=== PATIENT | male | born 1930 | race Caucasian/White ===

== ENCOUNTER 2017-01-28 23:22 | Emergency (ER) | payer OTHER, MEDICARE ==
--- NOTE | 2017-01-28 23:56 | ED GI/GU/ABDOMINAL COMPLAINT ---
History of Present Illness General Chief Complaint: Nausea, Vomiting, Diarrhea Stated Complaint: BIBA COFFEE GROUND EMESIS Source: patient, old records, EMS, W10 Exam Limitations: no limitations Vital Signs & Intake/Output Vital Signs & Intake/Output Vital Signs Date Time Temp Pulse Resp B/P Pulse O2 O2 Flow FiO2 Ox Delivery Rate 01/29 0320 97.9 91 18 125/58 97 Room Air 01/29 0137 98.6 97 18 137/65 95 Room Air 01/28 2340 95 Room Air 01/28 2332 98.6 96 18 124/60 95 Room Air Allergies Coded Allergies: No Known Allergies (01/28/17) Reconcile Medications Acetaminophen (Tylenol Extra Strength) 500 MG TABLET 650 MG IL Q4H PRN PAIN/ TEMP >100 (Reported) Acetaminophen (Mapap) 500 MG CAPSULE 650 MG PO Q4H PRN TEMP >100, PAIN ( Reported) Albuterol Sulfate 0.63 MG/3 ML VIAL.NEB 1 UNIT NEB Q4H PRN SOB/ WHEEZING ( Reported) 0.083% Ascorbic Acid (Vitamin C) 500 MG CAPSULE.ER 1 CAP PO DAILY VITAMIN SUPPLEMENT (Reported) Benzonatate (Tessalon Perle) 100 MG CAPSULE 1 CAP PO TID COUGH (Reported) Bisacodyl (Dulcolax) 10 MG SUPP.RECT 1 SUP RC DAILY CONSTIPATION (Reported) IF M.O.M. INEFFECTIVE Calcium Carbonate (Oysco-500) 500 MG CALCIUM (1,250 MG) TABLET 500 MG PO BID VITAMIN (Reported) Diphenhydramine HCl (Diphenhist) 25 MG CAPSULE 1 TAB PO Q8H PRN ITCHING ( Reported) Escitalopram Oxalate 20 MG TABLET 1 TAB PO DAILY ANTIDEPRESSANT (Reported) Ferrous Sulfate 325 MG (65 MG IRON) TABLET 1 TAB PO TID IRON SUPPLEMENT ( Reported) Gentamicin Sulfate 0.1 % OINT...G. 1 JUAN TOP TID L EYE DRAINAGE (Reported) apply to affected area(s) Guaifenesin (Mucinex) 600 MG TAB.ER.12H 400 MG PO BID COUGH (Reported) Guaifenesin/Dextromethorphan (Robafen-Dm Syrup) 100 MG-10 MG/5 ML SYRUP 10 ML PO Q4 PRN COUGH/ CONGESTION (Reported) Ipratropium/Albuterol Sulfate (Iprat-Albut 0.5-3(2.5) MG/3 Ml) 0.5 MG-3 MG (2.5 MG BASE)/3 ML AMPUL.NEB 1 UNIT NEB Q4H HX LUNG CA (Reported) Lorazepam 0.5 MG TABLET 1 TAB PO Q12H ANXIETY (Reported) Lorazepam (Ativan) 0.5 MG TABLET 1 TAB PO BEDTIME PRN ANXIETY (Reported) Magnesium Hydroxide (Milk Of Magnesia) 400 MG/5 ML ORAL.SUSP 30 ML PO DAILY PRN CONSTIPATION (Reported) Mirtazapine (Remeron) 15 MG TAB.RAPDIS 7.5 MG PO QHS MEMORY (Reported) Na Phos,M-B/Na Phos,Di-Ba (Fleet Enema) 19 GRAM-7 GRAM/118 ML ENEMA 1 E RC ONCE CONSTIPATION (Reported) IF BISACODYL INEFFECTIVE Ondansetron (Zofran Odt) 4 MG TAB.RAPDIS 1 TAB PO Q6H PRN NAUSEA/VOMITTING ( Reported) Oxycodone HCl (Oxycontin) 10 MG TAB.ER.12H 1 TAB PO QAM PAIN (Reported) Oxycodone HCl 5 MG CAPSULE 1 CAP PO Q4H PRN PAIN (Reported) Pregabalin (Lyrica) 50 MG CAPSULE 1 CAP PO BEDTIME DEPRESSION (Reported) Sennosides (Senna) 8.6 MG TABLET 2 TAB PO Q12H CONSTIPATION (Reported) Triage Note: TRIAGE: PATIENT POLY FROM [facility] S/P APPROX 400ML COFFEE GROUND EMESIS AT APPROX 9PM. PATIENT ARRIVES OFFERING NO COMPLAINTS OTHER THAN L EYE DISCHARGE BEING TREATED W/ TOPICAL ABX. NO WINCING/ REPORTS OF PAIN TO ABDOMEN W/ PALPATION. VSS. DENIES CP/SOB/N/V/D/ ABD PAIN. Triage Nurses Notes Reviewed? yes Onset: Just prior to arrival Duration: minute(s):, gone now Timing: recent history Quality/Severity: vomiting Radiation: no radiation Activities at Onset: rest Prior Abdominal Problems: none Past Sexual History: Unobtainable at this time No Modifying Factors: none Associated Symptoms: nausea/vomiting HPI: Prior to admission patient was noted to vomit dark material. There is no reported fever chills diarrhea chest pain cough shortness of breath headache dysuria. Past History Travel History Traveled to [place] past 21 day No Medical History Any Pertinent Medical History? 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 No Review of Systems Review of Systems Constitutional: Reports: no symptoms. EENTM: Reports: see HPI, eye pain, eye drainage. Respiratory: Reports: no symptoms. Cardiovascular: Reports: no symptoms. GI: Reports: see HPI, vomiting. Genitourinary: Reports: no symptoms. Musculoskeletal: Reports: no symptoms. Skin: Reports: no symptoms. Neurological/Psychological: Reports: no symptoms. Hematologic/Endocrine: Reports: no symptoms. Immunologic/Allergic: Reports: no symptoms. All Other Systems: Reviewed and Negative Physical Exam Physical Exam General Appearance: cachetic, lethargic, mild distress Head: atraumatic, normal appearance Eyes: Left: other (orbital erythema). Bilateral: PERRL, EOMI. Ears, Nose, Throat, Mouth: hearing grossly normal Neck: normal inspection, supple, full range of motion, normal alignment Respiratory: normal breath sounds, chest non-tender, no respiratory distress, quiet respiration, lungs clear Cardiovascular: normal peripheral pulses, irregularly irregular Peripheral Pulses: 4+ carotid (R), 4+ carotid (L) Gastrointestinal: normal bowel sounds, soft, non-tender, no organomegaly Rectal: heme positive stool Male Genitals: normal genitalia Back: normal inspection, normal range of motion, no vertebral tenderness Extremities: normal range of motion, no ligament instability 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 No Severe Sepsis Present: No Septic Shock Present: No Progress Differential Diagnosis: gastritis, pancreatitis, peptic ulcer Plan of Care: Orders Procedure Date/time Status LIPASE 01/28 2354 Complete COMPREHENSIVE METABOLIC PANEL 01/28 2354 Complete CBC WITHOUT DIFFERENTIAL 01/28 2354 Complete Laboratory Tests 01/29/17 0025: Anion Gap 5, Estimated GFR > 60, BUN/Creatinine Ratio 36.3 H, Glucose 177 H, Calcium 8.5, Total Bilirubin 0.4, AST 15 L, ALT 22, Alkaline Phosphatase 76, Total Protein 6.4, Albumin 2.8 L, Globulin 3.6, Albumin/Globulin Ratio 0.8 L, Lipase 44, CBC w Diff NO MAN DIFF REQ, RBC 3.87 L, MCV 73.0 L, MCH 22.6 L, RDW 18.8 H, MPV 8.4, Gran % 41.9 L, Lymphocytes % 55.4 H, Monocytes % 1.0 L, Eosinophils % 0.1, Basophils % 1.6, Absolute Granulocytes 3.7, Absolute Lymphocytes 4.9 H, Absolute Monocytes 0.1 L, Absolute Eosinophils 0, Absolute Basophils 0.1, PUBS MCHC 31.0 L Initial ED EKG: none Departure Departure Time of Disposition: 450 Disposition: ACUTE REHAB FACILITY Condition: Stable Clinical Impression Primary Impression: Vomiting alone Qualifiers: Vomiting type: unspecified Vomiting Intractability: non-intractable Qualified Code: R11.11 - Vomiting without nausea Secondary Impressions: Anemia Qualifiers: Anemia type: unspecified type Qualified Code: D64.9 - Anemia, unspecified Referrals: LOKESH LYNNE MD (PCP/Family) Additional Instructions: Follow up with Dr. Chase for endoscopy. Departure Forms: Customer Survey General Discharge Information
[2017-01-29] MEDS ORDERED: IPRAT-ALBUT 0.5-3 ML NEB (00:01)
[2017-01-29] MEDS ORDERED: ESCITALOPRAM OX20 MG PO (00:05)
[2017-01-29] MEDS ORDERED: SENNA8.6 M3 PO (00:06)
[2017-01-29] MEDS ORDERED: ATIVAN1 M1 PO (00:07)
[2017-01-29] MEDS ORDERED: OXYCONTIN10 M1 PO (00:07)
[2017-01-29] MEDS ORDERED: FERROUS SULFAT325 M3 PO (00:08)
[2017-01-29] MEDS ORDERED: OYSCO-500500 MG PO (00:09)
[2017-01-29] MEDS ORDERED: XARELTO20 M2 PO (00:10)
[2017-01-29] MEDS ORDERED: VITAMIN C500 M7 PO (00:10)
[2017-01-29] MEDS ORDERED: LYRICA50 M1 PO (00:12)
[2017-01-29] MEDS ORDERED: TESSALON PERLE100 M1 PO (00:14)
[2017-01-29] MEDS ORDERED: REMERON15 M3 PO (00:14)
[2017-01-29] MEDS ORDERED: MUCINEX600 M1 PO (00:15)
[2017-01-29] MEDS ORDERED: GENTAMICIN SULF30 G1 TOP (00:15)
[2017-01-29] MEDS ORDERED: TYLENOL EXTRA500 M2 PR (00:20)
[2017-01-29] MEDS ORDERED: DULCOLAX10 M1 RC (00:21)
[2017-01-29] MEDS ORDERED: FLEET ENEMA133 ML RC (00:21)
[2017-01-29] MEDS ORDERED: MAPAP500 M2 PO (00:22)
[2017-01-29] MEDS ORDERED: MILK OF MA400 MG/52 PO (00:23)
[2017-01-29] MEDS ORDERED: OXYCODONE HCL5 M2 PO (00:23)
[2017-01-29] MEDS ORDERED: ALBUTEROL0.63 MG/1 NEB (00:26)
[2017-01-29] MEDS ORDERED: ROBAFEN-DM SYR118 ML PO (00:26)
[2017-01-29] MEDS ORDERED: ATIVAN0.5 M1 PO (00:27)
[2017-01-29] MEDS ORDERED: ZOFRAN ODT4 M1 PO (00:27)
[2017-01-29] MEDS ORDERED: DIPHENHIST25 MG PO (00:27)
[2017-01-29 00:37] LABS: ABSOLUTE BASOPHIL COUNT 0.1 /CUMM (0.0-0.2); ABSOLUTE EOSINOPHIL COUNT 0 /CUMM (0.0-0.7); ABSOLUTE GRANULOCYTE CT 3.7 /CUMM (1.4-6.5); ABSOLUTE LYMPH COUNT 4.9 /CUMM (1.2-3.4); ABSOLUTE MONOCYTE COUNT 0.1 /CUMM (0.10-0.60); BASOPHIL % 1.6 % (0.0-2.0); EOSINOPHIL % 0.1 % (0-5); HEMATOCRIT 28.2 % (42-52); MEAN CORPUSCULAR HGB 22.6 PG (27.0-31.0); MEAN PLATELET VOLUME 8.4 FL (7.4-10.4); PLATELET COUNT 212 /CUMM (130-400); RBC DISTRIBUTION WIDTH 18.8 % (11.5-14.5); RED BLOOD CELL CT 3.87 /CUMM (4.70-6.10); WHITE BLOOD CELL COUNT 8.9 /CUMM (4.8-10.8)
[2017-01-29 00:39] LABS: GRANULOCYTE % 41.9 % (42.2-75.2)
[2017-01-29 05:21] VITALS: BP 111/56
== END 2017-01-29 05:49 ==
LOC: ERH 23:22
PROVIDERS: Emergency Medicine
DX: R11.10 Vomiting, unspecified (principal); D64.9 Anemia, unspecified

== ENCOUNTER 2017-04-08 06:09 | Inpatient (IN) | payer OTHER, MEDICARE ==
[~2017-04-08] VITALS: Ht 175.3 cm; Wt 78.7 kg
[~2017-04-08 06:09] MED LIST: ALBUTEROL0.63 MG/1 NEB; ATIVAN0.5 M1 PO; ATIVAN1 M1 PO; DIPHENHIST25 MG PO; DULCOLAX10 M1 RC; ESCITALOPRAM OX20 MG PO; FERROUS SULFAT325 M3 PO; FLEET ENEMA133 ML RC; GENTAMICIN SULF30 G1 TOP; IPRAT-ALBUT 0.5-3 ML NEB; LYRICA50 M1 PO; MAPAP500 M2 PO; MILK OF MA400 MG/52 PO; MUCINEX600 M1 PO; OXYCODONE HCL5 M2 PO; OXYCONTIN10 M1 PO; OYSCO-500500 MG PO; REMERON15 M3 PO; ROBAFEN-DM SYR118 ML PO; SENNA8.6 M3 PO; TESSALON PERLE100 M1 PO; TYLENOL EXTRA500 M2 PR; VITAMIN C500 M7 PO; XARELTO20 M2 PO; ZOFRAN ODT4 M1 PO
--- NOTE | 2017-04-08 06:13 | ED AMS/SEIZURE/WEAK/DIZZY ---
History of Present Illness General Chief Complaint: General Adult Stated Complaint: ? GI BLEED Source: patient Exam Limitations: no limitations Vital Signs & Intake/Output Vital Signs & Intake/Output Vital Signs Date Time Temp Pulse Resp B/P B/P Pulse O2 O2 Flow FiO2 Mean Ox Delivery Rate 04/08 0943 98.2 112 18 121/59 95 Non 10L ReBreather 04/08 0906 97.9 110 18 144/72 96 Non 100% ReBreather 04/08 0750 97.7 92 16 130/60 92 Non 100% ReBreather 04/08 0621 97.3 116 22 116/56 92 Non 100% ReBreather 04/08 0615 84 Nasal 3.0L Cannula 04/08 0612 120 22 122/59 82 Nasal 3.0L Cannula Allergies Coded Allergies: No Known Allergies (01/28/17) Triage Nurses Notes Reviewed? yes Onset: Gradual Duration: hour(s): Timing: recent history Injury Environment: ecf Severity: severe Modifying Factors: Improves With: rest. Associated Symptoms: weakness, dyspnea, vomiting HPI: 86-year-old gentleman presents with dyspnea and lethargy for the past several hours. Per the medics and medical record, he had an EGD and colonoscopy yesterday, including biopsies of his stomach. This morning he was found to be tachypneic and hypotensive to the 70s. He vomited once some dark coffee grounds. He was also noted to be lethargic. The W 10 and medics notes no fever abdominal distention or yaya bleeding from the rectum. (NILTON COHN,DEEPTI Black) Reconcile Medications Acetaminophen (Tylenol Extra Strength) 500 MG TABLET 650 MG HI Q4H PRN PAIN/ TEMP >100 (Reported) Albuterol Sulfate 0.63 MG/3 ML VIAL.NEB 1 UNIT NEB Q4H PRN SOB/ WHEEZING ( Reported) 0.083% Ascorbic Acid (Vitamin C) 500 MG CAPSULE.ER 1 CAP PO DAILY VITAMIN SUPPLEMENT (Reported) Calcium Carbonate (Oyster Shell Calcium) 500 MG CALCIUM (1,250 MG) TABLET 1 TAB PO BID SUPPLEMENT (Reported) Diphenhydramine HCl (Diphenhist) 25 MG CAPSULE 1 TAB PO Q8H PRN ITCHING ( Reported) Escitalopram Oxalate 20 MG TABLET 1 TAB PO DAILY ANTIDEPRESSANT (Reported) Ferrous Sulfate 325 MG (65 MG IRON) TABLET 1 TAB PO TID IRON SUPPLEMENT ( Reported) Guaifenesin/Dextromethorphan (Robafen-Dm Syrup) 100 MG-10 MG/5 ML SYRUP 10 ML PO Q4 PRN COUGH/ CONGESTION (Reported) Ipratropium/Albuterol Sulfate (Iprat-Albut 0.5-3(2.5) MG/3 Ml) 0.5 MG-3 MG (2.5 MG BASE)/3 ML AMPUL.NEB 1 UNIT NEB Q4H HX LUNG CA (Reported) Lorazepam (Ativan) 1 MG TABLET 1 TAB PO BID ANXIETY (Reported) Lorazepam (Ativan) 0.5 MG TABLET 1 TAB PO BEDTIME PRN ANXIETY (Reported) Magnesium Hydroxide (Milk Of Magnesia) 400 MG/5 ML ORAL.SUSP 30 ML PO DAILY PRN CONSTIPATION (Reported) Mirtazapine (Remeron) 15 MG TAB.RAPDIS 7.5 MG PO QHS MEMORY (Reported) Ondansetron (Zofran Odt) 4 MG TAB.RAPDIS 1 TAB PO Q6H PRN NAUSEA/VOMITTING ( Reported) Oxycodone HCl (Oxycontin) 10 MG TAB.ER.12H 1 TAB PO QAM PAIN (Reported) Oxycodone HCl 5 MG CAPSULE 1 CAP PO Q4H PRN PAIN (Reported) Polyethylene Glycol 3350 (Miralax) 17 GRAM/DOSE POWDER 17 GM PO DAILY CONSTIPATION (Reported) mix with water, juice, soda, coffee or tea Pregabalin (Lyrica) 50 MG CAPSULE 1 CAP PO BEDTIME DEPRESSION (Reported) Rivaroxaban (Xarelto) 20 MG TABLET 1 TAB PO QPM BLOOD THINNER (Reported) with food Sennosides (Senna) 8.6 MG TABLET 2 TAB PO Q12H CONSTIPATION (Reported) (LIUDMILA COHN,DESTINEY De La Cruz) Past History Travel History Traveled to [place] past 21 day No Medical History Any Pertinent Medical History? 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 No (DEEPTI CALLAWAY MD) Review of Systems Review of Systems Constitutional: Reports: no symptoms. EENTM: Reports: no symptoms. Respiratory: Reports: no symptoms. Cardiovascular: Reports: no symptoms. GI: Reports: no symptoms. Genitourinary: Reports: no symptoms. Musculoskeletal: Reports: no symptoms. Skin: Reports: no symptoms. Neurological/Psychological: Reports: no symptoms. Hematologic/Endocrine: Reports: no symptoms. Immunologic/Allergic: Reports: no symptoms. All Other Systems: Reviewed and Negative (NILTON COHN,DEEPTI Black) Physical Exam Physical Exam General Appearance: well developed/nourished, moderate distress Head: atraumatic, normal appearance Eyes: Bilateral: normal appearance. Ears, Nose, Throat: dry mucosa, poor dentition Neck: normal inspection, supple, full range of motion Respiratory: normal breath sounds, accessory muscle use, respiratory distress, diminished breath sounds bilaterally Cardiovascular: regular rate/rhythm Gastrointestinal: normal bowel sounds, soft, non-tender Rectal: nearly empty vaginal vault, trace guiac positive stool Back: normal inspection, normal range of motion Extremities: normal range of motion Neurologic/Psych: no motor/sensory deficits, lethargic, minimal response to verbal stimuli Reflexes: 0: bicep (R), bicep (L), knee (R), knee (L). Skin: cool and mottled Core Measures ACS in differential dx? No CVA/TIA Diagnosis: No Severe Sepsis Present: Yes BC x2: Yes Lactic Acid x2: Yes IV ABX Broad Spectrum: Yes NS/LR Started: Yes Septic Shock Present: No (NILTON COHN,DEEPTI Black) Progress Differential Diagnosis: gi bleed, aspiration pneumonia, perforation, sepsis vs other. Plan of Care: Orders Procedure Date/time Status Patient Data 04/08 1028 Active Admit to inpatient 04/08 0914 Active LACTIC ACID 04/08 0914 Active ARTERIAL BLOOD GAS (GEN) 04/08 0618 Complete BLOOD CULTURE 04/08 0615 Active BLOOD CULTURE 04/08 0614 Active TROPONIN LEVEL 04/08 0614 Complete PARTIAL THROMBOPLASTIN TIME 04/08 06 Complete PROTHROMBIN TIME 04/08 06 Complete LIPASE 04/08 0614 Complete LACTIC ACID 04/08 0614 Complete COMPREHENSIVE METABOLIC PANEL 04/08 06 Complete CBC WITHOUT DIFFERENTIAL 04/08 614 Complete AMYLASE 04/08 614 Complete EKG 04/08 614 Active TYPE & SCREEN (NOT X-MATCH) 04/08 614 Complete Laboratory Tests 04/08/17 0955: Lactic Acid Pending 04/08/17 0636: CBC w Diff MAN DIFF ORDERED, RBC 3.71 L, MCV 78.2 L, MCH 24.9 L, RDW 20.0 H, MPV 8.7, Gran % 50.1, Lymphocytes % 49.6, Monocytes % 0.2 L, Eosinophils % 0, Basophils % 0.1, Absolute Granulocytes 23.3 H, Segmented Neutrophils 55, Band Neutrophils 4, Absolute Lymphocytes 23.1 H, Lymphocytes 40, Monocytes 1 L, Absolute Monocytes 0.1 L, Absolute Eosinophils 0, Absolute Basophils 0.1, Platelet Estimate ADEQUATE, Poikilocytosis FEW, Anisocytosis 1+, Ovalocytes FEW, PUBS MCHC 31.9 L, Fld Total RBCs Counted 100 04/08/17 0630: pH 7.48 H, pCO2 44, pO2 117 H, HCO3 32 H, ABG O2 Sat (Measured) 98.0, P-50 ( Temp Corrected) Y, Carboxyhemoglobin 0.5 L, O2 Concentration % 100%, Temperature 96.3 L, O2 Delivery Method NRB, Phlebotomy Draw Site RIGHT BRACHIAL 04/08/17 0625: Anion Gap 15, Estimated GFR > 60, BUN/Creatinine Ratio 35.6 H, Glucose 183 H, Lactic Acid 2.1, Calcium 8.6, Total Bilirubin 0.7, AST 16 L, ALT 24, Alkaline Phosphatase 88, Troponin I 0.07, Total Protein 7.0, Albumin 3.1 L, Globulin 3.9 , Albumin/Globulin Ratio 0.8 L, Amylase 62, Lipase < 10 L, PT 14.0 H, INR 1.34 H, APTT 34 Microbiology 04/08 628 BLOOD: Blood Culture - RECD 04/08 612 BLOOD: Blood Culture - RECD Diagnostic Imaging: Viewed by Me: Radiology Read, CT Scan. Discussed w/RAD: Radiology Read, CT Scan. Initial ED EKG: pending Hand-Off Endorsed To: LIUDMILA COHN,DESTINEY De La Cruz Endorsed Time: 0700 Pending: CT, labs, Xray (NILTON COHN,DEEPTI Black) Comments: 04/08/2017 7:39:14 AM per radiologist, distended stomach and aspiration pneumonitis-worsening. gastric outlet obstruction, stigmata DM and ank spondylitis, comp fx, renal calculi. 04/08/2017 8:44:06 AM patient's case discussed with Dr. Nguyen who will evaluate the patient in the emergency department. Plan admission. (DESTINEY NUR MD) Departure Departure Disposition: STILL A PATIENT Condition: Stable Clinical Impression Primary Impression: Sepsis Referrals: LOKESH NGUYEN MD (PCP/Family) Departure Forms: Customer Survey General Discharge Information Comments 04/08/17, 6:59...took critical value from lab... 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 Patient is requiring high flow oxygen to maintain normal oxygen saturations. It addition the patient's chest x-ray strongly suggests an underlying lung malignancy. He is also experiencing a gastric outlet obstruction likely the result of an endoscopy and colonoscopy performed yesterday. This patient is 86 years old with multiple medical comorbidities and multiple acute medical issues. He cannot be treated safely as an outpatient. He now requires intensive monitoring and care including high flow oxygen with continuous pulse oximetry, serial vital signs and abdominal examinations. GI consultation should be considered. Patient should also be treated with IV antibiotics for his aspiration pneumonitis and to prevent secondary pneumonia and sepsis. Infectious disease and pulmonary consultations should be considered. Oxygen should be weaned depending on oxygen saturations. Given the above I feel this patient will require a multiple day hospitalization. (LIUDMILA COHN,DESTINEY De La Cruz) Critical Care Note Critical Care Note Critical Care Time: 30-74 min (DEEPTI CALLAWAY MD)
--- NOTE | 2017-04-08 06:15 | NUR ---
DR CALLAWAY AT BEDSIDE
--- NOTE | 2017-04-08 06:20 | NUR ---
86YO MALE TO RM 10 VIA AMB FROM [facility] SP FOUND BY STAFF TO HAVE VOMITED ?COFFEE GROUND EMESIS AND LOW O2 SAT. PT HAD COLONOSCOPY HERE AT [facility] ON WED.
--- NOTE | 2017-04-08 06:26 | NUR ---
02 SAT = 80"S ON 3L PLACED ON 100% NRB AT THIS TIME.
--- NOTE | 2017-04-08 06:34 | NUR ---
O2 SAT ON 100%NRB = 100
[2017-04-08 06:42] LABS: ABSOLUTE BASOPHIL COUNT 0.1 /CUMM (0.0-0.2); ABSOLUTE EOSINOPHIL COUNT 0 /CUMM (0.0-0.7); ABSOLUTE GRANULOCYTE CT 23.3 /CUMM (1.4-6.5); ABSOLUTE LYMPH COUNT 23.1 /CUMM (1.2-3.4); ABSOLUTE MONOCYTE COUNT 0.1 /CUMM (0.10-0.60); BASOPHIL % 0.1 % (0.0-2.0); EOSINOPHIL % 0 % (0-5); MEAN CORPUSCULAR HGB 24.9 PG (27.0-31.0); MEAN CORPUSCULAR HGB CONC 31.9 G/DL (33.0-37.0); MEAN CORPUSCULAR VOLUME 78.2 FL (80.0-94.0); MEAN PLATELET VOLUME 8.7 FL (7.4-10.4); PLATELET COUNT 203 /CUMM (130-400); RED BLOOD CELL CT 3.71 /CUMM (4.70-6.10)
--- NOTE | 2017-04-08 06:42 | NUR ---
PT MEDICATED WITH 40MG PROTONIX IV PER EMAR.
[2017-04-08 06:45] LABS: PTT 34 SEC (25-37)
[2017-04-08 06:49] LABS: GRANULOCYTE % 50.1 % (42.2-75.2); WHITE BLOOD CELL COUNT 46.5 /CUMM (4.8-10.8)
--- NOTE | 2017-04-08 07:00 | NUR ---
PT RETURNED FROM CT SCAN VSS IV ABX INFUSING DIRECTED
--- NOTE | 2017-04-08 07:50 | CT SCAN REPORT ---
EXAMINATION: CT ABDOMEN AND PELVIS WITHOUT CONTRAST CLINICAL INFORMATION: Abdominal pain status post colonoscopy yesterday. COMPARISON: CT chest 01/11/2017. TECHNIQUE: Multidetector volumetric imaging was performed from the superior aspect of the liver through the pubic symphysis. Sagittal and coronal reformatted images were obtained on the technologist's workstation. DLP: 408 mGy-cm FINDINGS: LUNG BASES: The incidentally visualized lung bases demonstrate bibasilar coarse reticular opacities and predominantly posterior consolidative opacity. Findings are increased in extent compared with 01/11/2017. No pleural effusions are noted. Incidentally visualized portions of the heart demonstrate marked diffuse coronary artery calcifications. LIVER, GALLBLADDER, AND BILIARY TREE: The gallbladder is absent and cholecystectomy clips are noted. Liver is grossly normal in size. Liver demonstrates diffuse low density (approximately 40 5HU) relative to the spleen (average density 70 2HU) consistent with diffuse hepatic steatosis. No biliary duct dilatation is identified. PANCREAS: Grossly normal. SPLEEN: Spleen is normal in appearance. Dense splenic artery coarse atherosclerotic calcific vascular calcifications are noted. ADRENAL GLANDS: Unremarkable. KIDNEYS AND URETERS: The punctate (less than 3 mm) calcification is present in the right renal pelvis. A punctate calcification is present within the inferior left renal pole. No hydronephrosis or gross perinephric inflammatory changes are identified. No ureterectasis is visualized. No ureteral calcifications are noted. BLADDER: Normal. GASTROINTESTINAL TRACT: The stomach is markedly distended demonstrating gas-fluid level. No free intraperitoneal gas is noted. Gas is noted in scattered nondistended small bowel segments. No intestinal dilatation or mural thickening is noted. The appendix is normal in appearance (axial image 61/99). ABDOMINAL WALL: No significant hernia is appreciated. LYMPH NODES: No lymphadenopathy is visualized. VASCULAR: Diffuse, marked vascular calcifications are present. Some of the calcifications appear coarse and the typical configuration of atherosclerotic calcifications. Elsewhere, transient tract vascular calcifications are noted and may represent Monckeberg type vascular calcifications particularly in the visualized peripheral system. No gross calcifications of the seminal vesicles are demonstrated. An inferior vena cava filter is present terminating inferior to the level of the right renal vein. PELVIC VISCERA: Unremarkable. OSSEOUS STRUCTURES: Multiple left posterolateral chronic appearing posterior manic rib deformities are noted. A compression deformity of the L1 vertebral body with approximately 25% loss of craniocaudal height and inward deformity of the superior endplate is present. This vertebral body was partially included within the image [id number] on the comparison examination of 12/11/2016. To the extent that this vertebral body was partially visualized before, no gross interval change in configuration of this vertebral body is noted. Specifically, the superior portion of the L1 vertebral body was included within the image [id number] on the 01/11/2017 examination and demonstrates a configuration grossly unchanged compared with this current exam. Partial visualization is made of anterior ankylosis of the visualized thoracic vertebral bodies grossly unchanged compared with 12/11/2016. Partial bilateral ankylosis of the sacroiliac joints is noted (axial image 56/99). Mild multilevel facet hypertrophic changes are present in the lumbar spine. Multiple right posterolateral post traumatic rib deformities are present and appear grossly unchanged compared with 01/11/2017. IMPRESSION: 1. Marked gastric distention. The stomach is markedly distended containing both gas and fluid. 2. The incidentally visualized portions of the lung bases demonstrate bilateral dependent airspace disease increased in prominence compared with 01/11/2017. These findings may represent chronic or acute on chronic aspiration pneumonitis. 3. No free intraperitoneal gas. No intestinal dilatation. 4. Diffuse Monckeberg type facet or calcification suspicious for the sequela of long-term diabetes mellitus. Additionally, diffuse calcific atherosclerosis is present including extensive coronary artery calcific atherosclerosis. 4. The incidentally visualized portions of the lung bases demonstrate bilateral dependent airspace disease increased in prominence compared with 01/11/2017. These findings may represent chronic or acute on chronic aspiration pneumonitis. 5. 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 6. L1 vertebral body benign-appearing compression deformity grossly unchanged compared with 01/11/2017. 7. Inferior vena cava filter in situ. 8. Bilateral punctate renal calcifications which may represent vascular calcifications or urolithiasis. No evidence of acute obstructive uropathy. No hydronephrosis or ureterectasis. 9. Bilateral posterolateral rib chronic posttraumatic deformities. 10. Diffuse hepatic steatosis. 11. Status post cholecystectomy. This result with particular reference to marked gastric distention and possible aspiration pneumonitis was discussed with Dr. Faria by telephone at 04/08/2017 7:45 AM and it was ascertained that the content and urgency of the report was understood at the time of direct communication.
--- NOTE | 2017-04-08 08:10 | NUR ---
PT RESTING MOANING IN BED DENIES PAIN
[2017-04-08] MEDS ORDERED: MIRALAX119 GM PO (08:12)
[2017-04-08] MEDS ORDERED: XARELTO20 M2 PO (08:14)
[2017-04-08] MEDS ORDERED: OYSTER SHELL C500 M2 PO (08:16)
--- NOTE | 2017-04-08 08:17 | RADIOLOGY REPORT ---
EXAMINATION: XR PORTABLE CHEST CLINICAL INFORMATION: Dyspnea. Hypoxia. COMPARISON: CT chest 01/11/2017, CT abdomen pelvis 04/08/2017 TECHNIQUE: Portable frontal view of the chest was obtained. FINDINGS: Coarse bibasilar reticular opacities and predominantly bibasilar reticular opacities are noted. Dense opacification is present in the right perihilar region grossly unchanged compared with CT of the chest from 01/11/2017. Bibasilar coarse reticular opacities in scattered airspace opacities are present and appear increased in prominence compared with CT of the chest from 01/11/2017. Moderate blunting of the right costophrenic sulcus is noted increased in prominence compared with 01/11/2017. Airspace opacity and volume loss is present in the right upper lobe suspicious for right upper lobe atelectasis. The cardiac silhouette is normal in size. Moderate scattered aortic calcific atherosclerosis is visualized. Diffuse osteopenia is present. IMPRESSION: 1. Increased bibasilar airspace disease compared with 01/11/2017 which may represent acute on chronic aspiration pneumonitis. 2. Dense airspace opacification within the right perihilar region which is suspicious for neoplasm and possible posttreatment related changes as described on the comparison CT of 01/11/2017. 3. Tunneled left subclavian catheter terminating within the brachiocephalic vein. 4. Right pleural thickening and possible right upper lobe atelectasis. 5. Aortic calcific atherosclerosis. 6. Diffuse osteopenia. This result with reference to possible neoplasm was discussed with Dr. Faria by telephone at 04/08/2017 8:12 AM and it was ascertained that the content and urgency of the report was understood at the time of direct communication.
--- NOTE | 2017-04-08 10:26 | History & Physical ---
EKN PELAEZ MD 04/08/17 1026: General Information and HPI MD Statement: I have seen and personally examined FRANCOIS MEJIA and documented this H&P. The patient is a 86 year old M who presented with a patient stated chief complaint of [shortness of breath]. History of Present Illness: 76-year-old male with a past medical history of B cell CLL in remission, malignant neoplasm lung cancer? 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 The patient did not have any distress The patient's vitals at the facility were 116/60, heart rate 116, respiration rate of 24, temperature 96.4. After speaking to the nurse at the [place], I was told that the patient has been feeling nauseous since last night and had a colonoscopy performed by Errol Chase MD yesterday. The patient had only one episode of vomiting as described above. The patient denies any abdominal pain Allergies/Medications Allergies: Coded Allergies: No Known Allergies (01/28/17) Home Med list Acetaminophen (Tylenol Extra Strength) 500 MG TABLET 650 MG [place] Q4H PRN PAIN/ TEMP >100 (Reported) Albuterol Sulfate 0.63 MG/3 ML VIAL.NEB 1 UNIT NEB Q4H PRN SOB/ WHEEZING ( Reported) 0.083% Ascorbic Acid (Vitamin C) 500 MG CAPSULE.ER 1 CAP PO DAILY VITAMIN SUPPLEMENT (Reported) Calcium Carbonate (Oyster Shell Calcium) 500 MG CALCIUM (1,250 MG) TABLET 1 TAB PO BID SUPPLEMENT (Reported) Diphenhydramine HCl (Diphenhist) 25 MG CAPSULE 1 TAB PO Q8H PRN ITCHING ( Reported) Escitalopram Oxalate 20 MG TABLET 1 TAB PO DAILY ANTIDEPRESSANT (Reported) Ferrous Sulfate 325 MG (65 MG IRON) TABLET 1 TAB PO TID IRON SUPPLEMENT ( Reported) Guaifenesin/Dextromethorphan (Robafen-Dm Syrup) 100 MG-10 MG/5 ML SYRUP 10 ML PO Q4 PRN COUGH/ CONGESTION (Reported) Ipratropium/Albuterol Sulfate (Iprat-Albut 0.5-3(2.5) MG/3 Ml) 0.5 MG-3 MG (2.5 MG BASE)/3 ML AMPUL.NEB 1 UNIT NEB Q4H HX LUNG CA (Reported) Lorazepam (Ativan) 1 MG TABLET 1 TAB PO BID ANXIETY (Reported) Lorazepam (Ativan) 0.5 MG TABLET 1 TAB PO BEDTIME PRN ANXIETY (Reported) Magnesium Hydroxide (Milk Of Magnesia) 400 MG/5 ML ORAL.SUSP 30 ML PO DAILY PRN CONSTIPATION (Reported) Mirtazapine (Remeron) 15 MG TAB.RAPDIS 7.5 MG PO QHS MEMORY (Reported) Ondansetron (Zofran Odt) 4 MG TAB.RAPDIS 1 TAB PO Q6H PRN NAUSEA/VOMITTING ( Reported) Oxycodone HCl (Oxycontin) 10 MG TAB.ER.12H 1 TAB PO QAM PAIN (Reported) Oxycodone HCl 5 MG CAPSULE 1 CAP PO Q4H PRN PAIN (Reported) Polyethylene Glycol 3350 (Miralax) 17 GRAM/DOSE POWDER 17 GM PO DAILY CONSTIPATION (Reported) mix with water, juice, soda, coffee or tea Pregabalin (Lyrica) 50 MG CAPSULE 1 CAP PO BEDTIME DEPRESSION (Reported) Rivaroxaban (Xarelto) 20 MG TABLET 1 TAB PO QPM BLOOD THINNER (Reported) with food Sennosides (Senna) 8.6 MG TABLET 2 TAB PO Q12H CONSTIPATION (Reported) Past History Travel History Traveled to [place] past 21 day No Medical History Neurological: DYSPHAGIA FAILURE TO THRIVE EENT: L EYE DISCHARGE Cardiovascular: AFIB Respiratory: pneumonia Gastrointestinal: NONE Hepatic: NONE Renal: NONE Musculoskeletal: WALKER DEPENDENT DIFFICULTY AMBULATING MUSCLE WEAKNESS IMPETIGO Psychiatric: anxiety, depression Endocrine: NONE Blood Disorders: NONE Cancer(s): leukemia, lung cancer [employer] [place] [place]/Reproductive: NONE Surgical History Surgical History: non-contributory Past Family/Social History Family History Relations & Conditions if any MOTHER Relation not specified for: FH: hyperlipidemia Psychosocial History Where do you live? Acute Rehab Who Do You Live With? there is side at [facility] Services at Home: Nursing Primary Language: Turkish Smoking Status: Former Smoker ETOH Use: denies use Functional Ability ADLs Needs Assist: dressing, eating, toileting, bathing. Ambulation: walker IADLs Needs Assist: telephone, transportation. Review of Systems Review of Systems Constitutional: Reports: see HPI, malaise (and old cachectic gentleman), weakness. EENTM: Reports: see HPI. Denies: double vision. Cardiovascular: Denies: chest pain, edema, orthopena. Respiratory: Reports: cough, short of breath, sputum production, wheezing. Exam & Diagnostic Data Last 24 Hrs of Vital Signs/I&O Vital Signs Date Time Temp Pulse Resp B/P B/P Pulse O2 O2 Flow FiO2 Mean Ox Delivery Rate 04/08 0943 98.2 112 18 121/59 95 Non 10L ReBreather 04/08 0906 97.9 110 18 144/72 96 Non 100% ReBreather 04/08 0750 97.7 92 16 130/60 92 Non 100% ReBreather 04/08 0621 97.3 116 22 116/56 92 Non 100% ReBreather 04/08 0615 84 Nasal 3.0L Cannula 04/08 0612 120 22 122/59 82 Nasal 3.0L Cannula Intake & Output 04/08 1600 04/08 0800 04/08 0000 Intake Total 1350 Output Total Balance 1350 Intake, IV 1350 Patient 120 lb Weight Physical Exam General Appearance Moderate Distress, patient is pleasantly confused and lethargic to answer questions, an old, cachectic appearence patient Skin No Rashes Lymphatic Axillary nl Cardiovascular Normal S1, Normal S2 Lungs bilateral decreased airway entry and wheezing all throughout the lungs Abdomen nondistended, slightly tender on palpation (.) Neurological Normal Gait, Normal Speech, Strength at 5/5 X4 Ext Assessment/Plan Assessment: 76-year-old male with a past medical history of B cell CLL in remission, malignant neoplasm lung cancer? 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, currently residing at [facility], chronic paroxysmal atrial fibrillation,, anemia of chronic disease, who is currently residing in [facility] and was found to be confused and had one episode of dark brownish liquid vomiting at the center was sent to the [facility] for further evaluation and is currently being evaluated for aspiration pneumonitis and gastric outlet obstruction Vitals at the time of admission showed: Blood pressure of 121/59, respiration rate of 18, pulse rate of 112, temperature 98.2 saturation of 95% on 2 L of oxygen Labs WBC of 46.5, hemoglobin of 9.2, hematocrit of 29, platelet count of 203 INR 1.34 PT of 14.1 ABG shows pH of 7.48, bicarbonate of 32, Chest x-ray shows: 1. Increased bibasilar airspace disease compared with 01/11/2017 which may represent acute on chronic aspiration pneumonitis. 2. Dense airspace opacification within the right perihilar region which is suspicious for neoplasm and possible posttreatment related changes as described on the comparison CT of 01/11/2017. 3. Tunneled left subclavian catheter terminating within the brachiocephalic vein. 4. Right pleural thickening and possible right upper lobe atelectasis. 5. Aortic calcific atherosclerosis. 6. Diffuse osteopenia. CT abdomen pelvis shows: 1. Marked gastric distention. The stomach is markedly distended containing both gas and fluid. 2. The incidentally visualized portions of the lung bases demonstrate bilateral dependent airspace disease increased in prominence compared with 01/11/2017. These findings may represent chronic or acute on chronic aspiration pneumonitis. 3. No free intraperitoneal gas. No intestinal dilatation. 4. Diffuse Monckeberg type facet or calcification suspicious for the sequela of long-term diabetes mellitus. Additionally, diffuse calcific atherosclerosis is present including extensive coronary artery calcific atherosclerosis. 4. The incidentally visualized portions of the lung bases demonstrate bilateral dependent airspace disease increased in prominence compared with 01/11/2017. These findings may represent chronic or acute on chronic aspiration pneumonitis. 5. 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 6. L1 vertebral body benign-appearing compression deformity grossly unchanged compared with 01/11/2017. 7. Inferior vena cava filter in situ. 8. Bilateral punctate renal calcifications which may represent vascular calcifications or urolithiasis. No evidence of acute obstructive uropathy. No hydronephrosis or ureterectasis. 9. Bilateral posterolateral rib chronic posttraumatic deformities. 10. Diffuse hepatic steatosis. 11. Status post cholecystectomy. Assessment 1. Acute hypoxic respiratory failure secondary to aspiration pneumonitis. The other differential includes obstructive pneumonia considering underlying lung malignancy, neoplastic mass which has not been worked up 2. Recent colonoscopy on 04/07/2017, and CAT scan showing gastric distention Suspicion for gastric outlet obstruction 3. History of chronic atrial fibrillation on Xarelto 4. History of CLL in remission(to be noted that the patient has a Port-A-Cath and is not currently undergoing any chemotherapy therapy, no records have been found. 5. History of hypertension 6. Leukocytosis with a history of History of CLL, Plan Admit to ICU for closer monitoring and very low threshold for intuibation BC times 2 ,Sputum culture,Strep and legionella urinary antigen,Urine cx IV vancomycin and ceftazidime for aspiration pneumonitis We will also add antibiotics for anaerobic coverage giving gastric outlet obstruction -Flagyl CRCU consult I ordered a peripheral smear for further evaluation of the smear Hematology oncology was obtained with Dr Prado with whom i spoke over phone. He was not aware of the patient but agreed that patient elevated WBC can be sepsis induced. He had no specific recommendations at this point and recommended to reconsult him if concerns for malignanct arise Gen. surgery consult-I spoke to Rayo who after revieweing the CT scan was cncerned about his distented belly. He recommended a stat NG tube and if not tolerated OG tube. Continue with Xarelto as DVT prophylaxis The patient remains critically ill and had a long conversation with patient conservatortor and he wnated to keep patinet Full code . I spoke to him about his poor prognosis and also requested to get in touch with his sons and can visit him in this admission. Jonel Up I([phone]) conservatorr for Armin Mejia. his doctor was [facility] cutter plasma arc. His number is ..Recently taken over by DR Louis in [place]. Addendum @ 12:10. Evalauated the patient with Dr Orta who recommended and agreed with proceeding with Intubataion for airway protection and Hypoxia. As Ranked By This Provider Problem List: 1. Sepsis 2. Anemia 3. Vomiting alone Core Measures/Miscellaneous Acute Coronary Syndrome ACS Diagnosis: No Cerebrovascular Accident CVA/TIA Diagnosis: No Congestive Heart Failure CHF Diagnosis: No Venous Thromboembolism VTE Risk Factors: Acute medical illness, Age > 40 No [facility] VTE prophylaxis d/t: VTE low risk, No contraindications No VTE Pharm Prophylaxis d/t: VTE low risk, No contraindications VTE Diagnosis: No VTE Type: NONE VTE Confirmed by (Test): NONE Severe Sepsis Severe Sepsis Present: Yes BC x2: Yes Lactic Acid x2: Yes IV ABX Broad Spectrum: Yes NS/LR Started: Yes Septic Shock Septic Shock Present: No Miscellaneous Documentation Attending Case Discussed With: dr goldsmith Primary Care Physician: LOKESH GOLDSMITH MD Patient sees these Specialists none Level of Patient Care: Critical Care (CRI) TAMMY COHN,Anton SANCHEZ 04/08/17 1531: Attending MD Review Statement Attending Statement Attending MD Statement: examined this patient, discuss w/resident/PA/BANK COURIER, agreed w/resident/PA/BANK COURIER, reviewed EMR data (avail), discussed with nursing, reviewed images
--- NOTE | 2017-04-08 11:38 | NUR ---
ASSUMED CARE OF PT, ATTEMPTED TO PLACE NG TUBE IN EITHER NOSTRIL WITH NO SUCCESS, DR. SHEFFIELD AWARE.
--- NOTE | 2017-04-08 11:39 | NUR ---
PT ALERT AND ORIENTED ONLY TO PERSON, UNAWRE OF PLACE OR TIME, PT NEEDS FREQUENT REMINDERS TO KEEP NRB ON FACE, 02 SAT 88-92%, DR SHEFFIELD AWARE. PT VERY LETHARGIC, APPEARS THIN WITH MULTIPLE BRUISES ON BOTH ARMS.
--- NOTE | 2017-04-08 12:17 | NUR ---
ATTEMPTED TO PLACE AN NG TUBE FOR A THIRD TIME PER 'S INSISTANCE. DR SHEFFIELD AT BEDSIDE WELL, NG TUBE PLACED WITH NO OUTPUT, NG TUBE REMOVED, PT'S 02 SAT DECREASING TO 86-88% BEFORE PROCEDURE AND AFTER. MANSI RT CALLED TO PLACE PT ON BIPAP
--- NOTE | 2017-04-08 12:30 | NUR ---
POTASSIUM STARTED PER EMAR, MANSI AT BEDSIDE TO START BIPAP, PT'S 02 SAT CURRENTLY 94%. PT REPOSITIONED ONTO MULTIPLE PILLOWS FOR COMFORT. DIRTY CHUCKS PAD REMOVED FROM UNDERNEATH PT AND THUY CARE PROVIDED
--- NOTE | 2017-04-08 12:51 | NUR ---
PER MD ROGERS HOLD BIPAP.
--- NOTE | 2017-04-08 13:49 | NUR ---
pt has bed assignment 109. rn notified
--- NOTE | 2017-04-08 14:15 | Cons- Gastroenterology ---
General Information and HPI Consulting Request Date of Consult: 04/08/17 Requested By: LOKESH LYNNE MD Reason for Consult: Gastric outlet obstruction; hematemesis, anemia. Source of Information: patient, old records Exam Limitations: confusion, poor historian, currently intubated History of Present Illness: Mr. Lake is an 86-year-old male with multiple medical problems who was sent in from a halfway early this morning after undergoing a colonoscopy yesterday with reports of worsening lethargy and changes in his mental status. According to the chart at the halfway the patient apparently was complaining of some nausea after the colonoscopy yesterday and had a few bouts of coffee-ground emesis. He had a deteriorating mental status and was found to be tachycardic, hypoxic and hypotensive and he was subsequently transferred to [facility] emergency room. On arrival to the emergency room the patient was reportedly confused and was not able to offer up much clinical history. In the emergency room he continue to be hypoxic and hypotensive for which she was given supplemental oxygen and IV fluids and was ultimately intubated. After he was intubated no G-tube was placed and a little over 1 L of coffee ground material was drained from the NG tube, but there was no yaya blood. His blood pressure has improved with IV fluids and he has not passed any melena or bright blood per rectum. Allergies/Medications Allergies: Coded Allergies: No Known Allergies (01/28/17) Home Med List: Acetaminophen (Tylenol Extra Strength) 500 MG TABLET 650 MG MT Q4H PRN PAIN/ TEMP >100 (Reported) Albuterol Sulfate 0.63 MG/3 ML VIAL.NEB 1 UNIT NEB Q4H PRN SOB/ WHEEZING ( Reported) 0.083% Ascorbic Acid (Vitamin C) 500 MG CAPSULE.ER 1 CAP PO DAILY VITAMIN SUPPLEMENT (Reported) Calcium Carbonate (Oyster Shell Calcium) 500 MG CALCIUM (1,250 MG) TABLET 1 TAB PO BID SUPPLEMENT (Reported) Diphenhydramine HCl (Diphenhist) 25 MG CAPSULE 1 TAB PO Q8H PRN ITCHING ( Reported) Escitalopram Oxalate 20 MG TABLET 1 TAB PO DAILY ANTIDEPRESSANT (Reported) Ferrous Sulfate 325 MG (65 MG IRON) TABLET 1 TAB PO TID IRON SUPPLEMENT ( Reported) Guaifenesin/Dextromethorphan (Robafen-Dm Syrup) 100 MG-10 MG/5 ML SYRUP 10 ML PO Q4 PRN COUGH/ CONGESTION (Reported) Ipratropium/Albuterol Sulfate (Iprat-Albut 0.5-3(2.5) MG/3 Ml) 0.5 MG-3 MG (2.5 MG BASE)/3 ML AMPUL.NEB 1 UNIT NEB Q4H HX LUNG CA (Reported) Lorazepam (Ativan) 1 MG TABLET 1 TAB PO BID ANXIETY (Reported) Lorazepam (Ativan) 0.5 MG TABLET 1 TAB PO BEDTIME PRN ANXIETY (Reported) Magnesium Hydroxide (Milk Of Magnesia) 400 MG/5 ML ORAL.SUSP 30 ML PO DAILY PRN CONSTIPATION (Reported) Mirtazapine (Remeron) 15 MG TAB.RAPDIS 7.5 MG PO QHS MEMORY (Reported) Ondansetron (Zofran Odt) 4 MG TAB.RAPDIS 1 TAB PO Q6H PRN NAUSEA/VOMITTING ( Reported) Oxycodone HCl (Oxycontin) 10 MG TAB.ER.12H 1 TAB PO QAM PAIN (Reported) Oxycodone HCl 5 MG CAPSULE 1 CAP PO Q4H PRN PAIN (Reported) Polyethylene Glycol 3350 (Miralax) 17 GRAM/DOSE POWDER 17 GM PO DAILY CONSTIPATION (Reported) mix with water, juice, soda, coffee or tea Pregabalin (Lyrica) 50 MG CAPSULE 1 CAP PO BEDTIME DEPRESSION (Reported) Rivaroxaban (Xarelto) 20 MG TABLET 1 TAB PO QPM BLOOD THINNER (Reported) with food Sennosides (Senna) 8.6 MG TABLET 2 TAB PO Q12H CONSTIPATION (Reported) Current Medications: Current Medications Sig/Fred Start time Last Medication Dose Route Stop Time Status Admin Albuterol Sulfate 3 ML Q6 PRN 04/08 1130 AC 04/08 INH 1240 Ceftazidime 1,000 MG IQ8 04/08 1600 UNVr IV Ceftazidime 0 .STK-MED ONE 04/08 0704 DC .ROUTE Ceftazidime 1,000 MG ONCE ONE 04/08 0700 DC 04/08 IV 04/08 0701 0722 Escitalopram Oxalate 20 MG DAILY 04/09 1000 AC PO Etomidate 0 .STK-MED ONE 04/08 1308 DC IV Ferrous Sulfate 325 MG TID 04/08 1600 AC PO Ipratropium [place] 2.5 ML ONCE ONE 04/08 1130 CAN INH 04/08 1131 Metronidazole 500 MG IQ8 04/08 1600 AC N/A 1 UNIT IV Metronidazole 500 MG ONCE ONE 04/08 0700 DC 04/08 N/A 1 UNIT IV 04/08 0759 0807 Mirtazapine 7.5 MG AT BEDTIME 04/08 2200 DC PO Mirtazapine 7.5 MG AT BEDTIME 04/08 2200 AC PO Non-Formulary 0 SEE ADMIN CRITERIA 04/08 1315 CAN Medication ANY Pantoprazole Sodium 40 MG DAILY 04/09 1000 DC IV Pantoprazole Sodium 40 MG BID 04/08 1415 UNVr IV Pantoprazole Sodium 0 .STK-MED ONE 04/08 0642 DC IV Pantoprazole Sodium 40 MG ONCE ONE 04/08 0615 DC 04/08 IV 04/08 0616 0641 Polyethylene Glycol 17 GM DAILY 04/09 1000 AC PO Potassium Chloride 10 MEQ Q1H 04/08 1145 DC 04/08 IV 04/08 1346 1235 Pregabalin 50 MG AT BEDTIME 04/08 2200 AC PO Propofol 1,000 MG Q12H 04/08 1330 AC N/A 100 ML IV Rivaroxaban 20 MG AT BEDTIME 04/08 2200 CANr PO Sodium Chloride 1,000 ML BOLUS ONE 04/08 1345 UNVr IV 04/08 1444 Sodium Chloride 1,000 ML BOLUS ONE 04/08 0615 DC 04/08 IV 04/08 0714 0637 Vancomycin HCl 1,000 MG DAILY 04/09 1000 UNir Sodium Chloride 250 ML IV Vancomycin HCl 0 .STK-MED ONE 04/08 0703 DC .ROUTE Vancomycin HCl 1,000 MG ONCE ONE 04/08 0700 DC 04/08 Sodium Chloride 250 ML IV 04/08 0759 0722 Past History Travel History Traveled to [place] past 21 day No Medical History Neurological: DYSPHAGIA FAILURE TO THRIVE EENT: L EYE DISCHARGE Cardiovascular: AFIB Respiratory: pneumonia Gastrointestinal: NONE Hepatic: NONE Renal: NONE Musculoskeletal: WALKER DEPENDENT DIFFICULTY AMBULATING MUSCLE WEAKNESS IMPETIGO Psychiatric: anxiety, depression Endocrine: NONE Blood Disorders: NONE Cancer(s): leukemia, lung cancer 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 Acute Rehab Who Do You Live With? there is side at [facility] Services at Home: Nursing Primary Language: Turkish Smoking Status: Former Smoker ETOH Use: denies use Functional Ability ADLs Needs Assist: dressing, eating, toileting, bathing. Ambulation: walker IADLs Needs Assist: telephone, transportation. Review of Systems Review of Systems: A full 12 system review of systems was unobtainable secondary to him being intubated and sedated Exam & Diagnostic Data Vital Signs and I&O Vital Signs Date Time Temp Pulse Resp B/P B/P Pulse O2 O2 Flow FiO2 Mean Ox Delivery Rate 04/08 1249 95 Non 100% ReBreather 04/08 1139 98.0 120 20 116/56 94 Non 10L ReBreather 04/08 0943 98.2 112 18 121/59 95 Non 10L ReBreather 04/08 0906 97.9 110 18 144/72 96 Non 100% ReBreather 04/08 0750 97.7 92 16 130/60 92 Non 100% ReBreather 04/08 0621 97.3 116 22 116/56 92 Non 100% ReBreather 04/08 0615 84 Nasal 3.0L Cannula 04/08 0612 120 22 122/59 82 Nasal 3.0L Cannula Intake & Output 04/08 1600 04/08 0400 04/07 1600 04/07 0400 04/06 1600 04/06 0400 Intake Total 1350 Output Total Balance 1350 Intake, IV 1350 Patient 120 lb Weight Physical Exam General Appearance: cachetic, sedated, intubated Head: atraumatic Eyes: Bilateral: normal appearance. Ears, Nose, Throat: normal pharynx, normal ENT inspection, dry mucous membranes Neck: normal inspection, supple Respiratory: chest non-tender, decreased breath sounds Cardiovascular: regular rate/rhythm Gastrointestinal: normal bowel sounds, soft, non-tender, not distended Rectal: deferred Back: normal inspection Extremities: normal inspection Neurologic/Psych: unable to currently assess, was reportedly more alert this am Skin: intact, normal color Results Pertinent Lab Results: Laboratory Tests 04/08 04/08 0955 0636 Chemistry Lactic Acid (0.7 - 2.1 mmol/L) 1.8 Hematology CBC w Diff MAN DIFF ORDERED WBC (4.8 - 10.8 /CUMM) 46.5 *H RBC (4.70 - 6.10 /CUMM) 3.71 L Hgb (14.0 - 18.0 G/DL) 9.2 L Hct (42 - 52 %) 29.0 L MCV (80.0 - 94.0 FL) 78.2 L MCH (27.0 - 31.0 PG) 24.9 L RDW (11.5 - 14.5 %) 20.0 H Plt Count (130 - 400 /CUMM) 203 MPV (7.4 - 10.4 FL) 8.7 Gran % (42.2 - 75.2 %) 50.1 Lymphocytes % (20.5 - 51.1 %) 49.6 Monocytes % (1.7 - 9.3 %) 0.2 L Eosinophils % (0 - 5 %) 0 Basophils % (0.0 - 2.0 %) 0.1 Absolute Granulocytes (1.4 - 6.5 /CUMM) 23.3 H Segmented Neutrophils (42.2 - 75.2 %) 55 Band Neutrophils (0.0 - 5.0 %) 4 Absolute Lymphocytes (1.2 - 3.4 /CUMM) 23.1 H Lymphocytes (20.5 - 51.1 %) 40 Monocytes (1.7 - 9.3 %) 1 L Absolute Monocytes (0.10 - 0.60 /CUMM) 0.1 L Absolute Eosinophils (0.0 - 0.7 /CUMM) 0 Absolute Basophils (0.0 - 0.2 /CUMM) 0.1 Platelet Estimate (ADEQUATE) ADEQUATE Poikilocytosis FEW Anisocytosis 1+ Ovalocytes FEW PUBS MCHC (33.0 - 37.0 G/DL) 31.9 L Other Body Source Fld Total RBCs Counted (%) 100 04/08 04/08 0630 0625 Blood Gas pH (7.35 - 7.45 PH) 7.48 H pCO2 (35 - 45 TORR) 44 pO2 (80 - 100 TORR) 117 H HCO3 (21 - 28 MEQ/L) 32 H ABG O2 Sat (Measured) (>96.0 %) 98.0 P-50 (Temp Corrected) Y Carboxyhemoglobin (1.5 - 5.0 %) 0.5 L O2 Concentration % 100% Temperature (97.0 - 100.0 FARH) 96.3 L O2 Delivery Method NRB Chemistry Sodium (137 - 145 mmol/L) 148 H Potassium (3.5 - 5.1 mmol/L) 3.2 L Chloride (98 - 107 mmol/L) 99 Carbon Dioxide (22 - 30 mmol/L) 34 H Anion Gap (5 - 16) 15 BUN (9 - 20 mg/dL) 32 H Creatinine (0.7 - 1.2 mg/dL) 0.9 Estimated GFR (>60 ml/min) > 60 BUN/Creatinine Ratio (7 - 25 %) 35.6 H Glucose (65 - 99 mg/dL) 183 H Lactic Acid (0.7 - 2.1 mmol/L) 2.1 Calcium (8.4 - 10.2 mg/dL) 8.6 Total Bilirubin (0.2 - 1.3 mg/dL) 0.7 AST (17 - 59 U/L) 16 L ALT (21 - 72 U/L) 24 Alkaline Phosphatase (< 127 U/L) 88 Troponin I (<0.11 ng/ml) 0.07 Total Protein (6.3 - 8.2 g/dL) 7.0 Albumin (3.5 - 5.0 g/dL) 3.1 L Globulin (1.9 - 4.2 gm/dL) 3.9 Albumin/Globulin Ratio (1.1 - 2.2 %) 0.8 L Amylase (30 - 110 U/L) 62 Lipase (23 - 300 U/L) < 10 L Coagulation PT (9.4 - 12.5 SEC) 14.0 H INR (0.90 - 1.17) 1.34 H APTT (25 - 37 SEC) 34 Miscellaneous Phlebotomy Draw Site RIGHT BRACHIAL Imaging/Other Studies: 02/05/17: EGD: Findings: The proximal esophagus was normal. The caliber and contour the esophagus were normal. The distal mucosa there was erythema but no erosion or ulceration. There was no nodularity or mass. There were no varices. The GE junction at 41 cm was normal. There was a hiatal hernia. There were no evident Atilio's erosions. Stomach had normal distention. The cardia was normal. Mucosa and folds were normal throughout. The pyloric channel was normal. The duodenal bulb was normal. In the post bulbar duodenum were several enlarged folds, and 3 biopsies were obtained. There were no mucosal breaks/ulcers, and no polyps or mass lesions. The mucosa and folds of the descending and transverse portions of the duodenum were normal. Impression: * Nonerosive esophagitis * Hiatal hernia * Enlarged duodenal post bulbar folds 04/07/17 colonoscopy: Findings: There were enlarged vessels in the rectum, possibly consistent with rectal varices. There was no friability or blood. There were no mucosal lesions. Diverticula were seen from left colon to right colon. The mucosa was intact throughout. No polyps or mass lesions were seen. The right-sided anastomosis was intact, and there were no mucosal normalities. The mucosa of the neoterminal ileum was normal. Given the degree of preparation, small lesions such as polyps or vascular ectasias may been obscured. Impression: * Diverticulosis * Enlarged rectal vessels, rule out varices * No evident neoplasia EXAM TYPE: CAT - CT ABD & PELVIS W/O IV CONTRAS EXAMINATION: CT ABDOMEN AND PELVIS WITHOUT CONTRAST CLINICAL INFORMATION: Abdominal pain status post colonoscopy yesterday. COMPARISON: CT chest 01/11/2017. TECHNIQUE: Multidetector volumetric imaging was performed from the superior aspect of the liver through the pubic symphysis. Sagittal and coronal reformatted images were obtained on the technologist's workstation. DLP: 408 mGy-cm FINDINGS: LUNG BASES: The incidentally visualized lung bases demonstrate bibasilar coarse reticular opacities and predominantly posterior consolidative opacity. Findings are increased in extent compared with 01/11/2017. No pleural effusions are noted. Incidentally visualized portions of the heart demonstrate marked diffuse coronary artery calcifications. LIVER, GALLBLADDER, AND BILIARY TREE: The gallbladder is absent and cholecystectomy clips are noted. Liver is grossly normal in size. Liver demonstrates diffuse low density (approximately 40 5HU) relative to the spleen (average density 70 2HU) consistent with diffuse hepatic steatosis. No biliary duct dilatation is identified. PANCREAS: Grossly normal. SPLEEN: Spleen is normal in appearance. Dense splenic artery coarse atherosclerotic calcific vascular calcifications are noted. ADRENAL GLANDS: Unremarkable. KIDNEYS AND URETERS: The punctate (less than 3 mm) calcification is present in the right renal pelvis. A punctate calcification is present within the inferior left renal pole. No hydronephrosis or gross perinephric inflammatory changes are identified. No ureterectasis is visualized. No ureteral calcifications are noted. BLADDER: Normal. GASTROINTESTINAL TRACT: The stomach is markedly distended demonstrating gas-fluid level. No free intraperitoneal gas is noted. Gas is noted in scattered nondistended small bowel segments. No intestinal dilatation or mural thickening is noted. The appendix is normal in appearance (axial image 61/99). ABDOMINAL WALL: No significant hernia is appreciated. LYMPH NODES: No lymphadenopathy is visualized. VASCULAR: Diffuse, marked vascular calcifications are present. Some of the calcifications appear coarse and the typical configuration of atherosclerotic calcifications. Elsewhere, transient tract vascular calcifications are noted and may represent Monckeberg type vascular calcifications particularly in the visualized peripheral system. No gross calcifications of the seminal vesicles are demonstrated. An inferior vena cava filter is present terminating inferior to the level of the right renal vein. PELVIC VISCERA: Unremarkable. OSSEOUS STRUCTURES: Multiple left posterolateral chronic appearing posterior manic rib deformities are noted. A compression deformity of the L1 vertebral body with approximately 25% loss of craniocaudal height and inward deformity of the superior endplate is present. This vertebral body was partially included within the image [id number] on the comparison examination of 12/11/2016. To the extent that this vertebral body was partially visualized before, no gross interval change in configuration of this vertebral body is noted. Specifically, the superior portion of the L1 vertebral body was included within the image [id number] on the 01/11/2017 examination and demonstrates a configuration grossly unchanged compared with this current exam. Partial visualization is made of anterior ankylosis of the visualized thoracic vertebral bodies grossly unchanged compared with 12/11/2016. Partial bilateral ankylosis of the sacroiliac joints is noted (axial image 56/99). Mild multilevel facet hypertrophic changes are present in the lumbar spine. Multiple right posterolateral post traumatic rib deformities are present and appear grossly unchanged compared with 01/11/2017. IMPRESSION: 1. Marked gastric distention. The stomach is markedly distended containing both gas and fluid. 2. The incidentally visualized portions of the lung bases demonstrate bilateral dependent airspace disease increased in prominence compared with 01/11/2017. These findings may represent chronic or acute on chronic aspiration pneumonitis. 3. No free intraperitoneal gas. No intestinal dilatation. 4. Diffuse Monckeberg type facet or calcification suspicious for the sequela of long-term diabetes mellitus. Additionally, diffuse calcific atherosclerosis is present including extensive coronary artery calcific atherosclerosis. 4. The incidentally visualized portions of the lung bases demonstrate bilateral dependent airspace disease increased in prominence compared with 01/11/2017. These findings may represent chronic or acute on chronic aspiration pneumonitis. 5. 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 6. L1 vertebral body benign-appearing compression deformity grossly unchanged compared with 01/11/2017. 7. Inferior vena cava filter in situ. 8. Bilateral punctate renal calcifications which may represent vascular calcifications or urolithiasis. No evidence of acute obstructive uropathy. No hydronephrosis or ureterectasis. 9. Bilateral posterolateral rib chronic posttraumatic deformities. 10. Diffuse hepatic steatosis. 11. Status post cholecystectomy. Assessment/Plan Assessment/Recommendations: Assessment: Mr. Lake is an 86-year-old male with multiple medical problems who underwent a colonoscopy yesterday for evaluation of anemia which was negative for a source of his anemia who presented to [facility] early this morning with reports of coffee-ground emesis, increasing lethargy, hypotension and hypoxia all likely secondary to an aspiration pneumonia which likely occurred during the colonoscopy yesterday. His CAT scan did show changes of a gastric outlet obstruction, however he just had an upper endoscopy 2 months ago which showed a normal pyloric channel and normal gastric mucosa. He did have an edematous duodenal bulb and it is possible there may have been an underlying ulcer which may have progressed over the last 2 months leading to a gastric outlet obstruction and it may ultimately be reasonable to repeat his upper endoscopy, however as he is without yaya hematemesis or melena and his hemoglobin is relatively stable I do not feel this is urgent. Considering the edematous folds in his duodenal bulb is also possible may have an underlying pancreatic cancer, but his CAT scan did not show any obvious pancreatic lesions albeit this was done without IV contrast which limits the ability to see the pancreas. Recommendations: 1. Keep NPO and NGT to low wall suction. 2. IV protonix 40mg bid 3. Maintain 2 large bore IVs at all times 4. Abx and respiratory support for aspiration PNA as per critical care team 5. Follow CBC q8hr and transfuse as needed to keep hgb > 7 or as per cardiology recommendations 6. Notify GI for evidence of hemodynamically significant GI bleeding such as bright blood per rectum or vomiting yaya blood. 7. Consideration will be given for repeat upper endoscopy later in the admission based on his clinical course and the patient's and conservator's wishes. 8. Would hold anticoagulation for now. Copies To: [facility] Consult Acknowledgment - Thank you for your consult request.
--- NOTE | 2017-04-08 14:17 | NUR ---
PT INTUBATED BY ANESTHESIA PER DR FINNEGAN ORDERS, INTUBATED SUCCESSFULLY BY DR VALLADARES. OG TUBE PLACED WITH 1500 CC OF BROWN DRAINAGE. PORT IN UPPER L CHEST WALL ACCESSED AND SECOND BOLUS OF FLUID STARTED PER DR. BALTAZAR'S ORDERS. PROPOFOL INITIATED AT 5MCG/KG/MIN AND INCREASED TO 10 AND THEN 20 PER DELANEY'S ORDERS FOR APPROPRIATE SEDATION/ DRIVER ESTABLISHED. NO URINE OUT PUT
--- NOTE | 2017-04-08 14:49 | NUR ---
PT NOTED TO BE HYPOTENSIVE, SERO PAGED
[2017-04-08 14:59] LABS: ABSOLUTE BASOPHIL COUNT 0.1 /CUMM (0.0-0.2); ABSOLUTE EOSINOPHIL COUNT 0 /CUMM (0.0-0.7); ABSOLUTE GRANULOCYTE CT 15.6 /CUMM (1.4-6.5); ABSOLUTE LYMPH COUNT 11.7 /CUMM (1.2-3.4); ABSOLUTE MONOCYTE COUNT 0.1 /CUMM (0.10-0.60); BASOPHIL % 0.3 % (0.0-2.0); EOSINOPHIL % 0 % (0-5); GRANULOCYTE % 56.6 % (42.2-75.2); HEMATOCRIT 28.8 % (42-52); MEAN CORPUSCULAR HGB 24.8 PG (27.0-31.0); MEAN CORPUSCULAR HGB CONC 31.6 G/DL (33.0-37.0); MEAN CORPUSCULAR VOLUME 78.4 FL (80.0-94.0); MEAN PLATELET VOLUME 8.6 FL (7.4-10.4); PLATELET COUNT 159 /CUMM (130-400); RBC DISTRIBUTION WIDTH 20.1 % (11.5-14.5); RED BLOOD CELL CT 3.68 /CUMM (4.70-6.10); WHITE BLOOD CELL COUNT 27.6 /CUMM (4.8-10.8)
--- NOTE | 2017-04-08 15:08 | RADIOLOGY REPORT ---
EXAMINATION: XR PORTABLE CHEST CLINICAL INFORMATION: Endotracheal tube and orogastric tube placement COMPARISON: 04/08/2017 TECHNIQUE: Portable frontal view of the chest was obtained. FINDINGS: The endotracheal tube terminates 2.5 cm above the imelda. The enteric tube extends into the stomach, terminating in the region of the gastric antrum. Surgical clips overlie the right upper quadrant. Left chest wall port terminates over the mid SVC. There is right lung volume loss, similar to previous. Persistent right perihilar opacity with somewhat improved aeration at the right base. Persistent right-sided pleural effusion with apical opacity. The left lung is well-expanded. Mild patchy opacity in the left lung is similar to prior. No pneumothorax. The cardiomediastinal silhouette is unchanged. IMPRESSION: 1. Endotracheal tube terminating 2.5 cm above the imelda. 2. Enteric tube terminating in the stomach. 3. Persistent diffuse opacity in the right hemithorax with volume loss. Mildly improved aeration at the right lung base.
--- NOTE | 2017-04-08 15:10 | NUR ---
MEDICAL RECORDS SPECIALIST ARJUN CALLED AND UPDATED ON HYPOTENSION, LEVO STARTED PER EMAR
--- NOTE | 2017-04-08 15:18 | NUR ---
TRANSPORT AT BEDSIDE, AWAITING RT, BP IMPROVED TO 83/51
--- NOTE | 2017-04-08 15:21 | NUR ---
CRITICAL TEST RESULTS [id number] FRANCOIS MEJIA 86 M TESTS AND RESULTS: LACTIC ACID 2.2 Results received and read back by: LELAND AVITIA Results received date and time: 04/08/17 1521 The following provider was notified of the results, and read the results back: DR. ALVAREZ Notified date and time: 04/08/17 at 1524
--- NOTE | 2017-04-08 15:31 | NUR ---
PT TRANSPORTED TO FLOOR
--- NOTE | 2017-04-08 15:31 | Admission Certification ---
Admission Certification Certification Statement - As attending physician, I certify that at the time of - admission, based on clinical presentation, severity of - symptoms, need for further diagnostic testing and - therapeutic interventions, and risk of adverse outcomes - without in-hospital treatment, in my clinical assessment, - this patient requires an acute hospital stay for a minimum - of two nights or longer. I have also considered psychsocial - factors such as support system, advanced age, financial - issues, cognitive issues, and failed out-patient treatments, - past re-admission history, safety of patient, and lack of - compliance as applicable. Specific rationale supporting this admission is: Intubation, mechanical ventilation for respiratory support. Aspiration pneumonia and obstruction.
[2017-04-08 16:00] VITALS: BP 106/70
--- NOTE | 2017-04-08 16:30 | Cons- Cardiology ---
General Information and HPI Consulting Request Date of Consult: 04/08/17 Requested By: LOKESH LYNNE MD Reason for Consult: Hemodynamic instability. Source of Information: patient, old records Exam Limitations: poor historian History of Present Illness: Mr. 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 It was discovered that he had a colonoscopy performed yesterday, that was reportedly initially well tolerated. He reportedly denied any abdominal pain. In [facility] ED he continued to be hemodynamically unstable and was treated with oxygen , volume resuscitation, etc. and was ultimately intubated with the subsequent placement of an NG tube from which over a liter of coffee ground material was drained. He improved hemodynamically with intubation, continued volume resuscitation, pressor support (Levophed), IV PPI, empiric antimicrobial therapy, etc. and had no yaya blood or melena noted per rectum. Allergies/Medications Allergies: Coded Allergies: No Known Allergies (01/28/17) Home Med List: Acetaminophen (Tylenol Extra Strength) 500 MG TABLET 650 MG WA Q4H PRN PAIN/ TEMP >100 (Reported) Albuterol Sulfate 0.63 MG/3 ML VIAL.NEB 1 UNIT NEB Q4H PRN SOB/ WHEEZING ( Reported) 0.083% Ascorbic Acid (Vitamin C) 500 MG CAPSULE.ER 1 CAP PO DAILY VITAMIN SUPPLEMENT (Reported) Calcium Carbonate (Oyster Shell Calcium) 500 MG CALCIUM (1,250 MG) TABLET 1 TAB PO BID SUPPLEMENT (Reported) Diphenhydramine HCl (Diphenhist) 25 MG CAPSULE 1 TAB PO Q8H PRN ITCHING ( Reported) Escitalopram Oxalate 20 MG TABLET 1 TAB PO DAILY ANTIDEPRESSANT (Reported) Ferrous Sulfate 325 MG (65 MG IRON) TABLET 1 TAB PO TID IRON SUPPLEMENT ( Reported) Guaifenesin/Dextromethorphan (Robafen-Dm Syrup) 100 MG-10 MG/5 ML SYRUP 10 ML PO Q4 PRN COUGH/ CONGESTION (Reported) Ipratropium/Albuterol Sulfate (Iprat-Albut 0.5-3(2.5) MG/3 Ml) 0.5 MG-3 MG (2.5 MG BASE)/3 ML AMPUL.NEB 1 UNIT NEB Q4H HX LUNG CA (Reported) Lorazepam (Ativan) 1 MG TABLET 1 TAB PO BID ANXIETY (Reported) Lorazepam (Ativan) 0.5 MG TABLET 1 TAB PO BEDTIME PRN ANXIETY (Reported) Magnesium Hydroxide (Milk Of Magnesia) 400 MG/5 ML ORAL.SUSP 30 ML PO DAILY PRN CONSTIPATION (Reported) Mirtazapine (Remeron) 15 MG TAB.RAPDIS 7.5 MG PO QHS MEMORY (Reported) Ondansetron (Zofran Odt) 4 MG TAB.RAPDIS 1 TAB PO Q6H PRN NAUSEA/VOMITTING ( Reported) Oxycodone HCl (Oxycontin) 10 MG TAB.ER.12H 1 TAB PO QAM PAIN (Reported) Oxycodone HCl 5 MG CAPSULE 1 CAP PO Q4H PRN PAIN (Reported) Polyethylene Glycol 3350 (Miralax) 17 GRAM/DOSE POWDER 17 GM PO DAILY CONSTIPATION (Reported) mix with water, juice, soda, coffee or tea Pregabalin (Lyrica) 50 MG CAPSULE 1 CAP PO BEDTIME DEPRESSION (Reported) Rivaroxaban (Xarelto) 20 MG TABLET 1 TAB PO QPM BLOOD THINNER (Reported) with food Sennosides (Senna) 8.6 MG TABLET 2 TAB PO Q12H CONSTIPATION (Reported) Review of Systems Review of Systems: Unobtainable as patient intubated/sedated. Past History Travel History Traveled to [place] past 21 day No Medical History Neurological: DYSPHAGIA FAILURE TO THRIVE EENT: L EYE DISCHARGE Cardiovascular: AFIB Respiratory: pneumonia Gastrointestinal: NONE Hepatic: NONE Renal: NONE Musculoskeletal: WALKER DEPENDENT DIFFICULTY AMBULATING MUSCLE WEAKNESS IMPETIGO Psychiatric: anxiety, depression Endocrine: NONE Blood Disorders: NONE Cancer(s): leukemia, lung cancer ADHESION TESTER/Reproductive: NONE Surgical History Surgical History: non-contributory Family History Relations & Conditions If Any: MOTHER Relation not specified for: FH: hyperlipidemia Psychosocial History Where Do You Live? Acute Rehab Who Do You Live With? there is side at [facility] Services at Home: Nursing Primary Language: [place] Smoking Status: Former Smoker ETOH Use: denies use Functional Ability ADLs Needs Assist: dressing, eating, toileting, bathing. Ambulation: walker IADLs Needs Assist: telephone, transportation. Exam & Diagnostic Data Vital Signs and I&O Vital Signs Date Time Temp Pulse Resp B/P B/P Pulse O2 O2 Flow FiO2 Mean Ox Delivery Rate 04/08 1518 97.9 115 20 83/55 100 Ventilator 100% 04/08 1510 115 74/55 04/08 1449 97.9 114 20 75/44 100 Ventilator 100% 04/08 1420 97.1 116 20 102/54 100 Ventilator 100% 04/08 1330 97.9 124 22 97/54 88 Non 100% ReBreather 04/08 1325 100 04/08 1249 95 Non 100% ReBreather 04/08 1230 98.3 112 24 95/74 97 Non 100% ReBreather 04/08 1139 98.0 120 20 116/56 94 Non 10L ReBreather 04/08 0943 98.2 112 18 121/59 95 Non 10L ReBreather 04/08 0906 97.9 110 18 144/72 96 Non 100% ReBreather 04/08 0750 97.7 92 16 130/60 92 Non 100% ReBreather 04/08 0621 97.3 116 22 116/56 92 Non 100% ReBreather 04/08 0615 84 Nasal 3.0L Cannula 04/08 0612 120 22 122/59 82 Nasal 3.0L Cannula Intake & Output 04/08 1600 04/08 0800 04/08 0000 04/07 1600 04/07 0800 04/07 0000 Intake Total 1350 Output Total Balance 1350 Intake, IV 1350 Patient 120 lb Weight Physical Exam: Frail, cachectic appearing elderly male who is intubated/sedated. Vital signs: See above. HEENT: Normocephalic, atraumatic, dry appearing mucous membranes. Neck: No JVD, no bruits. Lungs: Bilateral rhonchi. Heart: S1, S2 with soft prescribed 1-2/6 systolic murmur best heard at the base. No obvious gallop or rub. Abdomen: Soft, positive bowel sounds. Extremities: No edema. Diagnostic Data EKG Results (04/08/2017): Sinus tachycardia, first-degree AV block, JPC, and nondiagnostic T -wave abnormalities. CXR Results (04/08/2017): 1. Endotracheal tube terminating 2.5 cm above the imelda. 2. Enteric tube terminating in the stomach. 3. Persistent diffuse opacity in the right hemithorax with volume loss. Mildly improved aeration at the right lung base. Other Results CT abdomen/pelvis (04/08/2017): 1. Marked gastric distention. The stomach is markedly distended containing both gas and fluid. 2. The incidentally visualized portions of the lung bases demonstrate bilateral dependent airspace disease increased in prominence compared with 01/11/2017. These findings may represent chronic or acute on chronic aspiration pneumonitis. 3. No free intraperitoneal gas. No intestinal dilatation. 4. Diffuse Monckeberg type facet or calcification suspicious for the sequela of long-term diabetes mellitus. Additionally, diffuse calcific atherosclerosis is present including extensive coronary artery calcific atherosclerosis. 4. The incidentally visualized portions of the lung bases demonstrate bilateral dependent airspace disease increased in prominence compared with 01/11/2017. These findings may represent chronic or acute on chronic aspiration pneumonitis. 5. 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 6. L1 vertebral body benign-appearing compression deformity grossly unchanged compared with 01/11/2017. 7. Inferior vena cava filter in situ. 8. Bilateral punctate renal calcifications which may represent vascular calcifications or urolithiasis. No evidence of acute obstructive uropathy. No hydronephrosis or ureterectasis. 9. Bilateral posterolateral rib chronic posttraumatic deformities. 10. Diffuse hepatic steatosis. 11. Status post cholecystectomy. 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 The major concern, at this juncture, is sepsis from aspiration pneumonia, as well as, possible gastric outlet obstruction. From a cardiac standpoint, he remains intubated and hypotensive following 2 L NS and Levophed at 10 g/min, empiric antimicrobial therapy, etc. His troponin I is trending upward and will likely become "positive". At this time this does not appear to be consistent with an acute coronary syndrome, but more likely secondary to demand ischemia from critical illness, tachycardia, probable LVH secondary to hypertension, etc. His electrocardiogram reveals a mild sinus tachycardia with first-degree AV block, a JPC and nondiagnostic T-wave abnormalities. Recommendations: * Continue all supportive ICU care with further volume resuscitation, pressor support, antimicrobial therapy, IV proton pump inhibitor, etc. * Obtain echocardiogram to assess left ventricular systolic/diastolic function, right ventricular function, valvular function, PA pressure, etc. * Replete potassium and magnesium in the hope of avoiding a paroxysm of atrial fibrillation. * Follow-up on pulmonary, infectious diseases, gastroenterology recommendations, etc. * DVT prophylaxis. Further recommendations will follow, Thank you. Consult Acknowledgment - Thank you for your consult request.
--- NOTE | 2017-04-08 18:12 | NUR ---
PT ADMITTED FROM ER. BEDSIDE REPORT RECEIVED. PT IS AWAKE, GRIMACING, FRIGHTENED LOOK ON HIS FACE. MONITOR IS NSR 90-100 WITH PVC,S. HYPOTENSIVE, LEVO HAS BEEN STARTED AND IS PRESENTLY AT MAX OF 20 MICS. VASO HAS BEEN ADDED AT 6MLS PER HOUR. THE PT HAS RECEIVED 4 LITERS OF NS WIDE OPEN AND NOW HAS NS INFUSING AT 150 MLS PER HOUR. 1800 LABS DRAWN. OGT IS DRAINING BLACK LIQUID, HEME POSITIVE. ETT SUCTIONING HAS BEEN FOR LARGE AMOUNTS OF BLACK-BROWN THICK SECRETIONS. PTS CONSERVATOR ARRIVED AND HAS BEEN UPDATED BY AND NURSING. SUPPORT OFFERED. THE PT HAS 5 CHILDREN PER THE CONSERVATOR AND THEY HAVE BEEN NOTIFIED OF PTS STATUS.
[2017-04-08 19:55] LABS: ABSOLUTE BASOPHIL COUNT 0.1 /CUMM (0.0-0.2); ABSOLUTE EOSINOPHIL COUNT 0 /CUMM (0.0-0.7); ABSOLUTE GRANULOCYTE CT 19.5 /CUMM (1.4-6.5); ABSOLUTE LYMPH COUNT 22.8 /CUMM (1.2-3.4); ABSOLUTE MONOCYTE COUNT 0.4 /CUMM (0.10-0.60); BASOPHIL % 0.3 % (0.0-2.0); EOSINOPHIL % 0 % (0-5); GRANULOCYTE % 45.5 % (42.2-75.2); HEMATOCRIT 26.2 % (42-52); MEAN CORPUSCULAR HGB 24.9 PG (27.0-31.0); MEAN CORPUSCULAR HGB CONC 31.4 G/DL (33.0-37.0); MEAN CORPUSCULAR VOLUME 79.2 FL (80.0-94.0); PLATELET COUNT 194 /CUMM (130-400); RBC DISTRIBUTION WIDTH 19.9 % (11.5-14.5); RED BLOOD CELL CT 3.31 /CUMM (4.70-6.10)
[2017-04-08 20:00] LABS: WHITE BLOOD CELL COUNT 42.9 /CUMM (4.8-10.8)
[2017-04-09] VITALS: BP 120/60
--- NOTE | 2017-04-09 | NUR ---
PATIENT WILL FOLLOW COMMANDS. MOVES ALL EXTREMITIES.SHAI.PROPOFOL DRIP AT 40.2 MCG/KG/MIN.FALLS OFF TO SLEEP READILY WHEN UNDISTURBED.MONITOR SINUS RHYTHM AT RATE OF 79. MANUAL CN=191/60.LEVOHED DRIP AT 17 MCG/MIN. TITRATING DOWN TO MAINTAIN MAP OF 65 OR GREATER.VASOPRESSIN AT 0.04 UNITS/MIN.IVF OF NS AT 150 ML/HR.OGT DRAINING BLACK LIQUID.ETT TO VENTILATOR AT 40%.SECRETIONS VIA ETT ARE CREAMY YELLOW.TURNED AND REPOSITIONED. BACK CARE GIVEN. MOUTH CARE GIVEN.HOB ELEVATED.
[2017-04-09 00:43] LABS: ABSOLUTE BASOPHIL COUNT 0 /CUMM (0.0-0.2); ABSOLUTE EOSINOPHIL COUNT 0 /CUMM (0.0-0.7); ABSOLUTE GRANULOCYTE CT 23.4 /CUMM (1.4-6.5); ABSOLUTE LYMPH COUNT 25.7 /CUMM (1.2-3.4); ABSOLUTE MONOCYTE COUNT 0.7 /CUMM (0.10-0.60); BASOPHIL % 0.1 % (0.0-2.0); EOSINOPHIL % 0 % (0-5); GRANULOCYTE % 46.9 % (42.2-75.2); HEMATOCRIT 25.1 % (42-52); MEAN CORPUSCULAR HGB 24.3 PG (27.0-31.0); MEAN CORPUSCULAR VOLUME 78.2 FL (80.0-94.0); MEAN PLATELET VOLUME 8.1 FL (7.4-10.4); PLATELET COUNT 158 /CUMM (130-400); RED BLOOD CELL CT 3.22 /CUMM (4.70-6.10)
[2017-04-09 00:58] LABS: WHITE BLOOD CELL COUNT 49.8 /CUMM (4.8-10.8)
[2017-04-09 05:04] LABS: ABSOLUTE BASOPHIL COUNT 0.2 /CUMM (0.0-0.2); ABSOLUTE EOSINOPHIL COUNT 0 /CUMM (0.0-0.7); ABSOLUTE GRANULOCYTE CT 24.4 /CUMM (1.4-6.5); ABSOLUTE LYMPH COUNT 24.2 /CUMM (1.2-3.4); ABSOLUTE MONOCYTE COUNT 1.3 /CUMM (0.10-0.60); BASOPHIL % 0.4 % (0.0-2.0); EOSINOPHIL % 0 % (0-5); GRANULOCYTE % 48.8 % (42.2-75.2); HEMATOCRIT 25.5 % (42-52); MEAN CORPUSCULAR HGB 24.8 PG (27.0-31.0); MEAN CORPUSCULAR HGB CONC 31.4 G/DL (33.0-37.0); MEAN PLATELET VOLUME 8.3 FL (7.4-10.4); PLATELET COUNT 142 /CUMM (130-400); RBC DISTRIBUTION WIDTH 20.3 % (11.5-14.5); RED BLOOD CELL CT 3.23 /CUMM (4.70-6.10)
--- NOTE | 2017-04-09 06:36 | RADIOLOGY REPORT ---
EXAMINATION: XR PORTABLE CHEST CLINICAL INFORMATION: Tube placement COMPARISON: Exam performed previous day TECHNIQUE: Portable frontal view of the chest was obtained. FINDINGS: There is now an endotracheal tube which terminates just greater than 2 cm above the imelda. The left central venous catheter is redemonstrated, terminating in the upper SVC. There is now an NG tube which terminates below the level of the GE junction. Again, there is volume loss to the right lung unchanged. Stable right pleural fluid and/or scarring is redemonstrated along with dense masslike consolidation in the right perihilar region. This masslike consolidation appears worse from recent previous. The left lung shows patchy airspace disease in mid and lower lung field which may be slightly worsened as well. IMPRESSION: Tubes and lines in place. Moderate pleural and parenchymal disease right chest may be slightly worsened. Patchy airspace disease left mid and lower lung field may be slightly worsened as well.
[2017-04-09 08:00] VITALS: BP 114/60
--- NOTE | 2017-04-09 08:10 | Cons- CRCU ---
See Addendum General Information and HPI Consulting Request Date of Consult: 04/09/17 Requested By: Dr. Orta History of Present Illness: Mr. Lake is 86 year old male with past medical history significant for CLL status post chemotherapy (has port catheter), questionable lung cancer, DVT and atrial fibrillation on several to, status post IVC filter, anemia, recent colonoscopy 04/07/17 who BIBA from [facility] with chief complaint of coffee- ground emesis and confusion. Patient was admitted on 04/08/17 for further evaluation. On admission Vitals Blood pressure of 121/59, respiration rate of 18, pulse rate of 112, temperature 98.2 saturation of 95% on 2 L of oxygen Labs WBC of 46.5, hemoglobin of 9.2, hematocrit of 29, platelet count of 203 INR 1.34 PT of 14.1 ABG shows pH of 7.48, bicarbonate of 32, PCO2 44, PaO2 117 Patient was intubated ED, received antibiotic vancomycin, ceftaz, Flagyl, IV fluid resuscitation and was started on Levophed through the port catheter. Surgery, cardiology, heme/oncology, GI and pulmonology consultations were obtained yesterday. Patient was admitted to ICU for close monitoring Allergies/Medications Allergies: Coded Allergies: No Known Allergies (01/28/17) Home Med List: Acetaminophen (Tylenol Extra Strength) 500 MG TABLET 650 MG [place] Q4H PRN PAIN/ TEMP >100 (Reported) Albuterol Sulfate 0.63 MG/3 ML VIAL.NEB 1 UNIT NEB Q4H PRN SOB/ WHEEZING ( Reported) 0.083% Ascorbic Acid (Vitamin C) 500 MG CAPSULE.ER 1 CAP PO DAILY VITAMIN SUPPLEMENT (Reported) Calcium Carbonate (Oyster Shell Calcium) 500 MG CALCIUM (1,250 MG) TABLET 1 TAB PO BID SUPPLEMENT (Reported) Diphenhydramine HCl (Diphenhist) 25 MG CAPSULE 1 TAB PO Q8H PRN ITCHING ( Reported) Escitalopram Oxalate 20 MG TABLET 1 TAB PO DAILY ANTIDEPRESSANT (Reported) Ferrous Sulfate 325 MG (65 MG IRON) TABLET 1 TAB PO TID IRON SUPPLEMENT ( Reported) Guaifenesin/Dextromethorphan (Robafen-Dm Syrup) 100 MG-10 MG/5 ML SYRUP 10 ML PO Q4 PRN COUGH/ CONGESTION (Reported) Ipratropium/Albuterol Sulfate (Iprat-Albut 0.5-3(2.5) MG/3 Ml) 0.5 MG-3 MG (2.5 MG BASE)/3 ML AMPUL.NEB 1 UNIT NEB Q4H HX LUNG CA (Reported) Lorazepam (Ativan) 1 MG TABLET 1 TAB PO BID ANXIETY (Reported) Lorazepam (Ativan) 0.5 MG TABLET 1 TAB PO BEDTIME PRN ANXIETY (Reported) Magnesium Hydroxide (Milk Of Magnesia) 400 MG/5 ML ORAL.SUSP 30 ML PO DAILY PRN CONSTIPATION (Reported) Mirtazapine (Remeron) 15 MG TAB.RAPDIS 7.5 MG PO QHS MEMORY (Reported) Ondansetron (Zofran Odt) 4 MG TAB.RAPDIS 1 TAB PO Q6H PRN NAUSEA/VOMITTING ( Reported) Oxycodone HCl (Oxycontin) 10 MG TAB.ER.12H 1 TAB PO QAM PAIN (Reported) Oxycodone HCl 5 MG CAPSULE 1 CAP PO Q4H PRN PAIN (Reported) Polyethylene Glycol 3350 (Miralax) 17 GRAM/DOSE POWDER 17 GM PO DAILY CONSTIPATION (Reported) mix with water, juice, soda, coffee or tea Pregabalin (Lyrica) 50 MG CAPSULE 1 CAP PO BEDTIME DEPRESSION (Reported) Rivaroxaban (Xarelto) 20 MG TABLET 1 TAB PO QPM BLOOD THINNER (Reported) with food Sennosides (Senna) 8.6 MG TABLET 2 TAB PO Q12H CONSTIPATION (Reported) Review of Systems Review of Systems Constitutional: Reports: see HPI. Past History Travel History Traveled to [place] past 21 day No Medical History Blood Transfusion Hx: No Neurological: DYSPHAGIA FAILURE TO THRIVE EENT: L EYE DISCHARGE Cardiovascular: AFIB Respiratory: pneumonia Gastrointestinal: NONE Hepatic: NONE Renal: NONE Musculoskeletal: WALKER DEPENDENT DIFFICULTY AMBULATING MUSCLE WEAKNESS IMPETIGO Psychiatric: anxiety, depression Endocrine: NONE Blood Disorders: NONE Cancer(s): leukemia, lung cancer TAP GRINDER/Reproductive: NONE Surgical History Surgical History: non-contributory Family History Relations & Conditions If Any: MOTHER Relation not specified for: FH: hyperlipidemia Psychosocial History Where Do You Live? Acute Rehab Who Do You Live With? there is side at [facility] Services at Home: Nursing Primary Language: Amharic Smoking Status: Former Smoker ETOH Use: denies use Functional Ability ADLs Needs Assist: dressing, eating, toileting, bathing. Ambulation: walker IADLs Needs Assist: telephone, transportation. Exam & Diagnostic Data Last 24 Hrs of Vital Signs/I&O Vital Signs Date Time Temp Pulse Resp B/P B/P Pulse O2 O2 Flow FiO2 Mean Ox Delivery Rate 04/09 1334 40 04/09 1119 40 04/09 0827 40 04/09 0532 40 04/09 0400 96 Ventilator 40% 04/09 0350 40 04/09 0311 98.0 88 21 124/54 04/09 0153 40 04/09 0000 98.0 79 16 120/60 97 Ventilator 40% 04/09 0000 97 Ventilator 40% 04/08 2334 92 18 125/57 04/08 2208 40 04/08 2000 100 Ventilator 70% 04/08 1912 70 04/08 1704 100 04/08 1600 100 Ventilator 100% 04/08 1600 98.6 90 26 106/70 100 Ventilator 100% 04/08 1518 97.9 115 20 83/55 100 Ventilator 100% 04/08 1510 115 74/55 05/ 1449 97.9 114 20 75/44 100 Ventilator 100% 04/08 1420 97.1 116 20 102/54 100 Ventilator 100% Intake & Output 04/09 1600 04/09 0800 05 0000 Intake Total 2276 3483 Output Total 198 310 Balance 2078 3173 Intake, IV 2276 3483 Output, 100 200 Gastric Drainage Output, Urine 98 110 Patient 60.781 kg 61.235 kg Weight Weight Bed scale Measurement Method Physical Exam General Appearance: sedated, intubated Head: atraumatic, normal appearance Eyes: Bilateral: PERRL. Ears, Nose, Throat: normal ENT inspection Neck: normal inspection, supple, full range of motion Respiratory: chest non-tender Cardiovascular: murmur, systolic murmur, irregularly irregular Gastrointestinal: normal bowel sounds, soft, non-tender Extremities: normal inspection, normal capillary refill, normal range of motion, no edema Last 48 Hrs of Labs/Matt: Laboratory Tests 04/09/17 1000: Fibrinogen Activity 564 H, Fibrin Degrad Products >10 but < 40 ug/ml H, D- Dimer > 5250 H 04/09/17 0530: Urinalysis LIGHT H, Urine Color YEL, Urine Clarity CLDY H, Urine pH 5.5, Ur Specific [place] >= 1.030, Urine Protein 100 H, Urine Ketones NEG, Urine Nitrite NEG, Urine Bilirubin NEG, Urine Urobilinogen 0.2, Ur Leukocyte Esterase NEG, Ur Microscopic SEDIMENT EXAMINED, Urine RBC RARE, Urine WBC 3-5 H, Ur Epithelial Cells FEW, Urine Bacteria MOD H, Hyaline Casts RARE H, Granular Casts 3-5 H, Urine Hemoglobin NEG, Urine Glucose NEG 04/09/17 0450: pH 7.45, pCO2 38, pO2 85, HCO3 26, ABG O2 Sat (Measured) 96.0, P-50 (Temp Corrected) Y, Carboxyhemoglobin 0.3 L, O2 Concentration % 40%, Temperature 98.0 , Respiration Rate 12, O2 Delivery Method ESPRIT, Vent Mode AC, Expiratory Pressure 5, Tidal Volume 450, Phlebotomy Draw Site RIGHT BRACHIAL 04/09/17 0430: Anion Gap 10, Estimated GFR > 60, Glucose 115 H, Calcium 7.0 L, Phosphorus 2.8 , Magnesium 2.0, Total Bilirubin 0.5, AST 14 L, ALT 29, Albumin 2.2 L, CBC w Diff MAN DIFF ORDERED, RBC 3.23 L, MCV 79.0 L, MCH 24.8 L, RDW 20.3 H, MPV 8.3, Gran % 48.8, Lymphocytes % 48.3, Monocytes % 2.5, Eosinophils % 0, Basophils % 0.4, Absolute Granulocytes 24.4 H, Segmented Neutrophils 49, Absolute Lymphocytes 24.2 H, Lymphocytes 50, Monocytes 1 L, Absolute Monocytes 1.3 H, Absolute Eosinophils 0, Absolute Basophils 0.2, Platelet Estimate ADEQUATE, Polychromasia 1+, Hypochromic-Microcytic 1+, Poikilocytosis 1+, Anisocytosis 1+, Microcytic Cells 1+, Ovalocytes 1+, Elliptocytes FEW, PUBS MCHC 31.4 L, Fld Total RBCs Counted 100 04/09/17 0029: Anion Gap 11, Estimated GFR > 60, Glucose 131 H, Calcium 6.8 L, Phosphorus 2.8 , Magnesium 2.0, Total Bilirubin 0.4, AST 12 L, ALT 23, Albumin 2.1 L, CBC w Diff MAN DIFF ORDERED, RBC 3.22 L, MCV 78.2 L, MCH 24.3 L, RDW 20.0 H, MPV 8.1, Gran % 46.9, Lymphocytes % 51.5 H, Monocytes % 1.5 L, Eosinophils % 0, Basophils % 0.1, Absolute Granulocytes 23.4 H, Segmented Neutrophils 41 L, Band Neutrophils 1, Absolute Lymphocytes 25.7 H, Lymphocytes 58 H, Absolute Monocytes 0.7 H, Absolute Eosinophils 0, Absolute Basophils 0, Platelet Estimate ADEQUATE, Polychromasia 1+, Hypochromic-Microcytic 1+, Poikilocytosis 2 +, Anisocytosis 1+, Microcytic Cells 1+, Ovalocytes 1+, Elliptocytes 1+, PUBS MCHC 31.0 L, Fld Total RBCs Counted 100 04/08/172009: pH 7.42, pCO2 43, pO2 165 H, HCO3 27, ABG O2 Sat (Measured) 98.0, Carboxyhemoglobin 0.3 L, O2 Concentration % 70, Temperature 98.6, Respiration Rate 12, O2 Delivery Method VENT, Vent Mode CMV, Expiratory Pressure 5, Tidal Volume 450, Phlebotomy Draw Site RIGHT BRACHIAL 04/08/171814: Lactic Acid 1.8 04/08/171814: Anion Gap 11, Estimated GFR > 60, Glucose 101 H, Calcium 7.0 L, Phosphorus 3.0 , Magnesium 1.8, Total Bilirubin 0.5, AST 14 L, ALT 25, Albumin 2.2 L, CBC w Diff MAN DIFF ORDERED, RBC 3.31 L, MCV 79.2 L, MCH 24.9 L, RDW 19.9 H, MPV 9.0, Gran % 45.5, Lymphocytes % 53.2 H, Monocytes % 1.0 L, Eosinophils % 0, Basophils % 0.3, Absolute Granulocytes 19.5 H, Absolute Lymphocytes 22.8 H, Absolute Monocytes 0.4, Absolute Eosinophils 0, Absolute Basophils 0.1, Platelet Estimate ADEQUATE, Poikilocytosis 1+, Anisocytosis 1+, Microcytic Cells 1+, Ovalocytes FEW, Stomatocytes FEW, PUBS MCHC 31.4 L 04/08/17 1800: Lactic Acid Cancelled 04/08/17 1445: Lactic Acid 2.2 H 04/08/17 1445: Anion Gap 10, Estimated GFR > 60, Glucose 140 H, Calcium 7.4 L, Phosphorus 3.3 , Magnesium 1.8, Total Bilirubin 0.7, AST 13 L, ALT 25, Troponin I 0.09, Albumin 2.4 L, CBC w Diff NO MAN DIFF REQ, RBC 3.68 L, MCV 78.4 L, MCH 24.8 L, RDW 20.1 H, MPV 8.6, Gran % 56.6, Lymphocytes % 42.6, Monocytes % 0.5 L, Eosinophils % 0, Basophils % 0.3, Absolute Granulocytes 15.6 H, Absolute Lymphocytes 11.7 H, Absolute Monocytes 0.1 L, Absolute Eosinophils 0, Absolute Basophils 0.1, PUBS MCHC 31.6 L 04/08/17 1435: pH 7.50 H, pCO2 41, pO2 193 H, HCO3 31 H, ABG O2 Sat (Measured) 99.0, P-50 ( Temp Corrected) N, Carboxyhemoglobin 0.3 L, O2 Concentration % 100%, Respiration Rate 20, O2 Delivery Method VENT, Vent Mode AC, Expiratory Pressure 5, Tidal Volume 450, Pressure Support 0, Phlebotomy Draw Site RIGHT BRACHIAL 04/08/17 0955: Lactic Acid 1.8 04/08/17 0636: CBC w Diff MAN DIFF ORDERED, RBC 3.71 L, MCV 78.2 L, MCH 24.9 L, RDW 20.0 H, MPV 8.7, Gran % 50.1, Lymphocytes % 49.6, Monocytes % 0.2 L, Eosinophils % 0, Basophils % 0.1, Absolute Granulocytes 23.3 H, Segmented Neutrophils 55, Band Neutrophils 4, Absolute Lymphocytes 23.1 H, Lymphocytes 40, Monocytes 1 L, Absolute Monocytes 0.1 L, Absolute Eosinophils 0, Absolute Basophils 0.1, Platelet Estimate ADEQUATE, Poikilocytosis FEW, Anisocytosis 1+, Ovalocytes FEW, PUBS MCHC 31.9 L, Fld Total RBCs Counted 100 04/08/17 0630: pH 7.48 H, pCO2 44, pO2 117 H, HCO3 32 H, ABG O2 Sat (Measured) 98.0, P-50 ( Temp Corrected) Y, Carboxyhemoglobin 0.5 L, O2 Concentration % 100%, Temperature 96.3 L, O2 Delivery Method NRB, Phlebotomy Draw Site RIGHT BRACHIAL 04/08/17 0625: Anion Gap 15, Estimated GFR > 60, BUN/Creatinine Ratio 35.6 H, Glucose 183 H, Lactic Acid 2.1, Calcium 8.6, Total Bilirubin 0.7, AST 16 L, ALT 24, Alkaline Phosphatase 88, Troponin I 0.07, Total Protein 7.0, Albumin 3.1 L, Globulin 3.9 , Albumin/Globulin Ratio 0.8 L, Amylase 62, Lipase < 10 L, PT 14.0 H, INR 1.34 H, APTT 34 Microbiology 04/09 530 URINE ROUT: Legionella Antigen - COMP 04/09 530 URINE ROUT: Streptococcus pneumoniae Antigen (M - COMP Assessment/Plan Impression/Plan: Mr. Lake is 86 year old male with past medical history significant for CLL status post chemotherapy (has port catheter), questionable lung cancer, DVT and atrial fibrillation on several to, status post IVC filter, anemia, recent colonoscopy 04/07/17 who BIBA from [facility] with chief complaint of coffee- ground emesis and confusion. Imaging obtained on admission Chest x-ray: 1. Increased bibasilar airspace disease compared with 01/11/2017 which may represent acute on chronic aspiration pneumonitis. 2. Dense airspace opacification within the right perihilar region which is suspicious for neoplasm and possible posttreatment related changes as described on the comparison CT of 01/11/2017. 3. Tunneled left subclavian catheter terminating within the brachiocephalic vein. 4. Right pleural thickening and possible right upper lobe atelectasis. 5. Aortic calcific atherosclerosis. 6. Diffuse osteopenia. CT abdomen pelvis: 1. Marked gastric distention. The stomach is markedly distended containing both gas and fluid. 2. The incidentally visualized portions of the lung bases demonstrate bilateral dependent airspace disease increased in prominence compared with 01/11/2017. These findings may represent chronic or acute on chronic aspiration pneumonitis. 3. No free intraperitoneal gas. No intestinal dilatation. 4. Diffuse Monckeberg type facet or calcification suspicious for the sequela of long-term diabetes mellitus. Additionally, diffuse calcific atherosclerosis is present including extensive coronary artery calcific atherosclerosis. 4. The incidentally visualized portions of the lung bases demonstrate bilateral dependent airspace disease increased in prominence compared with 01/11/2017. These findings may represent chronic or acute on chronic aspiration pneumonitis. 5. 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 6. L1 vertebral body benign-appearing compression deformity grossly unchanged compared with 01/11/2017. 7. Inferior vena cava filter in situ. 8. Bilateral punctate renal calcifications which may represent vascular calcifications or urolithiasis. No evidence of acute obstructive uropathy. No hydronephrosis or ureterectasis. 9. Bilateral posterolateral rib chronic posttraumatic deformities. 10. Diffuse hepatic steatosis. 11. Status post cholecystectomy. Echocardiogram: CONCLUSIONS Normal size left ventricle. Mild concentric left ventricular hypertrophy. No obvious regional wall motion abnormalities. Normal left ventricular ejection fraction visually estimated at > 60%. "pseudonormal" filling pattern of the left ventricle for age (stage 2 diastolic dysfunction). Normal right ventricular size and function. Normal atrial size. Trace to mild mitral regurgitation. Moderate aortic stenosis. Trace aortic regurgitation. Mild tricuspid regurgitation. Dilated inferior vena cava. Problem list: -Septic shock requiring 2 pressors -Aspiration pneumonitis/postprocedure aspiration pneumonia on vancomycin and ceftriaxone -Gastric outlet obstruction with CT evidence of gas/fluid level stomach, [facility] -Atrial fibrilation and DVT on xeralto and IVC filater -CLL s/p chemotherapy has portal catheter Plan Resipratory: -Mechanical ventilator A/C rate 12, tidal volume 450, PEEP 5, FiO20 with saturation 96% -EBG 04/09 pH 7.45, PCO2 38, PO2 85, bicarbonate 26 -Chest x-ray endotracheal tube terminates about 2 cm above the imelda -Continue aggressive oral hygiene ID -Covering for aspiration pneumonitis/postprocedure aspiration pneumonia -Continue vancomycin, ceftaz Day#2 -ID consultation was obtained, thanks recommendation -Discontinue Flagyl as bed is no evidence of GI perforation, no evidence of free air and CT abdomen -Sputum culture positive for gram-negative throats, staph aureus was isolated, follow sensitivity -Follow up blood culture -Contact isolation for possible MRSA infection CVS -Continue IV fluid 150 mL/mL -2 pressors vasopressin and Levophed, trial to wean off today -Cardiology recommendation was obtained for atrial fibrillation and DVT, anti- coagulation is on hold for now -Cardiology recommendation regarding possibility initiating IV heparin Hematology -Past medical history of chronic lymphocytic leukemia status post chemotherapy -Patient has port catheter, no signs of infection -Cardiology consultation was obtained, thinks the recommendation -Recommendation for DIC workup, elevated d-dimer, fibrinogen, fibrin split product, prolonged PT and PTT -Records from PCP in process to be obtained -OG tube initially aspirated 2 L of dark fluid that's grossly hemoccult positive -GI consultation was obtained, thanks recommendation -No recommendation for urgent endoscopy at this time, GI signed off, to be recontacted if patient had acute GI bleeding or failure of advanced tube feeds Metabolic -Measure electrolyte and replete as needed daily -Sodium 148 -We'll replete phosphorus with sodium phosphate IV, ICU bundle was ordered at 3 PM to follow on sodium level Neurolgy -Sedation by Propofol -Escitalopram 20 mg daily I'll medication -Lyrica 50 mg at bedtime Alimentary -Nothing by mouth, for tube feeds to be started after titrating vasopressors off DVT prophylaxis Code full Meeting was held with the conservator, agent will be full code during the weekend, goals of care will be addressed on Wednesday Consult Acknowledgment - Thank you for your consult request.
--- NOTE | 2017-04-09 08:24 | Cons- Hematology ---
General Information and HPI Consulting Request Date of Consult: 04/09/17 Requested By: LOKESH LYNNE MD Reason for Consult: CLL/Lung cancer Source of Information: old records Exam Limitations: unable to give history, clinical condition History of Present Illness: Mr. 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 He had colonoscopy the day prior to admission and had an episode of emesis. On presentation to ED, he hwas hypoxic and hypotensive. Due to respiratory failure and airway protection, he was intubated. NG tube had coffee ground output. He was bolus with multiple liters of IVF and placed on pressors. He is currently intubated and sedated. He is on vasopressor and Levophed. He has been afebrile. Allergies/Medications Allergies: Coded Allergies: No Known Allergies (01/28/17) Home Med List: Acetaminophen (Tylenol Extra Strength) 500 MG TABLET 650 MG WA Q4H PRN PAIN/ TEMP >100 (Reported) Albuterol Sulfate 0.63 MG/3 ML VIAL.NEB 1 UNIT NEB Q4H PRN SOB/ WHEEZING ( Reported) 0.083% Ascorbic Acid (Vitamin C) 500 MG CAPSULE.ER 1 CAP PO DAILY VITAMIN SUPPLEMENT (Reported) Calcium Carbonate (Oyster Shell Calcium) 500 MG CALCIUM (1,250 MG) TABLET 1 TAB PO BID SUPPLEMENT (Reported) Diphenhydramine HCl (Diphenhist) 25 MG CAPSULE 1 TAB PO Q8H PRN ITCHING ( Reported) Escitalopram Oxalate 20 MG TABLET 1 TAB PO DAILY ANTIDEPRESSANT (Reported) Ferrous Sulfate 325 MG (65 MG IRON) TABLET 1 TAB PO TID IRON SUPPLEMENT ( Reported) Guaifenesin/Dextromethorphan (Robafen-Dm Syrup) 100 MG-10 MG/5 ML SYRUP 10 ML PO Q4 PRN COUGH/ CONGESTION (Reported) Ipratropium/Albuterol Sulfate (Iprat-Albut 0.5-3(2.5) MG/3 Ml) 0.5 MG-3 MG (2.5 MG BASE)/3 ML AMPUL.NEB 1 UNIT NEB Q4H HX LUNG CA (Reported) Lorazepam (Ativan) 1 MG TABLET 1 TAB PO BID ANXIETY (Reported) Lorazepam (Ativan) 0.5 MG TABLET 1 TAB PO BEDTIME PRN ANXIETY (Reported) Magnesium Hydroxide (Milk Of Magnesia) 400 MG/5 ML ORAL.SUSP 30 ML PO DAILY PRN CONSTIPATION (Reported) Mirtazapine (Remeron) 15 MG TAB.RAPDIS 7.5 MG PO QHS MEMORY (Reported) Ondansetron (Zofran Odt) 4 MG TAB.RAPDIS 1 TAB PO Q6H PRN NAUSEA/VOMITTING ( Reported) Oxycodone HCl (Oxycontin) 10 MG TAB.ER.12H 1 TAB PO QAM PAIN (Reported) Oxycodone HCl 5 MG CAPSULE 1 CAP PO Q4H PRN PAIN (Reported) Polyethylene Glycol 3350 (Miralax) 17 GRAM/DOSE POWDER 17 GM PO DAILY CONSTIPATION (Reported) mix with water, juice, soda, coffee or tea Pregabalin (Lyrica) 50 MG CAPSULE 1 CAP PO BEDTIME DEPRESSION (Reported) Rivaroxaban (Xarelto) 20 MG TABLET 1 TAB PO QPM BLOOD THINNER (Reported) with food Sennosides (Senna) 8.6 MG TABLET 2 TAB PO Q12H CONSTIPATION (Reported) Current Medications: Current Medications Sig/Fred Start time Last Medication Dose Route Stop Time Status Admin Albuterol Sulfate 3 ML Q6 PRN 04/08 1130 AC 04/08 INH 1240 Ceftazidime 1,000 MG Q12H 04/08 1930 AC 04/09 IV 0640 Escitalopram Oxalate 20 MG DAILY 04/09 1000 AC PO Etomidate 0 .STK-MED ONE 04/08 1308 DC IV Ferrous Sulfate 325 MG TID 04/08 1600 AC PO Ipratropium [place] 2.5 ML ONCE ONE 04/08 1130 CAN INH 04/08 1131 Magnesium Sulfate 1 GM ONCE ONE 04/08 1545 DC 04/08 Dextrose/Water 100 ML IV 04/08 1944 1912 Metronidazole 500 MG IQ8 04/08 1600 AC 04/09 N/A 1 UNIT IV 0042 Mirtazapine 7.5 MG AT BEDTIME 04/08 2200 DC PO Mirtazapine 7.5 MG AT BEDTIME 04/08 2200 AC PO Non-Formulary 0 SEE ADMIN CRITERIA 04/08 1315 CAN Medication ANY Norepinephrine 4 MG Q4H 04/08 1800 AC 04/09 Sodium Chloride 250 ML IV 0311 Norepinephrine 4 MG Q24H 04/08 1500 DC 04/08 Sodium Chloride 250 ML IV 1510 Norepinephrine 0 .STK-MED ONE 04/08 1456 DC IV Pantoprazole Sodium 40 MG DAILY 04/09 1000 DC IV Pantoprazole Sodium 40 MG BID 04/08 1415 AC 04/08 IV 2213 Polyethylene Glycol 17 GM DAILY 04/09 1000 AC PO Potassium Chloride 20 MEQ Q1H 04/09 0115 DC 04/09 IV 04/09 0216 0240 Potassium Chloride 20 MEQ Q1H 04/08 1545 DC 04/08 IV 04/08 1646 1910 Potassium Chloride 10 MEQ Q1H 04/08 1145 DC 04/08 IV 04/08 1346 1600 Pregabalin 50 MG AT BEDTIME 04/08 2200 AC PO Propofol 1,000 MG .STK-MED ONE 04/08 1554 DC IV 04/08 1555 Propofol 1,000 MG Q12H 04/08 1330 AC 04/09 N/A 100 ML IV 0312 Rivaroxaban 20 MG AT BEDTIME 04/08 2200 CAN PO Sodium Chloride 1,000 ML .Q6H40M 04/08 1900 AC 04/09 IV 0105 Sodium Chloride 1,000 ML BOLUS ONE 04/08 1530 DC 04/08 IV 04/08 1629 1849 Sodium Chloride 1,000 ML BOLUS ONE 04/08 1530 DC 04/08 IV 04/08 1629 1849 Sodium Chloride 1,000 ML BOLUS ONE 04/08 1345 DC 04/08 IV 04/08 1444 1416 Vancomycin HCl 1,000 MG Q24H 04/09 0730 04/09 Sodium Chloride 250 ML IV 0637 Vasopressin 40 UNITS Q16H 04/08 1900 AC 04/08 Sodium Chloride 100 ML IV 1938 Review of Systems Review of Systems: Unable to be obtained due to intubation and sedation. 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 Acute Rehab Who Do You Live With? there is side at [facility], [place] Services at Home: Nursing Primary Language: Frisian Smoking Status: Former Smoker ETOH Use: denies use Functional Ability ADLs Needs Assist: dressing, eating, toileting, bathing. Ambulation: walker IADLs Needs Assist: telephone, transportation. Exam & Diagnostic Data Vital Signs and I&O Vital Signs Date Time Temp Pulse Resp B/P B/P Pulse O2 O2 Flow FiO2 Mean Ox Delivery Rate 04/09 0532 40 04/09 0400 96 Ventilator 40% 04/09 0350 40 04/09 0311 98.0 88 21 124/54 04/09 0153 40 04/09 0000 98.0 79 16 120/60 97 Ventilator 40% 04/09 0000 97 Ventilator 40% 04/08 2334 92 18 125/57 04/08 2208 40 04/08 2000 100 Ventilator 70% 04/08 1912 70 04/08 1704 100 04/08 1600 100 Ventilator 100% 04/08 1600 98.6 90 26 106/70 100 Ventilator 100% 04/08 1518 97.9 115 20 83/55 100 Ventilator 100% 04/08 1510 115 74/55 18 1449 97.9 114 20 75/44 100 Ventilator 100% 04/08 1420 97.1 116 20 102/54 100 Ventilator 100% 04/08 1330 97.9 124 22 97/54 88 Non 100% ReBreather 04/08 1325 100 04/08 1249 95 Non 100% ReBreather 04/08 1230 98.3 112 24 95/74 97 Non 100% ReBreather 04/08 1139 98.0 120 20 116/56 94 Non 10L ReBreather 04/08 0943 98.2 112 18 121/59 95 Non 10L ReBreather 04/08 0906 97.9 110 18 144/72 96 Non 100% ReBreather Intake & Output 04/09 1600 04/09 0800 04/09 0000 Intake Total 2276 3483 Output Total 198 310 Balance 2078 3173 Intake, IV 2276 3483 Output, 100 200 Gastric Drainage Output, Urine 98 110 Patient 61.235 kg Weight Weight Bed scale Measurement Method Physical Exam General Appearance: sedated, intubated, thin Ears, Nose, Throat: normal pharynx, dry blood in mouth Respiratory: rhonchi Cardiovascular: systolic murmur Peripheral Pulses: 2+ tibialis posterior (R), 2+ tibialis posterior (L), 2+ dorsalis pedis (R), 2+ dorsalis pedis (L) Gastrointestinal: normal bowel sounds, soft, non-tender, no organomegaly Extremities: no edema Neurologic/Psych: sedated Skin: warm/dry Lymphatic: no adenopathy in cervical, supraclavicular, axillary, inguinal Last 48 Hours of Lab Results: Laboratory Tests 04/09 04/09 0530 0450 Blood Gas pH (7.35 - 7.45 PH) 7.45 pCO2 (35 - 45 TORR) 38 pO2 (80 - 100 TORR) 85 HCO3 (21 - 28 MEQ/L) 26 ABG O2 Sat (Measured) (>96.0 %) 96.0 P-50 (Temp Corrected) Y Carboxyhemoglobin (1.5 - 5.0 %) 0.3 L O2 Concentration % 40% Temperature (97.0 - 100.0 FARH) 98.0 Respiration Rate (BPM) 12 O2 Delivery Method ESPRIT Vent Mode AC Expiratory Pressure (CMH2O/P) 5 Tidal Volume (CC) 450 Miscellaneous Phlebotomy Draw Site RIGHT BRACHIAL Urines Urinalysis LIGHT H Urine Color (YEL,AMB,STR) YEL Urine Clarity (CLEAR) CLDY H Urine pH (5.0 - 8.0) 5.5 Ur Specific [place] (1.001 - 1.035) >= 1.030 Urine Protein (NEG,<30 MG/DL) 100 H Urine Ketones (NEG) NEG Urine Nitrite (NEG) NEG Urine Bilirubin (NEG) NEG Urine Urobilinogen (0.1 - 1.0 EU/dl) 0.2 Ur Leukocyte Esterase (NEG) NEG Ur Microscopic SEDIMENT EXAMINED Urine RBC (0 - 5 /HPF) RARE Urine WBC (0 - 2 /HPF) 3-5 H Ur Epithelial Cells (NONE,FEW) FEW Urine Bacteria (NEG/NONE) MOD H Hyaline Casts (0/LPF) RARE H Granular Casts (NONE /LPF) 3-5 H Urine Hemoglobin (NEG) NEG Urine Glucose (N MG/DL) NEG 04/09 04/09 0430 0029 Chemistry Sodium (137 - 145 mmol/L) 148 H 148 H Potassium (3.5 - 5.1 mmol/L) 3.9 3.3 L Chloride (98 - 107 mmol/L) 111 H 109 H Carbon Dioxide (22 - 30 mmol/L) 27 28 Anion Gap (5 - 16) 10 11 BUN (9 - 20 mg/dL) 30 H 31 H Creatinine (0.7 - 1.2 mg/dL) 1.0 1.0 Estimated GFR (>60 ml/min) > 60 > 60 Glucose (65 - 99 mg/dL) 115 H 131 H Calcium (8.4 - 10.2 mg/dL) 7.0 L 6.8 L Phosphorus (2.5 - 4.5 mg/dL) 2.8 2.8 Magnesium (1.6 - 2.3 mg/dL) 2.0 2.0 Total Bilirubin (0.2 - 1.3 mg/dL) 0.5 0.4 AST (17 - 59 U/L) 14 L 12 L ALT (21 - 72 U/L) 29 23 Albumin (3.5 - 5.0 g/dL) 2.2 L 2.1 L Hematology CBC w Diff MAN DIFF ORDERED MAN DIFF ORDERED WBC (4.8 - 10.8 /CUMM) 50.0 *H 49.8 *H RBC (4.70 - 6.10 /CUMM) 3.23 L 3.22 L Hgb (14.0 - 18.0 G/DL) 8.0 L 7.8 L Hct (42 - 52 %) 25.5 L 25.1 L MCV (80.0 - 94.0 FL) 79.0 L 78.2 L MCH (27.0 - 31.0 PG) 24.8 L 24.3 L RDW (11.5 - 14.5 %) 20.3 H 20.0 H Plt Count (130 - 400 /CUMM) 142 158 MPV (7.4 - 10.4 FL) 8.3 8.1 Gran % (42.2 - 75.2 %) 48.8 46.9 Lymphocytes % (20.5 - 51.1 %) 48.3 51.5 H Monocytes % (1.7 - 9.3 %) 2.5 1.5 L Eosinophils % (0 - 5 %) 0 0 Basophils % (0.0 - 2.0 %) 0.4 0.1 Absolute Granulocytes (1.4 - 6.5 /CUMM) 24.4 H 23.4 H Segmented Neutrophils (42.2 - 75.2 %) 49 41 L Band Neutrophils (0.0 - 5.0 %) 1 Absolute Lymphocytes (1.2 - 3.4 /CUMM) 24.2 H 25.7 H Lymphocytes (20.5 - 51.1 %) 50 58 H Monocytes (1.7 - 9.3 %) 1 L Absolute Monocytes (0.10 - 0.60 /CUMM) 1.3 H 0.7 H Absolute Eosinophils (0.0 - 0.7 /CUMM) 0 0 Absolute Basophils (0.0 - 0.2 /CUMM) 0.2 0 Platelet Estimate (ADEQUATE) ADEQUATE ADEQUATE Polychromasia 1+ 1+ Hypochromic-Microcytic 1+ 1+ Poikilocytosis 1+ 2+ Anisocytosis 1+ 1+ Microcytic Cells 1+ 1+ Ovalocytes 1+ 1+ Elliptocytes FEW 1+ PUBS MCHC (33.0 - 37.0 G/DL) 31.4 L 31.0 L Other Body Source Fld Total RBCs Counted (%) 100 100 04/08 Blood Gas pH (7.35 - 7.45 PH) 7.42 pCO2 (35 - 45 TORR) 43 pO2 (80 - 100 TORR) 165 H HCO3 (21 - 28 MEQ/L) 27 ABG O2 Sat (Measured) (>96.0 %) 98.0 Carboxyhemoglobin (1.5 - 5.0 %) 0.3 L O2 Concentration % 70 Temperature (97.0 - 100.0 FARH) 98.6 Respiration Rate (BPM) 12 O2 Delivery Method VENT Vent Mode CMV Expiratory Pressure (CMH2O/P) 5 Tidal Volume (CC) 450 Chemistry Lactic Acid (0.7 - 2.1 mmol/L) 1.8 Miscellaneous Phlebotomy Draw Site RIGHT BRACHIAL 04/08 04/08 04/08 181 1800 1445 Chemistry Sodium (137 - 145 mmol/L) 146 H Potassium (3.5 - 5.1 mmol/L) 3.1 L Chloride (98 - 107 mmol/L) 106 Carbon Dioxide (22 - 30 mmol/L) 29 Anion Gap (5 - 16) 11 BUN (9 - 20 mg/dL) 31 H Creatinine (0.7 - 1.2 mg/dL) 1.0 Estimated GFR (>60 ml/min) > 60 Glucose (65 - 99 mg/dL) 101 H Lactic Acid (0.7 - 2.1 mmol/L) Cancelled 2.2 H Calcium (8.4 - 10.2 mg/dL) 7.0 L Phosphorus (2.5 - 4.5 mg/dL) 3.0 Magnesium (1.6 - 2.3 mg/dL) 1.8 Total Bilirubin (0.2 - 1.3 mg/dL) 0.5 AST (17 - 59 U/L) 14 L ALT (21 - 72 U/L) 25 Albumin (3.5 - 5.0 g/dL) 2.2 L Hematology CBC w Diff MAN DIFF ORDERED WBC (4.8 - 10.8 /CUMM) 42.9 *H RBC (4.70 - 6.10 /CUMM) 3.31 L Hgb (14.0 - 18.0 G/DL) 8.2 L Hct (42 - 52 %) 26.2 L MCV (80.0 - 94.0 FL) 79.2 L MCH (27.0 - 31.0 PG) 24.9 L RDW (11.5 - 14.5 %) 19.9 H Plt Count (130 - 400 /CUMM) 194 MPV (7.4 - 10.4 FL) 9.0 Gran % (42.2 - 75.2 %) 45.5 Lymphocytes % (20.5 - 51.1 %) 53.2 H Monocytes % (1.7 - 9.3 %) 1.0 L Eosinophils % (0 - 5 %) 0 Basophils % (0.0 - 2.0 %) 0.3 Absolute Granulocytes (1.4 - 6.5 /CUMM) 19.5 H Absolute Lymphocytes (1.2 - 3.4 /CUMM) 22.8 H Absolute Monocytes (0.10 - 0.60 /CUMM) 0.4 Absolute Eosinophils (0.0 - 0.7 /CUMM) 0 Absolute Basophils (0.0 - 0.2 /CUMM) 0.1 Platelet Estimate (ADEQUATE) ADEQUATE Poikilocytosis 1+ Anisocytosis 1+ Microcytic Cells 1+ Ovalocytes FEW Stomatocytes FEW PUBS MCHC (33.0 - 37.0 G/DL) 31.4 L 04/08 04/08 1445 1435 Blood Gas pH (7.35 - 7.45 PH) 7.50 H pCO2 (35 - 45 TORR) 41 pO2 (80 - 100 TORR) 193 H HCO3 (21 - 28 MEQ/L) 31 H ABG O2 Sat (Measured) (>96.0 %) 99.0 P-50 (Temp Corrected) N Carboxyhemoglobin (1.5 - 5.0 %) 0.3 L O2 Concentration % 100% Respiration Rate (BPM) 20 O2 Delivery Method VENT Vent Mode AC Expiratory Pressure (CMH2O/P) 5 Tidal Volume (CC) 450 Pressure Support (CMH2O/P) 0 Chemistry Sodium (137 - 145 mmol/L) 146 H Potassium (3.5 - 5.1 mmol/L) 3.3 L Chloride (98 - 107 mmol/L) 103 Carbon Dioxide (22 - 30 mmol/L) 33 H Anion Gap (5 - 16) 10 BUN (9 - 20 mg/dL) 33 H Creatinine (0.7 - 1.2 mg/dL) 1.0 Estimated GFR (>60 ml/min) > 60 Glucose (65 - 99 mg/dL) 140 H Calcium (8.4 - 10.2 mg/dL) 7.4 L Phosphorus (2.5 - 4.5 mg/dL) 3.3 Magnesium (1.6 - 2.3 mg/dL) 1.8 Total Bilirubin (0.2 - 1.3 mg/dL) 0.7 AST (17 - 59 U/L) 13 L ALT (21 - 72 U/L) 25 Troponin I (<0.11 ng/ml) 0.09 Albumin (3.5 - 5.0 g/dL) 2.4 L Hematology CBC w Diff NO MAN DIFF REQ WBC (4.8 - 10.8 /CUMM) 27.6 H RBC (4.70 - 6.10 /CUMM) 3.68 L Hgb (14.0 - 18.0 G/DL) 9.1 L Hct (42 - 52 %) 28.8 L MCV (80.0 - 94.0 FL) 78.4 L MCH (27.0 - 31.0 PG) 24.8 L RDW (11.5 - 14.5 %) 20.1 H Plt Count (130 - 400 /CUMM) 159 MPV (7.4 - 10.4 FL) 8.6 Gran % (42.2 - 75.2 %) 56.6 Lymphocytes % (20.5 - 51.1 %) 42.6 Monocytes % (1.7 - 9.3 %) 0.5 L Eosinophils % (0 - 5 %) 0 Basophils % (0.0 - 2.0 %) 0.3 Absolute Granulocytes (1.4 - 6.5 /CUMM) 15.6 H Absolute Lymphocytes (1.2 - 3.4 /CUMM) 11.7 H Absolute Monocytes (0.10 - 0.60 /CUMM) 0.1 L Absolute Eosinophils (0.0 - 0.7 /CUMM) 0 Absolute Basophils (0.0 - 0.2 /CUMM) 0.1 PUBS MCHC (33.0 - 37.0 G/DL) 31.6 L Miscellaneous Phlebotomy Draw Site RIGHT BRACHIAL 04/08 04/08 1192 0612 Chemistry Lactic Acid (0.7 - 2.1 mmol/L) 1.8 Hematology CBC w Diff MAN DIFF ORDERED WBC (4.8 - 10.8 /CUMM) 46.5 *H RBC (4.70 - 6.10 /CUMM) 3.71 L Hgb (14.0 - 18.0 G/DL) 9.2 L Hct (42 - 52 %) 29.0 L MCV (80.0 - 94.0 FL) 78.2 L MCH (27.0 - 31.0 PG) 24.9 L RDW (11.5 - 14.5 %) 20.0 H Plt Count (130 - 400 /CUMM) 203 MPV (7.4 - 10.4 FL) 8.7 Gran % (42.2 - 75.2 %) 50.1 Lymphocytes % (20.5 - 51.1 %) 49.6 Monocytes % (1.7 - 9.3 %) 0.2 L Eosinophils % (0 - 5 %) 0 Basophils % (0.0 - 2.0 %) 0.1 Absolute Granulocytes (1.4 - 6.5 /CUMM) 23.3 H Segmented Neutrophils (42.2 - 75.2 %) 55 Band Neutrophils (0.0 - 5.0 %) 4 Absolute Lymphocytes (1.2 - 3.4 /CUMM) 23.1 H Lymphocytes (20.5 - 51.1 %) 40 Monocytes (1.7 - 9.3 %) 1 L Absolute Monocytes (0.10 - 0.60 /CUMM) 0.1 L Absolute Eosinophils (0.0 - 0.7 /CUMM) 0 Absolute Basophils (0.0 - 0.2 /CUMM) 0.1 Platelet Estimate (ADEQUATE) ADEQUATE Poikilocytosis FEW Anisocytosis 1+ Ovalocytes FEW PUBS MCHC (33.0 - 37.0 G/DL) 31.9 L Other Body Source Fld Total RBCs Counted (%) 100 04/08 04/08 0630 0625 Blood Gas pH (7.35 - 7.45 PH) 7.48 H pCO2 (35 - 45 TORR) 44 pO2 (80 - 100 TORR) 117 H HCO3 (21 - 28 MEQ/L) 32 H ABG O2 Sat (Measured) (>96.0 %) 98.0 P-50 (Temp Corrected) Y Carboxyhemoglobin (1.5 - 5.0 %) 0.5 L O2 Concentration % 100% Temperature (97.0 - 100.0 FARH) 96.3 L O2 Delivery Method NRB Chemistry Sodium (137 - 145 mmol/L) 148 H Potassium (3.5 - 5.1 mmol/L) 3.2 L Chloride (98 - 107 mmol/L) 99 Carbon Dioxide (22 - 30 mmol/L) 34 H Anion Gap (5 - 16) 15 BUN (9 - 20 mg/dL) 32 H Creatinine (0.7 - 1.2 mg/dL) 0.9 Estimated GFR (>60 ml/min) > 60 BUN/Creatinine Ratio (7 - 25 %) 35.6 H Glucose (65 - 99 mg/dL) 183 H Lactic Acid (0.7 - 2.1 mmol/L) 2.1 Calcium (8.4 - 10.2 mg/dL) 8.6 Total Bilirubin (0.2 - 1.3 mg/dL) 0.7 AST (17 - 59 U/L) 16 L ALT (21 - 72 U/L) 24 Alkaline Phosphatase (< 127 U/L) 88 Troponin I (<0.11 ng/ml) 0.07 Total Protein (6.3 - 8.2 g/dL) 7.0 Albumin (3.5 - 5.0 g/dL) 3.1 L Globulin (1.9 - 4.2 gm/dL) 3.9 Albumin/Globulin Ratio (1.1 - 2.2 %) 0.8 L Amylase (30 - 110 U/L) 62 Lipase (23 - 300 U/L) < 10 L Coagulation PT (9.4 - 12.5 SEC) 14.0 H INR (0.90 - 1.17) 1.34 H APTT (25 - 37 SEC) 34 Miscellaneous Phlebotomy Draw Site RIGHT BRACHIAL Imaging/Other Studies: CT abd/pelvis 04/08/2017: 1. Marked gastric distention. The stomach is markedly distended containing both gas and fluid. 2. The incidentally visualized portions of the lung bases demonstrate bilateral dependent airspace disease increased in prominence compared with 01/11/2017. These findings may represent chronic or acute on chronic aspiration pneumonitis. 3. No free intraperitoneal gas. No intestinal dilatation. 4. Diffuse Monckeberg type facet or calcification suspicious for the sequela of long-term diabetes mellitus. Additionally, diffuse calcific atherosclerosis is present including extensive coronary artery calcific atherosclerosis. 5. The incidentally visualized portions of the lung bases demonstrate bilateral dependent airspace disease increased in prominence compared with 01/11/2017. These findings may represent chronic or acute on chronic aspiration pneumonitis. 6. 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 7. L1 vertebral body benign-appearing compression deformity grossly unchanged compared with 01/11/2017. 8. Inferior vena cava filter in situ. 9. Bilateral punctate renal calcifications which may represent vascular calcifications or urolithiasis. No evidence of acute obstructive uropathy. No hydronephrosis or ureterectasis. 10. Bilateral posterolateral rib chronic posttraumatic deformities. 11. Diffuse hepatic steatosis. 12. Status post cholecystectomy. Assessment/Plan Assessment: Ms. Lake is an 86-year-old male with reported CLL status post therapy, ?lung cancer, DVT, atrial fibrillation, anemia, on chronic anticoagulation, and recent colonoscopy who presented from [facility] with acute hypoxic respiratory fatigue and hypotension. He had reported coffee ground emesis and had coffee ground output from NG tube after intubation. He is currently being supported with IVF resuscitation, 2 pressors (vasopressor and levophed), and antibiotics. He is being followed by GI and cardiology. His blood work and peripheral smear was reviewed. Peripheral smear demonstrated smudge cells, numerous lymphocytes, and numerous bands. This is suggestive of his underlying CLL and ongoing reactive process. He has likely has aspiration pneumonia versus pneumonitis. His WBC has been in the 50,000s range without other concerning features. This is likely reactive in nature. CLL patient tend to have a more robust response during stress. DIC panel can be checked to evaluate for other etiology of possible bleeding. 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 IVIG can be given for patient with frequent infection. However, in this patient it is not needed at the moment and unlikely to help. Records should be obtained from his primary legal job titles/ oncologist to evaluate recent treatment. Recommendations: 1. Check DIC panel 2. Obtain records from primary legal job titles/oncologist 3. Respiratory management as per ICU team Problem List: 1. Sepsis 2. CLL (chronic lymphocytic leukemia) Other Findings/Comments: Please call [phone] with any questions. Consult Acknowledgment - Thank you for your consult request.
--- NOTE | 2017-04-09 09:23 | PN- Att Addend ---
Attending Addendum Attending Brief Note Patient remains intubated. On pressors and propofol. General Appearance: Intubated Cardiovascular: Loud systolic murmur Lungs: decreased air entry Abdomen: Normal Bowel Sounds, Soft, No Tenderness NL, Reflexes 2+ Extremities: Pedal edema Assessment 86-year-old male with history of lung cancer status post chemotherapy in remission according to the patient with a recent CAT scan of the chest showing posttreatment scar, CLL, dementia who is currently a senior living resident presenting with respiratory distress and cough post colonoscopy. Patient had to be intubated for respiratory failure and septic shock. He is currently requiring 2 pressors and his urine output is somewhat compromised. Suspect aspiration pneumonia with CAT scan demonstrating bibasilar infiltrate. leukocytosis can mostly be attributed to CLL. Cultures so for have remained negative and blood pressure has improved with fluid resuscitation and pressors. At this time prognosis is guarded and we will continue to have further family discussion based on patient's progress. Plan Taper pressors when possible Fluid resuscitation Follow sputum culture Follow consults recommendations Continue antibiotics GI prophylaxis Prognosis is guarded Current Medications Sig/Fred Start time Last Medication Dose Route Stop Time Status Admin Albuterol Sulfate 3 ML Q6 PRN 04/08 1130 AC 04/08 INH 1240 Ceftazidime 1,000 MG Q12H 04/08 1930 AC 04/09 IV 0640 Chlorhexidine 15 ML BID 04/09 1000 AC Gluconate PO Escitalopram Oxalate 20 MG DAILY 04/09 1000 AC PO Etomidate 0 .STK-MED ONE 04/08 1308 DC IV Ferrous Sulfate 325 MG TID 04/08 1600 AC PO Ipratropium [place] 2.5 ML ONCE ONE 04/08 1130 CAN INH 04/08 1131 Magnesium Sulfate 1 GM ONCE ONE 04/08 1545 DC 04/08 Dextrose/Water 100 ML IV 04/08 1944 1912 Metronidazole 500 MG IQ8 04/08 1600 AC 04/09 N/A 1 UNIT IV 0042 Mirtazapine 7.5 MG AT BEDTIME 04/08 2200 DC PO Mirtazapine 7.5 MG AT BEDTIME 04/08 2200 AC PO Non-Formulary 0 SEE ADMIN CRITERIA 04/08 1315 CAN Medication ANY Norepinephrine 4 MG Q4H 04/08 1800 AC 04/09 Sodium Chloride 250 ML IV 0311 Norepinephrine 4 MG Q24H 04/08 1500 DC 04/08 Sodium Chloride 250 ML IV 1510 Norepinephrine 0 .STK-MED ONE 04/08 1456 DC IV Pantoprazole Sodium 40 MG DAILY 04/09 1000 DC IV Pantoprazole Sodium 40 MG BID 04/08 1415 AC 04/08 IV 2213 Polyethylene Glycol 17 GM DAILY 04/09 1000 AC PO Potassium Chloride 20 MEQ Q1H 04/09 0115 DC 04/09 IV 04/09 0216 0240 Potassium Chloride 20 MEQ Q1H 04/08 1545 DC 04/08 IV 04/08 1646 1910 Potassium Chloride 10 MEQ Q1H 04/08 1145 DC 04/08 IV 04/08 1346 1600 Pregabalin 50 MG AT BEDTIME 04/08 2200 AC PO Propofol 1,000 MG .STK-MED ONE 04/08 1554 DC IV 04/08 1555 Propofol 1,000 MG Q12H 04/08 1330 AC 04/09 N/A 100 ML IV 0312 Rivaroxaban 20 MG AT BEDTIME 04/08 2200 CAN PO Sodium Chloride 1,000 ML .Q6H40M 04/08 1900 AC 04/09 IV 0105 Sodium Chloride 1,000 ML BOLUS ONE 04/08 1530 DC 04/08 IV 04/08 1629 1849 Sodium Chloride 1,000 ML BOLUS ONE 04/08 1530 DC 04/08 IV 04/08 1629 1849 Sodium Chloride 1,000 ML BOLUS ONE 04/08 1345 DC 04/08 IV 04/08 1444 1416 Sodium Phosphate 15 mMol ONE ONE 04/09 0815 AC Dextrose/Water 250 ML IV 04/09 1218 Vancomycin HCl 1,000 MG Q24H 04/09 0730 04/09 Sodium Chloride 250 ML IV 0637 Vasopressin 40 UNITS Q16H 04/08 1900 AC 04/08 Sodium Chloride 100 ML IV 1938 Laboratory Tests 04/09 04/09 0530 0450 Blood Gas pH (7.35 - 7.45 PH) 7.45 pCO2 (35 - 45 TORR) 38 pO2 (80 - 100 TORR) 85 HCO3 (21 - 28 MEQ/L) 26 ABG O2 Sat (Measured) (>96.0 %) 96.0 P-50 (Temp Corrected) Y Carboxyhemoglobin (1.5 - 5.0 %) 0.3 L O2 Concentration % 40% Temperature (97.0 - 100.0 FARH) 98.0 Respiration Rate (BPM) 12 O2 Delivery Method ESPRIT Vent Mode AC Expiratory Pressure (CMH2O/P) 5 Tidal Volume (CC) 450 Miscellaneous Phlebotomy Draw Site RIGHT BRACHIAL Urines Urinalysis LIGHT H Urine Color (YEL,AMB,STR) YEL Urine Clarity (CLEAR) CLDY H Urine pH (5.0 - 8.0) 5.5 Ur Specific [place] (1.001 - 1.035) >= 1.030 Urine Protein (NEG,<30 MG/DL) 100 H Urine Ketones (NEG) NEG Urine Nitrite (NEG) NEG Urine Bilirubin (NEG) NEG Urine Urobilinogen (0.1 - 1.0 EU/dl) 0.2 Ur Leukocyte Esterase (NEG) NEG Ur Microscopic SEDIMENT EXAMINED Urine RBC (0 - 5 /HPF) RARE Urine WBC (0 - 2 /HPF) 3-5 H Ur Epithelial Cells (NONE,FEW) FEW Urine Bacteria (NEG/NONE) MOD H Hyaline Casts (0/LPF) RARE H Granular Casts (NONE /LPF) 3-5 H Urine Hemoglobin (NEG) NEG Urine Glucose (N MG/DL) NEG 04/09 04/09 0430 0029 Chemistry Sodium (137 - 145 mmol/L) 148 H 148 H Potassium (3.5 - 5.1 mmol/L) 3.9 3.3 L Chloride (98 - 107 mmol/L) 111 H 109 H Carbon Dioxide (22 - 30 mmol/L) 27 28 Anion Gap (5 - 16) 10 11 BUN (9 - 20 mg/dL) 30 H 31 H Creatinine (0.7 - 1.2 mg/dL) 1.0 1.0 Estimated GFR (>60 ml/min) > 60 > 60 Glucose (65 - 99 mg/dL) 115 H 131 H Calcium (8.4 - 10.2 mg/dL) 7.0 L 6.8 L Phosphorus (2.5 - 4.5 mg/dL) 2.8 2.8 Magnesium (1.6 - 2.3 mg/dL) 2.0 2.0 Total Bilirubin (0.2 - 1.3 mg/dL) 0.5 0.4 AST (17 - 59 U/L) 14 L 12 L ALT (21 - 72 U/L) 29 23 Albumin (3.5 - 5.0 g/dL) 2.2 L 2.1 L Hematology CBC w Diff MAN DIFF ORDERED MAN DIFF ORDERED WBC (4.8 - 10.8 /CUMM) 50.0 *H 49.8 *H RBC (4.70 - 6.10 /CUMM) 3.23 L 3.22 L Hgb (14.0 - 18.0 G/DL) 8.0 L 7.8 L Hct (42 - 52 %) 25.5 L 25.1 L MCV (80.0 - 94.0 FL) 79.0 L 78.2 L MCH (27.0 - 31.0 PG) 24.8 L 24.3 L RDW (11.5 - 14.5 %) 20.3 H 20.0 H Plt Count (130 - 400 /CUMM) 142 158 MPV (7.4 - 10.4 FL) 8.3 8.1 Gran % (42.2 - 75.2 %) 48.8 46.9 Lymphocytes % (20.5 - 51.1 %) 48.3 51.5 H Monocytes % (1.7 - 9.3 %) 2.5 1.5 L Eosinophils % (0 - 5 %) 0 0 Basophils % (0.0 - 2.0 %) 0.4 0.1 Absolute Granulocytes (1.4 - 6.5 /CUMM) 24.4 H 23.4 H Segmented Neutrophils (42.2 - 75.2 %) 49 41 L Band Neutrophils (0.0 - 5.0 %) 1 Absolute Lymphocytes (1.2 - 3.4 /CUMM) 24.2 H 25.7 H Lymphocytes (20.5 - 51.1 %) 50 58 H Monocytes (1.7 - 9.3 %) 1 L Absolute Monocytes (0.10 - 0.60 /CUMM) 1.3 H 0.7 H Absolute Eosinophils (0.0 - 0.7 /CUMM) 0 0 Absolute Basophils (0.0 - 0.2 /CUMM) 0.2 0 Platelet Estimate (ADEQUATE) ADEQUATE ADEQUATE Polychromasia 1+ 1+ Hypochromic-Microcytic 1+ 1+ Poikilocytosis 1+ 2+ Anisocytosis 1+ 1+ Microcytic Cells 1+ 1+ Ovalocytes 1+ 1+ Elliptocytes FEW 1+ PUBS MCHC (33.0 - 37.0 G/DL) 31.4 L 31.0 L Other Body Source Fld Total RBCs Counted (%) 100 100 05/18 05/18 2010 1815 Blood Gas pH (7.35 - 7.45 PH) 7.42 pCO2 (35 - 45 TORR) 43 pO2 (80 - 100 TORR) 165 H HCO3 (21 - 28 MEQ/L) 27 ABG O2 Sat (Measured) (>96.0 %) 98.0 Carboxyhemoglobin (1.5 - 5.0 %) 0.3 L O2 Concentration % 70 Temperature (97.0 - 100.0 FARH) 98.6 Respiration Rate (BPM) 12 O2 Delivery Method VENT Vent Mode CMV Expiratory Pressure (CMH2O/P) 5 Tidal Volume (CC) 450 Chemistry Lactic Acid (0.7 - 2.1 mmol/L) 1.8 Miscellaneous Phlebotomy Draw Site RIGHT BRACHIAL 04/08 1800 1445 Chemistry Sodium (137 - 145 mmol/L) 146 H Potassium (3.5 - 5.1 mmol/L) 3.1 L Chloride (98 - 107 mmol/L) 106 Carbon Dioxide (22 - 30 mmol/L) 29 Anion Gap (5 - 16) 11 BUN (9 - 20 mg/dL) 31 H Creatinine (0.7 - 1.2 mg/dL) 1.0 Estimated GFR (>60 ml/min) > 60 Glucose (65 - 99 mg/dL) 101 H Lactic Acid (0.7 - 2.1 mmol/L) Cancelled 2.2 H Calcium (8.4 - 10.2 mg/dL) 7.0 L Phosphorus (2.5 - 4.5 mg/dL) 3.0 Magnesium (1.6 - 2.3 mg/dL) 1.8 Total Bilirubin (0.2 - 1.3 mg/dL) 0.5 AST (17 - 59 U/L) 14 L ALT (21 - 72 U/L) 25 Albumin (3.5 - 5.0 g/dL) 2.2 L Hematology CBC w Diff MAN DIFF ORDERED WBC (4.8 - 10.8 /CUMM) 42.9 *H RBC (4.70 - 6.10 /CUMM) 3.31 L Hgb (14.0 - 18.0 G/DL) 8.2 L Hct (42 - 52 %) 26.2 L MCV (80.0 - 94.0 FL) 79.2 L MCH (27.0 - 31.0 PG) 24.9 L RDW (11.5 - 14.5 %) 19.9 H Plt Count (130 - 400 /CUMM) 194 MPV (7.4 - 10.4 FL) 9.0 Gran % (42.2 - 75.2 %) 45.5 Lymphocytes % (20.5 - 51.1 %) 53.2 H Monocytes % (1.7 - 9.3 %) 1.0 L Eosinophils % (0 - 5 %) 0 Basophils % (0.0 - 2.0 %) 0.3 Absolute Granulocytes (1.4 - 6.5 /CUMM) 19.5 H Absolute Lymphocytes (1.2 - 3.4 /CUMM) 22.8 H Absolute Monocytes (0.10 - 0.60 /CUMM) 0.4 Absolute Eosinophils (0.0 - 0.7 /CUMM) 0 Absolute Basophils (0.0 - 0.2 /CUMM) 0.1 Platelet Estimate (ADEQUATE) ADEQUATE Poikilocytosis 1+ Anisocytosis 1+ Microcytic Cells 1+ Ovalocytes FEW Stomatocytes FEW PUBS MCHC (33.0 - 37.0 G/DL) 31.4 L 18 04/08 1445 1435 Blood Gas pH (7.35 - 7.45 PH) 7.50 H pCO2 (35 - 45 TORR) 41 pO2 (80 - 100 TORR) 193 H HCO3 (21 - 28 MEQ/L) 31 H ABG O2 Sat (Measured) (>96.0 %) 99.0 P-50 (Temp Corrected) N Carboxyhemoglobin (1.5 - 5.0 %) 0.3 L O2 Concentration % 100% Respiration Rate (BPM) 20 O2 Delivery Method VENT Vent Mode AC Expiratory Pressure (CMH2O/P) 5 Tidal Volume (CC) 450 Pressure Support (CMH2O/P) 0 Chemistry Sodium (137 - 145 mmol/L) 146 H Potassium (3.5 - 5.1 mmol/L) 3.3 L Chloride (98 - 107 mmol/L) 103 Carbon Dioxide (22 - 30 mmol/L) 33 H Anion Gap (5 - 16) 10 BUN (9 - 20 mg/dL) 33 H Creatinine (0.7 - 1.2 mg/dL) 1.0 Estimated GFR (>60 ml/min) > 60 Glucose (65 - 99 mg/dL) 140 H Calcium (8.4 - 10.2 mg/dL) 7.4 L Phosphorus (2.5 - 4.5 mg/dL) 3.3 Magnesium (1.6 - 2.3 mg/dL) 1.8 Total Bilirubin (0.2 - 1.3 mg/dL) 0.7 AST (17 - 59 U/L) 13 L ALT (21 - 72 U/L) 25 Troponin I (<0.11 ng/ml) 0.09 Albumin (3.5 - 5.0 g/dL) 2.4 L Hematology CBC w Diff NO MAN DIFF REQ WBC (4.8 - 10.8 /CUMM) 27.6 H RBC (4.70 - 6.10 /CUMM) 3.68 L Hgb (14.0 - 18.0 G/DL) 9.1 L Hct (42 - 52 %) 28.8 L MCV (80.0 - 94.0 FL) 78.4 L MCH (27.0 - 31.0 PG) 24.8 L RDW (11.5 - 14.5 %) 20.1 H Plt Count (130 - 400 /CUMM) 159 MPV (7.4 - 10.4 FL) 8.6 Gran % (42.2 - 75.2 %) 56.6 Lymphocytes % (20.5 - 51.1 %) 42.6 Monocytes % (1.7 - 9.3 %) 0.5 L Eosinophils % (0 - 5 %) 0 Basophils % (0.0 - 2.0 %) 0.3 Absolute Granulocytes (1.4 - 6.5 /CUMM) 15.6 H Absolute Lymphocytes (1.2 - 3.4 /CUMM) 11.7 H Absolute Monocytes (0.10 - 0.60 /CUMM) 0.1 L Absolute Eosinophils (0.0 - 0.7 /CUMM) 0 Absolute Basophils (0.0 - 0.2 /CUMM) 0.1 PUBS MCHC (33.0 - 37.0 G/DL) 31.6 L Miscellaneous Phlebotomy Draw Site RIGHT BRACHIAL 04/08 0955 Chemistry Lactic Acid (0.7 - 2.1 mmol/L) 1.8 Vital Signs Date Time Temp Pulse Resp B/P B/P Pulse O2 O2 Flow FiO2 Mean Ox Delivery Rate 04/09 0827 40 04/09 0532 40 04/09 0400 96 Ventilator 40% 04/09 0350 40 04/09 0311 98.0 88 21 124/54 05 0153 40 04/09 0000 98.0 79 16 120/60 97 Ventilator 40% 04/09 0000 97 Ventilator 40% 04/08 2334 92 18 125/57 05/18 2208 40 04/08 2000 100 Ventilator 70% 04/08 1912 70 05/18 1704 100 05 1600 100 Ventilator 100% 04/08 1600 98.6 90 26 106/70 100 Ventilator 100% 04/08 1518 97.9 115 20 83/55 100 Ventilator 100% 04/08 1510 115 74/55 05/18 1449 97.9 114 20 75/44 100 Ventilator 100% 04/08 1420 97.1 116 20 102/54 100 Ventilator 100% 04/08 1330 97.9 124 22 97/54 88 Non 100% ReBreather 04/08 1325 100 04/08 1249 95 Non 100% ReBreather 04/08 1230 98.3 112 24 95/74 97 Non 100% ReBreather 04/08 1139 98.0 120 20 116/56 94 Non 10L ReBreather 04/08 0943 98.2 112 18 121/59 95 Non 10L ReBreather
--- NOTE | 2017-04-09 10:16 | PN- CRCU ---
Subjective HPI/Critical Care Issues: pt seen and examined intubated respiratory cultures - GNR,yeast,staph aureus on levophed and vasopressin chemoport Objective Current Medications: Current Medications Sig/Fred Start time Last Medication Dose Route Stop Time Status Admin Albuterol Sulfate 3 ML Q6 PRN 04/08 1130 AC 04/08 INH 1240 Ceftazidime 1,000 MG Q12H 04/08 1930 AC 04/09 IV 0640 Chlorhexidine 15 ML BID 04/09 1000 AC Gluconate PO Escitalopram Oxalate 20 MG DAILY 04/09 1000 AC PO Etomidate 0 .STK-MED ONE 04/08 1308 DC IV Ferrous Sulfate 325 MG TID 04/08 1600 AC PO Ipratropium [place] 2.5 ML ONCE ONE 04/08 1130 CAN INH 04/08 1131 Magnesium Sulfate 1 GM ONCE ONE 04/08 1545 DC 04/08 Dextrose/Water 100 ML IV 04/08 1944 1912 Metronidazole 500 MG IQ8 04/08 1600 AC 04/09 N/A 1 UNIT IV 0042 Mirtazapine 7.5 MG AT BEDTIME 04/08 2200 DC PO Mirtazapine 7.5 MG AT BEDTIME 04/08 2200 AC PO Non-Formulary 0 SEE ADMIN CRITERIA 04/08 1315 CAN Medication ANY Norepinephrine 4 MG Q4H 04/08 1800 AC 04/09 Sodium Chloride 250 ML IV 0311 Norepinephrine 4 MG Q24H 04/08 1500 DC 04/08 Sodium Chloride 250 ML IV 1510 Norepinephrine 0 .STK-MED ONE 04/08 1456 DC IV Pantoprazole Sodium 40 MG DAILY 04/09 1000 DC IV Pantoprazole Sodium 40 MG BID 04/08 1415 AC 04/08 IV 2213 Polyethylene Glycol 17 GM DAILY 04/09 1000 AC PO Potassium Chloride 20 MEQ Q1H 04/09 0115 DC 04/09 IV 04/09 0216 0240 Potassium Chloride 20 MEQ Q1H 04/08 1545 DC 04/08 IV 04/08 1646 1910 Potassium Chloride 10 MEQ Q1H 04/08 1145 DC 04/08 IV 04/08 1346 1600 Pregabalin 50 MG AT BEDTIME 04/08 2200 AC PO Propofol 1,000 MG .STK-MED ONE 04/08 1554 DC IV 04/08 1555 Propofol 1,000 MG Q12H 04/08 1330 AC 04/09 N/A 100 ML IV 0312 Rivaroxaban 20 MG AT BEDTIME 04/08 2200 CAN PO Sodium Chloride 1,000 ML .Q6H40M 04/08 1900 AC 04/09 IV 0105 Sodium Chloride 1,000 ML BOLUS ONE 04/08 1530 DC 04/08 IV 04/08 1629 1849 Sodium Chloride 1,000 ML BOLUS ONE 04/08 1530 DC 04/08 IV 04/08 1629 1849 Sodium Chloride 1,000 ML BOLUS ONE 04/08 1345 DC 04/08 IV 04/08 1444 1416 Sodium Phosphate 15 mMol ONE ONE 04/09 0815 AC Dextrose/Water 250 ML IV 04/09 1218 Vancomycin HCl 1,000 MG Q24H 04/09 0730 AC 04/09 Sodium Chloride 250 ML IV 0637 Vasopressin 40 UNITS Q16H 04/08 1900 AC 04/08 Sodium Chloride 100 ML IV 1938 Vital Signs & I&O Last 24 Hrs of Vitals and I&O: Vital Signs Date Time Temp Pulse Resp B/P B/P Pulse O2 O2 Flow FiO2 Mean Ox Delivery Rate 04/09 0827 40 04/09 0532 40 04/09 0400 96 Ventilator 40% 04/09 0350 40 04/09 0311 98.0 88 21 124/54 04/09 0153 40 04/09 0000 98.0 79 16 120/60 97 Ventilator 40% 04/09 0000 97 Ventilator 40% 04/08 2334 92 18 125/57 04/08 2208 40 04/08 2000 100 Ventilator 70% 04/08 1912 70 04/08 1704 100 04/08 1600 100 Ventilator 100% 04/08 1600 98.6 90 26 106/70 100 Ventilator 100% 04/08 1518 97.9 115 20 83/55 100 Ventilator 100% 04/08 1510 115 74/55 04/08 1449 97.9 114 20 75/44 100 Ventilator 100% 04/08 1420 97.1 116 20 102/54 100 Ventilator 100% 04/08 1330 97.9 124 22 97/54 88 Non 100% ReBreather 04/08 1325 100 04/08 1249 95 Non 100% ReBreather 04/08 1230 98.3 112 24 95/74 97 Non 100% ReBreather 04/08 1139 98.0 120 20 116/56 94 Non 10L ReBreather Intake & Output 04/09 1600 04/09 0800 04/09 0000 Intake Total 2276 3483 Output Total 198 310 Balance 2078 3173 Intake, IV 2276 3483 Output, 100 200 Gastric Drainage Output, Urine 98 110 Patient 134 lb 135 lb Weight Weight Bed scale Measurement Method Exam Other Physical Findings: gen intubated heent ett cvs s1, s2, murmur lungs transmitted abd soft, bs+ ext edematous Results Last 24 Hrs of Lab Results: Laboratory Tests 04/09/17 0530: Urinalysis LIGHT H, Urine Color YEL, Urine Clarity CLDY H, Urine pH 5.5, Ur Specific [place] >= 1.030, Urine Protein 100 H, Urine Ketones NEG, Urine Nitrite NEG, Urine Bilirubin NEG, Urine Urobilinogen 0.2, Ur Leukocyte Esterase NEG, Ur Microscopic SEDIMENT EXAMINED, Urine RBC RARE, Urine WBC 3-5 H, Ur Epithelial Cells FEW, Urine Bacteria MOD H, Hyaline Casts RARE H, Granular Casts 3-5 H, Urine Hemoglobin NEG, Urine Glucose NEG 04/09/17 0450: pH 7.45, pCO2 38, pO2 85, HCO3 26, ABG O2 Sat (Measured) 96.0, P-50 (Temp Corrected) Y, Carboxyhemoglobin 0.3 L, O2 Concentration % 40%, Temperature 98.0 , Respiration Rate 12, O2 Delivery Method ESPRIT, Vent Mode AC, Expiratory Pressure 5, Tidal Volume 450, Phlebotomy Draw Site RIGHT BRACHIAL 04/09/17 0430: Anion Gap 10, Estimated GFR > 60, Glucose 115 H, Calcium 7.0 L, Phosphorus 2.8 , Magnesium 2.0, Total Bilirubin 0.5, AST 14 L, ALT 29, Albumin 2.2 L, CBC w Diff MAN DIFF ORDERED, RBC 3.23 L, MCV 79.0 L, MCH 24.8 L, RDW 20.3 H, MPV 8.3, Gran % 48.8, Lymphocytes % 48.3, Monocytes % 2.5, Eosinophils % 0, Basophils % 0.4, Absolute Granulocytes 24.4 H, Segmented Neutrophils 49, Absolute Lymphocytes 24.2 H, Lymphocytes 50, Monocytes 1 L, Absolute Monocytes 1.3 H, Absolute Eosinophils 0, Absolute Basophils 0.2, Platelet Estimate ADEQUATE, Polychromasia 1+, Hypochromic-Microcytic 1+, Poikilocytosis 1+, Anisocytosis 1+, Microcytic Cells 1+, Ovalocytes 1+, Elliptocytes FEW, PUBS MCHC 31.4 L, Fld Total RBCs Counted 100 04/09/17 0029: Anion Gap 11, Estimated GFR > 60, Glucose 131 H, Calcium 6.8 L, Phosphorus 2.8 , Magnesium 2.0, Total Bilirubin 0.4, AST 12 L, ALT 23, Albumin 2.1 L, CBC w Diff MAN DIFF ORDERED, RBC 3.22 L, MCV 78.2 L, MCH 24.3 L, RDW 20.0 H, MPV 8.1, Gran % 46.9, Lymphocytes % 51.5 H, Monocytes % 1.5 L, Eosinophils % 0, Basophils % 0.1, Absolute Granulocytes 23.4 H, Segmented Neutrophils 41 L, Band Neutrophils 1, Absolute Lymphocytes 25.7 H, Lymphocytes 58 H, Absolute Monocytes 0.7 H, Absolute Eosinophils 0, Absolute Basophils 0, Platelet Estimate ADEQUATE, Polychromasia 1+, Hypochromic-Microcytic 1+, Poikilocytosis 2 +, Anisocytosis 1+, Microcytic Cells 1+, Ovalocytes 1+, Elliptocytes 1+, PUBS MCHC 31.0 L, Fld Total RBCs Counted 100 04/08/172009: pH 7.42, pCO2 43, pO2 165 H, HCO3 27, ABG O2 Sat (Measured) 98.0, Carboxyhemoglobin 0.3 L, O2 Concentration % 70, Temperature 98.6, Respiration Rate 12, O2 Delivery Method VENT, Vent Mode CMV, Expiratory Pressure 5, Tidal Volume 450, Phlebotomy Draw Site RIGHT BRACHIAL 04/08/171814: Lactic Acid 1.8 04/08/171814: Anion Gap 11, Estimated GFR > 60, Glucose 101 H, Calcium 7.0 L, Phosphorus 3.0 , Magnesium 1.8, Total Bilirubin 0.5, AST 14 L, ALT 25, Albumin 2.2 L, CBC w Diff MAN DIFF ORDERED, RBC 3.31 L, MCV 79.2 L, MCH 24.9 L, RDW 19.9 H, MPV 9.0, Gran % 45.5, Lymphocytes % 53.2 H, Monocytes % 1.0 L, Eosinophils % 0, Basophils % 0.3, Absolute Granulocytes 19.5 H, Absolute Lymphocytes 22.8 H, Absolute Monocytes 0.4, Absolute Eosinophils 0, Absolute Basophils 0.1, Platelet Estimate ADEQUATE, Poikilocytosis 1+, Anisocytosis 1+, Microcytic Cells 1+, Ovalocytes FEW, Stomatocytes FEW, PUBS MCHC 31.4 L 04/08/17 1800: Lactic Acid Cancelled 04/08/17 1445: Lactic Acid 2.2 H 04/08/17 1445: Anion Gap 10, Estimated GFR > 60, Glucose 140 H, Calcium 7.4 L, Phosphorus 3.3 , Magnesium 1.8, Total Bilirubin 0.7, AST 13 L, ALT 25, Troponin I 0.09, Albumin 2.4 L, CBC w Diff NO MAN DIFF REQ, RBC 3.68 L, MCV 78.4 L, MCH 24.8 L, RDW 20.1 H, MPV 8.6, Gran % 56.6, Lymphocytes % 42.6, Monocytes % 0.5 L, Eosinophils % 0, Basophils % 0.3, Absolute Granulocytes 15.6 H, Absolute Lymphocytes 11.7 H, Absolute Monocytes 0.1 L, Absolute Eosinophils 0, Absolute Basophils 0.1, PUBS MCHC 31.6 L 04/08/17 1435: pH 7.50 H, pCO2 41, pO2 193 H, HCO3 31 H, ABG O2 Sat (Measured) 99.0, P-50 ( Temp Corrected) N, Carboxyhemoglobin 0.3 L, O2 Concentration % 100%, Respiration Rate 20, O2 Delivery Method VENT, Vent Mode AC, Expiratory Pressure 5, Tidal Volume 450, Pressure Support 0, Phlebotomy Draw Site RIGHT BRACHIAL 04/08/17 0955: Lactic Acid 1.8 Impression/Plan Impression/Plan Impression/Plan: Impression 86 year old man * Septic shock secondary to likely abdominal source and likely aspiration pneumonia * CLL with leukocytosis * chronic a.fib on a/c (xarelto and IVC filter) Plan Respiratory -mechanically ventilated, remains intubated for airway protection, potential invasive interventionws and 2 vasopressors -address goals of care -f/u CXR and ABG tomorrow ID -vancomycin/ceftazadime/flagyl -f/u all cultures -if no improvement will request ID consultation CVS -f/u cardiology recommendations -if patient is ready to be a/c, initially begin heparin drip in anticipation for possible invasive measures Heme -f/u hem/onc recs Metabolic -monitor ins/outs, creatinine Alimentary -NPO for now, titrate vasopressors prior to tube feeds, plan for tube feeds tomorrow if okay with GI anad vasopressors reduced Neuro -propofol for sedation DVT prophylaxis at all times TTS 50 min
--- NOTE | 2017-04-09 10:21 | ECHOCARDIOGRAM REPORT ---
FRANCOIS MEJIA Age: 86 : 1930 Gender: M Exam Date: 04/08/2017 16:50 Exam Location: [facility] Ht (in): 69 Wt (lb): 120 BSA: 1.61 BP: 83 / 55 Ordering Physician: ELENA ALVAREZ M Referring Physician: Justin Ac MD Technologist: Alisson Win [facility] Room Number: 109 Indications: AFIB/FLUTTER Rhythm: Sinus Technical Quality: Technically difficult study FINDINGS Left Ventricle Normal size left ventricle. Mild concentric left ventricular hypertrophy. No obvious regional wall motion abnormalities. Normal left ventricular ejection fraction visually estimated at >60%. False chordae in the left ventricle (normal variant). "pseudonormal" filling pattern of the left ventricle for age (stage 2 diastolic dysfunction). Right Ventricle Normal right ventricular size and function. Right Atrium Normal right atrial size. Left Atrium Normal left atrial size. Mitral Valve Mild mitral annular calcification. Mitral valve mildly thickened. Trace to mild mitral regurgitation. Aortic Valve Diffuse thickening of the aortic valve cusps with reduced excursion. Moderate aortic stenosis. Trace aortic regurgitation. Tricuspid Valve Tricuspid valve mildly thickened. Mild tricuspid regurgitation. Right ventricular systolic pressure estimated at 33 mmHg. Pulmonic Valve Pulmonic valve not well visualized. No pulmonic regurgitation. Pericardium No pericardial effusion. Great Vessels Normal size aortic root. Dilated inferior vena cava. CONCLUSIONS Normal size left ventricle. Mild concentric left ventricular hypertrophy. No obvious regional wall motion abnormalities. Normal left ventricular ejection fraction visually estimated at > 60%. "pseudonormal" filling pattern of the left ventricle for age (stage 2 diastolic dysfunction). Normal right ventricular size and function. Normal atrial size. Trace to mild mitral regurgitation. Moderate aortic stenosis. Trace aortic regurgitation. Mild tricuspid regurgitation. Dilated inferior vena cava. Justin Ac M.D. (Electronically Signed) Final Date: 09 Apr 2017 10:20 MEASUREMENTS (Male / Female) Normal Values 2D ECHO LV Diastolic Diameter PLAX 3.8 cm 4.2 - 5.9 / 3.9 - 5.3 cm LV Systolic Diameter PLAX 2.5 cm 2.1 - 4.0 cm LV Fractional Shortening PLAX 34.2 % 25 - 46 % LV Ejection Fraction 2D Teich 64.0 % IVS Diastolic Thickness 1.1 cm LVPW Diastolic Thickness 1.2 cm LV Relative Wall Thickness 0.6 RV Internal Dim ED PLAX 2.7 cm 1.9 - 3.8 cm LVOT Diameter 1.8 cm LA Systolic Diameter LX 2.7 cm 3.0 - 4.0 / 2.7 - 3.8 cm Aorta at Sinotubular Diameter 2.4 cm DOPPLER AV Peak Velocity 350.0 cm/s AV Peak Gradient 49.0 mmHg AV Mean Velocity 268.0 cm/s AV Mean Gradient 32.0 mmHg AV Velocity Time Integral 72.7 cm LVOT Peak Velocity 108.0 cm/s LVOT Peak Gradient 4.7 mmHg LVOT Mean Velocity 78.9 cm/s LVOT Mean Gradient 3.0 mmHg LVOT Velocity Time Integral 20.9 cm LVOT Stroke Volume 53.2 cm AV Area Cont Eq vti 0.7 cm AV Area Cont Eq pk 0.8 cm MV Peak Velocity 113.0 cm/s MV Peak Gradient 5.1 mmHg MV Mean Velocity 69.4 cm/s MV Mean Gradient 2.0 mmHg Mitral E Point Velocity 93.8 cm/s Mitral A Point Velocity 96.7 cm/s Mitral E to A Ratio 1.0 MV PHT Velocity 115.0 cm/s MV Deceleration T[place] 935.0 cm/s MV Pressure Half Time 36.9 ms MV Area PHT 6.0 cm MV Deceleration Time 121.0 ms TR Peak Velocity 265.0 cm/s TR Peak Gradient 28.1 mmHg Right Atrial Pressure 5.0 mmHg Pulmonary Artery Systolic Pressu 33.1 mmHg Right Ventricular Systolic Press 33.1 mmHg PV Peak Velocity 70.0 cm/s PV Peak Gradient 2.0 mmHg PV Mean Velocity 51.6 cm/s PV Mean Gradient 1.0 mmHg PV Velocity Time Integral 14.5 cm LV E' Lateral Velocity 8.1 cm/s Mitral E to LV E' Lateral Ratio 11.6 LV E' Septal Velocity 4.0 cm/s Mitral E to LV E' Septal Ratio 23.2
--- NOTE | 2017-04-09 11:28 | PN- Gastroenterology ---
Assessment/Plan Assessment/Recommendations: Assessment: Mr. Lake is an 86-year-old male with multiple medical problems who was admitted yesterday with an aspiration pneuomonia which presumably occurred when he was sedated for a colonoscopy the day before. He had a moderate amount of coffee-ground material removed from his stomach after he was intubated, but he has not had any yaya blood per the OGT and his hemoglobin has remained stable since an initial 1 g drop on admission which I suspect is hemodilutional. He also not had any further hematemesis and he is not passing any bright red blood or melena from below so as he recently had an endoscopic workup and doesn' t appear to have any ongoing active GI bleeding I don't feel that needs to be repeated at this time. It may be reasonable to repeat his EGD if his tube feeds are not able to be advanced or if he develops active GI bleeding, but would hold off on it otherwise as it will be unliklely to change manager. It is also conceivable he may have a pancreatic lesion causing the duodenal edema appreciated on the endoscopy 2 months ago which may have now progressed in size causing a gastric outlet obstruction, but considering he is not a surgical candidate I don't necessarily feel pursuing this is necessary at this time (it he has a GOO though it is possible he may benefit from dilation or a stent). Finally, considering his tenuous respiratory status at present requiring intubation and multiple other comorbidities I am not certain that he will ever be able to be extubated and would therefore recommended team consult with his conservator and potentially call the hospital ethicist to determine a plan of care and how aggressive we should be in implementing such plan. Recommendations: 1. Continue IV Protonix 40 mg twice a day. 2. Follow CBCs every 12 hours and transfuse as needed to keep his hemoglobin greater than 7 or as per cardiology recommendations. 3. Supportive care with mechanical ventilation and antibiotics for aspiration pneumonia as per critical care team. 4. If there continues to be no significant drainage from his G-tube would start tube feeds at a low rate and advance as tolerated. 5. GI should be notified for any signs of overt GI bleeding. 6. Would recommend consulting with the patient's conservator to address end-of- life issues. 7. Consideration will be given for a repeat egd if he develops overt GI bleeding or if tube feeds are not able to be advanced. As he is without signs of overt GI bleeding and will likely be intubated for a prolonged period of time for his aspiration pneumonia Will sign off at this time and ask that GI be recontacted if tube feeds and unable to be advanced or if he develops signs of overt GI bleeding. Recommendations: 1. Keep NPO and NGT to low wall suction. 2. IV protonix 40mg bid 3. Maintain 2 large bore IVs at all times 4. Abx for aspiration PNA as per critical care team 5. Follow CBC q8hr and transfuse as needed to keep hgb > 7 or as per cardiology recommendations 6. Notify GI for evidence of hemodynamically significant GI bleeding such as bright blood per rectum or vomiting yaya blood. 7. Consideration will be given for repeat upper endoscopy later in the admission based on his clinical course and the patient's and conservator's wishes. 8. Would hold anticoagulation for now. Problem List: 1. Anemia 2. Sepsis 3. Vomiting alone Subjective Subjective: Pt is intubated and sedated. He has not had any significant vomiting or further drainage from his OGT after the initial 1-1/2 liters came out. He has also been without any brbpr or melena. Objective Vital Signs and I&Os Vital Signs Date Time Temp Pulse Resp B/P B/P Pulse O2 O2 Flow FiO2 Mean Ox Delivery Rate 04/09 0827 40 04/09 0532 40 04/09 0400 96 Ventilator 40% 04/09 0350 40 04/09 0311 98.0 88 21 124/54 04/09 0153 40 04/09 0000 98.0 79 16 120/60 97 Ventilator 40% 04/09 0000 97 Ventilator 40% 04/08 2334 92 18 125/57 05/18 2208 40 04/08 2000 100 Ventilator 70% 18 1912 70 05/18 1704 100 05/18 1600 100 Ventilator 100% /18 1600 98.6 90 26 106/70 100 Ventilator 100% 05/18 1518 97.9 115 20 83/55 100 Ventilator 100% 05/18 1510 115 74/55 05/18 1449 97.9 114 20 75/44 100 Ventilator 100% 05/18 1420 97.1 116 20 102/54 100 Ventilator 100% 05/18 1330 97.9 124 22 97/54 88 Non 100% ReBreather 04/08 1325 100 05/18 1249 95 Non 100% ReBreather 04/08 1230 98.3 112 24 95/74 97 Non 100% ReBreather 04/08 1139 98.0 120 20 116/56 94 Non 10L ReBreather Intake & Output 04/09 1600 04/09 0400 04/08 1600 04/08 0400 04/07 1600 04/07 0400 Intake Total 2276 3483 1350 Output Total 198 310 Balance 2078 3173 1350 Intake, IV 2276 3483 1350 Output, 100 200 Gastric Drainage Output, Urine 98 110 Patient 134 lb 135 lb Weight Weight Bed scale Measurement Method Physical Exam General Appearance: cachetic, intubated Head: atraumatic, normal appearance Neck: normal inspection, supple Respiratory: rhonchi Cardiovascular: regular rate/rhythm Abdomen: normal bowel sounds, soft, non-tender Extremities: no edema Neurologic/Psychiatric: sedated Current Medications: Current Medications Sig/Fred Start time Last Medication Dose Route Stop Time Status Admin Albuterol Sulfate 3 ML Q6 PRN 04/08 1130 AC 04/08 INH 1240 Ceftazidime 1,000 MG Q12H 04/08 1930 AC 04/09 IV 0640 Chlorhexidine 15 ML BID 04/09 1000 AC Gluconate PO Escitalopram Oxalate 20 MG DAILY 04/09 1000 AC PO Etomidate 0 .STK-MED ONE 04/08 1308 DC IV Ferrous Sulfate 325 MG TID 04/08 1600 AC PO Ipratropium [place] 2.5 ML ONCE ONE 04/08 1130 CAN INH 04/08 1131 Magnesium Sulfate 1 GM ONCE ONE 04/08 1545 DC 04/08 Dextrose/Water 100 ML IV 04/08 1944 1912 Metronidazole 500 MG IQ8 04/08 1600 AC 04/09 N/A 1 UNIT IV 0042 Mirtazapine 7.5 MG AT BEDTIME 04/08 2200 DC PO Mirtazapine 7.5 MG AT BEDTIME 04/08 2200 AC PO Non-Formulary 0 SEE ADMIN CRITERIA 04/08 1315 CAN Medication ANY Norepinephrine 4 MG Q4H 04/08 1800 AC 04/09 Sodium Chloride 250 ML IV 0311 Norepinephrine 4 MG Q24H 04/08 1500 DC 04/08 Sodium Chloride 250 ML IV 1510 Norepinephrine 0 .STK-MED ONE 04/08 1456 DC IV Pantoprazole Sodium 40 MG DAILY 04/09 1000 DC IV Pantoprazole Sodium 40 MG BID 04/08 1415 AC 04/08 IV 2213 Polyethylene Glycol 17 GM DAILY 04/09 1000 AC PO Potassium Chloride 20 MEQ Q1H 04/09 0115 DC 04/09 IV 04/09 0216 0240 Potassium Chloride 20 MEQ Q1H 04/08 1545 DC 04/08 IV 04/08 1646 1910 Potassium Chloride 10 MEQ Q1H 04/08 1145 DC 04/08 IV 04/08 1346 1600 Pregabalin 50 MG AT BEDTIME 04/08 2200 AC PO Propofol 1,000 MG .STK-MED ONE 04/08 1554 DC IV 04/08 1555 Propofol 1,000 MG Q12H 04/08 1330 AC 04/09 N/A 100 ML IV 0312 Rivaroxaban 20 MG AT BEDTIME 04/08 2200 CAN PO Sodium Chloride 1,000 ML .Q6H40M 04/08 1900 AC 04/09 IV 0105 Sodium Chloride 1,000 ML BOLUS ONE 04/08 1530 DC 04/08 IV 04/08 1629 1849 Sodium Chloride 1,000 ML BOLUS ONE 04/08 1530 DC 04/08 IV 04/08 1629 1849 Sodium Chloride 1,000 ML BOLUS ONE 04/08 1345 DC 04/08 IV 04/08 1444 1416 Sodium Phosphate 15 mMol ONE ONE 04/09 0815 AC Dextrose/Water 250 ML IV 04/09 1218 Vancomycin HCl 1,000 MG Q24H 04/09 0730 AC 04/09 Sodium Chloride 250 ML IV 0637 Vasopressin 40 UNITS Q16H 04/08 1900 AC 04/08 Sodium Chloride 100 ML IV 1938 Results Pertinent Lab Results: Laboratory Tests 04/09 04/09 0530 0450 Blood Gas pH (7.35 - 7.45 PH) 7.45 pCO2 (35 - 45 TORR) 38 pO2 (80 - 100 TORR) 85 HCO3 (21 - 28 MEQ/L) 26 ABG O2 Sat (Measured) (>96.0 %) 96.0 P-50 (Temp Corrected) Y Carboxyhemoglobin (1.5 - 5.0 %) 0.3 L O2 Concentration % 40% Temperature (97.0 - 100.0 FARH) 98.0 Respiration Rate (BPM) 12 O2 Delivery Method ESPRIT Vent Mode AC Expiratory Pressure (CMH2O/P) 5 Tidal Volume (CC) 450 Miscellaneous Phlebotomy Draw Site RIGHT BRACHIAL Urines Urinalysis LIGHT H Urine Color (YEL,AMB,STR) YEL Urine Clarity (CLEAR) CLDY H Urine pH (5.0 - 8.0) 5.5 Ur Specific [place] (1.001 - 1.035) >= 1.030 Urine Protein (NEG,<30 MG/DL) 100 H Urine Ketones (NEG) NEG Urine Nitrite (NEG) NEG Urine Bilirubin (NEG) NEG Urine Urobilinogen (0.1 - 1.0 EU/dl) 0.2 Ur Leukocyte Esterase (NEG) NEG Ur Microscopic SEDIMENT EXAMINED Urine RBC (0 - 5 /HPF) RARE Urine WBC (0 - 2 /HPF) 3-5 H Ur Epithelial Cells (NONE,FEW) FEW Urine Bacteria (NEG/NONE) MOD H Hyaline Casts (0/LPF) RARE H Granular Casts (NONE /LPF) 3-5 H Urine Hemoglobin (NEG) NEG Urine Glucose (N MG/DL) NEG 04/09 04/09 0430 0029 Chemistry Sodium (137 - 145 mmol/L) 148 H 148 H Potassium (3.5 - 5.1 mmol/L) 3.9 3.3 L Chloride (98 - 107 mmol/L) 111 H 109 H Carbon Dioxide (22 - 30 mmol/L) 27 28 Anion Gap (5 - 16) 10 11 BUN (9 - 20 mg/dL) 30 H 31 H Creatinine (0.7 - 1.2 mg/dL) 1.0 1.0 Estimated GFR (>60 ml/min) > 60 > 60 Glucose (65 - 99 mg/dL) 115 H 131 H Calcium (8.4 - 10.2 mg/dL) 7.0 L 6.8 L Phosphorus (2.5 - 4.5 mg/dL) 2.8 2.8 Magnesium (1.6 - 2.3 mg/dL) 2.0 2.0 Total Bilirubin (0.2 - 1.3 mg/dL) 0.5 0.4 AST (17 - 59 U/L) 14 L 12 L ALT (21 - 72 U/L) 29 23 Albumin (3.5 - 5.0 g/dL) 2.2 L 2.1 L Hematology CBC w Diff MAN DIFF ORDERED MAN DIFF ORDERED WBC (4.8 - 10.8 /CUMM) 50.0 *H 49.8 *H RBC (4.70 - 6.10 /CUMM) 3.23 L 3.22 L Hgb (14.0 - 18.0 G/DL) 8.0 L 7.8 L Hct (42 - 52 %) 25.5 L 25.1 L MCV (80.0 - 94.0 FL) 79.0 L 78.2 L MCH (27.0 - 31.0 PG) 24.8 L 24.3 L RDW (11.5 - 14.5 %) 20.3 H 20.0 H Plt Count (130 - 400 /CUMM) 142 158 MPV (7.4 - 10.4 FL) 8.3 8.1 Gran % (42.2 - 75.2 %) 48.8 46.9 Lymphocytes % (20.5 - 51.1 %) 48.3 51.5 H Monocytes % (1.7 - 9.3 %) 2.5 1.5 L Eosinophils % (0 - 5 %) 0 0 Basophils % (0.0 - 2.0 %) 0.4 0.1 Absolute Granulocytes (1.4 - 6.5 /CUMM) 24.4 H 23.4 H Segmented Neutrophils (42.2 - 75.2 %) 49 41 L Band Neutrophils (0.0 - 5.0 %) 1 Absolute Lymphocytes (1.2 - 3.4 /CUMM) 24.2 H 25.7 H Lymphocytes (20.5 - 51.1 %) 50 58 H Monocytes (1.7 - 9.3 %) 1 L Absolute Monocytes (0.10 - 0.60 /CUMM) 1.3 H 0.7 H Absolute Eosinophils (0.0 - 0.7 /CUMM) 0 0 Absolute Basophils (0.0 - 0.2 /CUMM) 0.2 0 Platelet Estimate (ADEQUATE) ADEQUATE ADEQUATE Polychromasia 1+ 1+ Hypochromic-Microcytic 1+ 1+ Poikilocytosis 1+ 2+ Anisocytosis 1+ 1+ Microcytic Cells 1+ 1+ Ovalocytes 1+ 1+ Elliptocytes FEW 1+ PUBS MCHC (33.0 - 37.0 G/DL) 31.4 L 31.0 L Other Body Source Fld Total RBCs Counted (%) 100 100 04/08 Blood Gas pH (7.35 - 7.45 PH) 7.42 pCO2 (35 - 45 TORR) 43 pO2 (80 - 100 TORR) 165 H HCO3 (21 - 28 MEQ/L) 27 ABG O2 Sat (Measured) (>96.0 %) 98.0 Carboxyhemoglobin (1.5 - 5.0 %) 0.3 L O2 Concentration % 70 Temperature (97.0 - 100.0 FARH) 98.6 Respiration Rate (BPM) 12 O2 Delivery Method VENT Vent Mode CMV Expiratory Pressure (CMH2O/P) 5 Tidal Volume (CC) 450 Chemistry Lactic Acid (0.7 - 2.1 mmol/L) 1.8 Miscellaneous Phlebotomy Draw Site RIGHT BRACHIAL 04/08 04/08 04/08 1815 1800 1445 Chemistry Sodium (137 - 145 mmol/L) 146 H Potassium (3.5 - 5.1 mmol/L) 3.1 L Chloride (98 - 107 mmol/L) 106 Carbon Dioxide (22 - 30 mmol/L) 29 Anion Gap (5 - 16) 11 BUN (9 - 20 mg/dL) 31 H Creatinine (0.7 - 1.2 mg/dL) 1.0 Estimated GFR (>60 ml/min) > 60 Glucose (65 - 99 mg/dL) 101 H Lactic Acid (0.7 - 2.1 mmol/L) Cancelled 2.2 H Calcium (8.4 - 10.2 mg/dL) 7.0 L Phosphorus (2.5 - 4.5 mg/dL) 3.0 Magnesium (1.6 - 2.3 mg/dL) 1.8 Total Bilirubin (0.2 - 1.3 mg/dL) 0.5 AST (17 - 59 U/L) 14 L ALT (21 - 72 U/L) 25 Albumin (3.5 - 5.0 g/dL) 2.2 L Hematology CBC w Diff MAN DIFF ORDERED WBC (4.8 - 10.8 /CUMM) 42.9 *H RBC (4.70 - 6.10 /CUMM) 3.31 L Hgb (14.0 - 18.0 G/DL) 8.2 L Hct (42 - 52 %) 26.2 L MCV (80.0 - 94.0 FL) 79.2 L MCH (27.0 - 31.0 PG) 24.9 L RDW (11.5 - 14.5 %) 19.9 H Plt Count (130 - 400 /CUMM) 194 MPV (7.4 - 10.4 FL) 9.0 Gran % (42.2 - 75.2 %) 45.5 Lymphocytes % (20.5 - 51.1 %) 53.2 H Monocytes % (1.7 - 9.3 %) 1.0 L Eosinophils % (0 - 5 %) 0 Basophils % (0.0 - 2.0 %) 0.3 Absolute Granulocytes (1.4 - 6.5 /CUMM) 19.5 H Absolute Lymphocytes (1.2 - 3.4 /CUMM) 22.8 H Absolute Monocytes (0.10 - 0.60 /CUMM) 0.4 Absolute Eosinophils (0.0 - 0.7 /CUMM) 0 Absolute Basophils (0.0 - 0.2 /CUMM) 0.1 Platelet Estimate (ADEQUATE) ADEQUATE Poikilocytosis 1+ Anisocytosis 1+ Microcytic Cells 1+ Ovalocytes FEW Stomatocytes FEW PUBS MCHC (33.0 - 37.0 G/DL) 31.4 L 18 04/08 1445 1435 Blood Gas pH (7.35 - 7.45 PH) 7.50 H pCO2 (35 - 45 TORR) 41 pO2 (80 - 100 TORR) 193 H HCO3 (21 - 28 MEQ/L) 31 H ABG O2 Sat (Measured) (>96.0 %) 99.0 P-50 (Temp Corrected) N Carboxyhemoglobin (1.5 - 5.0 %) 0.3 L O2 Concentration % 100% Respiration Rate (BPM) 20 O2 Delivery Method VENT Vent Mode AC Expiratory Pressure (CMH2O/P) 5 Tidal Volume (CC) 450 Pressure Support (CMH2O/P) 0 Chemistry Sodium (137 - 145 mmol/L) 146 H Potassium (3.5 - 5.1 mmol/L) 3.3 L Chloride (98 - 107 mmol/L) 103 Carbon Dioxide (22 - 30 mmol/L) 33 H Anion Gap (5 - 16) 10 BUN (9 - 20 mg/dL) 33 H Creatinine (0.7 - 1.2 mg/dL) 1.0 Estimated GFR (>60 ml/min) > 60 Glucose (65 - 99 mg/dL) 140 H Calcium (8.4 - 10.2 mg/dL) 7.4 L Phosphorus (2.5 - 4.5 mg/dL) 3.3 Magnesium (1.6 - 2.3 mg/dL) 1.8 Total Bilirubin (0.2 - 1.3 mg/dL) 0.7 AST (17 - 59 U/L) 13 L ALT (21 - 72 U/L) 25 Troponin I (<0.11 ng/ml) 0.09 Albumin (3.5 - 5.0 g/dL) 2.4 L Hematology CBC w Diff NO MAN DIFF REQ WBC (4.8 - 10.8 /CUMM) 27.6 H RBC (4.70 - 6.10 /CUMM) 3.68 L Hgb (14.0 - 18.0 G/DL) 9.1 L Hct (42 - 52 %) 28.8 L MCV (80.0 - 94.0 FL) 78.4 L MCH (27.0 - 31.0 PG) 24.8 L RDW (11.5 - 14.5 %) 20.1 H Plt Count (130 - 400 /CUMM) 159 MPV (7.4 - 10.4 FL) 8.6 Gran % (42.2 - 75.2 %) 56.6 Lymphocytes % (20.5 - 51.1 %) 42.6 Monocytes % (1.7 - 9.3 %) 0.5 L Eosinophils % (0 - 5 %) 0 Basophils % (0.0 - 2.0 %) 0.3 Absolute Granulocytes (1.4 - 6.5 /CUMM) 15.6 H Absolute Lymphocytes (1.2 - 3.4 /CUMM) 11.7 H Absolute Monocytes (0.10 - 0.60 /CUMM) 0.1 L Absolute Eosinophils (0.0 - 0.7 /CUMM) 0 Absolute Basophils (0.0 - 0.2 /CUMM) 0.1 PUBS MCHC (33.0 - 37.0 G/DL) 31.6 L Miscellaneous Phlebotomy Draw Site RIGHT BRACHIAL 04/08 04/08 7263 5325 Chemistry Lactic Acid (0.7 - 2.1 mmol/L) 1.8 Hematology CBC w Diff MAN DIFF ORDERED WBC (4.8 - 10.8 /CUMM) 46.5 *H RBC (4.70 - 6.10 /CUMM) 3.71 L Hgb (14.0 - 18.0 G/DL) 9.2 L Hct (42 - 52 %) 29.0 L MCV (80.0 - 94.0 FL) 78.2 L MCH (27.0 - 31.0 PG) 24.9 L RDW (11.5 - 14.5 %) 20.0 H Plt Count (130 - 400 /CUMM) 203 MPV (7.4 - 10.4 FL) 8.7 Gran % (42.2 - 75.2 %) 50.1 Lymphocytes % (20.5 - 51.1 %) 49.6 Monocytes % (1.7 - 9.3 %) 0.2 L Eosinophils % (0 - 5 %) 0 Basophils % (0.0 - 2.0 %) 0.1 Absolute Granulocytes (1.4 - 6.5 /CUMM) 23.3 H Segmented Neutrophils (42.2 - 75.2 %) 55 Band Neutrophils (0.0 - 5.0 %) 4 Absolute Lymphocytes (1.2 - 3.4 /CUMM) 23.1 H Lymphocytes (20.5 - 51.1 %) 40 Monocytes (1.7 - 9.3 %) 1 L Absolute Monocytes (0.10 - 0.60 /CUMM) 0.1 L Absolute Eosinophils (0.0 - 0.7 /CUMM) 0 Absolute Basophils (0.0 - 0.2 /CUMM) 0.1 Platelet Estimate (ADEQUATE) ADEQUATE Poikilocytosis FEW Anisocytosis 1+ Ovalocytes FEW PUBS MCHC (33.0 - 37.0 G/DL) 31.9 L Other Body Source Fld Total RBCs Counted (%) 100 04/08 04/08 0630 0625 Blood Gas pH (7.35 - 7.45 PH) 7.48 H pCO2 (35 - 45 TORR) 44 pO2 (80 - 100 TORR) 117 H HCO3 (21 - 28 MEQ/L) 32 H ABG O2 Sat (Measured) (>96.0 %) 98.0 P-50 (Temp Corrected) Y Carboxyhemoglobin (1.5 - 5.0 %) 0.5 L O2 Concentration % 100% Temperature (97.0 - 100.0 FARH) 96.3 L O2 Delivery Method NRB Chemistry Sodium (137 - 145 mmol/L) 148 H Potassium (3.5 - 5.1 mmol/L) 3.2 L Chloride (98 - 107 mmol/L) 99 Carbon Dioxide (22 - 30 mmol/L) 34 H Anion Gap (5 - 16) 15 BUN (9 - 20 mg/dL) 32 H Creatinine (0.7 - 1.2 mg/dL) 0.9 Estimated GFR (>60 ml/min) > 60 BUN/Creatinine Ratio (7 - 25 %) 35.6 H Glucose (65 - 99 mg/dL) 183 H Lactic Acid (0.7 - 2.1 mmol/L) 2.1 Calcium (8.4 - 10.2 mg/dL) 8.6 Total Bilirubin (0.2 - 1.3 mg/dL) 0.7 AST (17 - 59 U/L) 16 L ALT (21 - 72 U/L) 24 Alkaline Phosphatase (< 127 U/L) 88 Troponin I (<0.11 ng/ml) 0.07 Total Protein (6.3 - 8.2 g/dL) 7.0 Albumin (3.5 - 5.0 g/dL) 3.1 L Globulin (1.9 - 4.2 gm/dL) 3.9 Albumin/Globulin Ratio (1.1 - 2.2 %) 0.8 L Amylase (30 - 110 U/L) 62 Lipase (23 - 300 U/L) < 10 L Coagulation PT (9.4 - 12.5 SEC) 14.0 H INR (0.90 - 1.17) 1.34 H APTT (25 - 37 SEC) 34 Miscellaneous Phlebotomy Draw Site RIGHT BRACHIAL
--- NOTE | 2017-04-09 12:19 | ULTRASOUND REPORT ---
EXAMINATION: US RETROPERITONEAL COMPLETE (RENAL) CLINICAL INFORMATION: Decreased urine output.. COMPARISON: CT abdomen and pelvis 04/08/2017. TECHNIQUE: Real-time imaging of the kidneys and bladder. FINDINGS: RIGHT KIDNEY: 9.94 x 4.74 x 5.12 cm (SAG x AP x TRV). The kidney is normal in size, contour, and echogenicity. Renal cortical thickness is normal. No calculi or focal parenchymal lesions. No hydronephrosis. LEFT KIDNEY: 10.7 x 5.5 x 5.1 cm (SAG x AP x TRV). The kidney is normal in size, contour, and echogenicity. Renal cortical thickness is normal. No calculi or focal parenchymal lesions. No hydronephrosis. BLADDER: There is a nondistended urinary bladder secondary to Ritchie catheter in place. No ureteral jets are seen. IMPRESSION: Unremarkable kidneys without any evidence of echogenic calculi or hydronephrosis. Previously seen punctate calcification inferior left renal pole and calcifications in the right renal pelvis on CT abdomen exam are not seen on the present study.
--- NOTE | 2017-04-09 13:23 | NUR ---
Wound Care Assessment: Patient presents with an unstageable pressure injury to his coccyx that was present on admission. Wound measures 0.6 X 0.6cm, 100% yellow fill- no drainage is currently noted- No odor or s/s of infection. Periwound is hyperpigmented red and blanchable. He is currently intubated in the ICU on bedrest but was admitted from an extended care facility. Impression: Unstageable pressure injury to the coccyx that was present on admission. Recommendations: Clease wound with normal saline and pat dry. Apply a hydrocolloid dressing to the wound and change prn and every 3-5 days. Patient is already on a catergory 2 mattress and this should be continued. Please consult nutrition. Frequent turning and repositioning. Please follow all additional pressure injury guidelines.
--- NOTE | 2017-04-09 13:27 | Cons- Infect Disease ---
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 On admission he was afebrile. O2 sat was in the 80s on 3 L and, with worsening respiratory status, he was intubated in the ER. He was then found to be hypotensive and was begun on Levophed. Laboratory data revealed a white blood cell count of 47,000, with 55 segs and 4 bands, BUN/creatinine 32 and 0.9, sodium 148, lactic acid 2.1, INR 1.34. Chest x-ray revealed increased bibasilar airspace disease with dense airspace opacification within the right perihilar region. CT of the abdomen and pelvis revealed marked gastric distention, with no free air or intestinal dilatation. He was begun on Vancomycin, Flagyl and Ceftazidime. He has remained afebrile overnight. His blood pressure has improved, though he remains on 2 pressors. He is unable to provide any history secondary to his sedation. Allergies/Medications Allergies: Coded Allergies: No Known Allergies (01/28/17) Home Med List: Acetaminophen (Tylenol Extra Strength) 500 MG TABLET 650 MG IL Q4H PRN PAIN/ TEMP >100 (Reported) Albuterol Sulfate 0.63 MG/3 ML VIAL.NEB 1 UNIT NEB Q4H PRN SOB/ WHEEZING ( Reported) 0.083% Ascorbic Acid (Vitamin C) 500 MG CAPSULE.ER 1 CAP PO DAILY VITAMIN SUPPLEMENT (Reported) Calcium Carbonate (Oyster Shell Calcium) 500 MG CALCIUM (1,250 MG) TABLET 1 TAB PO BID SUPPLEMENT (Reported) Diphenhydramine HCl (Diphenhist) 25 MG CAPSULE 1 TAB PO Q8H PRN ITCHING ( Reported) Escitalopram Oxalate 20 MG TABLET 1 TAB PO DAILY ANTIDEPRESSANT (Reported) Ferrous Sulfate 325 MG (65 MG IRON) TABLET 1 TAB PO TID IRON SUPPLEMENT ( Reported) Guaifenesin/Dextromethorphan (Robafen-Dm Syrup) 100 MG-10 MG/5 ML SYRUP 10 ML PO Q4 PRN COUGH/ CONGESTION (Reported) Ipratropium/Albuterol Sulfate (Iprat-Albut 0.5-3(2.5) MG/3 Ml) 0.5 MG-3 MG (2.5 MG BASE)/3 ML AMPUL.NEB 1 UNIT NEB Q4H HX LUNG CA (Reported) Lorazepam (Ativan) 1 MG TABLET 1 TAB PO BID ANXIETY (Reported) Lorazepam (Ativan) 0.5 MG TABLET 1 TAB PO BEDTIME PRN ANXIETY (Reported) Magnesium Hydroxide (Milk Of Magnesia) 400 MG/5 ML ORAL.SUSP 30 ML PO DAILY PRN CONSTIPATION (Reported) Mirtazapine (Remeron) 15 MG TAB.RAPDIS 7.5 MG PO QHS MEMORY (Reported) Ondansetron (Zofran Odt) 4 MG TAB.RAPDIS 1 TAB PO Q6H PRN NAUSEA/VOMITTING ( Reported) Oxycodone HCl (Oxycontin) 10 MG TAB.ER.12H 1 TAB PO QAM PAIN (Reported) Oxycodone HCl 5 MG CAPSULE 1 CAP PO Q4H PRN PAIN (Reported) Polyethylene Glycol 3350 (Miralax) 17 GRAM/DOSE POWDER 17 GM PO DAILY CONSTIPATION (Reported) mix with water, juice, soda, coffee or tea Pregabalin (Lyrica) 50 MG CAPSULE 1 CAP PO BEDTIME DEPRESSION (Reported) Rivaroxaban (Xarelto) 20 MG TABLET 1 TAB PO QPM BLOOD THINNER (Reported) with food Sennosides (Senna) 8.6 MG TABLET 2 TAB PO Q12H CONSTIPATION (Reported) Past History Travel History Traveled to [place] past 21 day No Medical History Blood Transfusion Hx: No Neurological: 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 Acute Rehab Who Do You Live With? there is side at [facility] Services at Home: Nursing Primary Language: [place] Smoking Status: Former Smoker ETOH Use: denies use Functional Ability ADLs Needs Assist: dressing, eating, toileting, bathing. Ambulation: walker IADLs Needs Assist: telephone, transportation. Review of Systems Review of Systems Constitutional: Reports: weakness. EENTM: Reports: eye drainage. Comments Unobtainable Exam & Diagnostic Data Last 24 Hrs of Vital Signs/I&O Vital Signs Date Time Temp Pulse Resp B/P B/P Pulse O2 O2 Flow FiO2 Mean Ox Delivery Rate 04/09 1119 40 04/09 0827 40 04/09 0532 40 04/09 0400 96 Ventilator 40% 04/09 0350 40 04/09 0311 98.0 88 21 124/54 04/09 0153 40 04/09 0000 98.0 79 16 120/60 97 Ventilator 40% 04/09 0000 97 Ventilator 40% 04/08 2334 92 18 125/57 04/08 2208 40 04/08 2000 100 Ventilator 70% 04/08 1912 70 04/08 1704 100 04/08 1600 100 Ventilator 100% 04/08 1600 98.6 90 26 106/70 100 Ventilator 100% 04/08 1518 97.9 115 20 83/55 100 Ventilator 100% 04/08 1510 115 74/55 04/08 1449 97.9 114 20 75/44 100 Ventilator 100% 04/08 1420 97.1 116 20 102/54 100 Ventilator 100% 04/08 1330 97.9 124 22 97/54 88 Non 100% ReBreather 04/08 1325 100 Intake & Output 04/09 1600 04/09 0800 04/09 0000 Intake Total 2276 3483 Output Total 198 310 Balance 2078 3173 Intake, IV 2276 3483 Output, 100 200 Gastric Drainage Output, Urine 98 110 Patient 134 lb 135 lb Weight Weight Bed scale Measurement Method Physical Exam Other Physical Findings: He is sedated and unresponsive on the ventilator. He is afebrile. Skin ashen colored, with no cyanosis. HEENT exam poor dentition. Neck is supple with no adenopathy. Chest Port-A-Cath in the left upper chest with no inflammation at the site. Lungs bilateral rhonchi. Heart regular rhythm with no murmur. Abdomen is soft, no obvious tenderness, with positive bowel sounds. Back no CVA tenderness. Extremities no cyanosis, clubbing or edema. Neuro is without focality. Ritchie catheter is in place. Last 24 Hours of Lab Results: Laboratory Tests 04/09 1000 Coagulation Fibrinogen Activity (200 - 393 MG/DL) 564 H Fibrin Degrad Products (< 10 ug/ml) >10 but < 40 ug/ml H D-Dimer (70 - 232 ng/ml) > 5250 H 04/09 04/09 0530 0450 Blood Gas pH (7.35 - 7.45 PH) 7.45 pCO2 (35 - 45 TORR) 38 pO2 (80 - 100 TORR) 85 HCO3 (21 - 28 MEQ/L) 26 ABG O2 Sat (Measured) (>96.0 %) 96.0 P-50 (Temp Corrected) Y Carboxyhemoglobin (1.5 - 5.0 %) 0.3 L O2 Concentration % 40% Temperature (97.0 - 100.0 FARH) 98.0 Respiration Rate (BPM) 12 O2 Delivery Method ESPRIT Vent Mode AC Expiratory Pressure (CMH2O/P) 5 Tidal Volume (CC) 450 Miscellaneous Phlebotomy Draw Site RIGHT BRACHIAL Urines Urinalysis LIGHT H Urine Color (YEL,AMB,STR) YEL Urine Clarity (CLEAR) CLDY H Urine pH (5.0 - 8.0) 5.5 Ur Specific [place] (1.001 - 1.035) >= 1.030 Urine Protein (NEG,<30 MG/DL) 100 H Urine Ketones (NEG) NEG Urine Nitrite (NEG) NEG Urine Bilirubin (NEG) NEG Urine Urobilinogen (0.1 - 1.0 EU/dl) 0.2 Ur Leukocyte Esterase (NEG) NEG Ur Microscopic SEDIMENT EXAMINED Urine RBC (0 - 5 /HPF) RARE Urine WBC (0 - 2 /HPF) 3-5 H Ur Epithelial Cells (NONE,FEW) FEW Urine Bacteria (NEG/NONE) MOD H Hyaline Casts (0/LPF) RARE H Granular Casts (NONE /LPF) 3-5 H Urine Hemoglobin (NEG) NEG Urine Glucose (N MG/DL) NEG 04/09 04/09 0430 0029 Chemistry Sodium (137 - 145 mmol/L) 148 H 148 H Potassium (3.5 - 5.1 mmol/L) 3.9 3.3 L Chloride (98 - 107 mmol/L) 111 H 109 H Carbon Dioxide (22 - 30 mmol/L) 27 28 Anion Gap (5 - 16) 10 11 BUN (9 - 20 mg/dL) 30 H 31 H Creatinine (0.7 - 1.2 mg/dL) 1.0 1.0 Estimated GFR (>60 ml/min) > 60 > 60 Glucose (65 - 99 mg/dL) 115 H 131 H Calcium (8.4 - 10.2 mg/dL) 7.0 L 6.8 L Phosphorus (2.5 - 4.5 mg/dL) 2.8 2.8 Magnesium (1.6 - 2.3 mg/dL) 2.0 2.0 Total Bilirubin (0.2 - 1.3 mg/dL) 0.5 0.4 AST (17 - 59 U/L) 14 L 12 L ALT (21 - 72 U/L) 29 23 Albumin (3.5 - 5.0 g/dL) 2.2 L 2.1 L Hematology CBC w Diff MAN DIFF ORDERED MAN DIFF ORDERED WBC (4.8 - 10.8 /CUMM) 50.0 *H 49.8 *H RBC (4.70 - 6.10 /CUMM) 3.23 L 3.22 L Hgb (14.0 - 18.0 G/DL) 8.0 L 7.8 L Hct (42 - 52 %) 25.5 L 25.1 L MCV (80.0 - 94.0 FL) 79.0 L 78.2 L MCH (27.0 - 31.0 PG) 24.8 L 24.3 L RDW (11.5 - 14.5 %) 20.3 H 20.0 H Plt Count (130 - 400 /CUMM) 142 158 MPV (7.4 - 10.4 FL) 8.3 8.1 Gran % (42.2 - 75.2 %) 48.8 46.9 Lymphocytes % (20.5 - 51.1 %) 48.3 51.5 H Monocytes % (1.7 - 9.3 %) 2.5 1.5 L Eosinophils % (0 - 5 %) 0 0 Basophils % (0.0 - 2.0 %) 0.4 0.1 Absolute Granulocytes (1.4 - 6.5 /CUMM) 24.4 H 23.4 H Segmented Neutrophils (42.2 - 75.2 %) 49 41 L Band Neutrophils (0.0 - 5.0 %) 1 Absolute Lymphocytes (1.2 - 3.4 /CUMM) 24.2 H 25.7 H Lymphocytes (20.5 - 51.1 %) 50 58 H Monocytes (1.7 - 9.3 %) 1 L Absolute Monocytes (0.10 - 0.60 /CUMM) 1.3 H 0.7 H Absolute Eosinophils (0.0 - 0.7 /CUMM) 0 0 Absolute Basophils (0.0 - 0.2 /CUMM) 0.2 0 Platelet Estimate (ADEQUATE) ADEQUATE ADEQUATE Polychromasia 1+ 1+ Hypochromic-Microcytic 1+ 1+ Poikilocytosis 1+ 2+ Anisocytosis 1+ 1+ Microcytic Cells 1+ 1+ Ovalocytes 1+ 1+ Elliptocytes FEW 1+ PUBS MCHC (33.0 - 37.0 G/DL) 31.4 L 31.0 L Other Body Source Fld Total RBCs Counted (%) 100 100 04/08 Blood Gas pH (7.35 - 7.45 PH) 7.42 pCO2 (35 - 45 TORR) 43 pO2 (80 - 100 TORR) 165 H HCO3 (21 - 28 MEQ/L) 27 ABG O2 Sat (Measured) (>96.0 %) 98.0 Carboxyhemoglobin (1.5 - 5.0 %) 0.3 L O2 Concentration % 70 Temperature (97.0 - 100.0 FARH) 98.6 Respiration Rate (BPM) 12 O2 Delivery Method VENT Vent Mode CMV Expiratory Pressure (CMH2O/P) 5 Tidal Volume (CC) 450 Chemistry Lactic Acid (0.7 - 2.1 mmol/L) 1.8 Miscellaneous Phlebotomy Draw Site RIGHT BRACHIAL 04/08 04/08 04/08 181 1800 1445 Chemistry Sodium (137 - 145 mmol/L) 146 H Potassium (3.5 - 5.1 mmol/L) 3.1 L Chloride (98 - 107 mmol/L) 106 Carbon Dioxide (22 - 30 mmol/L) 29 Anion Gap (5 - 16) 11 BUN (9 - 20 mg/dL) 31 H Creatinine (0.7 - 1.2 mg/dL) 1.0 Estimated GFR (>60 ml/min) > 60 Glucose (65 - 99 mg/dL) 101 H Lactic Acid (0.7 - 2.1 mmol/L) Cancelled 2.2 H Calcium (8.4 - 10.2 mg/dL) 7.0 L Phosphorus (2.5 - 4.5 mg/dL) 3.0 Magnesium (1.6 - 2.3 mg/dL) 1.8 Total Bilirubin (0.2 - 1.3 mg/dL) 0.5 AST (17 - 59 U/L) 14 L ALT (21 - 72 U/L) 25 Albumin (3.5 - 5.0 g/dL) 2.2 L Hematology CBC w Diff MAN DIFF ORDERED WBC (4.8 - 10.8 /CUMM) 42.9 *H RBC (4.70 - 6.10 /CUMM) 3.31 L Hgb (14.0 - 18.0 G/DL) 8.2 L Hct (42 - 52 %) 26.2 L MCV (80.0 - 94.0 FL) 79.2 L MCH (27.0 - 31.0 PG) 24.9 L RDW (11.5 - 14.5 %) 19.9 H Plt Count (130 - 400 /CUMM) 194 MPV (7.4 - 10.4 FL) 9.0 Gran % (42.2 - 75.2 %) 45.5 Lymphocytes % (20.5 - 51.1 %) 53.2 H Monocytes % (1.7 - 9.3 %) 1.0 L Eosinophils % (0 - 5 %) 0 Basophils % (0.0 - 2.0 %) 0.3 Absolute Granulocytes (1.4 - 6.5 /CUMM) 19.5 H Absolute Lymphocytes (1.2 - 3.4 /CUMM) 22.8 H Absolute Monocytes (0.10 - 0.60 /CUMM) 0.4 Absolute Eosinophils (0.0 - 0.7 /CUMM) 0 Absolute Basophils (0.0 - 0.2 /CUMM) 0.1 Platelet Estimate (ADEQUATE) ADEQUATE Poikilocytosis 1+ Anisocytosis 1+ Microcytic Cells 1+ Ovalocytes FEW Stomatocytes FEW PUBS MCHC (33.0 - 37.0 G/DL) 31.4 L 04/08 04/08 1445 1435 Blood Gas pH (7.35 - 7.45 PH) 7.50 H pCO2 (35 - 45 TORR) 41 pO2 (80 - 100 TORR) 193 H HCO3 (21 - 28 MEQ/L) 31 H ABG O2 Sat (Measured) (>96.0 %) 99.0 P-50 (Temp Corrected) N Carboxyhemoglobin (1.5 - 5.0 %) 0.3 L O2 Concentration % 100% Respiration Rate (BPM) 20 O2 Delivery Method VENT Vent Mode AC Expiratory Pressure (CMH2O/P) 5 Tidal Volume (CC) 450 Pressure Support (CMH2O/P) 0 Chemistry Sodium (137 - 145 mmol/L) 146 H Potassium (3.5 - 5.1 mmol/L) 3.3 L Chloride (98 - 107 mmol/L) 103 Carbon Dioxide (22 - 30 mmol/L) 33 H Anion Gap (5 - 16) 10 BUN (9 - 20 mg/dL) 33 H Creatinine (0.7 - 1.2 mg/dL) 1.0 Estimated GFR (>60 ml/min) > 60 Glucose (65 - 99 mg/dL) 140 H Calcium (8.4 - 10.2 mg/dL) 7.4 L Phosphorus (2.5 - 4.5 mg/dL) 3.3 Magnesium (1.6 - 2.3 mg/dL) 1.8 Total Bilirubin (0.2 - 1.3 mg/dL) 0.7 AST (17 - 59 U/L) 13 L ALT (21 - 72 U/L) 25 Troponin I (<0.11 ng/ml) 0.09 Albumin (3.5 - 5.0 g/dL) 2.4 L Hematology CBC w Diff NO MAN DIFF REQ WBC (4.8 - 10.8 /CUMM) 27.6 H RBC (4.70 - 6.10 /CUMM) 3.68 L Hgb (14.0 - 18.0 G/DL) 9.1 L Hct (42 - 52 %) 28.8 L MCV (80.0 - 94.0 FL) 78.4 L MCH (27.0 - 31.0 PG) 24.8 L RDW (11.5 - 14.5 %) 20.1 H Plt Count (130 - 400 /CUMM) 159 MPV (7.4 - 10.4 FL) 8.6 Gran % (42.2 - 75.2 %) 56.6 Lymphocytes % (20.5 - 51.1 %) 42.6 Monocytes % (1.7 - 9.3 %) 0.5 L Eosinophils % (0 - 5 %) 0 Basophils % (0.0 - 2.0 %) 0.3 Absolute Granulocytes (1.4 - 6.5 /CUMM) 15.6 H Absolute Lymphocytes (1.2 - 3.4 /CUMM) 11.7 H Absolute Monocytes (0.10 - 0.60 /CUMM) 0.1 L Absolute Eosinophils (0.0 - 0.7 /CUMM) 0 Absolute Basophils (0.0 - 0.2 /CUMM) 0.1 PUBS MCHC (33.0 - 37.0 G/DL) 31.6 L Miscellaneous Phlebotomy Draw Site RIGHT BRACHIAL Last 24 Hours of Matt Results: Blood cultures 2 April 08 negative Sputum culture April 08 positive for Staph aureus, gram-negative rods and yeast Urine culture April 09 pending Urine strep pneumo antigen and Legionella antigen April 09 negative Diagnostic Data Recent Imaging Findings: Chest x-ray revealed increased bibasilar airspace disease with dense airspace opacification within the right perihilar region. CT of the abdomen and pelvis revealed marked gastric distention, with no free air or intestinal dilatation. Renal ultrasound April 09 negative Chest x-ray April 09 moderate pleural and parenchymal disease in the right chest, possibly slightly worsened, with patchy airspace disease in the left mid and lower lung coker Assessment/Plan Assessment/Plan Impression: This is a 86-year-old man, intermediate resident, with a history of CLL, apparently in remission, atrial fibrillation, maintained on Xarelto, and a question of lung cancer admitted on April 08 with hematemesis and hypoxia 1 day after a colonoscopy, found to be afebrile with hypotension, requiring pressors, and hypoxia, requiring intubation, with chest x-ray revealing increased bibasilar airspace disease and with the sputum culture positive for Staph aureus and gram negative rods. His clinical picture is consistent with pneumonia, likely aspiration secondary to his recent procedure, and he can be continued on broad-spectrum antibiotics pending final cultures. Other possible sources of sepsis include the Port-A-Cath, though there is no inflammation at the site. His white blood cell count is difficult to interpret with his history of CLL. Suggestion: 1. Follow-up recent cultures 2. Contact precautions pending above 3. Discontinue Flagyl 4. Continue Vancomycin and Ceftazidime pending above Consult Acknowledgment - Thank you for your consult request.
--- NOTE | 2017-04-09 13:50 | Event Note ---
Event Note Event Note: I spoke with the patient's next of kin and power of assistant city attorney Mr. Matteo Figueroa. He confirmed that Mr. Lake is a full code and would like all measures pursued through the weekend. We will readdress goals of care on Wednesday. I updated him on Mr. Lake's current condition, all questions were answered and concerns were addressed.
[2017-04-09 16:00] VITALS: BP 100/48
[2017-04-09 17:46] LABS: ABSOLUTE BASOPHIL COUNT 0.1 /CUMM (0.0-0.2); ABSOLUTE EOSINOPHIL COUNT 0 /CUMM (0.0-0.7); ABSOLUTE GRANULOCYTE CT 16.7 /CUMM (1.4-6.5); ABSOLUTE LYMPH COUNT 16.8 /CUMM (1.2-3.4); ABSOLUTE MONOCYTE COUNT 0.8 /CUMM (0.10-0.60); BASOPHIL % 0.2 % (0.0-2.0); EOSINOPHIL % 0 % (0-5); GRANULOCYTE % 48.6 % (42.2-75.2); MEAN CORPUSCULAR HGB CONC 31.5 G/DL (33.0-37.0); MEAN CORPUSCULAR VOLUME 79.1 FL (80.0-94.0); MEAN PLATELET VOLUME 8.6 FL (7.4-10.4); PLATELET COUNT 98 /CUMM (130-400); RBC DISTRIBUTION WIDTH 20.8 % (11.5-14.5); RED BLOOD CELL CT 2.86 /CUMM (4.70-6.10)
[2017-04-09 18:09] LABS: HEMATOCRIT 22.6 % (42-52)
[2017-04-09 18:10] LABS: WHITE BLOOD CELL COUNT 34.4 /CUMM (4.8-10.8)
--- NOTE | 2017-04-09 18:52 | PN- Cardiology ---
Subjective Subjective: Remains intubated/sedated. Objective Vital Signs and I&Os Vital Signs Date Time Temp Pulse Resp B/P B/P Pulse O2 O2 Flow FiO2 Mean Ox Delivery Rate 04/09 1615 35 04/09 1600 98 Ventilator 35% 04/09 1600 98.0 92 20 100/48 98 Ventilator 35% 04/09 1334 40 04/09 1200 98 Ventilator 40% 04/09 1119 40 04/09 0827 40 04/09 0800 98 Ventilator 40% 04/09 0800 98.0 98 20 114/60 98 Ventilator 40% 04/09 0532 40 04/09 0400 96 Ventilator 40% 04/09 0350 40 04/09 0311 98.0 88 21 124/54 04/09 0153 40 04/09 0000 98.0 79 16 120/60 97 Ventilator 40% 04/09 0000 97 Ventilator 40% 04/08 2334 92 18 125/57 04/08 2208 40 04/08 2000 100 Ventilator 70% 04/08 1912 70 Intake & Output 04/09 1600 04/09 0800 04/09 0000 04/08 1600 04/08 0800 04/08 0000 Intake Total 1816 2276 3483 1350 Output Total 115 198 310 Balance 1701 2078 3173 1350 Intake, IV 1816 2276 3483 1350 Number 0 Bowel Movements Output, 0 100 200 Gastric Drainage Output, Urine 115 98 110 Patient 134 lb 135 lb 120 lb Weight Weight Bed scale Measurement Method Physical Exam: Frail, cachectic appearing elderly male who is intubated/sedated. Vital signs: See above. HEENT: Normocephalic, atraumatic, dry appearing mucous membranes. Neck: No JVD, no bruits. Lungs: Bilateral rhonchi. Heart: S1, S2 with soft grade 1-2/6 systolic murmur best heard at the base. No obvious gallop or rub. Abdomen: Soft, positive bowel sounds. Extremities: No edema. Current Medications: Current Medications Sig/Fred Start time Last Medication Dose Route Stop Time Status Admin Albuterol Sulfate 3 ML Q6 PRN 04/08 1130 AC 04/08 INH 1240 Ceftazidime 1,000 MG Q12H 04/08 1930 AC 04/09 IV 1845 Chlorhexidine 15 ML BID 04/09 1000 AC 04/09 Gluconate PO 1108 Escitalopram Oxalate 20 MG DAILY 04/09 1000 AC 04/09 PO 1111 Ferrous Sulfate 325 MG TID 04/08 1600 AC 04/09 PO 1844 Magnesium Sulfate 1 GM ONCE ONE 04/08 1545 DC 04/08 Dextrose/Water 100 ML IV 04/08 1944 1912 Metronidazole 500 MG IQ8 04/08 1600 DC 04/09 N/A 1 UNIT IV 0800 Mirtazapine 7.5 MG AT BEDTIME 04/08 2200 DC PO Mirtazapine 7.5 MG AT BEDTIME 04/08 2200 AC PO Norepinephrine 4 MG Q4H 04/08 1800 AC 04/09 Sodium Chloride 250 ML IV 0800 Pantoprazole Sodium 40 MG BID 04/08 1415 AC 04/09 IV 1111 Polyethylene Glycol 17 GM DAILY 04/09 1000 AC PO Potassium Chloride 20 MEQ Q1H 04/09 0115 DC 04/09 IV 04/09 0216 0240 Pregabalin 50 MG AT BEDTIME 04/08 2200 AC PO Propofol 1,000 MG Q12H 04/08 1330 AC 04/09 N/A 100 ML IV 1842 Sodium Chloride 1,000 ML .Q6H40M 04/08 1900 AC 04/09 IV 0800 Sodium Phosphate 15 mMol ONE ONE 04/09 0815 TN 04/09 Dextrose/Water 250 ML IV 04/09 1218 1110 Vancomycin HCl 1,000 MG Q24H 04/09 0730 AC 04/09 Sodium Chloride 250 ML IV 0637 Vasopressin 40 UNITS Q16H 04/08 1900 AC 04/09 Sodium Chloride 100 ML IV 1105 Results Last 48 Hrs of Labs/Mics: Laboratory Tests 04/09/17 1830: CBC w Diff Pending, WBC Pending, RBC Pending, Hgb Pending, Hct Pending, MCV Pending, MCH Pending, RDW Pending, Plt Count Pending, MPV Pending, PUBS MCHC Pending 04/09/17 1700: Anion Gap 13, Estimated GFR > 60, Glucose 119 H, Calcium 6.7 L, Phosphorus 3.5 , Magnesium 1.9, Total Bilirubin 0.3, AST 13 L, ALT 26, Albumin 2.0 L, CBC w Diff NO MAN DIFF REQ, RBC 2.86 L, MCV 79.1 L, MCH 25.0 L, RDW 20.8 H, MPV 8.6, Gran % 48.6, Lymphocytes % 48.9, Monocytes % 2.3, Eosinophils % 0, Basophils % 0.2, Absolute Granulocytes 16.7 H, Absolute Lymphocytes 16.8 H, Absolute Monocytes 0.8 H, Absolute Eosinophils 0, Absolute Basophils 0.1, PUBS MCHC 31.5 L 04/09/17 1000: Fibrinogen Activity 564 H, Fibrin Degrad Products >10 but < 40 ug/ml H, D- Dimer > 5250 H 04/09/17 0530: Urinalysis LIGHT H, Urine Color YEL, Urine Clarity CLDY H, Urine pH 5.5, Ur Specific Lisle >= 1.030, Urine Protein 100 H, Urine Ketones NEG, Urine Nitrite NEG, Urine Bilirubin NEG, Urine Urobilinogen 0.2, Ur Leukocyte Esterase NEG, Ur Microscopic SEDIMENT EXAMINED, Urine RBC RARE, Urine WBC 3-5 H, Ur Epithelial Cells FEW, Urine Bacteria MOD H, Hyaline Casts RARE H, Granular Casts 3-5 H, Urine Hemoglobin NEG, Urine Glucose NEG 04/09/17 0450: pH 7.45, pCO2 38, pO2 85, HCO3 26, ABG O2 Sat (Measured) 96.0, P-50 (Temp Corrected) Y, Carboxyhemoglobin 0.3 L, O2 Concentration % 40%, Temperature 98.0 , Respiration Rate 12, O2 Delivery Method ESPRIT, Vent Mode AC, Expiratory Pressure 5, Tidal Volume 450, Phlebotomy Draw Site RIGHT BRACHIAL 04/09/17 0430: Anion Gap 10, Estimated GFR > 60, Glucose 115 H, Calcium 7.0 L, Phosphorus 2.8 , Magnesium 2.0, Total Bilirubin 0.5, AST 14 L, ALT 29, Albumin 2.2 L, CBC w Diff MAN DIFF ORDERED, RBC 3.23 L, MCV 79.0 L, MCH 24.8 L, RDW 20.3 H, MPV 8.3, Gran % 48.8, Lymphocytes % 48.3, Monocytes % 2.5, Eosinophils % 0, Basophils % 0.4, Absolute Granulocytes 24.4 H, Segmented Neutrophils 49, Absolute Lymphocytes 24.2 H, Lymphocytes 50, Monocytes 1 L, Absolute Monocytes 1.3 H, Absolute Eosinophils 0, Absolute Basophils 0.2, Platelet Estimate ADEQUATE, Polychromasia 1+, Hypochromic-Microcytic 1+, Poikilocytosis 1+, Anisocytosis 1+, Microcytic Cells 1+, Ovalocytes 1+, Elliptocytes FEW, PUBS MCHC 31.4 L, Fld Total RBCs Counted 100 04/09/17 0029: Anion Gap 11, Estimated GFR > 60, Glucose 131 H, Calcium 6.8 L, Phosphorus 2.8 , Magnesium 2.0, Total Bilirubin 0.4, AST 12 L, ALT 23, Albumin 2.1 L, CBC w Diff MAN DIFF ORDERED, RBC 3.22 L, MCV 78.2 L, MCH 24.3 L, RDW 20.0 H, MPV 8.1, Gran % 46.9, Lymphocytes % 51.5 H, Monocytes % 1.5 L, Eosinophils % 0, Basophils % 0.1, Absolute Granulocytes 23.4 H, Segmented Neutrophils 41 L, Band Neutrophils 1, Absolute Lymphocytes 25.7 H, Lymphocytes 58 H, Absolute Monocytes 0.7 H, Absolute Eosinophils 0, Absolute Basophils 0, Platelet Estimate ADEQUATE, Polychromasia 1+, Hypochromic-Microcytic 1+, Poikilocytosis 2 +, Anisocytosis 1+, Microcytic Cells 1+, Ovalocytes 1+, Elliptocytes 1+, PUBS MCHC 31.0 L, Fld Total RBCs Counted 100 04/08/172009: pH 7.42, pCO2 43, pO2 165 H, HCO3 27, ABG O2 Sat (Measured) 98.0, Carboxyhemoglobin 0.3 L, O2 Concentration % 70, Temperature 98.6, Respiration Rate 12, O2 Delivery Method VENT, Vent Mode CMV, Expiratory Pressure 5, Tidal Volume 450, Phlebotomy Draw Site RIGHT BRACHIAL 04/08/171814: Lactic Acid 1.8 04/08/171814: Anion Gap 11, Estimated GFR > 60, Glucose 101 H, Calcium 7.0 L, Phosphorus 3.0 , Magnesium 1.8, Total Bilirubin 0.5, AST 14 L, ALT 25, Albumin 2.2 L, CBC w Diff MAN DIFF ORDERED, RBC 3.31 L, MCV 79.2 L, MCH 24.9 L, RDW 19.9 H, MPV 9.0, Gran % 45.5, Lymphocytes % 53.2 H, Monocytes % 1.0 L, Eosinophils % 0, Basophils % 0.3, Absolute Granulocytes 19.5 H, Absolute Lymphocytes 22.8 H, Absolute Monocytes 0.4, Absolute Eosinophils 0, Absolute Basophils 0.1, Platelet Estimate ADEQUATE, Poikilocytosis 1+, Anisocytosis 1+, Microcytic Cells 1+, Ovalocytes FEW, Stomatocytes FEW, PUBS MCHC 31.4 L 04/08/17 1800: Lactic Acid Cancelled 04/08/17 1445: Lactic Acid 2.2 H 04/08/17 1445: Anion Gap 10, Estimated GFR > 60, Glucose 140 H, Calcium 7.4 L, Phosphorus 3.3 , Magnesium 1.8, Total Bilirubin 0.7, AST 13 L, ALT 25, Troponin I 0.09, Albumin 2.4 L, CBC w Diff NO MAN DIFF REQ, RBC 3.68 L, MCV 78.4 L, MCH 24.8 L, RDW 20.1 H, MPV 8.6, Gran % 56.6, Lymphocytes % 42.6, Monocytes % 0.5 L, Eosinophils % 0, Basophils % 0.3, Absolute Granulocytes 15.6 H, Absolute Lymphocytes 11.7 H, Absolute Monocytes 0.1 L, Absolute Eosinophils 0, Absolute Basophils 0.1, PUBS MCHC 31.6 L 04/08/17 1435: pH 7.50 H, pCO2 41, pO2 193 H, HCO3 31 H, ABG O2 Sat (Measured) 99.0, P-50 ( Temp Corrected) N, Carboxyhemoglobin 0.3 L, O2 Concentration % 100%, Respiration Rate 20, O2 Delivery Method VENT, Vent Mode AC, Expiratory Pressure 5, Tidal Volume 450, Pressure Support 0, Phlebotomy Draw Site RIGHT BRACHIAL 04/08/17 0955: Lactic Acid 1.8 04/08/17 0636: CBC w Diff MAN DIFF ORDERED, RBC 3.71 L, MCV 78.2 L, MCH 24.9 L, RDW 20.0 H, MPV 8.7, Gran % 50.1, Lymphocytes % 49.6, Monocytes % 0.2 L, Eosinophils % 0, Basophils % 0.1, Absolute Granulocytes 23.3 H, Segmented Neutrophils 55, Band Neutrophils 4, Absolute Lymphocytes 23.1 H, Lymphocytes 40, Monocytes 1 L, Absolute Monocytes 0.1 L, Absolute Eosinophils 0, Absolute Basophils 0.1, Platelet Estimate ADEQUATE, Poikilocytosis FEW, Anisocytosis 1+, Ovalocytes FEW, PUBS MCHC 31.9 L, Fld Total RBCs Counted 100 04/08/17629: pH 7.48 H, pCO2 44, pO2 117 H, HCO3 32 H, ABG O2 Sat (Measured) 98.0, P-50 ( Temp Corrected) Y, Carboxyhemoglobin 0.5 L, O2 Concentration % 100%, Temperature 96.3 L, O2 Delivery Method NRB, Phlebotomy Draw Site RIGHT BRACHIAL 04/08/17 0625: Anion Gap 15, Estimated GFR > 60, BUN/Creatinine Ratio 35.6 H, Glucose 183 H, Lactic Acid 2.1, Calcium 8.6, Total Bilirubin 0.7, AST 16 L, ALT 24, Alkaline Phosphatase 88, Troponin I 0.07, Total Protein 7.0, Albumin 3.1 L, Globulin 3.9 , Albumin/Globulin Ratio 0.8 L, Amylase 62, Lipase < 10 L, PT 14.0 H, INR 1.34 H, APTT 34 Microbiology 04/09 530 URINE ROUT: Legionella Antigen - COMP 04/09 530 URINE ROUT: Streptococcus pneumoniae Antigen (M - COMP Recent Imaging Studies: CXR (04/09/2017): Tubes and lines in place. Moderate pleural and parenchymal disease right chest may be slightly worsened. Patchy airspace disease left mid and lower lung field may be slightly worsened as well. Renal ultrasound (04/09/2017): Unremarkable kidneys without any evidence of echogenic calculi or hydronephrosis. Previously seen punctate calcification inferior left renal pole and calcifications in the right renal pelvis on CT abdomen exam are not seen on the present study. Echocardiogram (04/09/2017): Normal size left ventricle. Mild concentric left ventricular hypertrophy. No obvious regional wall motion abnormalities. Normal left ventricular ejection fraction visually estimated at >60%. "pseudonormal" filling pattern of the left ventricle for age (stage 2 diastolic dysfunction). Normal right ventricular size and function. Normal atrial size. Trace to mild mitral regurgitation. Moderate aortic stenosis. Trace aortic regurgitation. Mild tricuspid regurgitation. Dilated inferior vena cava. 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 from suspected sepsis secondary to aspiration pneumonia, as well as, possible gastric outlet obstruction. From a cardiac standpoint, he remains intubated and hypotensive following volume resuscitation, Levophed at 5 g/min, vasopressin 0.04 U/min, empiric antimicrobial therapy, etc. His troponin I was trending upward (0.9 ng/ml), but was not rechecked. At this time this does not appear to be consistent with an acute coronary syndrome, but more likely secondary to demand ischemia from critical illness, tachycardia, probable LVH secondary to hypertension, , etc. His electrocardiogram reveals a mild sinus tachycardia with first-degree AV block, a JPC and nondiagnostic T-wave abnormalities. Recommendations: * Continue all supportive care. * Repeat ECG. * Follow up troponins to be sure they are trending downward. * Aim to maintain potassium between 4.0-4.5 mEq per liter and magnesium at or above 2.0 mEq per liter to hopefully maintain sinus rhythm. * Continue to follow-up H/H closely and given high likelihood of concomitant CAD with aortic stenosis and aim to maintain his hemoglobin at or above 8.0 g/dl. * Continue mechanical DVT prophylaxis. Continue telemetry? Yes
[2017-04-09 19:01] LABS: ABSOLUTE BASOPHIL COUNT 0.1 /CUMM (0.0-0.2); ABSOLUTE EOSINOPHIL COUNT 0 /CUMM (0.0-0.7); ABSOLUTE GRANULOCYTE CT 17.6 /CUMM (1.4-6.5); ABSOLUTE LYMPH COUNT 18.3 /CUMM (1.2-3.4); ABSOLUTE MONOCYTE COUNT 0.5 /CUMM (0.10-0.60); BASOPHIL % 0.2 % (0.0-2.0); EOSINOPHIL % 0 % (0-5); GRANULOCYTE % 48.2 % (42.2-75.2); MEAN CORPUSCULAR HGB CONC 31.5 G/DL (33.0-37.0); MEAN CORPUSCULAR VOLUME 79.3 FL (80.0-94.0); MEAN PLATELET VOLUME 8.8 FL (7.4-10.4); PLATELET COUNT 99 /CUMM (130-400); RBC DISTRIBUTION WIDTH 20.6 % (11.5-14.5); RED BLOOD CELL CT 2.96 /CUMM (4.70-6.10)
[2017-04-09 19:39] LABS: HEMATOCRIT 23.5 % (42-52); WHITE BLOOD CELL COUNT 36.5 /CUMM (4.8-10.8)
--- NOTE | 2017-04-09 23:55 | Event Note ---
Event Note Event Note: Patient's troponins are trending up 0.07-> 0.09 -> 0.37. His EKG also shows some flattening of T waves in leads V4 V5, V6. I discussed the findings with the classroom paraprofessional environmental health aide Dr. Ac and we think it's more a demand ischemia from his critical illness rather than an acute coronary syndrome. His perfusion status is also compromised given significant LVH and moderate . At this point the patient remains intubated, receiving 1 unit of blood transfusion for low H& H. We'll keep trending troponins until they peak and repeat EKGs at the same time. We will check ICU bundle and CBC in a.m. We will continue to closely monitor the patient and repeat labs. Zeferino to keep hemoglobin above 8 given likelihood of coronary artery disease with aortic stenosis. Night team updated about the same.
[2017-04-10] VITALS: BP 104/60
--- NOTE | 2017-04-10 | NUR ---
PATIENT SEDATED ON PROPIFOL AT 40.2 MCG/KG/MIN.WILL REACT TO TACTILE STIMULI,SUCTIONING.SHAI. MONITOR SINUS RHYTHM AT RATE OF 90.OW=565/60 ON LEVOPHED AT 4.5 MCG/MIN AND VASOPRESSIN AT 6 ML/HR. ETT TO VENTILATOR AT 35%. SAT=93%.
[2017-04-10 05:56] LABS: ABSOLUTE BASOPHIL COUNT 0.1 /CUMM (0.0-0.2); ABSOLUTE EOSINOPHIL COUNT 0 /CUMM (0.0-0.7); ABSOLUTE GRANULOCYTE CT 15.4 /CUMM (1.4-6.5); ABSOLUTE LYMPH COUNT 18.4 /CUMM (1.2-3.4); ABSOLUTE MONOCYTE COUNT 0.7 /CUMM (0.10-0.60); BASOPHIL % 0.3 % (0.0-2.0); EOSINOPHIL % 0 % (0-5); GRANULOCYTE % 44.5 % (42.2-75.2); MEAN CORPUSCULAR HGB 25.4 PG (27.0-31.0); MEAN CORPUSCULAR HGB CONC 31.7 G/DL (33.0-37.0); MEAN CORPUSCULAR VOLUME 80.1 FL (80.0-94.0); PLATELET COUNT 81 /CUMM (130-400); RBC DISTRIBUTION WIDTH 19.4 % (11.5-14.5); RED BLOOD CELL CT 3.13 /CUMM (4.70-6.10)
--- NOTE | 2017-04-10 06:00 | NUR ---
IV OF R ARM INFILTRATED.ARM SWOLLEN. IV OF R FOREARM DISCONTINUED. WARM SOAK APPLIED.
[2017-04-10 06:34] LABS: WHITE BLOOD CELL COUNT 34.6 /CUMM (4.8-10.8)
[2017-04-10 08:00] VITALS: BP 117/55
--- NOTE | 2017-04-10 09:25 | RADIOLOGY REPORT ---
EXAMINATION: CHEST 1 VIEW CLINICAL INFORMATION: Intubated. COMPARISON: Multiple prior exams are reviewed. The most recent is from 04/09/2017. TECHNIQUE: An AP view of the chest is provided. FINDINGS: The cardiac silhouette is not enlarged. The tracheostomy tube and left-sided port are in unchanged position. The mediastinal and hilar contours are unremarkable. There is patchy airspace disease again identified throughout the right lung. There is mild diffuse interstitial prominence. There is a right pleural effusion. The osseous structures are unremarkable. IMPRESSION: Lines and tubes in place as stated above. No significant change in mixed pleural and parenchymal disease, predominantly within the right lung.
--- NOTE | 2017-04-10 09:49 | PN- Resident CRCU ---
See Addendum Subjective HPI/CRCU Issues: Follow-up for: -Septic shock requiring 2 pressors -Aspiration pneumonitis/postprocedure aspiration pneumonia on vancomycin and ceftriaxone -Gastric outlet obstruction with CT evidence of gas/fluid level stomach, possible perforation s/p colonscopy on falgeal -Atrial fibrilation and DVT on xeralto and IVC filater -CLL s/p chemotherapy has portal catheter Patient was seen and examined this morning, remained intubated, no overnight events reported by the nurse. Continue to trend down troponin. Patient had infiltration of IV line right hand, pulses intact, IV line was removed and cold compressors in place. 24 Hour Events: Temperature 97.6, MAXIMUM TEMPERATURE 98.6 Pulse lowest 80, highest 102 sinus rhythm Blood pressure lowest 98/50, highest 120/68 Intake 4674, output 559 A/C, 450, 12, 5, 35% saturating 97% IV fluid running at 1 50 mL normal saline 2 vasodepressor: levophid 5 and vassopressin 6 Propofol for sedation OG-tube suctioned dark brown fluid 100 ccovernight, at this moment dark green, no visible blood Objective Vital Signs & I&O Last 8 Hrs of Vitals and I&O: 111 Exam General Appearance: sedated, intubated Head: atraumatic Ears, Nose, Throat: normal ENT inspection Neck: normal inspection, supple, full range of motion Respiratory: chest non-tender Cardiovascular: regular rate/rhythm, systolic murmur Gastrointestinal: normal bowel sounds, soft, non-tender Extremities: normal inspection, normal capillary refill, normal range of motion, no edema Cranial Nerves: PERRL Current Medications: Current Medications Sig/Fred Start time Last Medication Dose Route Stop Time Status Admin Albuterol Sulfate 3 ML Q6 PRN 04/08 1130 AC 04/08 INH 1240 Ceftazidime 1,000 MG Q12H 04/08 1930 DC 04/10 IV 0640 Ceftriaxone Sodium 1,000 MG DAILY 04/10 1236 AC 04/10 IV 1331 Chlorhexidine 15 ML BID 04/09 1000 AC 04/10 Gluconate PO 0916 Dextrose/Sodium 1,000 ML Q6H 04/10 1015 AC / Chloride IV 1032 Escitalopram Oxalate 20 MG DAILY 04/09 1000 AC 04/10 PO 0916 Ferrous Sulfate 325 MG TID 04/08 1600 AC 04/10 PO 0916 Magnesium Sulfate 1 GM ONCE ONE 04/09 1930 DC 04/09 Dextrose/Water 100 ML IV 04/09 2329 1855 Mirtazapine 7.5 MG AT BEDTIME 04/08 2200 AC 04/09 PO 2250 Norepinephrine 4 MG Q16H 04/10 0200 DC 04/10 Sodium Chloride 250 ML IV 0535 Norepinephrine 4 MG Q4H 04/08 1800 DC 04/09 Sodium Chloride 250 ML IV 2018 Pantoprazole Sodium 40 MG BID 04/08 1415 AC 04/10 IV 0916 Phosphate 250 MG ONCE ONE 04/10 1000 CAN PO 04/10 1001 Polyethylene Glycol 17 GM DAILY 04/09 1000 AC 04/10 PO 0916 Potassium Chloride 10 MEQ Q1H 04/10 1000 DC 04/10 IV 04/10 1101 1115 Potassium Chloride 20 MEQ Q1H 04/09 1930 DC 04/09 IV 04/09 203 2134 Pregabalin 50 MG AT BEDTIME 04/08 2200 AC 04/09 PO 2250 Propofol 1,000 MG Q12H 04/08 1330 AC 04/10 N/A 100 ML IV 1337 Sodium Chloride 1,000 ML .Q6H40M 04/08 1900 DC 04/10 IV 0822 Sodium Phosphate 15 mMol ONE ONE 04/10 1015 AC 04/10 Dextrose/Water 250 ML IV 04/10 1418 1115 Vancomycin HCl 1,000 MG Q24H 04/09 0730 AC 04/10 Sodium Chloride 250 ML IV 0640 Vasopressin 40 UNITS Q16H 04/08 1900 AC 04/10 Sodium Chloride 100 ML IV 0200 Impression/Plan Impression/Problem List Impression: Mr. Lake is 86 year old male with past medical history significant for CLL status post chemotherapy (has port catheter), questionable lung cancer, DVT and atrial fibrillation on several to, status post IVC filter, anemia, recent colonoscopy 04/07/[address] [facility] with chief complaint of coffee- ground emesis and confusion. Imaging obtained on admission Chest x-ray: 1. Increased bibasilar airspace disease compared with 01/11/2017 which may represent acute on chronic aspiration pneumonitis. 2. Dense airspace opacification within the right perihilar region which is suspicious for neoplasm and possible posttreatment related changes as described on the comparison CT of 01/11/2017. 3. Tunneled left subclavian catheter terminating within the brachiocephalic vein. 4. Right pleural thickening and possible right upper lobe atelectasis. 5. Aortic calcific atherosclerosis. 6. Diffuse osteopenia. CT abdomen pelvis: 1. Marked gastric distention. The stomach is markedly distended containing both gas and fluid. 2. The incidentally visualized portions of the lung bases demonstrate bilateral dependent airspace disease increased in prominence compared with 01/11/2017. These findings may represent chronic or acute on chronic aspiration pneumonitis. 3. No free intraperitoneal gas. No intestinal dilatation. 4. Diffuse Monckeberg type facet or calcification suspicious for the sequela of long-term diabetes mellitus. Additionally, diffuse calcific atherosclerosis is present including extensive coronary artery calcific atherosclerosis. 4. The incidentally visualized portions of the lung bases demonstrate bilateral dependent airspace disease increased in prominence compared with 01/11/2017. These findings may represent chronic or acute on chronic aspiration pneumonitis. 5. 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 6. L1 vertebral body benign-appearing compression deformity grossly unchanged compared with 01/11/2017. 7. Inferior vena cava filter in situ. 8. Bilateral punctate renal calcifications which may represent vascular calcifications or urolithiasis. No evidence of acute obstructive uropathy. No hydronephrosis or ureterectasis. 9. Bilateral posterolateral rib chronic posttraumatic deformities. 10. Diffuse hepatic steatosis. 11. Status post cholecystectomy. Echocardiogram: CONCLUSIONS Normal size left ventricle. Mild concentric left ventricular hypertrophy. No obvious regional wall motion abnormalities. Normal left ventricular ejection fraction visually estimated at > 60%. "pseudonormal" filling pattern of the left ventricle for age (stage 2 diastolic dysfunction). Normal right ventricular size and function. Normal atrial size. Trace to mild mitral regurgitation. Moderate aortic stenosis. Trace aortic regurgitation. Mild tricuspid regurgitation. Dilated inferior vena cava. Problem list: -Septic shock requiring 2 pressors -Aspiration pneumonitis/postprocedure aspiration pneumonia on vancomycin and ceftriaxone -Gastric outlet obstruction with CT evidence of gas/fluid level stomach, possible perforation s/p colonscopy on falgeal -Atrial fibrilation and DVT on xeralto and IVC filater -CLL s/p chemotherapy has portal catheter Plan Resipratory: -AC, 450, 12, 5, 35% saturating 97% -EBG 04/09 pH 7.45, PCO2 38, PO2 85, bicarbonate 26 -Chest x-ray endotracheal tube terminates about 2 cm above the imelda -Continue aggressive oral hygiene ID -Covering for aspiration pneumonitis/postprocedure aspiration pneumonia -Continue vancomycin, ceftaz Day#3 -Sputum culture positive for MRSA -ID recommendation to discontinue ceftaz -Start ceftriaxone 1000 mg daily -ID consultation was obtained, thanks recommendation -Flagyl was discontinued as there is no evidence of GI perforation, no evidence of free air in CT abdomen -Follow up blood culture -Contact isolation for possible MRSA infection CVS -Continue IV fluid 150 mL/mL, switch fro NS to D5W1/2NS due to hypernatremia -Levophed was discontinued today, 04/10. -Continue vasopressin -Cardiology recommendation was obtained for atrial fibrillation and DVT, anti- coagulation is on hold for now -Cardiology recommendation regarding possibility initiating IV heparin Hematology -Past medical history of chronic lymphocytic leukemia status post chemotherapy -Patient has port catheter, no signs of infection -Cardiology consultation was obtained, thinks the recommendation -Recommendation for DIC workup, elevated d-dimer, fibrinogen, fibrin split product, prolonged PT and PTT -Previous medical records couldn't be obtained, current PCP has no information about PMH, no information about his previous PCP -OG tube initially aspirated 2 L of dark fluid that's grossly hemoccult positive -GI consultation was obtained, thanks recommendation -No recommendation for urgent endoscopy at this time, GI signed off, to be recontacted if patient had acute GI bleeding or failure of advanced tube feeds Colonoscopy 04/07/17: Findings: There were enlarged vessels in the rectum, possibly consistent with rectal varices. There was no friability or blood. There were no mucosal lesions. Diverticula were seen from left colon to right colon. The mucosa was intact throughout. No polyps or mass lesions were seen. The right-sided anastomosis was intact, and there were no mucosal normalities. The mucosa of the neoterminal ileum was normal. Given the degree of preparation, small lesions such as polyps or vascular ectasias may been obscured. Impression: * Diverticulosis * Enlarged rectal vessels, rule out varices * No evident neoplasia EGD 02/05/17: Findings: The proximal esophagus was normal. The caliber and contour the esophagus were normal. The distal mucosa there was erythema but no erosion or ulceration. There was no nodularity or mass. There were no varices. The GE junction at 41 cm was normal. There was a hiatal hernia. There were no evident Atilio's erosions. Stomach had normal distention. The cardia was normal. Mucosa and folds were normal throughout. The pyloric channel was normal. The duodenal bulb was normal. In the post bulbar duodenum were several enlarged folds, and 3 biopsies were obtained. There were no mucosal breaks/ulcers, and no polyps or mass lesions. The mucosa and folds of the descending and transverse portions of the duodenum were normal. Impression: * Nonerosive esophagitis * Hiatal hernia * Enlarged duodenal post bulbar folds Metabolic -Measure electrolyte and replete as needed daily -Positive fluid balance Neurolgy -Sedation by Propofol -Escitalopram 20 mg daily I'll medication -Lyrica 50 mg at bedtime Alimentary -Nothing by mouth -Nutritional consultation was obtained, will start tube feeds recommendation DVT prophylaxis Code full Problem List: 1. Vomiting alone 2. Anemia 3. Sepsis 4. CLL (chronic lymphocytic leukemia) Pain Ratin Tomorrow's Labs & Rationales: ICU, CBC, CXR Plan DVT/Prophylaxis: mechanical
--- NOTE | 2017-04-10 11:03 | PN- CRCU ---
Subjective HPI/Critical Care Issues: pt seen and examined remains intubated 35% fio2 afebrile hemodynamically stable AC/450/12/5/35% 97%sat levophed turned off remains on vasopressin with plan to dc Objective Current Medications: Current Medications Sig/Fred Start time Last Medication Dose Route Stop Time Status Admin Albuterol Sulfate 3 ML Q6 PRN 04/08 1130 AC 04/08 INH 1240 Ceftazidime 1,000 MG Q12H 04/08 1930 AC 04/10 IV 0640 Chlorhexidine 15 ML BID 04/09 1000 AC 04/10 Gluconate PO 0916 Dextrose/Sodium 1,000 ML Q6H 04/10 1015 AC 04/10 Chloride IV 1032 Escitalopram Oxalate 20 MG DAILY 04/09 1000 AC 04/10 PO 0916 Ferrous Sulfate 325 MG TID 04/08 1600 AC 04/10 PO 0916 Magnesium Sulfate 1 GM ONCE ONE 04/09 1930 DC 04/09 Dextrose/Water 100 ML IV 04/09 2329 1855 Metronidazole 500 MG IQ8 04/08 1600 DC 04/09 N/A 1 UNIT IV 0800 Mirtazapine 7.5 MG AT BEDTIME 04/08 2200 AC 04/09 PO 2250 Norepinephrine 4 MG Q16H 04/10 0200 DC 04/10 Sodium Chloride 250 ML IV 0535 Norepinephrine 4 MG Q4H 04/08 1800 DC 04/09 Sodium Chloride 250 ML IV 2018 Pantoprazole Sodium 40 MG BID 04/08 1415 AC 04/10 IV 0916 Phosphate 250 MG ONCE ONE 04/10 1000 CAN PO 04/10 1001 Polyethylene Glycol 17 GM DAILY 04/09 1000 AC 04/10 PO 0916 Potassium Chloride 10 MEQ Q1H 04/10 1000 AC 04/10 IV 04/10 1101 1029 Potassium Chloride 20 MEQ Q1H 04/09 1930 DC 04/09 IV 04/09 2031 2134 Pregabalin 50 MG AT BEDTIME 04/08 2200 AC 04/09 PO 2250 Propofol 1,000 MG Q12H 04/08 1330 AC 04/10 N/A 100 ML IV 0823 Sodium Chloride 1,000 ML .Q6H40M 04/08 1900 DC 04/10 IV 0822 Sodium Phosphate 15 mMol ONE ONE 04/10 1015 AC Dextrose/Water 250 ML IV 04/10 1418 Sodium Phosphate 15 mMol ONE ONE 04/09 0815 DC 04/09 Dextrose/Water 250 ML IV 04/09 1218 1110 Vancomycin HCl 1,000 MG Q24H 04/09 0730 AC 04/10 Sodium Chloride 250 ML IV 0640 Vasopressin 40 UNITS Q16H 04/08 1900 AC 04/10 Sodium Chloride 100 ML IV 0200 Vital Signs & I&O Last 24 Hrs of Vitals and I&O: Vital Signs Date Time Temp Pulse Resp B/P B/P Pulse O2 O2 Flow FiO2 Mean Ox Delivery Rate 04/10 0839 35 04/10 0800 94 Ventilator 35% 04/10 0800 97.1 87 18 117/55 94 Ventilator 35% 04/10 0605 35 04/10 0535 97.6 84 20 117/55 04/10 0400 94 Ventilator 35% 04/10 0352 35 04/10 0049 35 04/10 0000 97.1 90 19 104/60 93 Ventilator 35% 04/10 0000 93 Ventilator 35% 04/09 2249 35 04/09 2018 98 22 118/65 04/09 2000 95 Ventilator 35% 04/09 1944 35 04/09 1615 35 04/09 1600 98 Ventilator 35% 04/09 1600 98.0 92 20 100/48 98 Ventilator 35% 04/09 1334 40 04/09 1200 98 Ventilator 40% 04/09 1119 40 Intake & Output 04/10 1600 04/10 0800 04/10 0000 Intake Total 1595 1263 Output Total 364 80 Balance 1231 1183 Intake, Blood 284 200 Product Intake, IV 1311 1063 Output, 100 Gastric Drainage Output, Urine 264 80 Exam Other Physical Findings: gen intubated heent ett cvs s1, s2, murmur lungs transmitted abd soft, bs+ ext edematous Results Last 24 Hrs of Lab Results: Laboratory Tests 04/10/17 1043: Troponin I Pending, CBC w Diff Pending, WBC Pending, RBC Pending, Hgb Pending, Hct Pending, MCV Pending, MCH Pending, RDW Pending, Plt Count Pending, MPV Pending, PUBS MCHC Pending 04/10/17 0400: Troponin I 0.44 *H 04/10/17 0400: Anion Gap 13, Estimated GFR > 60, Glucose 105 H, Calcium 6.8 L, Phosphorus 3.3 , Magnesium 2.2, Total Bilirubin 0.8, AST 14 L, ALT 33, Albumin 2.1 L, CBC w Diff MAN DIFF ORDERED, RBC 3.13 L, MCV 80.1, MCH 25.4 L, RDW 19.4 H, MPV 9.0, Gran % 44.5, Lymphocytes % 53.1 H, Monocytes % 2.1, Eosinophils % 0, Basophils % 0.3, Absolute Granulocytes 15.4 H, Segmented Neutrophils 43, Absolute Lymphocytes 18.4 H, Lymphocytes 55 H, Monocytes 2, Absolute Monocytes 0.7 H, Absolute Eosinophils 0, Absolute Basophils 0.1, Platelet Estimate DECREASED, Polychromasia 1+, Hypochromic-Microcytic 1+, Poikilocytosis 1+, Anisocytosis 1+, Microcytic Cells 1+, Ovalocytes 1+, Stomatocytes FEW, Elliptocytes RARE, PUBS MCHC 31.7 L, Fld Total RBCs Counted 100 04/09/172014: Troponin I 0.37 *H 04/09/17 1830: CBC w Diff NO MAN DIFF REQ, RBC 2.96 L, MCV 79.3 L, MCH 25.0 L, RDW 20.6 H, MPV 8.8, Gran % 48.2, Lymphocytes % 50.2, Monocytes % 1.4 L, Eosinophils % 0, Basophils % 0.2, Absolute Granulocytes 17.6 H, Absolute Lymphocytes 18.3 H, Absolute Monocytes 0.5, Absolute Eosinophils 0, Absolute Basophils 0.1, PUBS MCHC 31.5 L 04/09/17 1700: Anion Gap 13, Estimated GFR > 60, Glucose 119 H, Calcium 6.7 L, Phosphorus 3.5 , Magnesium 1.9, Total Bilirubin 0.3, AST 13 L, ALT 26, Albumin 2.0 L, CBC w Diff NO MAN DIFF REQ, RBC 2.86 L, MCV 79.1 L, MCH 25.0 L, RDW 20.8 H, MPV 8.6, Gran % 48.6, Lymphocytes % 48.9, Monocytes % 2.3, Eosinophils % 0, Basophils % 0.2, Absolute Granulocytes 16.7 H, Absolute Lymphocytes 16.8 H, Absolute Monocytes 0.8 H, Absolute Eosinophils 0, Absolute Basophils 0.1, PUBS MCHC 31.5 L Impression/Plan Impression/Plan Impression/Plan: Impression 86 year old man * Septic shock secondary to likely abdominal source and likely aspiration pneumonia * CLL with leukocytosis * chronic a.fib on a/c (xarelto and IVC filter) Plan Respiratory -mechanically ventilated, remains intubated for airway protection, potential invasive intervention and 2 vasopressors -address goals of care, conservator prefers to observe for the next 24-48 hours and make a decision based on clinical course ID -vancomycin/ceftazadime, flagyl discontinued -f/u all cultures CVS -f/u cardiology recommendations -no a/c due to likely demand and anemia Heme -f/u hem/onc recs -s/p prbc Metabolic -monitor ins/outs, creatinine Alimentary -begin tube feeds Neuro -propofol for sedation DVT prophylaxis at all times TTS 40 min
[2017-04-10 11:41] LABS: ABSOLUTE BASOPHIL COUNT 0.1 /CUMM (0.0-0.2); ABSOLUTE EOSINOPHIL COUNT 0 /CUMM (0.0-0.7); ABSOLUTE GRANULOCYTE CT 14.5 /CUMM (1.4-6.5); ABSOLUTE LYMPH COUNT 17.7 /CUMM (1.2-3.4); ABSOLUTE MONOCYTE COUNT 0.1 /CUMM (0.10-0.60); BASOPHIL % 0.2 % (0.0-2.0); EOSINOPHIL % 0 % (0-5); GRANULOCYTE % 44.8 % (42.2-75.2); HEMATOCRIT 24.6 % (42-52); MEAN CORPUSCULAR VOLUME 80.5 FL (80.0-94.0); MEAN PLATELET VOLUME 10.2 FL (7.4-10.4); PLATELET COUNT 67 /CUMM (130-400); RBC DISTRIBUTION WIDTH 19.2 % (11.5-14.5); RED BLOOD CELL CT 3.05 /CUMM (4.70-6.10)
[2017-04-10 11:46] LABS: WHITE BLOOD CELL COUNT 32.3 /CUMM (4.8-10.8)
--- NOTE | 2017-04-10 12:06 | PN- Infect Dx ---
Subjective Subjective: Afebrile. His blood pressure remains stable now off Levophed. Objective Last 24 Hrs of Vital Signs/I&O Vital Signs Date Time Temp Pulse Resp B/P B/P Pulse O2 O2 Flow FiO2 Mean Ox Delivery Rate 04/10 0839 35 04/10 0800 94 Ventilator 35% 04/10 0800 97.1 87 18 117/55 94 Ventilator 35% 04/10 0605 35 04/10 0535 97.6 84 20 117/55 04/10 0400 94 Ventilator 35% 04/10 0352 35 04/10 0049 35 05 0000 97.1 90 19 104/60 93 Ventilator 35% 04/10 0000 93 Ventilator 35% 04/09 2249 35 04/09 2018 98 22 118/65 04/09 2000 95 Ventilator 35% 04/09 1944 35 04/09 1615 35 04/09 1600 98 Ventilator 35% 04/09 1600 98.0 92 20 100/48 98 Ventilator 35% 04/09 1334 40 04/09 1200 98 Ventilator 40% Intake & Output 04/10 1600 04/10 0800 04/10 0000 Intake Total 1595 1263 Output Total 364 80 Balance 1231 1183 Intake, Blood 284 200 Product Intake, IV 1311 1063 Output, 100 Gastric Drainage Output, Urine 264 80 Patient 134 lb Weight Physical Exam Other Physical Findings: He remains minimally responsive on the ventilator Chest Port-A-Cath in the left upper chest in place with no inflammation Lungs bilateral rhonchi Heart regular rhythm with no murmur Abdomen is soft, mildly distended, positive bowel sounds Extremities no cyanosis, clubbing or edema Ritchie catheter remains in place Results Last 24 Hours of Lab Results: Laboratory Tests 04/10 04/10 1043 0400 Chemistry Troponin I (<0.11 ng/ml) Pending 0.44 *H Hematology CBC w Diff MAN DIFF ORDERED WBC (4.8 - 10.8 /CUMM) 32.3 *H RBC (4.70 - 6.10 /CUMM) 3.05 L Hgb (14.0 - 18.0 G/DL) 7.6 L Hct (42 - 52 %) 24.6 L MCV (80.0 - 94.0 FL) 80.5 MCH (27.0 - 31.0 PG) 25.0 L RDW (11.5 - 14.5 %) 19.2 H Plt Count (130 - 400 /CUMM) 67 L MPV (7.4 - 10.4 FL) 10.2 Gran % (42.2 - 75.2 %) 44.8 Lymphocytes % (20.5 - 51.1 %) 54.7 H Monocytes % (1.7 - 9.3 %) 0.3 L Eosinophils % (0 - 5 %) 0 Basophils % (0.0 - 2.0 %) 0.2 Absolute Granulocytes (1.4 - 6.5 /CUMM) 14.5 H Absolute Lymphocytes (1.2 - 3.4 /CUMM) 17.7 H Absolute Monocytes (0.10 - 0.60 /CUMM) 0.1 L Absolute Eosinophils (0.0 - 0.7 /CUMM) 0 Absolute Basophils (0.0 - 0.2 /CUMM) 0.1 Platelet Estimate (ADEQUATE) DECREASED Polychromasia 1+ Poikilocytosis 1+ Anisocytosis 1+ Ovalocytes 1+ PUBS MCHC (33.0 - 37.0 G/DL) 31.0 L 04/10 Chemistry Sodium (137 - 145 mmol/L) 148 H Potassium (3.5 - 5.1 mmol/L) 3.8 Chloride (98 - 107 mmol/L) 113 H Carbon Dioxide (22 - 30 mmol/L) 22 Anion Gap (5 - 16) 13 BUN (9 - 20 mg/dL) 32 H Creatinine (0.7 - 1.2 mg/dL) 1.0 Estimated GFR (>60 ml/min) > 60 Glucose (65 - 99 mg/dL) 105 H Calcium (8.4 - 10.2 mg/dL) 6.8 L Phosphorus (2.5 - 4.5 mg/dL) 3.3 Magnesium (1.6 - 2.3 mg/dL) 2.2 Total Bilirubin (0.2 - 1.3 mg/dL) 0.8 AST (17 - 59 U/L) 14 L ALT (21 - 72 U/L) 33 Troponin I (<0.11 ng/ml) 0.37 *H Albumin (3.5 - 5.0 g/dL) 2.1 L Hematology CBC w Diff MAN DIFF ORDERED WBC (4.8 - 10.8 /CUMM) 34.6 *H RBC (4.70 - 6.10 /CUMM) 3.13 L Hgb (14.0 - 18.0 G/DL) 7.9 L Hct (42 - 52 %) 25.0 L MCV (80.0 - 94.0 FL) 80.1 MCH (27.0 - 31.0 PG) 25.4 L RDW (11.5 - 14.5 %) 19.4 H Plt Count (130 - 400 /CUMM) 81 L MPV (7.4 - 10.4 FL) 9.0 Gran % (42.2 - 75.2 %) 44.5 Lymphocytes % (20.5 - 51.1 %) 53.1 H Monocytes % (1.7 - 9.3 %) 2.1 Eosinophils % (0 - 5 %) 0 Basophils % (0.0 - 2.0 %) 0.3 Absolute Granulocytes (1.4 - 6.5 /CUMM) 15.4 H Segmented Neutrophils (42.2 - 75.2 %) 43 Absolute Lymphocytes (1.2 - 3.4 /CUMM) 18.4 H Lymphocytes (20.5 - 51.1 %) 55 H Monocytes (1.7 - 9.3 %) 2 Absolute Monocytes (0.10 - 0.60 /CUMM) 0.7 H Absolute Eosinophils (0.0 - 0.7 /CUMM) 0 Absolute Basophils (0.0 - 0.2 /CUMM) 0.1 Platelet Estimate (ADEQUATE) DECREASED Polychromasia 1+ Hypochromic-Microcytic 1+ Poikilocytosis 1+ Anisocytosis 1+ Microcytic Cells 1+ Ovalocytes 1+ Stomatocytes FEW Elliptocytes RARE PUBS MCHC (33.0 - 37.0 G/DL) 31.7 L Other Body Source Fld Total RBCs Counted (%) 100 04/09 04/09 1830 1700 Chemistry Sodium (137 - 145 mmol/L) 148 H Potassium (3.5 - 5.1 mmol/L) 3.4 L Chloride (98 - 107 mmol/L) 112 H Carbon Dioxide (22 - 30 mmol/L) 23 Anion Gap (5 - 16) 13 BUN (9 - 20 mg/dL) 32 H Creatinine (0.7 - 1.2 mg/dL) 1.0 Estimated GFR (>60 ml/min) > 60 Glucose (65 - 99 mg/dL) 119 H Calcium (8.4 - 10.2 mg/dL) 6.7 L Phosphorus (2.5 - 4.5 mg/dL) 3.5 Magnesium (1.6 - 2.3 mg/dL) 1.9 Total Bilirubin (0.2 - 1.3 mg/dL) 0.3 AST (17 - 59 U/L) 13 L ALT (21 - 72 U/L) 26 Albumin (3.5 - 5.0 g/dL) 2.0 L Hematology CBC w Diff NO MAN DIFF REQ NO MAN DIFF REQ WBC (4.8 - 10.8 /CUMM) 36.5 *H 34.4 *H RBC (4.70 - 6.10 /CUMM) 2.96 L 2.86 L Hgb (14.0 - 18.0 G/DL) 7.4 *L 7.1 *L Hct (42 - 52 %) 23.5 L 22.6 L MCV (80.0 - 94.0 FL) 79.3 L 79.1 L MCH (27.0 - 31.0 PG) 25.0 L 25.0 L RDW (11.5 - 14.5 %) 20.6 H 20.8 H Plt Count (130 - 400 /CUMM) 99 L 98 L MPV (7.4 - 10.4 FL) 8.8 8.6 Gran % (42.2 - 75.2 %) 48.2 48.6 Lymphocytes % (20.5 - 51.1 %) 50.2 48.9 Monocytes % (1.7 - 9.3 %) 1.4 L 2.3 Eosinophils % (0 - 5 %) 0 0 Basophils % (0.0 - 2.0 %) 0.2 0.2 Absolute Granulocytes (1.4 - 6.5 /CUMM) 17.6 H 16.7 H Absolute Lymphocytes (1.2 - 3.4 /CUMM) 18.3 H 16.8 H Absolute Monocytes (0.10 - 0.60 /CUMM) 0.5 0.8 H Absolute Eosinophils (0.0 - 0.7 /CUMM) 0 0 Absolute Basophils (0.0 - 0.2 /CUMM) 0.1 0.1 PUBS MCHC (33.0 - 37.0 G/DL) 31.5 L 31.5 L Last 24 Hours of Matt Results: Blood cultures 2 April 08 remain negative Sputum culture April 08 positive for MRSA and Escherichia coli sensitivities pending Urine culture April 09 negative Recent Imaging Studies: Chest x-ray April 10 reveals patchy airspace disease throughout the right lung with mild diffuse interstitial prominence with no significant change from the previous film Assessment/Plan Impression: Remains critically ill, though now off pressors, but still ventilator dependent for respiratory failure most likely secondary to aspiration pneumonia, with sputum culture positive for MRSA and Escherichia coli. He remains afebrile on Vancomycin and Ceftazidime. White blood cell count is decreased, though remains elevated, likely secondary to his underlying CLL. He has become thrombocytopenic, possibly secondary to sepsis versus CLL versus medication and this should be monitored. His troponin continues to increase, but is felt to be secondary to demand ischemia. Suggestion: 1. Discontinue Ceftazidime 2. Begin Ceftriaxone 1 g IV every 24 hours 3. Continue Vancomycin
--- NOTE | 2017-04-10 13:38 | ULTRASOUND REPORT ---
EXAMINATION: EXAMINATION: DOPPLER VENOUS ULTRASOUND UPPER EXTREMITY, RIGHT CLINICAL INFORMATION: Right upper extremity swelling. COMPARISON: None. TECHNIQUE: Grayscale, Doppler and spectral analysis of the upper extremity and neck was performed. FINDINGS: There is a partially occlusive thrombus within the right internal jugular vein. This results in decreased flow within the subclavian vein near the confluence. There is likely nonocclusive thrombus within the wall of the axillary vein. IMPRESSION: Deep venous thrombosis within the internal jugular vein.
--- NOTE | 2017-04-10 15:12 | Event Note ---
Event Note Event Note: partially occlusive right IJ thrombus given anemia, requiring prbcs today and thrombocytopenia will not be able to anticoagulate today will re-evaluate daily on when patient maybe safe to resume anticoagulation ( which he will require for a.fib anyway). Risks at this point outweigh benefits of a/c. will d/w with nephew (conservator). On a non-urgent basis will ask for input from vascular surgery regarding further plan.
[2017-04-10 16:00] VITALS: BP 93/49
--- NOTE | 2017-04-10 16:50 | Event Note ---
Event Note Event Note: I tried contacting Mr. Matteo Figueroa to update him about the right IJ DVT as evidence by the right upper extremity Doppler ultrasound which was obtained this morning. I was unable to get in touch with him, a voice mail was left with instructions to call the ICU.
[2017-04-10 21:05] LABS: HEMATOCRIT 26.6 % (42-52); MEAN CORPUSCULAR HGB 25.9 PG (27.0-31.0); MEAN CORPUSCULAR HGB CONC 32.3 G/DL (33.0-37.0); MEAN CORPUSCULAR VOLUME 79.9 FL (80.0-94.0); MEAN PLATELET VOLUME 10.2 FL (7.4-10.4); PLATELET COUNT 68 /CUMM (130-400); RBC DISTRIBUTION WIDTH 18.8 % (11.5-14.5); RED BLOOD CELL CT 3.32 /CUMM (4.70-6.10); WHITE BLOOD CELL COUNT 24.2 /CUMM (4.8-10.8)
--- NOTE | 2017-04-10 21:16 | NUR ---
PT ON PROPOFOL GTT CURRENTLY AT 25MCG/KG/HR-INCREASED FROM 20MCG FOR SAS-5. SEE FLOW SHEET FOR SAS SCORES. NOT FOLLOWING COMMANDS AT PRESENT. ORALLY INTUBATED AND VENTED. RHONCI THOUGHOUT BILATERALLY. SUCTIONING FOR MOD AMT OF THICK CREAMY YELLOW SECREATIONS. NO SOB OR RESP DISTRESS NOTED AT PRESENT. SEE FLOW SHEET FOR VS, 02 SATS, I/O'S. MONITOR SHOWS NSR, NO ECTOPY NOTED AT PRESENT. BP STABLE AT PRESENT. ABD SOFT, NONTENDER, NONDISTENDED, POSITIVE BOWEL SOUNDS. OGT IN PLACE-PLACEMENT CONFIRMED BY AIR, ON TUBE FEEDS-TOLERATING WELL AT PRESENT. DRIVER IN PLACE-DRAINING LOW AMT CLEAR DARK ETHAN URINE. DUODERM ON COCCYX INTACT-NO OTHER SKIN BREAKDOWN NOTED. RT ARM WITH 4+ EDEMA, WEEPING FROM IV INFLITRATE-ARM ELEVATED. SOFT BILATERAL WRIST RESTRAINTS IN PLACE WE
[2017-04-11] VITALS: BP 94/50
[2017-04-11 05:54] LABS: ABSOLUTE BASOPHIL COUNT 0.1 /CUMM (0.0-0.2); ABSOLUTE EOSINOPHIL COUNT 0.1 /CUMM (0.0-0.7); ABSOLUTE GRANULOCYTE CT 12.4 /CUMM (1.4-6.5); ABSOLUTE MONOCYTE COUNT 0.3 /CUMM (0.10-0.60); BASOPHIL % 0.4 % (0.0-2.0); EOSINOPHIL % 0.3 % (0-5); GRANULOCYTE % 37.8 % (42.2-75.2); HEMATOCRIT 28.1 % (42-52); MEAN CORPUSCULAR HGB CONC 32.3 G/DL (33.0-37.0); MEAN CORPUSCULAR VOLUME 80.5 FL (80.0-94.0); MEAN PLATELET VOLUME 9.8 FL (7.4-10.4); PLATELET COUNT 65 /CUMM (130-400); RBC DISTRIBUTION WIDTH 18.9 % (11.5-14.5)
[2017-04-11 06:08] LABS: WHITE BLOOD CELL COUNT 32.9 /CUMM (4.8-10.8)
--- NOTE | 2017-04-11 07:11 | RADIOLOGY REPORT ---
EXAMINATION: CHEST 1 VIEW CLINICAL INFORMATION: Intubated. Respiratory distress. Follow-up. COMPARISON: Multiple prior exams are reviewed. The most recent is from 04/10/2017. TECHNIQUE: An AP view of the chest is provided. FINDINGS: The cardiac silhouette is not enlarged. The endotracheal tube and enteric tube are in unchanged position. There is the appearance of left hilar fullness, more prominent than on the prior exam, though possibly accentuated due to patient rotation. Again identified is diffuse bilateral mixed interstitial and airspace disease with increasing right upper lobe airspace disease, volume loss. There is a [id number] right pleural effusion. The osseous structures are unremarkable. IMPRESSION: Endotracheal tube and enteric tube in place. Persistent diffuse mixed interstitial and airspace disease with increased right upper lobe airspace disease. Right pleural effusion. Appearance of increasing left perihilar fullness which could be accentuated secondary to patient positioning, though short-term follow-up is warranted.
--- NOTE | 2017-04-11 07:23 | NUR ---
PT REMAINS SEDATED ON PROPOFOL AT 20MCG/KG/HR. REMAINS IN SOFT BILATERAL WRIST RESTRAINTS. REMAINS ORALLY INTUBATED AND VENTED. SUCTIONING FOR LG AMT OF CREAMY YELLOW SECREATIONS. RHONCI THOUGHOUT BILATERALLY. MONITOR NSR TO ST-90-100'S. SBP 90-100'S. TOLERATING TUBE FEEDS WELL AT PRESENT. LOW URINE OUTPUT OF DARK ETHAN URINE. DUODERM ON COCCYX REMAINS INTACT
[2017-04-11 08:00] VITALS: BP 118/60
--- NOTE | 2017-04-11 09:12 | PN- CRCU ---
Subjective HPI/Critical Care Issues: pt seen and examined remains on mechanical ventilation right ij thrombosis hemoglobin stablized platelets 65 Objective Current Medications: Current Medications Sig/Fred Start time Last Medication Dose Route Stop Time Status Admin Albuterol Sulfate 3 ML Q6 PRN 04/08 1130 AC 04/08 INH 1240 Ceftazidime 1,000 MG Q12H 04/08 1930 DC 04/10 IV 0640 Ceftriaxone Sodium 1,000 MG DAILY 04/10 1236 AC 04/10 IV 1331 Chlorhexidine 15 ML BID 04/09 1000 AC 04/10 Gluconate PO 2220 Dextrose/Sodium 1,000 ML Q6H 04/10 1015 AC 04/11 Chloride IV 0605 Escitalopram Oxalate 20 MG DAILY 04/09 1000 AC 04/10 PO 0916 Ferrous Sulfate 325 MG TID 04/08 1600 AC 04/10 PO 2215 Mirtazapine 7.5 MG AT BEDTIME 04/08 2200 AC 04/10 PO 2215 Norepinephrine 4 MG Q16H 04/10 0200 DC 04/10 Sodium Chloride 250 ML IV 0535 Pantoprazole Sodium 40 MG BID 04/08 1415 AC 04/10 IV 2217 Phosphate 250 MG ONCE ONE 04/10 1000 CAN PO 04/10 1001 Polyethylene Glycol 17 GM DAILY 04/09 1000 AC 04/10 PO 0916 Potassium Chloride 80 MEQ ONCE ONE 04/11 0700 DC PO 04/11 0701 Potassium Chloride 10 MEQ Q1H 04/10 1000 DC 04/10 IV 04/10 1101 1115 Pregabalin 50 MG AT BEDTIME 04/08 2200 AC 04/10 PO 2215 Propofol 1,000 MG Q12H 04/08 1330 AC 04/10 N/A 100 ML IV 2247 Sodium Chloride 1,000 ML .Q6H40M 04/08 1900 DC 04/10 IV 0822 Sodium Phosphate 15 mMol ONE ONE 04/10 1015 DC 04/10 Dextrose/Water 250 ML IV 04/10 1418 1115 Vancomycin HCl 1,000 MG Q24H 04/09 0730 AC 04/11 Sodium Chloride 250 ML IV 0835 Vasopressin 40 UNITS Q16H 04/08 1900 DC 04/10 Sodium Chloride 100 ML IV 0200 Vital Signs & I&O Last 24 Hrs of Vitals and I&O: Vital Signs Date Time Temp Pulse Resp B/P B/P Pulse O2 O2 Flow FiO2 Mean Ox Delivery Rate 04/11 0825 40 05/21 0610 40 04/11 0400 95 Ventilator 40% 04/11 0259 40 04/11 0050 40 04/11 0000 93 Ventilator 30% 04/11 0000 97.7 103 16 94/50 93 Ventilator 30% 04/10 2243 30 04/10 2000 98 Ventilator 30% 04/10 1930 30 04/10 1705 30 04/10 1600 99 Ventilator 35% 04/10 1600 97.6 91 15 93/49 99 Ventilator 35% 04/10 1416 35 04/10 1202 35 04/10 1200 96 Ventilator 35% Intake & Output 04/11 1600 04/11 0800 04/11 0000 Intake Total 1466 1983 Output Total 130 148 Balance 1336 1835 Intake, IV 1231 1662 Intake, Tube 135 121 Feeding Intake, Tube 100 200 Irrigant Number 0 0 Bowel Movements Output, Urine 130 148 Exam Other Physical Findings: gen intubated heent ett cvs s1, s2, murmur lungs transmitted abd soft, bs+ ext edematous, rue edema Results Last 24 Hrs of Lab Results: Laboratory Tests 04/11/17420: Troponin I 0.44 *H 04/11/17420: Anion Gap 11, Estimated GFR > 60, Glucose 140 H, Calcium 6.9 L, Phosphorus 2.7 , Magnesium 1.9, Total Bilirubin 0.4, AST 10 L, ALT 16 L, Albumin 2.0 L, CBC w Diff MAN DIFF ORDERED, RBC 3.50 L, MCV 80.5, MCH 26.0 L, RDW 18.9 H, MPV 9.8, Gran % 37.8 L, Lymphocytes % 60.7 H, Monocytes % 0.8 L, Eosinophils % 0.3, Basophils % 0.4, Absolute Granulocytes 12.4 H, Absolute Lymphocytes 20.0 H, Absolute Monocytes 0.3, Absolute Eosinophils 0.1, Absolute Basophils 0.1, Platelet Estimate DECREASED, Anisocytosis 1+, PUBS MCHC 32.3 L 04/10/172026: Troponin I 0.50 *H, CBC w Diff MAN DIFF ORDERED, RBC 3.32 L, MCV 79.9 L, MCH 25.9 L, RDW 18.8 H, MPV 10.2, Segmented Neutrophils 50, Band Neutrophils 2, Lymphocytes 46, Monocytes 1 L, Eosinophils 1, Platelet Estimate DECREASED, Hypochromic-Microcytic 1+, Poikilocytosis FEW, Anisocytosis 2+, Microcytic Cells 1+, Ovalocytes 1+, PUBS MCHC 32.3 L, Fld Total RBCs Counted 100 04/10/17 1555: Troponin I 0.47 *H 04/10/17 1043: Troponin I 0.47 *H, CBC w Diff MAN DIFF ORDERED, RBC 3.05 L, MCV 80.5, MCH 25.0 L, RDW 19.2 H, MPV 10.2, Gran % 44.8, Lymphocytes % 54.7 H, Monocytes % 0.3 L, Eosinophils % 0, Basophils % 0.2, Absolute Granulocytes 14.5 H, Absolute Lymphocytes 17.7 H, Absolute Monocytes 0.1 L, Absolute Eosinophils 0, Absolute Basophils 0.1, Platelet Estimate DECREASED, Polychromasia 1+, Poikilocytosis 1+, Anisocytosis 1+, Ovalocytes 1+, PUBS MCHC 31.0 L Impression/Plan Impression/Plan Impression/Plan: Impression 86 year old man * Septic shock secondary to likely abdominal source and likely aspiration pneumonia * CLL with leukocytosis * chronic a.fib on a/c (xarelto and IVC filter) * acute blood loss anemia stabilized, thrombocytopenia, can be secondary to CLL or gi bleed/consumptive coagulopathy * right ij partially occlusive thrombosis Plan Respiratory -mechanically ventilated, remains intubated for airway protection, potential invasive intervention and 2 vasopressors -address goals of care, conservator prefers to observe for the next 24-48 hours and make a decision based on clinical course ID -vancomycin/ceftriaxone, ID appreciated -f/u all cultures CVS -f/u cardiology recommendations -no a/c due to likely demand and anemia Heme -f/u hem/onc recs -s/p prbc -if okay with cardiology and gi would resume anticoagulation as soon as specialists are in agreement -right ij thrombosis, vascular surgery evaluation Metabolic -monitor ins/outs, creatinine Alimentary -begin tube feeds Neuro -propofol for sedation DVT prophylaxis at all times TTS 35 min
--- NOTE | 2017-04-11 10:02 | PN- Resident CRCU ---
Subjective HPI/CRCU Issues: Patient seen and examined at bedside this AM. He was laying comfortably in bed, intubated and on propofol for sedation. Patient required 1 U PRBC yesterday for low H&H. Conservator called this AM and was updated in regards to Chidi's clinical status. Decision between md senior research scientist and GI specialist is that patient will have EGD tomorrow (after NPO at midnight) to look for bleed/cause of dropping H&H). If no bleeding identified, will likely proceed with anticoagulation as suggested by vascular surgery for this thrombus in this right IJ. Of note, levophed discontinued at 1000 yesterday. 24 Hour Events: Vital signs last 24 hours: T 97.1-98.7, HR 82-106, RR 13-24, BP 84-117/49-73, O2 saturation 94-100% on AC ventilation RR 12, TV 450, FiO2 30% and 5 PEEP. Total intake last 24 hours: 5000 cc Total output: 548 cc Objective Vital Signs & I&O Last 8 Hrs of Vitals and I&O: T 97.1-98.7, HR 82-106, RR 13-24, BP 84-117/49-73, O2 saturation 94-100% on AC ventilation RR 12, TV 450, FiO2 30% and 5 PEEP. Exam General Appearance: intubated, thin Head: atraumatic, normal appearance Ears, Nose, Throat: normal ENT inspection Neck: normal inspection, supple Respiratory: chest non-tender Cardiovascular: regular rate/rhythm, systolic murmur Gastrointestinal: normal bowel sounds, soft, non-tender Extremities: normal inspection, no edema Skin: No significant lesion Skin Temp/Moisture Exam: Warm/Dry Nutrition Nutrition: tube feeding Current Medications: Current Medications Sig/Fred Start time Last Medication Dose Route Stop Time Status Admin Albuterol Sulfate 3 ML Q6 PRN 04/08 1130 AC 04/08 INH 1240 Ceftriaxone Sodium 1,000 MG DAILY 04/10 1236 AC 04/11 IV 1243 Chlorhexidine 15 ML BID 04/09 1000 AC 04/11 Gluconate PO 0933 Dextrose/Sodium 1,000 ML Q6H 04/10 1015 AC 04/11 Chloride IV 0605 Escitalopram Oxalate 20 MG DAILY 04/09 1000 AC 04/11 PO 0932 Ferrous Sulfate 325 MG TID 04/08 1600 AC 04/11 PO 0932 Mirtazapine 7.5 MG AT BEDTIME 04/08 2200 AC 04/10 PO 2215 Pantoprazole Sodium 40 MG BID 04/08 1415 AC 04/11 IV 0929 Polyethylene Glycol 17 GM DAILY 04/09 1000 AC 04/11 PO 0933 Potassium Chloride 80 MEQ ONCE ONE 04/11 0700 DC 04/11 PO 04/11 0701 0930 Pregabalin 50 MG AT BEDTIME 04/08 2200 AC 04/10 PO 2215 Propofol 1,000 MG Q12H 04/08 1330 AC 04/11 N/A 100 ML IV 0939 Vancomycin HCl 1,000 MG Q24H 04/09 0730 AC 04/11 Sodium Chloride 250 ML IV 0835 Vasopressin 40 UNITS Q16H 04/08 1900 DC 04/10 Sodium Chloride 100 ML IV 0200 Impression/Plan Impression/Problem List Impression: Mr. Lake is 86 year old male with PMH CLL status post chemotherapy, questionable lung cancer, DVT, atrial fibrillation status post IVC filter placement, anemia and recent colonoscopy on 04/07/[address] [facility] with chief complaint of coffee-ground emesis and confusion. CXR on admission showed bibasilar airpsace disease (acute or chronic aspiration pneumonitis), airspace opacification in right perihilar regional suspicios for neoplasm, aortic calcific atherosclerosis and diffuse osteopenia. CT abdomen/pelvis showed marked gastric distention, bilateral dependent airspace disease, IVC filter in situ, diffuse hepatic stetosis and s/p cholecystectomy. The patient is currently in the ICU and the following is the management: Problem list: 1. Septic shock requiring 2 pressors 2. Aspiration pneumonitis/postprocedure aspiration pneumonia on vancomycin and ceftriaxone 3. Gastric outlet obstruction with CT evidence of gas/fluid level in the stomach , possible perforation s/p colonscopy on flagyl 4. Atrial fibrilation and DVT on xeralto with IVC filter 5. CLL s/p chemotherapy Resipratory: -Continue mechanical ventilation for airway protection with settings AC, RR 12, TV 450, PEEP 5, FiO2 40% -ABG 04/09 pH 7.45, PCO2 38, PO2 85, bicarbonate 26 -CXR this AM shows ET tube in place/proper position, airspace disease still noted and more prominent than prior -Continue aggressive oral hygiene -Patient to remain intubated until after EGD that is scheduled for tomorrow AM with Dr. Errol Chase MD ID 1. Aspiration pneumonitis/postprocedure aspiration pneumonia -Continue vancomycin, ceftriaxone 1 g IV daily started yesterday -Sputum culture positive for MRSA -ID recommendation appreciated -Flagyl previously discontinued as there is no evidence of GI perforation, no evidence of free air on CT abdomen -Follow up blood cultures -Contact isolation for MRSA -Urine for legionella/strep negative CVS 1. Septic shock -Hypotension improved, BP now stable -Continue IV fluid D51/2NS at 150 mL/mL -Levophed discontinued yesterday, 04/10/17 and vasopression OFF -Cardiology recommendation was obtained for atrial fibrillation and DVT, anti- coagulation is on hold for now pending EGD results tomorrow 2. Positive troponins -Likely 2/2 demand/supply mismatch -Follow cardiology recommendations -No AC at this point in time secondary to GIB -F/U EGD tomorrow and if no signs of bleeding consider starting AC 3. Atrial fibrillation * Chronic, on xarelto with IVC filter * AC on hold until EGD tomorrow * Further cardio follow up post-EGD Hematology -PMH of CLL s/p chemotherapy, has port catheter, no signs of infection -DIC workup showed elevated d-dimer, fibrinogen, fibrin split product, prolonged PT and PTT -Previous medical records couldn't be obtained, current PCP has no information about PMH, no information about his previous PCP -OG tube initially aspirated 2 L of dark fluid that's grossly hemoccult positive -GI consultation was obtained, thanks recommendation -Scheduled for EGD tomorrow, NPO at midnight, evaluation for cause for UGIB; if no bleeding appreciated, will discuss with GI/vascular/cardio about anticoagulation in setting of atrial fibrillation/right IJ thrombosis -Right IJ thrombosis noted on US, vascular aware, recommendations apprecaited; will hold off on anticoagulation at this time until results of EGD tomorrow are known Colonoscopy 04/07/17: Diverticulosis, Enlarged rectal vessels, rule out varices, No evident neoplasia EGD 02/05/17:Nonerosive esophagitis, Hiatal hernia, Enlarged duodenal post bulbar folds. Metabolic -F/U electrolytes and replete daily as needed (hypokalemic today, given 80 meq Klor x 1) -Positive fluid balance Neurolgy -Sedation on Propofol -Escitalopram 20 mg daily -Lyrica 50 mg at bedtime Alimentary -Tube feeds, make NPO at midnight for EGD tomorrow DVT prophylaxis: ALPS FULL CODE Diet: Tube feeds Mild pain pathway Problem List: 1. Vomiting alone 2. Sepsis 3. CLL (chronic lymphocytic leukemia) 4. Anemia Pain Ratin Tomorrow's Labs & Rationales: CBC ICU bundle Plan DVT/Prophylaxis: mechanical
--- NOTE | 2017-04-11 10:47 | PN- Att Addend ---
Attending Addendum Attending Brief Note Mr. Lake was interviewed and examined. He remains intubated on mechanical support however responds appropriately with head gestures. He is afebrile with satisfactory heart rate, pressure, and oxygen saturation. Anterior pulmonary exam reveals upper airway sounds. Cardiac exam reveals a regular rate and rhythm without murmur. His abdomen is soft and nontender. His right upper extremity remains edematous Hemoglobin is now 9.1 after transfusion but he is thrombocytopenic with a count of 65,000. He is hypokalemic with adequate renal function. Chest x-ray shows increased right upper lobe space disease. Sputum culture has grown Escherichia coli and MRSA. Doppler study of his right upper extremity and neck from yesterday shows nonocclusive IJ and subclavian thrombus. As presented by Dr. Beth it is important at this time to assess his upper GI tract for acute bleeding as we would need to reinstitute anti-coagulation for his atrial fibrillation as well as his vascular thrombus. His H&H should also be followed serially. Potassium should be corrected to greater than 4.0. Auditory support appears to be stable at the present settings and sedation is adequate with propofol and the should be continued. He continues on ceftriaxone and vancomycin for his aspiration disease. We await input from vascular surgery concerning his venous thrombosis.
--- NOTE | 2017-04-11 12:00 | NUR ---
Patient is sedated on a propofol gtt infusing at 20mcg, he is easily arousable to verbal stimuli and can follows commands. SAS 3-4, pupils equal and reactive. Soft bilateral wrist restraints in place. NSR-ST on tele monitor, HR= 90-100's. SBP: 90-100's and pt denies chest pain. Pressors have been off since yesterday morning. Remains intubated with a #8 to the right at 24cm, Vent settings AC 14/450/40/5- Lungs rhonchorous and diminished. He has been suctioned for a moderate amount of thick yellow/panda secretions from the ETT. O2 sats 94-96%. Abdomen is soft and non tender with + bowel sounds. OGT in place with Jevity 1.2 infusing at 30mls/hr- rate to be increased to 45mls/hr at 1400- 100ml water flushes every 4 hours. Residual 10-20mls. Ritchie in place draining clear yellow urine with low output. approx 10-20mls/hr. +3 edema noted to the right upper extremity. trace generalized edema. RUE remains elevated and is draining scant amounts of serrous colored fluid. Duoderm intact to coccyx- unstageable pressure injury. LCW port in place which was accessed 04/08- # 18 with a 1 1/2" needle. D5 1/2 NS infusing at 150mls/hr. IV abx per order. Patient currently denies pain. Repeat abs to be drawn this afternoon. Plan is for an endoscopy tomorrow and tube feeds to be placed on hold after midnight. Anticoagulation currently on hold- POC discussed with Dr. Beth and pts conservator. Vitals remain stable. Will continue to closely monitor patient.
--- NOTE | 2017-04-11 13:36 | Cons- Vascular Surgery ---
General Information and HPI Consulting Request Date of Consult: 04/11/17 Requested By: LOKESH LYNNE MD Reason for Consult: DVT R. upper extremity and IJ Source of Information: old records Exam Limitations: unable to give history, not alert/orientated History of Present Illness: Mr. Lake is an 86-year-old male with reported history of CLL, lung cancer, DVT on Xarelto, atrial fibrillation, and anemia who presented from [facility] to for confusion and possible coffee ground emesis. He had colonoscopy the day prior to admission and had an episode of emesis. Also found to be septic and in shock. Now intubated/sedated. Found to have RUE axillary and IJ DVT on US after RUE swelling noted. Allergies/Medications Allergies: Coded Allergies: No Known Allergies (01/28/17) Home Med List: Acetaminophen (Tylenol Extra Strength) 500 MG TABLET 650 MG DE Q4H PRN PAIN/ TEMP >100 (Reported) Albuterol Sulfate 0.63 MG/3 ML VIAL.NEB 1 UNIT NEB Q4H PRN SOB/ WHEEZING ( Reported) 0.083% Ascorbic Acid (Vitamin C) 500 MG CAPSULE.ER 1 CAP PO DAILY VITAMIN SUPPLEMENT (Reported) Calcium Carbonate (Oyster Shell Calcium) 500 MG CALCIUM (1,250 MG) TABLET 1 TAB PO BID SUPPLEMENT (Reported) Diphenhydramine HCl (Diphenhist) 25 MG CAPSULE 1 TAB PO Q8H PRN ITCHING ( Reported) Escitalopram Oxalate 20 MG TABLET 1 TAB PO DAILY ANTIDEPRESSANT (Reported) Ferrous Sulfate 325 MG (65 MG IRON) TABLET 1 TAB PO TID IRON SUPPLEMENT ( Reported) Guaifenesin/Dextromethorphan (Robafen-Dm Syrup) 100 MG-10 MG/5 ML SYRUP 10 ML PO Q4 PRN COUGH/ CONGESTION (Reported) Ipratropium/Albuterol Sulfate (Iprat-Albut 0.5-3(2.5) MG/3 Ml) 0.5 MG-3 MG (2.5 MG BASE)/3 ML AMPUL.NEB 1 UNIT NEB Q4H HX LUNG CA (Reported) Lorazepam (Ativan) 1 MG TABLET 1 TAB PO BID ANXIETY (Reported) Lorazepam (Ativan) 0.5 MG TABLET 1 TAB PO BEDTIME PRN ANXIETY (Reported) Magnesium Hydroxide (Milk Of Magnesia) 400 MG/5 ML ORAL.SUSP 30 ML PO DAILY PRN CONSTIPATION (Reported) Mirtazapine (Remeron) 15 MG TAB.RAPDIS 7.5 MG PO QHS MEMORY (Reported) Ondansetron (Zofran Odt) 4 MG TAB.RAPDIS 1 TAB PO Q6H PRN NAUSEA/VOMITTING ( Reported) Oxycodone HCl (Oxycontin) 10 MG TAB.ER.12H 1 TAB PO QAM PAIN (Reported) Oxycodone HCl 5 MG CAPSULE 1 CAP PO Q4H PRN PAIN (Reported) Polyethylene Glycol 3350 (Miralax) 17 GRAM/DOSE POWDER 17 GM PO DAILY CONSTIPATION (Reported) mix with water, juice, soda, coffee or tea Pregabalin (Lyrica) 50 MG CAPSULE 1 CAP PO BEDTIME DEPRESSION (Reported) Rivaroxaban (Xarelto) 20 MG TABLET 1 TAB PO QPM BLOOD THINNER (Reported) with food Sennosides (Senna) 8.6 MG TABLET 2 TAB PO Q12H CONSTIPATION (Reported) Current Medications: Current Medications Sig/Fred Start time Last Medication Dose Route Stop Time Status Admin Albuterol Sulfate 3 ML Q6 PRN 04/08 1130 AC 04/08 INH 1240 Ceftriaxone Sodium 1,000 MG DAILY 04/10 1236 AC 04/11 IV 1243 Chlorhexidine 15 ML BID 04/09 1000 AC 04/11 Gluconate PO 0933 Dextrose/Sodium 1,000 ML Q6H 04/10 1015 AC 04/11 Chloride IV 0605 Escitalopram Oxalate 20 MG DAILY 04/09 1000 AC 04/11 PO 0932 Ferrous Sulfate 325 MG TID 04/08 1600 AC 04/11 PO 0932 Mirtazapine 7.5 MG AT BEDTIME 04/08 2200 AC 04/10 PO 2215 Pantoprazole Sodium 40 MG BID 04/08 1415 AC 04/11 IV 0929 Polyethylene Glycol 17 GM DAILY 04/09 1000 AC 04/11 PO 0933 Potassium Chloride 80 MEQ ONCE ONE 04/11 0700 DC 04/11 PO 04/11 0701 0930 Pregabalin 50 MG AT BEDTIME 04/08 2200 AC 04/10 PO 2215 Propofol 1,000 MG Q12H 04/08 1330 AC 04/11 N/A 100 ML IV 0939 Sodium Phosphate 15 mMol ONE ONE 04/10 1015 DC 04/10 Dextrose/Water 250 ML IV 04/10 1418 1115 Vancomycin HCl 1,000 MG Q24H 04/09 0730 AC 04/11 Sodium Chloride 250 ML IV 0835 Vasopressin 40 UNITS Q16H 04/08 1900 DC 04/10 Sodium Chloride 100 ML IV 0200 Past History Medical History Blood Transfusion Hx: No Neurological: TIA, DYSPHAGIA FAILURE TO THRIVE Cardiovascular: AFIB Respiratory: pneumonia Gastrointestinal: NONE Hepatic: NONE Renal: NONE Psychiatric: anxiety, depression Endocrine: NONE Blood Disorders: NONE Cancer(s): lung cancer (not confirmed), non-hodgkin lymphoma 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 Acute Rehab Who Do You Live With? there is side at [facility] Services at Home: Nursing Primary Language: Persian Smoking Status: Former Smoker ETOH Use: denies use Functional Ability ADLs Needs Assist: dressing, eating, toileting, bathing. Ambulation: walker IADLs Needs Assist: telephone, transportation. Review of Systems Review of Systems: N/A Pt. UNRESPONSIVE Exam & Diagnostic Data Vital Signs and I&O Vital Signs Date Time Temp Pulse Resp B/P B/P Pulse O2 O2 Flow FiO2 Mean Ox Delivery Rate 04/11 1218 40 04/11 1200 96 Ventilator 40% 04/11 0825 40 04/11 0800 97.7 103 14 118/60 96 Ventilator 40% 04/11 0800 96 Ventilator 40% 04/11 0610 40 04/11 0400 95 Ventilator 40% 04/11 0259 40 04/11 0050 40 04/11 0000 93 Ventilator 30% 04/11 0000 97.7 103 16 94/50 93 Ventilator 30% 04/10 2243 30 04/10 2000 98 Ventilator 30% 04/10 1930 30 04/10 1705 30 04/10 1600 99 Ventilator 35% 04/10 1600 97.6 91 15 93/49 99 Ventilator 35% 04/10 1416 35 Intake & Output 04/11 1600 04/11 0800 04/11 0000 04/10 1600 04/10 0800 04/10 0000 Intake Total 1466 1983 1551.9 1595 1263 Output Total 130 148 270 364 80 Balance 1336 1835 1281.9 1231 1183 Intake, Blood 350 284 200 Product Intake, IV 1231 1662 971.9 1311 1063 Intake, Oral 0 Intake, Tube 135 121 30 Feeding Intake, Tube 100 200 200 Irrigant Number 0 0 Bowel Movements Output, 150 100 Gastric Drainage Output, Urine 130 148 120 264 80 Patient 134 lb Weight Physical Exam: R. upper arm with 2+ edema, no phlegmasia Physical Exam General Appearance: comfortable, cachetic, sedated, intubated Extremities: normal capillary refill, swelling Assessment/Plan Assessment/Plan Upper extremity DVT and IJ DVT 1.) Recommend anticoagulation when stable from CCM standpoint. Risks, benefits, alternatives to be weighed by their service 2.) If pt. is not actively bleeding would recommend either ASA/Plavix in the short term if pt. cannot be anticoagulted. Risks, benefits, alternatives to be weighed by their service. 3.) Elevation/compression with GIRISH from hand to shoulder 4.) Re-evaluate Goals of Care 5.) Repeat US in 2-3 days to [place] for thrombus progression Consult Acknowledgment - Thank you for your consult request.
[2017-04-11 16:00] VITALS: BP 100/62
--- NOTE | 2017-04-11 18:11 | PN- Cardiology ---
Subjective Subjective: Intubated and sedated. Objective Vital Signs and I&Os Vital Signs Date Time Temp Pulse Resp B/P B/P Pulse O2 O2 Flow FiO2 Mean Ox Delivery Rate 04/11 1634 40 04/11 1600 98 Ventilator 40% 04/11 1600 98.2 102 22 100/62 96 Ventilator 40% 04/11 1405 40 04/11 1218 40 04/11 1200 96 Ventilator 40% 04/11 0825 40 04/11 0800 97.7 103 14 118/60 96 Ventilator 40% 04/11 0800 96 Ventilator 40% 04/11 0610 40 04/11 0400 95 Ventilator 40% 04/11 0259 40 04/11 0050 40 04/11 0000 93 Ventilator 30% 04/11 0000 97.7 103 16 94/50 93 Ventilator 30% 04/10 2243 30 04/10 2000 98 Ventilator 30% 04/10 1930 30 Intake & Output 04/11 1600 04/11 0800 04/11 0000 04/10 1600 04/10 0800 04/10 0000 Intake Total 1845 1466 1983 1551.9 1595 1263 Output Total 150 130 148 270 364 80 Balance 1695 1336 1835 1281.9 1231 1183 Intake, Blood 350 284 200 Product Intake, IV 1265 1231 1662 971.9 1311 1063 Intake, Oral 0 Intake, Tube 260 135 121 30 Feeding Intake, Tube 320 100 200 200 Irrigant Number 0 0 Bowel Movements Output, 150 100 Gastric Drainage Output, Urine 150 130 148 120 264 80 Patient 134 lb Weight Physical Exam: Frail, cachectic appearing elderly male who is intubated/sedated. Vital signs: See above. HEENT: Normocephalic, atraumatic, dry appearing mucous membranes. Neck: No JVD, no bruits. Lungs: Bilateral rhonchi. Heart: S1, S2 with soft grade 1-2/6 systolic murmur best heard at the base. No obvious gallop or rub. Abdomen: Soft, positive bowel sounds. Extremities: No LE edema. Current Medications: Current Medications Sig/Fred Start time Last Medication Dose Route Stop Time Status Admin Albuterol Sulfate 3 ML Q6 PRN 04/08 1130 AC 04/08 INH 1240 Alteplase, 2 MG ONE ONE 04/11 1515 DC 04/11 Recombinant IV 04/11 1516 1622 Ceftriaxone Sodium 1,000 MG DAILY 04/10 1236 AC 04/11 IV 1243 Chlorhexidine 15 ML BID 04/09 1000 AC 04/11 Gluconate PO 0933 Dextrose/Sodium 1,000 ML Q6H 04/10 1015 AC 04/11 Chloride IV 1540 Escitalopram Oxalate 20 MG DAILY 04/09 1000 AC 04/11 PO 0932 Ferrous Sulfate 325 MG TID 04/08 1600 AC 04/11 PO 1622 Mirtazapine 7.5 MG AT BEDTIME 04/08 2200 AC 04/10 PO 2215 Pantoprazole Sodium 40 MG BID 04/08 1415 AC 04/11 IV 0929 Polyethylene Glycol 17 GM DAILY 04/09 1000 AC 04/11 PO 0933 Potassium Chloride 80 MEQ ONCE ONE 04/11 0700 DC 04/11 PO 04/11 0701 0930 Pregabalin 50 MG AT BEDTIME 04/08 2200 AC 04/10 PO 2215 Propofol 1,000 MG Q12H 04/08 1330 AC 04/11 N/A 100 ML IV 0939 Vancomycin HCl 1,000 MG Q24H 04/09 0730 AC 04/11 Sodium Chloride 250 ML IV 0835 Results Last 48 Hrs of Labs/Mics: Laboratory Tests 04/11/17 1710: Sodium Pending, Potassium Pending, Chloride Pending, Carbon Dioxide Pending, Anion Gap Pending, BUN Pending, Creatinine Pending, Glucose Pending, Calcium Pending, Phosphorus Pending, Magnesium Pending, Total Bilirubin Pending, AST Pending, ALT Pending, Albumin Pending, CBC w Diff Pending, WBC Pending, RBC Pending, Hgb Pending, Hct Pending, MCV Pending, MCH Pending, RDW Pending, Plt Count Pending, MPV Pending, PUBS MCHC Pending 04/11/17 042: Troponin I 0.44 *H 04/11/17 042: Anion Gap 11, Estimated GFR > 60, Glucose 140 H, Calcium 6.9 L, Phosphorus 2.7 , Magnesium 1.9, Total Bilirubin 0.4, AST 10 L, ALT 16 L, Albumin 2.0 L, CBC w Diff MAN DIFF ORDERED, RBC 3.50 L, MCV 80.5, MCH 26.0 L, RDW 18.9 H, MPV 9.8, Gran % 37.8 L, Lymphocytes % 60.7 H, Monocytes % 0.8 L, Eosinophils % 0.3, Basophils % 0.4, Absolute Granulocytes 12.4 H, Absolute Lymphocytes 20.0 H, Absolute Monocytes 0.3, Absolute Eosinophils 0.1, Absolute Basophils 0.1, Platelet Estimate DECREASED, Anisocytosis 1+, PUBS MCHC 32.3 L 04/10/172026: Troponin I 0.50 *H, CBC w Diff MAN DIFF ORDERED, RBC 3.32 L, MCV 79.9 L, MCH 25.9 L, RDW 18.8 H, MPV 10.2, Segmented Neutrophils 50, Band Neutrophils 2, Lymphocytes 46, Monocytes 1 L, Eosinophils 1, Platelet Estimate DECREASED, Hypochromic-Microcytic 1+, Poikilocytosis FEW, Anisocytosis 2+, Microcytic Cells 1+, Ovalocytes 1+, PUBS MCHC 32.3 L, Fld Total RBCs Counted 100 04/10/17 1555: Troponin I 0.47 *H 04/10/17 1043: Troponin I 0.47 *H, CBC w Diff MAN DIFF ORDERED, RBC 3.05 L, MCV 80.5, MCH 25.0 L, RDW 19.2 H, MPV 10.2, Gran % 44.8, Lymphocytes % 54.7 H, Monocytes % 0.3 L, Eosinophils % 0, Basophils % 0.2, Absolute Granulocytes 14.5 H, Absolute Lymphocytes 17.7 H, Absolute Monocytes 0.1 L, Absolute Eosinophils 0, Absolute Basophils 0.1, Platelet Estimate DECREASED, Polychromasia 1+, Poikilocytosis 1+, Anisocytosis 1+, Ovalocytes 1+, PUBS MCHC 31.0 L 04/10/17 0400: Troponin I 0.44 *H 04/10/17 0400: Anion Gap 13, Estimated GFR > 60, Glucose 105 H, Calcium 6.8 L, Phosphorus 3.3 , Magnesium 2.2, Total Bilirubin 0.8, AST 14 L, ALT 33, Albumin 2.1 L, CBC w Diff MAN DIFF ORDERED, RBC 3.13 L, MCV 80.1, MCH 25.4 L, RDW 19.4 H, MPV 9.0, Gran % 44.5, Lymphocytes % 53.1 H, Monocytes % 2.1, Eosinophils % 0, Basophils % 0.3, Absolute Granulocytes 15.4 H, Segmented Neutrophils 43, Absolute Lymphocytes 18.4 H, Lymphocytes 55 H, Monocytes 2, Absolute Monocytes 0.7 H, Absolute Eosinophils 0, Absolute Basophils 0.1, Platelet Estimate DECREASED, Polychromasia 1+, Hypochromic-Microcytic 1+, Poikilocytosis 1+, Anisocytosis 1+, Microcytic Cells 1+, Ovalocytes 1+, Stomatocytes FEW, Elliptocytes RARE, PUBS MCHC 31.7 L, Fld Total RBCs Counted 100 04/09/172014: Troponin I 0.37 *H 04/09/17 1830: CBC w Diff NO MAN DIFF REQ, RBC 2.96 L, MCV 79.3 L, MCH 25.0 L, RDW 20.6 H, MPV 8.8, Gran % 48.2, Lymphocytes % 50.2, Monocytes % 1.4 L, Eosinophils % 0, Basophils % 0.2, Absolute Granulocytes 17.6 H, Absolute Lymphocytes 18.3 H, Absolute Monocytes 0.5, Absolute Eosinophils 0, Absolute Basophils 0.1, PUBS MCHC 31.5 L Recent Imaging Studies: CXR present 04/11/2017): Endotracheal tube and enteric tube in place. Persistent diffuse mixed interstitial and airspace disease with increased right upper lobe airspace disease. Right pleural effusion. Appearance of increasing left perihilar fullness which could be accentuated secondary to patient positioning, though short-term follow-up is warranted. 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 from suspected sepsis secondary to aspiration pneumonia, as well as, possible gastric outlet obstruction. Unfortunately, his WBC count is again up with CXR results as above. From a cardiac standpoint, he remains intubated, but has improved hemodynamically and is off pressor support. He is presently on D5 at 150 mL/ hour and received 2 units of packed red blood cells yesterday following a further drop in his H/H. He remains guaiac positive and is scheduled for an EGD tomorrow. H/H stable earlier with repeat pending. His troponin I is trending downward and does not appear to be consistent with an acute coronary syndrome, but more likely secondary to demand ischemia from critical illness, tachycardia, probable LVH secondary to hypertension, , etc. Recommendations: * Continue all supportive care. * Aim to maintain potassium between 4.0-4.5 mEq per liter and magnesium at or above 2.0 mEq per liter to hopefully maintain sinus rhythm. * Continue to follow-up H/H closely, given high likelihood of concomitant CAD with aortic stenosis and aim to maintain his hemoglobin at or above 8.0 g/dl. * Continue mechanical DVT prophylaxis. Continue telemetry? Not applicable
[2017-04-11 19:58] LABS: ABSOLUTE BASOPHIL COUNT 0.1 /CUMM (0.0-0.2); ABSOLUTE EOSINOPHIL COUNT 0.1 /CUMM (0.0-0.7); ABSOLUTE GRANULOCYTE CT 9.1 /CUMM (1.4-6.5); ABSOLUTE LYMPH COUNT 17.9 /CUMM (1.2-3.4); ABSOLUTE MONOCYTE COUNT 0.4 /CUMM (0.10-0.60); BASOPHIL % 0.5 % (0.0-2.0); EOSINOPHIL % 0.4 % (0-5); GRANULOCYTE % 33.1 % (42.2-75.2); HEMATOCRIT 29.2 % (42-52); MEAN CORPUSCULAR HGB 25.9 PG (27.0-31.0); MEAN CORPUSCULAR HGB CONC 32.2 G/DL (33.0-37.0); MEAN CORPUSCULAR VOLUME 80.4 FL (80.0-94.0); MEAN PLATELET VOLUME 9.1 FL (7.4-10.4); PLATELET COUNT 63 /CUMM (130-400); RBC DISTRIBUTION WIDTH 18.9 % (11.5-14.5); RED BLOOD CELL CT 3.63 /CUMM (4.70-6.10)
[2017-04-11 20:18] LABS: WHITE BLOOD CELL COUNT 27.6 /CUMM (4.8-10.8)
--- NOTE | 2017-04-11 23:37 | RADIOLOGY REPORT ---
EXAMINATION: XR PORTABLE CHEST CLINICAL INFORMATION: Hemoptysis, pulmonary edema COMPARISON: Same day chest x-ray TECHNIQUE: Portable portable AP view of the chest was obtained. FINDINGS: Examination is significantly limited by patient rotation and technique. An endotracheal tube remains in place with tip approximately 4-5 cm above the imelda. A nasogastric tube terminates within the stomach. The cardiac silhouette is stable compared to priors. There is significant right-sided volume loss. A left lower lobe consolidation is little change compared to priors. Relative decreased aeration of the remaining right lung is similar compared to previous. Incidental note made of surgical clips in the right upper quadrant. A central venous catheter from a left subclavian approach tip projects over the expected location of the upper SVC. IMPRESSION: Stable examination essentially compared to prior. Persistent left lower lobe consolidation. Lines and tubes are stable in position. Persistent right sided volume loss with chronic changes.
--- NOTE | 2017-04-11 23:38 | NUR ---
PT HAD HERNANDEZ/BLD TINGE THICK SPUTUM AT 1999. OF 2199 INCREASED PINK THIN SECRETIONS NOTED MD NOTIFIED. AWAITING FOR BEDSIDE EVAL. PT RR 28 AND PT LOOKED AGITATED PROPOFOL INCREASED TO 25 MCG/MIN WILL CONTINUE TO MONITOR
[2017-04-12] VITALS: BP 100/52
[2017-04-12 05:42] LABS: ABSOLUTE BASOPHIL COUNT 0 /CUMM (0.0-0.2); ABSOLUTE EOSINOPHIL COUNT 0.1 /CUMM (0.0-0.7); ABSOLUTE GRANULOCYTE CT 4.4 /CUMM (1.4-6.5); ABSOLUTE LYMPH COUNT 9.6 /CUMM (1.2-3.4); ABSOLUTE MONOCYTE COUNT 0 /CUMM (0.10-0.60); BASOPHIL % 0.1 % (0.0-2.0); EOSINOPHIL % 0.7 % (0-5); GRANULOCYTE % 30.8 % (42.2-75.2); HEMATOCRIT 27.5 % (42-52); MEAN CORPUSCULAR HGB 25.8 PG (27.0-31.0); MEAN CORPUSCULAR VOLUME 80.6 FL (80.0-94.0); MEAN PLATELET VOLUME 9.5 FL (7.4-10.4); PLATELET COUNT 49 /CUMM (130-400); RBC DISTRIBUTION WIDTH 19.1 % (11.5-14.5); RED BLOOD CELL CT 3.41 /CUMM (4.70-6.10); WHITE BLOOD CELL COUNT 14.1 /CUMM (4.8-10.8)
[2017-04-12 05:54] LABS: PT 12.6 SEC (9.4-12.5); PTT 33 SEC (25-37)
--- NOTE | 2017-04-12 06:24 | NUR ---
PT HAVING LARGE AMOUNT OF BRIGHT RED BLOOD VIA ET TUBE. INCREASED BLEEDING AT THIS TIME. 50 MLS WITH CLOTS NOTED. MDS AT BEDSIDE RESPIRATORY AT BEDSIDE
--- NOTE | 2017-04-12 07:25 | PN- Resident CRCU ---
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 No blleding through OG tube was noticed. Patient started to have hemoptysis after episode of coughing. Patient has tachycardia 130-140, BP stable now, afibrile, desat at time of hemptosis and fio2 increased to 100% with saturation above 90%. Will continue to follow. 24 Hour Events: AC 450/12/5/50 with saturation 96% Temperature 97.8, MAXIMUM TEMPERATURE 98.2 Pulse lowest 92, highest 160 Blood pressure lowest 98/57, highest 123/70 Intake 4347, output 490 Objective Vital Signs & I&O Last 8 Hrs of Vitals and I&O: Intake & Output 04/12 1600 Intake Total 1935 Output Total 450 Balance 1485 Intake, Blood 805 Product Intake, IV 1130 Output, Other 300 Output, Urine 150 Exam General Appearance: sedated, intubated Head: atraumatic, normal appearance Neck: normal inspection, supple Respiratory: chest non-tender Cardiovascular: regular rate/rhythm Gastrointestinal: normal bowel sounds, soft, non-tender, no organomegaly Extremities: normal inspection, normal capillary refill, normal range of motion, no edema Cranial Nerves: PERRL Weaning Parameters NIF: 24 Minute Volume: 7.52 Resp rate: 44 Vt: 170 Heart Rate: 101 Current Medications: Current Medications Sig/Fred Start time Last Medication Dose Route Stop Time Status Admin Albuterol Sulfate 3 ML Q6 PRN 04/08 1130 AC 04/08 INH 1240 Ceftriaxone Sodium 1,000 MG DAILY 04/10 1236 AC 04/12 IV 1229 Chlorhexidine 15 ML BID 04/09 1000 AC 04/12 Gluconate PO 1000 Dextrose/Sodium 1,000 ML Q6H 04/10 1015 DC 04/11 Chloride IV 2227 Escitalopram Oxalate 20 MG DAILY 04/09 1000 AC 04/11 PO 0932 Fentanyl Citrate 1,000 MCG Q24H 04/12 0945 AC 04/12 Dextrose/Water 250 ML IV 1115 Ferrous Sulfate 300 MG TID 04/11 2300 AC 04/12 PO 0002 Ferrous Sulfate 325 MG TID 04/08 1600 DC 04/11 PO 1622 Lorazepam 2 MG ONE ONE 04/12 1430 DC 04/12 IV 04/12 1431 1430 Lorazepam 1 MG ONCE ONE 04/12 1300 DC 04/12 IV 04/12 1301 1311 Magnesium Sulfate 1 GM ONCE ONE 04/11 2215 DC 04/12 Dextrose/Water 100 ML IV 04/11 2314 0003 Mirtazapine 7.5 MG AT BEDTIME 04/08 2200 AC 04/11 PO 2225 Norepinephrine 4 MG Q24H 04/12 1645 AC 04/12 Sodium Chloride 250 ML IV 1645 Pantoprazole Sodium 40 MG BID 04/08 1415 AC 04/12 IV 0919 Phosphate 500 MG ONCE ONE 04/11 2315 DC 04/12 PO 04/11 2316 0002 Polyethylene Glycol 17 GM DAILY 04/09 1000 04/11 PO 0933 Potassium Chloride 10 MEQ ONCE ONE 04/12 1400 CAN IV 04/12 1401 Potassium Chloride 10 MEQ ONCE ONE 04/12 1045 DC 04/12 IV 04/12 1046 1239 Pregabalin 50 MG AT BEDTIME 04/08 2200 AC 04/11 PO 2225 Propofol 1,000 MG Q12H 04/08 1330 DC 04/12 N/A 100 ML IV 0741 Sodium Chloride 500 ML BOLUS ONE 04/12 1945 AC IV 04/12 2044 Sodium Chloride 500 ML BOLUS ONE 04/12 1545 DC 04/12 IV 04/12 1644 1545 Sodium Chloride 1,000 ML Q6H 04/12 1415 04/12 IV 1806 Sodium Phosphate 15 mMol ONE ONE 04/12 1400 DC 04/12 Sodium Chloride 250 ML IV 04/12 1803 1606 Sodium Phosphate 15 mMol ONE ONE 04/11 2215 CAN Dextrose/Water 250 ML IV 04/12 0218 Vancomycin HCl 1,000 MG Q24H 04/09 0730 AC 04/12 Sodium Chloride 250 ML IV 0745 Vecuronium [place] 10 MG Q1H 04/12 1545 AC 04/12 Sodium Chloride 100 ML IV 1806 Vecuronium [place] 10 MG Q24H 04/12 1215 DC 04/12 Sodium Chloride 100 ML IV 1439 Impression/Plan Impression/Problem List Impression: Mr. Lake is 86 year old male with past medical history significant for CLL status post chemotherapy (has port catheter), questionable lung cancer, DVT and atrial fibrillation on several to, status post IVC filter, anemia, recent colonoscopy 04/07/17 who BIBA from [facility] with chief complaint of coffee- ground emesis and confusion. Imaging obtained on admission Chest x-ray: 1. Increased bibasilar airspace disease compared with 01/11/2017 which may represent acute on chronic aspiration pneumonitis. 2. Dense airspace opacification within the right perihilar region which is suspicious for neoplasm and possible posttreatment related changes as described on the comparison CT of 01/11/2017. 3. Tunneled left subclavian catheter terminating within the brachiocephalic vein. 4. Right pleural thickening and possible right upper lobe atelectasis. 5. Aortic calcific atherosclerosis. 6. Diffuse osteopenia. CT abdomen pelvis: 1. Marked gastric distention. The stomach is markedly distended containing both gas and fluid. 2. The incidentally visualized portions of the lung bases demonstrate bilateral dependent airspace disease increased in prominence compared with 01/11/2017. These findings may represent chronic or acute on chronic aspiration pneumonitis. 3. No free intraperitoneal gas. No intestinal dilatation. 4. Diffuse Monckeberg type facet or calcification suspicious for the sequela of long-term diabetes mellitus. Additionally, diffuse calcific atherosclerosis is present including extensive coronary artery calcific atherosclerosis. 4. The incidentally visualized portions of the lung bases demonstrate bilateral dependent airspace disease increased in prominence compared with 01/11/2017. These findings may represent chronic or acute on chronic aspiration pneumonitis. 5. 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 6. L1 vertebral body benign-appearing compression deformity grossly unchanged compared with 01/11/2017. 7. Inferior vena cava filter in situ. 8. Bilateral punctate renal calcifications which may represent vascular calcifications or urolithiasis. No evidence of acute obstructive uropathy. No hydronephrosis or ureterectasis. 9. Bilateral posterolateral rib chronic posttraumatic deformities. 10. Diffuse hepatic steatosis. 11. Status post cholecystectomy. Echocardiogram: CONCLUSIONS Normal size left ventricle. Mild concentric left ventricular hypertrophy. No obvious regional wall motion abnormalities. Normal left ventricular ejection fraction visually estimated at > 60%. "pseudonormal" filling pattern of the left ventricle for age (stage 2 diastolic dysfunction). Normal right ventricular size and function. Normal atrial size. Trace to mild mitral regurgitation. Moderate aortic stenosis. Trace aortic regurgitation. Mild tricuspid regurgitation. Dilated inferior vena cava. Problem list: -DIC -Septic shock requiring 2 pressors -Aspiration pneumonitis/postprocedure aspiration pneumonia on vancomycin and ceftriaxone -Gastric outlet obstruction with CT evidence of gas/fluid level stomach, possible perforation s/p colonscopy on falgeal -Atrial fibrilation and DVT on xeralto and IVC filater -CLL s/p chemotherapy has portal catheter Plan DIC -INR prolonged -Fibrinogen 316<564 -Fibrin split product elevated -D-Dimer elevated -Venous Doppler 44 extremities revealed in addition to right internal jugular thrombosis, right profunda femoral vein DVT -Patient received 2 units of platelet, improved from 49 to 84 -Patient received 1 unit of blood for active hemoptysis, hemoglobin improved to 8.8/27.5 to 11.1/35 -Vecuronium drip/fentanyl drip were started for sedation and paralysis to prevent further cough episodes and active hemoptysis Resipratory: -AC, 450, 12, 5, 35% saturating 97% -EBG 04/09 pH 7.45, PCO2 38, PO2 85, bicarbonate 26 -Chest x-ray endotracheal tube terminates about 2 cm above the imelda -Continue aggressive oral hygiene ID -Covering for aspiration pneumonitis/postprocedure aspiration pneumonia -Continue vancomycin, ceftaz Day#3 -Sputum culture positive for MRSA -ID recommendation to discontinue ceftaz -Start ceftriaxone 1000 mg daily -ID consultation was obtained, thanks recommendation -Flagyl was discontinued as there is no evidence of GI perforation, no evidence of free air in CT abdomen -Follow up blood culture -Contact isolation for possible MRSA infection CVS -Continue IV fluid 150 mL/mL, switch fro NS to D5W1/2NS due to hypernatremia -Levophed was discontinued today, 04/10. -Continue vasopressin -Cardiology recommendation was obtained for atrial fibrillation and DVT, anti- coagulation is on hold for now -Cardiology recommendation regarding possibility initiating IV heparin Hematology -Past medical history of chronic lymphocytic leukemia status post chemotherapy -Patient has port catheter, no signs of infection -Cardiology consultation was obtained, thinks the recommendation -Recommendation for DIC workup, elevated d-dimer, fibrinogen, fibrin split product, prolonged PT and PTT -Previous medical records was obtained from [facility], in patient's chart -On admission, OG tube initially aspirated 2 L of dark fluid that's grossly hemoccult positive -GI consultation was obtained, plan for EGD this morning was canceled given active hemoptysis Colonoscopy 04/07/17: Findings: There were enlarged vessels in the rectum, possibly consistent with rectal varices. There was no friability or blood. There were no mucosal lesions. Diverticula were seen from left colon to right colon. The mucosa was intact throughout. No polyps or mass lesions were seen. The right-sided anastomosis was intact, and there were no mucosal normalities. The mucosa of the neoterminal ileum was normal. Given the degree of preparation, small lesions such as polyps or vascular ectasias may been obscured. Impression: * Diverticulosis * Enlarged rectal vessels, rule out varices * No evident neoplasia EGD 02/05/17: Findings: The proximal esophagus was normal. The caliber and contour the esophagus were normal. The distal mucosa there was erythema but no erosion or ulceration. There was no nodularity or mass. There were no varices. The GE junction at 41 cm was normal. There was a hiatal hernia. There were no evident Atilio's erosions. Stomach had normal distention. The cardia was normal. Mucosa and folds were normal throughout. The pyloric channel was normal. The duodenal bulb was normal. In the post bulbar duodenum were several enlarged folds, and 3 biopsies were obtained. There were no mucosal breaks/ulcers, and no polyps or mass lesions. The mucosa and folds of the descending and transverse portions of the duodenum were normal. Impression: * Nonerosive esophagitis * Hiatal hernia * Enlarged duodenal post bulbar folds Metabolic -Measure electrolyte and replete as needed daily -Positive fluid balance Neurolgy -Sedation by Propofol -Escitalopram 20 mg daily I'll medication -Lyrica 50 mg at bedtime Alimentary -Nothing by mouth -Nutritional consultation was obtained, will start tube feeds recommendation DVT prophylaxis Code full Problem List: 1. Anemia 2. Sepsis 3. CLL (chronic lymphocytic leukemia) Pain Ratin Tomorrow's Labs & Rationales: ICU panel, CBC, INR, PTT, fibrinogen activity, fibrin duct, chest x-ray Plan DVT/Prophylaxis: mechanical
[2017-04-12 08:00] VITALS: BP 102/60
--- NOTE | 2017-04-12 08:15 | PN- Hematology ---
Subjective Subjective: He is now off pressors. He remains intubated and sedated. He is noted to have new hemoptysis with red blood coming from ET tube/suction. There is question if the blood is also coming from GI tract. He has not been on anticoagulation since admission. He remains afebrile. Review of Systems: Unable to be obtained due to sedation. Objective Vital Signs and I&Os Vital Signs Date Time Temp Pulse Resp B/P B/P Pulse O2 O2 Flow FiO2 Mean Ox Delivery Rate 04/12 0555 40 04/12 0347 96 Ventilator 40% 04/12 0315 40 04/12 0031 40 04/12 0000 97 Ventilator 40% 04/12 0000 97.1 106 22 100/52 97 Ventilator 40% 04/11 2236 40 04/11 2000 40 04/11 2000 95 Ventilator 40% 04/11 1634 40 04/11 1600 98 Ventilator 40% 04/11 1600 98.2 102 22 100/62 96 Ventilator 40% 04/11 1405 40 04/11 1218 40 04/11 1200 96 Ventilator 40% 04/11 0825 40 04/11 0800 97.7 103 14 118/60 96 Ventilator 40% 04/11 0800 96 Ventilator 40% Intake & Output 04/12 0800 04/12 0000 04/11 1600 04/11 0800 04/11 0000 04/10 1600 Intake Total 742 1760 1845 1466 1983 1551.9 Output Total 140 200 150 130 148 270 Balance 602 1560 1695 1336 1835 1281.9 Intake, Blood 350 Product Intake, IV 642 1156 1265 1231 1662 971.9 Intake, Oral 0 Intake, Other 100 Intake, 54 TPN/PPN Intake, Tube 350 260 135 121 30 Feeding Intake, Tube 200 320 100 200 200 Irrigant Number 1 0 0 Bowel Movements Output, 150 Gastric Drainage Output, Stool 0 Output, Urine 140 200 150 130 148 120 Patient 71.271 kg 60.781 kg Weight Weight Bed scale Measurement Method Physical Exam General Appearance: sedated, intubated Ears, Nose, Throat: ET tube in place, OG tube in place, bright red blood in ET tubing and suction canister Respiratory: rhonchi Cardiovascular: tachycardia Abdomen: normal bowel sounds, soft, non-tender Extremities: edema in the RUE Skin: ecchymosis (few) Current Medications: Current Medications Sig/Fred Start time Last Medication Dose Route Stop Time Status Admin Albuterol Sulfate 3 ML Q6 PRN 04/08 1130 AC 04/08 INH 1240 Alteplase, 2 MG ONE ONE 04/11 1515 DC 04/11 Recombinant IV 04/11 1516 1622 Ceftriaxone Sodium 1,000 MG DAILY 04/10 1236 AC 04/11 IV 1243 Chlorhexidine 15 ML BID 04/09 1000 04/11 Gluconate PO 2226 Dextrose/Sodium 1,000 ML Q6H 04/10 1015 04/11 Chloride IV 2227 Escitalopram Oxalate 20 MG DAILY 04/09 1000 04/11 PO 0932 Ferrous Sulfate 300 MG TID 04/11 2300 04/12 PO 0002 Ferrous Sulfate 325 MG TID 04/08 1600 AL 04/11 PO 1622 Magnesium Sulfate 1 GM ONCE ONE 04/11 2215 DC 04/12 Dextrose/Water 100 ML IV 04/11 2314 0003 Mirtazapine 7.5 MG AT BEDTIME 04/08 2200 04/11 PO 2225 Pantoprazole Sodium 40 MG BID 04/08 1415 AC 04/11 IV 2225 Phosphate 500 MG ONCE ONE 04/11 2315 DC 04/12 PO 04/11 2316 0002 Polyethylene Glycol 17 GM DAILY 04/09 1000 04/11 PO 0933 Pregabalin 50 MG AT BEDTIME 04/08 2200 AC 04/11 PO 2225 Propofol 1,000 MG Q12H 04/08 1330 AC 04/12 N/A 100 ML IV 0741 Sodium Phosphate 15 mMol ONE ONE 04/11 2215 CAN Dextrose/Water 250 ML IV 04/12 0218 Vancomycin HCl 1,000 MG Q24H 04/09 0730 04/12 Sodium Chloride 250 ML IV 0745 Results Last 24 Hours of Lab Results: Laboratory Tests 04/12 04/12 04/11 0730 0510 1930 Chemistry Sodium (137 - 145 mmol/L) 141 141 Potassium (3.5 - 5.1 mmol/L) 3.7 4.0 Chloride (98 - 107 mmol/L) 113 H 112 H Carbon Dioxide (22 - 30 mmol/L) 21 L 20 L Anion Gap (5 - 16) 7 8 BUN (9 - 20 mg/dL) 28 H 29 H Creatinine (0.7 - 1.2 mg/dL) 0.8 0.9 Estimated GFR (>60 ml/min) > 60 > 60 Glucose (65 - 99 mg/dL) 105 H 153 H Calcium (8.4 - 10.2 mg/dL) 6.5 L 6.8 L Phosphorus (2.5 - 4.5 mg/dL) 1.8 L 1.9 L Magnesium (1.6 - 2.3 mg/dL) 2.0 1.9 Total Bilirubin (0.2 - 1.3 mg/dL) 0.4 0.3 AST (17 - 59 U/L) 9 L 10 L ALT (21 - 72 U/L) 22 27 Albumin (3.5 - 5.0 g/dL) 1.8 L 2.0 L Coagulation PT (9.4 - 12.5 SEC) Pending 12.6 H INR (0.90 - 1.17) Pending 1.20 H APTT (25 - 37 SEC) Pending 33 Fibrinogen Activity Pending Fibrin Degrad Products Pending D-Dimer Pending Hematology CBC w Diff MAN DIFF ORDERED WBC (4.8 - 10.8 /CUMM) 14.1 H 27.6 H RBC (4.70 - 6.10 /CUMM) 3.41 L 3.63 L Hgb (14.0 - 18.0 G/DL) 8.8 L 9.4 L Hct (42 - 52 %) 27.5 L 29.2 L MCV (80.0 - 94.0 FL) 80.6 80.4 MCH (27.0 - 31.0 PG) 25.8 L 25.9 L RDW (11.5 - 14.5 %) 19.1 H 18.9 H Plt Count (130 - 400 /CUMM) 49 L 63 L MPV (7.4 - 10.4 FL) 9.5 9.1 Gran % (42.2 - 75.2 %) 30.8 L 33.1 L Lymphocytes % (20.5 - 51.1 %) 68.1 H 64.7 H Monocytes % (1.7 - 9.3 %) 0.3 L 1.3 L Eosinophils % (0 - 5 %) 0.7 0.4 Basophils % (0.0 - 2.0 %) 0.1 0.5 Absolute Granulocytes (1.4 - 6.5 /CUMM) 4.4 9.1 H Segmented Neutrophils (42.2 - 75.2 %) 27 L Absolute Lymphocytes (1.2 - 3.4 /CUMM) 9.6 H 17.9 H Lymphocytes (20.5 - 51.1 %) 71 H Monocytes (1.7 - 9.3 %) 1 L Absolute Monocytes (0.10 - 0.60 /CUMM) 0 L 0.4 Eosinophils (0 - 5.0 %) 1 Absolute Eosinophils (0.0 - 0.7 /CUMM) 0.1 0.1 Absolute Basophils (0.0 - 0.2 /CUMM) 0 0.1 Platelet Estimate (ADEQUATE) DECREASED Polychromasia 1+ Hypochromic-Microcytic 1+ Poikilocytosis 1+ Anisocytosis 1+ Microcytic Cells 1+ Ovalocytes 1+ Elliptocytes FEW PUBS MCHC (33.0 - 37.0 G/DL) 32.0 L 32.2 L Other Body Source Fld Total RBCs Counted (%) 100 Recent Imaging Studies: Upper extremity US 04/10/2017: There is a partially occlusive thrombus within the right internal jugular vein. This results in decreased flow within the subclavian vein near the confluence. There is likely nonocclusive thrombus within the wall of the axillary vein. Assessment/Plan Assessment/Recommendations: Mr. Lake is an 86-year-old male with CLL, ?lung cancer, atrial fibrillation and DVT on Xarelto, and anemia who presented to the hospital with confusion and coffee ground emesis. He is currently intubated and sedated. He seems to have aspiration event with pneumonia/pneumonitis. He was on pressors support but is now able to be off it. He is having a drop in his platelet and has bleeding. His last DIC evaluation was on 04/09 with fibrinogen of 564. He remains on vancomycin and ceftriaxone. His thrombocytopenia is likely related to multiple factors including acute illness, DVT, and medications. DVT can cause a consumptive process. US of the other extremities may be reasonable to evaluate for more diffuse processes. Acute illness likely from sepsis can cause consumption of platelet from process like DIC. This should be check and trended over the next few days. Medications may also decrease the platelet count such as vancomycin. If he can come off antibiotics or change antibiotics, it may be reasonable. He can remain on it if necessary. If he is acutely bleeding, transfusion of platelet is an option. 1. Check DIC panel 2. Discontinue or change antibiotics when possible 3. If acutely bleeding, can transfuse platelet to goal >50,000 4. consider US of extremities to evaluate extent of thrombosis 5. Pulmonary/GI evaluation of bleeding Please call [phone] with any questions or concerns Problem List: 1. CLL (chronic lymphocytic leukemia) 2. Anemia 3. Sepsis
--- NOTE | 2017-04-12 09:00 | NUR ---
Patient is sedated on a propofol gtt that is currently infusing at 25mcg, SAS 3-4. He is arousable when name is called and will occasionally follow commands. Soft bilateral wrist restraints in place. Pupils are approx 2mm and slugish. ST/1st degree AV block on tele monitor, HR= 110-120's. SBP ranging from 90-100's. pulses are palpable. He remains intubated with a #8 ETT taped to the right at 24cm. Vent settings currently AC 12/450/50/5. He is tachypenic with a respiratory rate ranging from 26-30. Lungs are rhonchorus to the bilateral upper lobes and clear and diminished to the bilateral lower lobes. Patient continues to cough up a large amount of bright red blood through his ETT. He is being suctioned to clear blood from the ETT however blood continues to pool within the circuit tubing requiring respiratory to it every 1 hour to prevent it from occluding. OGT is in place and has been clamped. Tube feeds to remain on hold at this time. OGT was flushed and aspirated and no bleeding was noted. Ritchie in place draining clear yellow urine with low output approx 10-20mls/hr. An unstageable is noted to the coccyx- unstageable pressure injury. Bilateral upper extremities remain edematous- And ultrasound at the bedside for bilateral upper and lower extremity US. +1 generalized edema is also noted. LCW port in place and site is WNL. He is receiving vanco at this time. hematology has been in and a DIC panel was drawn at 0730 this morning. Platelets have been ordered and are to arrive at [place] shortly. D5 1/2 NS infusing at 125mls/hr. No s/s of pain currently noted. Patients conservator has been notified. Vitals are currently stable. Dr. Kemp now in to assess patient. House staff at the bedside as well. Will continue to closely monitor patient.
--- NOTE | 2017-04-12 09:31 | PN- Att Addend ---
Attending Addendum Attending Brief Note Patient remains intubated. Opens his eyes for commands. General Appearance: Intubated Cardiovascular: Loud systolic murmur Lungs: decreased air entry Abdomen: Normal Bowel Sounds, Soft, No Tenderness NL, Reflexes 2+ Extremities: Pedal edema Assessment Patient is likely in DIC with bleeding complications and blood clots involving internal jugular and upper extremity. Bronchial bleeding likely traumatic from suction. Utility of cryoglobulin is questionable secondary to high fibrinogen activity. However to decrease bleeding risk we will continue platelet transfusion. Blood pressure improved and currently off pressors, urine output minimal. I had a discussion with patient's POA about his current clinical condition and CODE STATUS. POA has agreed to change CODE STATUS to DNR. Prognosis is poor. Plan Continue current IV antibiotics Transfuse platelets for further bleeding Transfuse cryoglobulin if appropriate Follow consults recommendations GI prophylaxis Prognosis is poor Change CODE STATUS to DNR Current Medications Sig/Fred Start time Last Medication Dose Route Stop Time Status Admin Albuterol Sulfate 3 ML Q6 PRN 04/08 1130 AC 04/08 INH 1240 Alteplase, 2 MG ONE ONE 04/11 1515 DC 04/11 Recombinant IV 04/11 1516 1622 Ceftriaxone Sodium 1,000 MG DAILY 04/10 1236 AC 04/11 IV 1243 Chlorhexidine 15 ML BID 04/09 1000 AC 04/11 Gluconate PO 2226 Dextrose/Sodium 1,000 ML Q6H 04/10 1015 AC 04/11 Chloride IV 2227 Escitalopram Oxalate 20 MG DAILY 04/09 1000 AC 04/11 PO 0932 Fentanyl Citrate 1,000 MCG Q24H 04/12 0945 UNVr Dextrose/Water 250 ML IV Ferrous Sulfate 300 MG TID 04/11 2300 AC 04/12 PO 0002 Ferrous Sulfate 325 MG TID 04/08 1600 DC 04/11 PO 1622 Magnesium Sulfate 1 GM ONCE ONE 04/11 2215 DC 04/12 Dextrose/Water 100 ML IV 04/11 2314 0003 Mirtazapine 7.5 MG AT BEDTIME 04/08 2200 AC 04/11 PO 2225 Pantoprazole Sodium 40 MG BID 04/08 1415 AC 04/12 IV 0919 Phosphate 500 MG ONCE ONE 04/11 2315 DC 04/12 PO 04/11 2316 0002 Polyethylene Glycol 17 GM DAILY 04/09 1000 AC 04/11 PO 0933 Pregabalin 50 MG AT BEDTIME 04/08 2200 AC 04/11 PO 2225 Propofol 1,000 MG Q12H 04/08 1330 DC 04/12 N/A 100 ML IV 0741 Sodium Phosphate 15 mMol ONE ONE 04/11 2215 CAN Dextrose/Water 250 ML IV 04/12 0218 Vancomycin HCl 1,000 MG Q24H 04/09 0730 AC 04/12 Sodium Chloride 250 ML IV 0745 Laboratory Tests 04/12 04/12 04/11 0730 0510 1930 Chemistry Sodium (137 - 145 mmol/L) 141 141 Potassium (3.5 - 5.1 mmol/L) 3.7 4.0 Chloride (98 - 107 mmol/L) 113 H 112 H Carbon Dioxide (22 - 30 mmol/L) 21 L 20 L Anion Gap (5 - 16) 7 8 BUN (9 - 20 mg/dL) 28 H 29 H Creatinine (0.7 - 1.2 mg/dL) 0.8 0.9 Estimated GFR (>60 ml/min) > 60 > 60 Glucose (65 - 99 mg/dL) 105 H 153 H Calcium (8.4 - 10.2 mg/dL) 6.5 L 6.8 L Phosphorus (2.5 - 4.5 mg/dL) 1.8 L 1.9 L Magnesium (1.6 - 2.3 mg/dL) 2.0 1.9 Total Bilirubin (0.2 - 1.3 mg/dL) 0.4 0.3 AST (17 - 59 U/L) 9 L 10 L ALT (21 - 72 U/L) 22 27 Albumin (3.5 - 5.0 g/dL) 1.8 L 2.0 L Coagulation PT (9.4 - 12.5 SEC) Pending 12.6 H INR (0.90 - 1.17) Pending 1.20 H APTT (25 - 37 SEC) Pending 33 Fibrinogen Activity Pending Fibrin Degrad Products Pending D-Dimer Pending Hematology CBC w Diff MAN DIFF ORDERED WBC (4.8 - 10.8 /CUMM) 14.1 H 27.6 H RBC (4.70 - 6.10 /CUMM) 3.41 L 3.63 L Hgb (14.0 - 18.0 G/DL) 8.8 L 9.4 L Hct (42 - 52 %) 27.5 L 29.2 L MCV (80.0 - 94.0 FL) 80.6 80.4 MCH (27.0 - 31.0 PG) 25.8 L 25.9 L RDW (11.5 - 14.5 %) 19.1 H 18.9 H Plt Count (130 - 400 /CUMM) 49 L 63 L MPV (7.4 - 10.4 FL) 9.5 9.1 Gran % (42.2 - 75.2 %) 30.8 L 33.1 L Lymphocytes % (20.5 - 51.1 %) 68.1 H 64.7 H Monocytes % (1.7 - 9.3 %) 0.3 L 1.3 L Eosinophils % (0 - 5 %) 0.7 0.4 Basophils % (0.0 - 2.0 %) 0.1 0.5 Absolute Granulocytes (1.4 - 6.5 /CUMM) 4.4 9.1 H Segmented Neutrophils (42.2 - 75.2 %) 27 L Absolute Lymphocytes (1.2 - 3.4 /CUMM) 9.6 H 17.9 H Lymphocytes (20.5 - 51.1 %) 71 H Monocytes (1.7 - 9.3 %) 1 L Absolute Monocytes (0.10 - 0.60 /CUMM) 0 L 0.4 Eosinophils (0 - 5.0 %) 1 Absolute Eosinophils (0.0 - 0.7 /CUMM) 0.1 0.1 Absolute Basophils (0.0 - 0.2 /CUMM) 0 0.1 Platelet Estimate (ADEQUATE) DECREASED Polychromasia 1+ Hypochromic-Microcytic 1+ Poikilocytosis 1+ Anisocytosis 1+ Microcytic Cells 1+ Ovalocytes 1+ Elliptocytes FEW PUBS MCHC (33.0 - 37.0 G/DL) 32.0 L 32.2 L Other Body Source Fld Total RBCs Counted (%) 100 Vital Signs Date Time Temp Pulse Resp B/P B/P Pulse O2 O2 Flow FiO2 Mean Ox Delivery Rate 04/12 0800 98.6 116 30 102/60 97 Ventilator 50% 04/12 0800 96 Ventilator 50% 04/12 0741 50 04/12 0555 40 04/12 0347 96 Ventilator 40% 04/12 0315 40 04/12 0031 40 04/12 0000 97 Ventilator 40% 04/12 0000 97.1 106 22 100/52 97 Ventilator 40% 05 2236 40 04/11 2000 40 04/11 2000 95 Ventilator 40% 04/11 1634 40 04/11 1600 98 Ventilator 40% 04/11 1600 98.2 102 22 100/62 96 Ventilator 40% 04/11 1405 40 04/11 1218 40 04/11 1200 96 Ventilator 40%
[2017-04-12 09:45] LABS: PT 12.4 SEC (9.4-12.5); PTT 37 SEC (25-37)
--- NOTE | 2017-04-12 09:48 | PN- CRCU ---
Subjective HPI/Critical Care Issues: The patient remains intubated, and sedated on propofol. He has had evidence of significant hemoptysis noting that his oxygen requirements have increased. The patient remains afebrile. The patient's platelet count continues to fall. He remains on IV fluids at 75 ML per hour. He has intermittent decrease in urine output. Objective Current Medications: Current Medications Sig/Fred Start time Last Medication Dose Route Stop Time Status Admin Albuterol Sulfate 3 ML Q6 PRN 04/08 1130 AC 04/08 INH 1240 Alteplase, 2 MG ONE ONE 04/11 1515 DC 04/11 Recombinant IV 04/11 1516 1622 Ceftriaxone Sodium 1,000 MG DAILY 04/10 1236 AC 04/11 IV 1243 Chlorhexidine 15 ML BID 04/09 1000 AC 04/11 Gluconate PO 2226 Dextrose/Sodium 1,000 ML Q6H 04/10 1015 04/11 Chloride IV 2227 Escitalopram Oxalate 20 MG DAILY 04/09 1000 AC 04/11 PO 0932 Ferrous Sulfate 300 MG TID 04/11 2300 AC 04/12 PO 0002 Ferrous Sulfate 325 MG TID 04/08 1600 DC 04/11 PO 1622 Magnesium Sulfate 1 GM ONCE ONE 04/11 2215 DC 04/12 Dextrose/Water 100 ML IV 04/11 2314 0003 Mirtazapine 7.5 MG AT BEDTIME 04/08 2200 AC 04/11 PO 2225 Pantoprazole Sodium 40 MG BID 04/08 1415 AC 04/12 IV 0919 Phosphate 500 MG ONCE ONE 04/11 2315 DC 04/12 PO 04/11 2316 0002 Polyethylene Glycol 17 GM DAILY 04/09 1000 AC 04/11 PO 0933 Pregabalin 50 MG AT BEDTIME 04/08 2200 AC 04/11 PO 2225 Propofol 1,000 MG Q12H 04/08 1330 AC 04/12 N/A 100 ML IV 0741 Sodium Phosphate 15 mMol ONE ONE 04/115 CAN Dextrose/Water 250 ML IV 04/12 0218 Vancomycin HCl 1,000 MG Q24H 04/09 0730 AC 04/12 Sodium Chloride 250 ML IV 0745 Vital Signs & I&O Last 24 Hrs of Vitals and I&O: Vital Signs Date Time Temp Pulse Resp B/P B/P Pulse O2 O2 Flow FiO2 Mean Ox Delivery Rate 04/12 0800 98.6 116 30 102/60 97 Ventilator 50% 04/12 0800 96 Ventilator 50% 04/12 0741 50 04/12 0555 40 04/12 0347 96 Ventilator 40% 04/12 0315 40 04/12 0031 40 04/12 0000 97 Ventilator 40% 04/12 0000 97.1 106 22 100/52 97 Ventilator 40% 04/11 2236 40 04/11 2000 40 04/11 2000 95 Ventilator 40% 04/11 1634 40 04/11 1600 98 Ventilator 40% 04/11 1600 98.2 102 22 100/62 96 Ventilator 40% 04/11 1405 40 04/11 1218 40 04/11 1200 96 Ventilator 40% Intake & Output 04/12 1600 04/12 0800 04/12 0000 Intake Total 742 1760 Output Total 140 200 Balance 602 1560 Intake, IV 642 1156 Intake, Other 100 Intake, 54 TPN/PPN Intake, Tube 350 Feeding Intake, Tube 200 Irrigant Number 1 Bowel Movements Output, Stool 0 Output, Urine 140 200 Patient 157 lb Weight Weight Bed scale Measurement Method Physical Exam General Appearance: sedated, intubated, significant bleeding from endotracheal tube Head: atraumatic, normal appearance Neck: normal inspection, supple, full range of motion Respiratory: chest non-tender Cardiovascular: murmur, systolic murmur, irregularly irregular Gastrointestinal: normal bowel sounds, soft, non-tender Extremities: Warm and dry, no edema Results Last 24 Hrs of Lab Results: Laboratory Tests 04/12/17 0730: PT Pending, INR Pending, APTT Pending, Fibrinogen Activity Pending, Fibrin Degrad Products Pending, D-Dimer Pending 04/12/17 0510: Anion Gap 7, Estimated GFR > 60, Glucose 105 H, Calcium 6.5 L, Phosphorus 1.8 L, Magnesium 2.0, Total Bilirubin 0.4, AST 9 L, ALT 22, Albumin 1.8 L, PT 12.6 H, INR 1.20 H, APTT 33, CBC w Diff MAN DIFF ORDERED, RBC 3.41 L, MCV 80.6, MCH 25.8 L, RDW 19.1 H, MPV 9.5, Gran % 30.8 L, Lymphocytes % 68.1 H, Monocytes % 0.3 L, Eosinophils % 0.7, Basophils % 0.1, Absolute Granulocytes 4.4, Segmented Neutrophils 27 L, Absolute Lymphocytes 9.6 H, Lymphocytes 71 H , Monocytes 1 L, Absolute Monocytes 0 L, Eosinophils 1, Absolute Eosinophils 0.1, Absolute Basophils 0, Platelet Estimate DECREASED, Polychromasia 1+, Hypochromic-Microcytic 1+, Poikilocytosis 1+, Anisocytosis 1+, Microcytic Cells 1+, Ovalocytes 1+, Elliptocytes FEW, PUBS MCHC 32.0 L, Fld Total RBCs Counted 100 04/11/170: Anion Gap 8, Estimated GFR > 60, Glucose 153 H, Calcium 6.8 L, Phosphorus 1.9 L, Magnesium 1.9, Total Bilirubin 0.3, AST 10 L, ALT 27, Albumin 2.0 L, RBC 3.63 L, MCV 80.4, MCH 25.9 L, RDW 18.9 H, MPV 9.1, Gran % 33.1 L, Lymphocytes % 64.7 H, Monocytes % 1.3 L, Eosinophils % 0.4, Basophils % 0.5, Absolute Granulocytes 9.1 H, Absolute Lymphocytes 17.9 H, Absolute Monocytes 0.4, Absolute Eosinophils 0.1, Absolute Basophils 0.1, PUBS MCHC 32.2 L Diagnostic Data CXR Findings: Pending Impression/Plan Impression/Plan Impression/Plan: 1. Respiratory failure with life-threatening hemoptysis. This may be related to alveolar hemorrhage versus trauma. 2. 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 Progressive thrombocytopenia. 3. Right upper extremity DVT. History of IVC filter placement. 4. Atrial fibrillation, previously on Xarelto. 5. History of CLL and lung cancer. 6. Severe malnutrition. 7. Blood loss anemia, acute. 8. Positive troponin. 9. Septic shock secondary to intra-abdominal source and likely aspiration pneumonia. Recommendations: * Check a portable chest x-ray now. * Transfuse 1 unit of packed red blood cells. * Platelet transfusion ordered and we are awaiting delivery. * Begin a fentanyl drip for an SAS of 2. Discontinue propofol when able. * Continue IV fluid rehydration for low urine output. * Minimize suctioning/airway trauma. * Continue empiric antibiotic therapy. * Continue DVT prophylaxis with Alps. * Continue IV Protonix. * I discussed the current issue of hemoptysis with the primary team and Dr. Nguyen. At this time, the patient's conservator wants to be less aggressive, and the patient was changed to DNR. We will attempt to manage the hemoptysis conservatively, noting that the patient would be a poor candidate for bronchoscopy and bronchial artery embolization. If the patient does worsen, we will need to consider this as an option however the patient's conservator does not want to be aggressive in the patient's care at this point. We'll continue to monitor/observe.
--- NOTE | 2017-04-12 09:49 | RADIOLOGY REPORT ---
EXAMINATION: XR PORTABLE CHEST CLINICAL INFORMATION: ET tube placement. COMPARISON: 04/11/2017. TECHNIQUE: Portable frontal view of the chest was obtained. FINDINGS: The tip of the endotracheal tube is located approximately 3.3 cm above the level of the imelda. There is a left-sided Port-A-Cath present with its tip seen projecting at the level of the proximal part of the superior vena cava, unchanged. The tip of the enteric tube is not included within the [id number] and accordingly not evaluated. There is persistent bilateral near diffuse airspace disease present (right greater than left) with superimposed right-sided [id number] pleural effusion, thickening or combination thereof. The airspace opacities appear either stable or minimally progressed on the right and appear relatively unchanged on the left as compared to 04/11/2017. IMPRESSION: 1. Compared to most recent prior chest radiograph dated 04/11/2017, airspace opacity within the right hemithorax appears stable or minimally worsened while the left-sided airspace disease appears stable. 2. No other significant interval change.
--- NOTE | 2017-04-12 11:07 | ULTRASOUND REPORT ---
EXAMINATION: US TRIPLEX OF LOWER EXTREMITIES, BILATERAL CLINICAL INFORMATION: This is an 86-year-old male with possible bilateral lower extremity deep vein thrombosis. Edema and swelling. COMPARISON: Comparison is made to the previous CT scan dated 04/08/2017. TECHNIQUE: Color-flow triplex imaging with spectral analysis and compression Doppler were performed on the lower extremities. FINDINGS: Respiratory variation, normal compression and augmented flow are evaluated throughout the lower extremities. The common femoral vein, superficial femoral vein, profunda femoral vein, popliteal vein and midcalf peroneal and posterior tibial venous segments were evaluated for deep venous thrombosis. There is deep vein thrombosis involving the right profunda femoral vein. There is some thrombus in the right femoral vein within the thigh extending down toward the popliteal vein. This is likely partial thrombosis with some flow identified. No deep vein thrombosis is seen in the left leg. There appears to be a right groin hernia present. This contains both bowel and fluid. There is no Salmeron's cyst. This critical result was communicated directly by telephone to Dr. Arnold at 1120 hrs on 04/12/2017 and the content and urgency of the communication was understood. IMPRESSION: 1. There is no left lower extremity deep vein thrombosis. 2. There is right profunda femoral vein deep vein thrombosis. There appears to be partial thrombosis from the right femoral vein in the thigh extending down towards the popliteal vein with partial flow through the area. 3. There is a right groin hernia which contains both bowel and fluid.
--- NOTE | 2017-04-12 12:14 | Event Note ---
Event Note Event Note: Patient has been having significant hemoptysis since this morning and his O2 requirements has also increased. His conservator Mr. Jonel Cline ([phone]) was in the hospital earlier this morning. The patient's clinical status and prognosis was discussed in detail with him, and he wanted less aggressive measures and told us to change the CODE STATUS to a DNR. He also had a detailed discussion regarding the same with Dr. Nguyen. However as the patient's hemodynamic status during the day worsened, I called Mr. Cline to update him about the patient's condition. He informed me that as per his mortgage operations manager, he does not have authority to change the CODE STATUS at this time. He needs to go to the probate code to obtain an order to do so. Therefore the patient's CODE STATUS should remain FULL CODE for now until he receives the order from the probate court. The conservator also had a conversation with Dr. Orta. liner worker Viviana Branch was updated about the senario. Currently patient stays intubated and is being supported conservatively with IV fluids, blood and platelets. Of note, patient has 5 children, none of which are involved in his care at this time. The conservator was able to get in touch with 2 of them, however they have no plans to visit him in the hospital today.
--- NOTE | 2017-04-12 13:00 | NUR ---
At approx 1145, patient began coughing a copious amount of bright red yaya blood up his ETT- patient being suctioned to clear ETT to ventilate appropriately. Respiratory and house staff at the bedside with this RN. A total of approx 300mls of blood has been suctioned since 0700 this morning. Patient received 1 unit of platelets and he is now to receive 1 unit of prbc and an additional unit of platelets. At approx 1205, FIO2 was increased to 100% and peep increased to [address] Orta's orders when he began to desaturate to the high 80's on previous vent settings. A vecuronium gtt was also started at 1215 per orders a 0.08mg/kg and will be titrated up per TOF Propofol gtt has been titrated to off and a fentanyl gtt is now infusing- see flowsheet for information. BIS monitor to be wily up from PACU. Patients conservator updated on POC and stated that patient to remain a FULL code until proper paperwork for conservatorship is ordered by the court. Patient remains tachypneic with a respiratory rate ranging from 24-30. ST/1st degree AV block on tele monitor, HR= 120-130's. Episodes of MAT/Afib where heart rate increases to the 140-150's lasting only a few seconds. BP has remained stable ranging from 110-130.s Dr. De La Cruz and Dr. Barry notified. Cardiology has been consulted and will be in to see patient. No s/s of pain are currently noted. Will continue to closely monitor patient.
--- NOTE | 2017-04-12 13:15 | PN- Infect Dx ---
Subjective Subjective: Afebrile. Recent events noted with hemoptysis and with increased oxygen requirements. Objective Last 24 Hrs of Vital Signs/I&O Vital Signs Date Time Temp Pulse Resp B/P B/P Pulse O2 O2 Flow FiO2 Mean Ox Delivery Rate 04/12 1203 100 04/12 1040 50 04/12 0800 98.6 116 30 102/60 97 Ventilator 50% 04/12 0800 96 Ventilator 50% 04/12 0741 50 04/12 0555 40 04/12 0347 96 Ventilator 40% 04/12 0315 40 04/12 0031 40 04/12 0000 97 Ventilator 40% 04/12 0000 97.1 106 22 100/52 97 Ventilator 40% 04/11 2236 40 04/11 2000 40 04/11 2000 95 Ventilator 40% 04/11 1634 40 04/11 1600 98 Ventilator 40% 04/11 1600 98.2 102 22 100/62 96 Ventilator 40% 04/11 1405 40 Intake & Output 04/12 1600 04/12 0800 04/12 0000 Intake Total 742 1760 Output Total 140 200 Balance 602 1560 Intake, IV 642 1156 Intake, Other 100 Intake, 54 TPN/PPN Intake, Tube 350 Feeding Intake, Tube 200 Irrigant Number 1 Bowel Movements Output, Stool 0 Output, Urine 140 200 Patient 157 lb Weight Weight Bed scale Measurement Method Physical Exam Other Physical Findings: He is sedated on the ventilator HEENT obvious bleeding in the ET tube Neck right IJ triple-lumen catheter with no inflammation at the site Lungs are clear Heart regular rhythm with no murmur Abdomen is soft, with positive bowel sounds Extremities swelling of both hands Ritchie catheter remains in place Results Last 24 Hours of Lab Results: Laboratory Tests 04/12 04/12 1300 0730 Chemistry Sodium Pending Potassium Pending Chloride Pending Carbon Dioxide Pending Anion Gap Pending BUN Pending Creatinine Pending Glucose Pending Calcium Pending Phosphorus Pending Magnesium Pending Total Bilirubin Pending AST Pending ALT Pending Albumin Pending Coagulation PT (9.4 - 12.5 SEC) 12.4 INR (0.90 - 1.17) 1.18 H APTT (25 - 37 SEC) 37 Fibrinogen Activity (200 - 393 MG/DL) 316 Fibrin Degrad Products (< 10 ug/ml) > 40 ug/ml H D-Dimer (70 - 232 ng/ml) > 5250 H Hematology CBC w Diff Pending WBC Pending RBC Pending Hgb Pending Hct Pending MCV Pending MCH Pending RDW Pending Plt Count Pending MPV Pending PUBS MCHC Pending 04/12 04/11 0510 1930 Chemistry Sodium (137 - 145 mmol/L) 141 141 Potassium (3.5 - 5.1 mmol/L) 3.7 4.0 Chloride (98 - 107 mmol/L) 113 H 112 H Carbon Dioxide (22 - 30 mmol/L) 21 L 20 L Anion Gap (5 - 16) 7 8 BUN (9 - 20 mg/dL) 28 H 29 H Creatinine (0.7 - 1.2 mg/dL) 0.8 0.9 Estimated GFR (>60 ml/min) > 60 > 60 Glucose (65 - 99 mg/dL) 105 H 153 H Calcium (8.4 - 10.2 mg/dL) 6.5 L 6.8 L Phosphorus (2.5 - 4.5 mg/dL) 1.8 L 1.9 L Magnesium (1.6 - 2.3 mg/dL) 2.0 1.9 Total Bilirubin (0.2 - 1.3 mg/dL) 0.4 0.3 AST (17 - 59 U/L) 9 L 10 L ALT (21 - 72 U/L) 22 27 Albumin (3.5 - 5.0 g/dL) 1.8 L 2.0 L Coagulation PT (9.4 - 12.5 SEC) 12.6 H INR (0.90 - 1.17) 1.20 H APTT (25 - 37 SEC) 33 Hematology CBC w Diff MAN DIFF ORDERED WBC (4.8 - 10.8 /CUMM) 14.1 H 27.6 H RBC (4.70 - 6.10 /CUMM) 3.41 L 3.63 L Hgb (14.0 - 18.0 G/DL) 8.8 L 9.4 L Hct (42 - 52 %) 27.5 L 29.2 L MCV (80.0 - 94.0 FL) 80.6 80.4 MCH (27.0 - 31.0 PG) 25.8 L 25.9 L RDW (11.5 - 14.5 %) 19.1 H 18.9 H Plt Count (130 - 400 /CUMM) 49 L 63 L MPV (7.4 - 10.4 FL) 9.5 9.1 Gran % (42.2 - 75.2 %) 30.8 L 33.1 L Lymphocytes % (20.5 - 51.1 %) 68.1 H 64.7 H Monocytes % (1.7 - 9.3 %) 0.3 L 1.3 L Eosinophils % (0 - 5 %) 0.7 0.4 Basophils % (0.0 - 2.0 %) 0.1 0.5 Absolute Granulocytes (1.4 - 6.5 /CUMM) 4.4 9.1 H Segmented Neutrophils (42.2 - 75.2 %) 27 L Absolute Lymphocytes (1.2 - 3.4 /CUMM) 9.6 H 17.9 H Lymphocytes (20.5 - 51.1 %) 71 H Monocytes (1.7 - 9.3 %) 1 L Absolute Monocytes (0.10 - 0.60 /CUMM) 0 L 0.4 Eosinophils (0 - 5.0 %) 1 Absolute Eosinophils (0.0 - 0.7 /CUMM) 0.1 0.1 Absolute Basophils (0.0 - 0.2 /CUMM) 0 0.1 Platelet Estimate (ADEQUATE) DECREASED Polychromasia 1+ Hypochromic-Microcytic 1+ Poikilocytosis 1+ Anisocytosis 1+ Microcytic Cells 1+ Ovalocytes 1+ Elliptocytes FEW PUBS MCHC (33.0 - 37.0 G/DL) 32.0 L 32.2 L Other Body Source Fld Total RBCs Counted (%) 100 Last 24 Hours of Matt Results: Urine culture April 09 negative Recent Imaging Studies: Chest x-ray April 12 increased opacity within the right hemithorax, with stable left sided airspace disease Dopplers of both lower extremities April 12 reveals a DVT within the right profunda femoral vein, with partial thrombosis from the right femoral vein in the thigh extending downwards towards the popliteal vein Assessment/Plan Impression: Overall status poor, now with hemoptysis, suggesting possible pulmonary alveolar hemorrhage, with decreasing platelets, possibly secondary to sepsis versus medications versus his underlying CLL. He remains afebrile with white blood cell count decreased, though this is of unclear value given his underlying CLL, on Vancomycin and Ceftriaxone now Day 5 of treatment for presumed aspiration pneumonia, with sputum culture positive for MRSA and Escherichia coli. His prognosis is quite poor and discussion regarding his overall level of care is underway. Suggestion: 1. Await decision regarding overall level of care 2. Continue Vancomycin and Ceftriaxone pending above
--- NOTE | 2017-04-12 13:23 | RADIOLOGY REPORT ---
EXAMINATION: XR PORTABLE CHEST CLINICAL INFORMATION: Pulmonary edema. Shortness of breath and hemoptysis. COMPARISON: Multiple prior examinations most recently 04/12/2017 TECHNIQUE: Portable AP 60 degrees upright view of the chest was obtained. FINDINGS: Left pectoral port extends to the origin of the SVC. ET tube tip terminates approximately 5 cm above imelda. Enteric tube extends below diaphragm, tip not clearly visualized. There is slight improvement in the airspace disease in the mid to lower left lung. Extensive consolidation in the right lung is similar to prior. There is a reduction in the right lung volume with pleural fluid/pleural thickening unchanged. The heart is not enlarged. IMPRESSION: 1. Slight improvement in the airspace disease throughout the mid and lower left lung. 2. No significant change in the right-sided volume loss and right-sided extensive consolidation and small volume of pleural fluid or pleural thickening in comparison to prior.
[2017-04-12 13:46] LABS: ABSOLUTE BASOPHIL COUNT 0 /CUMM (0.0-0.2); ABSOLUTE EOSINOPHIL COUNT 0.1 /CUMM (0.0-0.7); ABSOLUTE GRANULOCYTE CT 22.2 /CUMM (1.4-6.5); ABSOLUTE LYMPH COUNT 44.5 /CUMM (1.2-3.4); ABSOLUTE MONOCYTE COUNT 0.1 /CUMM (0.10-0.60); BASOPHIL % 0 % (0.0-2.0); EOSINOPHIL % 0.1 % (0-5); GRANULOCYTE % 33.1 % (42.2-75.2); MEAN CORPUSCULAR HGB 25.4 PG (27.0-31.0); MEAN CORPUSCULAR HGB CONC 31.6 G/DL (33.0-37.0); MEAN CORPUSCULAR VOLUME 80.6 FL (80.0-94.0); RBC DISTRIBUTION WIDTH 18.3 % (11.5-14.5)
[2017-04-12 14:02] LABS: WHITE BLOOD CELL COUNT 66.9 /CUMM (4.8-10.8)
[2017-04-12 16:00] VITALS: BP 92/0
--- NOTE | 2017-04-12 17:00 | NUR ---
At approx. 1545 BP was noted to be 84/0. Heart rate remains in the 110-120's with occasionaly episodes of ?afib/ tachycardia with a HR in the 140's lasting only a few seconds. Dr. De La Cruz notified and a 500ml normal saline bolus was given. BP increased to the 90's with NS bolus. However at 1640 BP was noted to the 74/0 and a levophed gtt was started per order at 5mcg- see flowsheet for details. Fentanyl gtt was also placed on hold at this time per Dr. de la cruz's order- BIS monitor reading 43 at this time. See flow sheet for details will continue to closely monitor patient.
--- NOTE | 2017-04-12 19:00 | NUR ---
Patient remains paralylzed on a vecuronium gtt was is currently infusing at 0.07mcg and was titrated per TOF which is currently 2/4. Fentanyl gtt has been restarted at 12.5mcg per order and BIS monitor is ranging from 38-45. Bilateral wrist restraints have been previously removed. Heart rate is currently in the 60-70's in a 1st degree AV block. At approx 1735 patient's rhthem appeared to be irregular in 1st degree AV block with multiple PAC's sometimes with a dropped QRS complex. House staff was notified and EKG was done- SBP now in the 100-100's and levo gtt is currently infusing at 11mcg- see flow sheet for details. LLE is cool to touch but pulses + with doppler. Remains intubated with a #8 to the left at 24cm. Vent settings currently AC 26/450/6/8- These settings changed at 1635 after ABG's drawn. Lungs currently clear and diminished at the bases. O2 sats ranging from 98-99%. No episodes of bleeding have been noted since 1200. Pt is s/p 1 unit of prbc and 2 units of platelets. Repeat labs were drawn earlier this afternoon and to be redrawn at 2300 tonight. OGT remains clamped and no tube feeds to be given per Dr. De La Cruz. Abdomen is soft with + bowel sounds. Ritchie remains in place however no urine output has been noted since 1700- Dr. De La Cruz notified at 1800 and 1900- 500ml normal saline bolus to be given per order. BUE remain edamoutous and are elevated and weeping. +1 generalized edema noted. Duoderm to coccyx. LCW port remains in place. NS infusing at 150mls/hr. He is also receiving a NA phos bolus. House staff has been updated frequently on vitals and patients overall status. Patients nephew was updated on POC. Call placed to pastoral care since family requested last rights. Report given to oncoming RN. Will continue to closely monitor patient.
--- NOTE | 2017-04-12 21:22 | NUR ---
PT PARALYZED AND SEDATED. VECCURONIUM GTT AT 0.07MG/KG/HR, FENTANYL GTT AT 12.5MCG/KG/HR. ON BIS MONITOR-SEE FLOW FOR READINGS-CURRENTLY BETWEEN 30-40'S AT PRESENT. TOF 4/4 AT LEVEL 7 AT PRESENT. PUPILS PINPOINT, SLUGGISH. ORALLY INTUBATED AND VENTED. BREATH SOUND CLEAR WITH DIMINISHED BREATH SOUNDS AT BASES BILATERALLY. SUCTIONING FOR MOD OF BLOODY SECREATIONS. SEE FLOW SHEET FOR VS, 02 SATS, I/O'S. MONITOR SHOWS [address] DEGREE AVB UNTIL PT WAS TURNED THEN ST WITH FREQUENT PAC'S. BP-50-60'S PT WAS ON LEVOPHED GTT AT 13MCG/MIN WHEN RECEIVED PT-LEVOPHED TITRATED UP TO 20MCG/MIN-DR. ALVAREZ NOTIFIED-NS 500 BOLUS GIVEN ORDERED-SEE EMAR-WILL MONITOR. PACER PADS IN PLACE. ABD SOFT, NONTENDER, NONDISTENDED, POSITIVE BOWEL SOUNDS. OGT IN PLACE-PLACEMENT CONFIRMED BY AIR, CLAMPED AT PRESENT. DRIVER IN PLACE-NO URINE OUTPUT AT PRESENT-DR. ALVAREZ AWARE. BILATERAL UPPER EXTREMITIES WITH 3-4+ PITTING EDEMA, WEEPING LARGE AMT OF SEROUS DRAINAGE. SCROTAL EDEMA, 2+ PITTING EDEMA PEDALS. EXTREMITIES COOL TO TOUCH, DOPPLER RADIAL AND PEDAL PULSES. DOUDERM ON COCCYX INTACT. NO OTHER SKIN BREAKDOWN NOTED. MULTIPLE ECCMYOMITIC AREAS ON ARMS NOTED
[2017-04-12 22:55] LABS: ABSOLUTE BASOPHIL COUNT 0.2 /CUMM (0.0-0.2); ABSOLUTE EOSINOPHIL COUNT 0 /CUMM (0.0-0.7); ABSOLUTE GRANULOCYTE CT 14.4 /CUMM (1.4-6.5); ABSOLUTE LYMPH COUNT 28.2 /CUMM (1.2-3.4); ABSOLUTE MONOCYTE COUNT 0.2 /CUMM (0.10-0.60); BASOPHIL % 0.5 % (0.0-2.0); EOSINOPHIL % 0 % (0-5); GRANULOCYTE % 33.4 % (42.2-75.2); HEMATOCRIT 30.5 % (42-52); MEAN CORPUSCULAR HGB 25.4 PG (27.0-31.0); MEAN CORPUSCULAR HGB CONC 31.4 G/DL (33.0-37.0); MEAN CORPUSCULAR VOLUME 80.9 FL (80.0-94.0); MEAN PLATELET VOLUME 9.2 FL (7.4-10.4); RED BLOOD CELL CT 3.77 /CUMM (4.70-6.10)
[2017-04-12 23:11] LABS: PLATELET COUNT 80 /CUMM (130-400)
[2017-04-13] VITALS: BP 90/60
--- NOTE | 2017-04-13 00:34 | NUR ---
AT 2200 PT DESATURATED DOWN TO 87%-REPORTED TO RESP THERPIST-INCREASE FIO2 TO 70%-INCREASED O2 SATS TO 93-95%. SBP 80'S ON LT ARM-REPORTED TO DR. AQUINO-VASOPRESSIN GTT STARTED ORDERED AT 0.04UNITS/HR-SEE FREQUENT VS SHEET. PER KRISTINA MORFIN RN EVENING STEAM BLOCKER WHO TOOK CARE OF PT LAST NIGHT STATED BP HIGHER ON LEG-BP LT LEG 120'S, LT ARM BP 80-90'S-REPORTED TO DR. BOOTHE-STATED TO USE BP ON LT LEG-WILL MONITOR. FEET NOW MOTTLED AT TOES, REMAIN COOL TO TOUCH, FAINT DOPPLER PULSES. CONTINUES NOT TO HAVE ANY URINE OUTPUT-DR. REA AWARE
--- NOTE | 2017-04-13 02:29 | NUR ---
PT TOF 1 OUT OF 4 AT LEVEL 10, BIS HIGH 20'S TO LOW 30'S-REPORTED TO DR. REA-DECREASED VECURONIUM TO 0.06MCG/KG/HR ORDERED-WILL MONITOR. TITRATING LEVOPHED DOWN BP IMPROVING ON LT ARM-SEE FREQUENT VS SHEET
--- NOTE | 2017-04-13 04:10 | RADIOLOGY REPORT ---
EXAMINATION: XR PORTABLE CHEST CLINICAL INFORMATION: Possible aspiration pneumonia. Increased O2 requirements on ventilator. COMPARISON: Chest x-ray April 12, 2017. TECHNIQUE: Portable frontal view of the chest was obtained. FINDINGS: Endotracheal tube tip is 5 cm above the imelda. Enteric tube courses below the limits of this study. Left subclavian Port-A-Cath extending to the origin of the SVC. Worsening airspace opacity within the left midlung and at the left lung base. Slightly improved aeration within the right lung in the setting of a right-sided pleural effusion versus pleural thickening and extensive consolidation. No pneumothorax is appreciated. Lung bases are not entirely included on this study. Cardiac and osseous structures appear stable. IMPRESSION: - Endotracheal tube tip remains 5 cm above the imelda. - Worsening airspace opacity within the left midlung and at the left lung base. - Slightly improved aeration within the right lung in the setting of a right-sided pleural effusion versus pleural thickening and extensive consolidation.
--- NOTE | 2017-04-13 04:48 | NUR ---
AT 0300 HR UP TO 130-140'S ST WITH 1ST DEGREE AVB-REPORTED TO DR. GARCIA WHO EXAMINED PT-STAT CHEST XRAY DONE ORDERED-NO OTHER ORDERS GIVEN AT PRESENT. PT ALSO DESATURATED DOWN TO 80'S-REPORTED TO RESP THERAPIST-FIO2 INCREASED TO 80% AT 0315-02 SATS REMAINED IN 80'S-FIO2 INCREASED TO 100% AT 0345-02 SATS UP TO 96%. PT STARTING TO MAKE SOME URINE. CONTINUING TO TITRATED LEVOPHED DOWN
[2017-04-13 04:54] LABS: ABSOLUTE BASOPHIL COUNT 0.2 /CUMM (0.0-0.2); ABSOLUTE EOSINOPHIL COUNT 0 /CUMM (0.0-0.7); BASOPHIL % 0.2 % (0.0-2.0); EOSINOPHIL % 0 % (0-5); MEAN CORPUSCULAR HGB 25.9 PG (27.0-31.0)
[2017-04-13 05:03] LABS: ABSOLUTE LYMPH COUNT 42.3 /CUMM (1.2-3.4); ABSOLUTE MONOCYTE COUNT 0.1 /CUMM (0.10-0.60); MEAN CORPUSCULAR HGB CONC 31.5 G/DL (33.0-37.0); MEAN CORPUSCULAR VOLUME 82.1 FL (80.0-94.0); MEAN PLATELET VOLUME 11.3 FL (7.4-10.4); PLATELET COUNT 98 /CUMM (130-400); RBC DISTRIBUTION WIDTH 19.4 % (11.5-14.5); RED BLOOD CELL CT 4.56 /CUMM (4.70-6.10)
[2017-04-13 05:06] LABS: PTT 38 SEC (25-37)
[2017-04-13 05:28] LABS: WHITE BLOOD CELL COUNT 67.4 /CUMM (4.8-10.8)
[2017-04-13 05:29] LABS: HEMATOCRIT 37.4 % (42-52)
--- NOTE | 2017-04-13 07:00 | NUR ---
PT REMAINS PARALYZED AND SEDATED-FENTANYL GTT REMAINS AT 12.5MCG/HR AND VECURONIUM GTT AT 0.06MCG/KG/HR. BIS 40'S SINCE DECREASED VECURONIUM RATE, TOF 4 OUT OF 4 AT LEVEL 4 AT PRESENT. MINIMAL SUCTIONING VIA ETT. RHONCI THOUGHOUT FI02 REMAINS AT 100%-sats 96-99%. HR DOWN TO 110-120'S SINCE 529. SBP-100-140'S-LEVOPHED GTT CURRENTLY AT 7MCG/MIN, VASOPRESSIN GTT AT 0.04UNITS/MIN. MINIMAL URINE OUTPUT. HYPOACTIVE BOWEL SOUNDS. DUODERM REMAINS INTACT ON COCCYX. BILATERAL ARMS CONTINUE TO WEEP LARGE AMT OF SEROUS FLUID. DATA COLLECTION TECHNICIAN IN TO GIVE LAST RITES AT 2230. CONSERVATOR CALLED [phone]-UPDATED ON PT STATUS
[2017-04-13 08:00] VITALS: BP 97/55
--- NOTE | 2017-04-13 08:07 | PN- Hematology ---
Subjective Subjective: He was noted to have hemoptysis yesterday along with RLE DVT and RUE DVT. His clinical condition has worsen and is back on pressor support. He received blood and platelet transfusion. Team is working with his conservator on addression his overall goal of care. Review of Systems: Unable to be obtained due to sedation and intubation. Objective Vital Signs and I&Os Vital Signs Date Time Temp Pulse Resp B/P B/P Pulse O2 O2 Flow FiO2 Mean Ox Delivery Rate 04/13 0607 100 04/13 0443 96.1 123 26 103/58 04/13 0407 100 04/13 0400 91 Ventilator 80% 04/13 0325 100 04/13 0256 80 04/13 0223 70 04/13 0217 122 26 117/63 04/13 0000 97 Ventilator 70% 04/13 0000 97.4 93 26 90/60 97 Ventilator 70% 04/12 2210 70 04/12 2203 92 26 72/47 04/12 2010 60 04/12 2000 100 Ventilator 50% 04/12 1645 101 74/0 04/12 1605 10 04/12 1600 97.7 111 15 92/0 99 Ventilator 100% 04/12 1600 99 Ventilator 100% 04/12 1445 100 04/12 1203 100 04/12 1200 91 Ventilator 50% 04/12 1040 50 04/12 0800 98.6 116 30 102/60 97 Ventilator 50% 04/12 0800 96 Ventilator 50% Intake & Output 04/13 0800 04/13 0000 04/12 1600 04/12 0800 04/12 0000 04/11 1600 Intake Total 2080 3561 2079 168 5915 1845 Output Total 40 15 450 140 200 150 Balance 2040 3547 0438 119 0972 1695 Intake, Blood 805 Product Intake, IV 2080 3561 8564 194 0490 1265 Intake, Other 100 Intake, 54 TPN/PPN Intake, Tube 350 260 Feeding Intake, Tube 200 320 Irrigant Number 0 0 1 Bowel Movements Output, Other 300 Output, Stool 0 Output, Urine 40 15 150 140 200 150 Patient 83.121 kg 71.271 kg Weight Weight Bed scale Bed scale Measurement Method Physical Exam General Appearance: sedated, intubated Respiratory: rhonchi Cardiovascular: edema, tachycardia Abdomen: normal bowel sounds, soft Extremities: slow capillary refill, 3+ edema with drainage; cool extremities Neurologic/Psychiatric: intubated/sedated Skin: ecchymosis, cool to touch Current Medications: Current Medications Sig/Fred Start time Last Medication Dose Route Stop Time Status Admin Albuterol Sulfate 3 ML Q6 PRN 04/08 1130 AC 04/08 INH 1240 Atropine Sulfate 1 MG .STK-MED ONE 04/12 1751 DC IM 04/12 1752 Ceftriaxone Sodium 1,000 MG DAILY 04/10 1236 AC 04/12 IV 1229 Chlorhexidine 15 ML BID 04/09 1000 AC 04/12 Gluconate PO 2254 Dextrose/Sodium 1,000 ML Q6H 04/10 1015 DC 04/11 Chloride IV 2227 Escitalopram Oxalate 20 MG DAILY 04/09 1000 AC 04/11 PO 0932 Fentanyl Citrate 1,000 MCG Q24H 04/12 0945 04/12 Dextrose/Water 250 ML IV 1115 Ferrous Sulfate 300 MG TID 04/11 2300 AC 04/12 PO 0002 Lorazepam 2 MG ONE ONE 04/12 1430 DC 04/12 IV 04/12 1431 1430 Lorazepam 1 MG ONCE ONE 04/12 1300 DC 04/12 IV 04/12 1301 1311 Mirtazapine 7.5 MG AT BEDTIME 04/08 2200 AC 04/11 PO 2225 Norepinephrine 4 MG Q3H 04/13 0000 AC 04/13 Sodium Chloride 250 ML IV 0443 Norepinephrine 4 MG Q24H 04/12 1645 DC 04/12 Sodium Chloride 250 ML IV 2203 Pantoprazole Sodium 40 MG BID 04/08 1415 AC 04/12 IV 2251 Polyethylene Glycol 17 GM DAILY 04/09 1000 AC 04/11 PO 0933 Potassium Chloride 10 MEQ ONCE ONE 04/12 1400 CAN IV 04/12 1401 Potassium Chloride 10 MEQ ONCE ONE 04/12 1045 DC 04/12 IV 04/12 1046 1239 Pregabalin 50 MG AT BEDTIME 04/08 2200 AC 04/11 PO 2225 Propofol 1,000 MG Q12H 04/08 1330 DC 04/12 N/A 100 ML IV 0741 Sodium Chloride 500 ML BOLUS ONE 04/12 2115 DC 04/12 IV 04/12 221 2118 Sodium Chloride 500 ML BOLUS ONE 04/12 1945 DC IV 04/12 2044 Sodium Chloride 500 ML BOLUS ONE 04/12 1545 DC 04/12 IV 04/12 1644 1545 Sodium Chloride 1,000 ML Q6H 04/12 1415 AC 04/13 IV 0111 Sodium Phosphate 15 mMol ONE ONE 04/12 1400 DC 04/12 Sodium Chloride 250 ML IV 04/12 1803 1606 Vancomycin HCl 1,000 MG Q24H 04/09 0730 DC 04/12 Sodium Chloride 250 ML IV 0745 Vasopressin 40 UNITS Q16H 04/12 2230 AC 04/12 Sodium Chloride 100 ML IV 2215 Vecuronium [place] 10 MG Q2H 04/12 2300 AC 04/13 Sodium Chloride 100 ML IV 0722 Vecuronium [place] 10 MG Q1H 04/12 1545 DC 04/12 Sodium Chloride 100 ML IV 2202 Vecuronium [place] 10 MG .STK-MED ONE 04/12 1539 DC IV 04/12 1540 Vecuronium [place] 10 MG .STK-MED ONE 04/12 1359 DC IV 04/12 1400 Vecuronium [place] 10 MG Q24H 04/12 1215 DC 04/12 Sodium Chloride 100 ML IV 1439 Vecuronium [place] 10 MG .STK-MED ONE 04/12 1206 DC IV 04/12 1207 Results Last 24 Hours of Lab Results: Laboratory Tests 04/13 04/13 0429 0320 Blood Gas pH (7.35 - 7.45 PH) 7.28 *L pCO2 (35 - 45 TORR) 36 pO2 (80 - 100 TORR) 53 L HCO3 (21 - 28 MEQ/L) 17 L ABG O2 Sat (Measured) (>96.0 %) 89.0 L P-50 (Temp Corrected) Y Carboxyhemoglobin (1.5 - 5.0 %) 0.5 L O2 Concentration % 80% Temperature (97.0 - 100.0 FARH) 97.4 Respiration Rate (BPM) 26 O2 Delivery Method ESPRIT Vent Mode AC Expiratory Pressure (CMH2O/P) 8 Tidal Volume (CC) 450 Chemistry Sodium (137 - 145 mmol/L) 145 Potassium (3.5 - 5.1 mmol/L) 4.1 Chloride (98 - 107 mmol/L) 112 H Carbon Dioxide (22 - 30 mmol/L) 19 L Anion Gap (5 - 16) 13 BUN (9 - 20 mg/dL) 29 H Creatinine (0.7 - 1.2 mg/dL) 1.0 Estimated GFR (>60 ml/min) > 60 Glucose (65 - 99 mg/dL) 118 H Calcium (8.4 - 10.2 mg/dL) 7.2 L Phosphorus (2.5 - 4.5 mg/dL) 4.1 Magnesium (1.6 - 2.3 mg/dL) 2.0 Total Bilirubin (0.2 - 1.3 mg/dL) 0.7 AST (17 - 59 U/L) 13 L ALT (21 - 72 U/L) 27 Albumin (3.5 - 5.0 g/dL) 2.4 L Coagulation PT (9.4 - 12.5 SEC) 12.0 INR (0.90 - 1.17) 1.14 APTT (25 - 37 SEC) 38 H Fibrinogen Activity (200 - 393 MG/DL) 412 H Fibrin Degrad Products (< 10 ug/ml) > 40 ug/ml H Hematology CBC w Diff MAN DIFF ORDERED WBC (4.8 - 10.8 /CUMM) 67.4 *H RBC (4.70 - 6.10 /CUMM) 4.56 L Hgb (14.0 - 18.0 G/DL) 11.8 L Hct (42 - 52 %) 37.4 L MCV (80.0 - 94.0 FL) 82.1 MCH (27.0 - 31.0 PG) 25.9 L RDW (11.5 - 14.5 %) 19.4 H Plt Count (130 - 400 /CUMM) 98 L MPV (7.4 - 10.4 FL) 11.3 H Gran % (42.2 - 75.2 %) 37.0 L Lymphocytes % (20.5 - 51.1 %) 62.7 H Monocytes % (1.7 - 9.3 %) 0.1 L Eosinophils % (0 - 5 %) 0 Basophils % (0.0 - 2.0 %) 0.2 Absolute Granulocytes (1.4 - 6.5 /CUMM) 25.0 H Segmented Neutrophils (42.2 - 75.2 %) 7 L Band Neutrophils (0.0 - 5.0 %) 7 H Absolute Lymphocytes (1.2 - 3.4 /CUMM) 42.3 H Lymphocytes (20.5 - 51.1 %) 85 H Monocytes (1.7 - 9.3 %) 1 L Absolute Monocytes (0.10 - 0.60 /CUMM) 0.1 L Absolute Eosinophils (0.0 - 0.7 /CUMM) 0 Absolute Basophils (0.0 - 0.2 /CUMM) 0.2 Platelet Estimate (ADEQUATE) DECREASED Polychromasia 1+ Poikilocytosis 1+ Ovalocytes 1+ Rudolph Cells 1+ PUBS MCHC (33.0 - 37.0 G/DL) 31.5 L Miscellaneous Phlebotomy Draw Site RIGHT RADIAL 04/12 04/12 9754 6257 Blood Gas pH (7.35 - 7.45 PH) 7.39 pCO2 (35 - 45 TORR) 32 L pO2 (80 - 100 TORR) 127 H HCO3 (21 - 28 MEQ/L) 19 L ABG O2 Sat (Measured) (>96.0 %) 98.0 P-50 (Temp Corrected) N Carboxyhemoglobin (1.5 - 5.0 %) 0.7 L O2 Concentration % 60% Temperature (97.0 - 100.0 FARH) 97.7 Respiration Rate (BPM) 26 O2 Delivery Method ESPRIT Vent Mode AC Expiratory Pressure (CMH2O/P) 8 Tidal Volume (CC) 450 Chemistry Sodium (137 - 145 mmol/L) 139 Potassium (3.5 - 5.1 mmol/L) 4.0 Chloride (98 - 107 mmol/L) 111 H Carbon Dioxide (22 - 30 mmol/L) 20 L Anion Gap (5 - 16) 8 BUN (9 - 20 mg/dL) 29 H Creatinine (0.7 - 1.2 mg/dL) 0.9 Estimated GFR (>60 ml/min) > 60 Glucose (65 - 99 mg/dL) 128 H Calcium (8.4 - 10.2 mg/dL) 6.5 L Phosphorus (2.5 - 4.5 mg/dL) 3.7 Magnesium (1.6 - 2.3 mg/dL) 1.9 Total Bilirubin (0.2 - 1.3 mg/dL) 0.6 AST (17 - 59 U/L) 11 L ALT (21 - 72 U/L) 29 Albumin (3.5 - 5.0 g/dL) 2.0 L Hematology CBC w Diff MAN DIFF ORDERED WBC (4.8 - 10.8 /CUMM) 43.0 *H RBC (4.70 - 6.10 /CUMM) 3.77 L Hgb (14.0 - 18.0 G/DL) 9.6 L Hct (42 - 52 %) 30.5 L MCV (80.0 - 94.0 FL) 80.9 MCH (27.0 - 31.0 PG) 25.4 L RDW (11.5 - 14.5 %) 19.0 H Plt Count (130 - 400 /CUMM) 80 L MPV (7.4 - 10.4 FL) 9.2 Gran % (42.2 - 75.2 %) 33.4 L Lymphocytes % (20.5 - 51.1 %) 65.6 H Monocytes % (1.7 - 9.3 %) 0.5 L Eosinophils % (0 - 5 %) 0 Basophils % (0.0 - 2.0 %) 0.5 Absolute Granulocytes (1.4 - 6.5 /CUMM) 14.4 H Segmented Neutrophils (42.2 - 75.2 %) 23 L Absolute Lymphocytes (1.2 - 3.4 /CUMM) 28.2 H Lymphocytes (20.5 - 51.1 %) 76 H Monocytes (1.7 - 9.3 %) 1 L Absolute Monocytes (0.10 - 0.60 /CUMM) 0.2 Absolute Eosinophils (0.0 - 0.7 /CUMM) 0 Absolute Basophils (0.0 - 0.2 /CUMM) 0.2 Platelet Estimate (ADEQUATE) VERIFIED BY SMEAR Poikilocytosis 1+ Anisocytosis 1+ Ovalocytes FEW Rudolph Cells FEW Elliptocytes RARE PUBS MCHC (33.0 - 37.0 G/DL) 31.4 L Miscellaneous Phlebotomy Draw Site RIGHT BRACHIAL Other Body Source [place] Total RBCs Counted (%) 100 04/12 04/12 1610 1300 Blood Gas pH (7.35 - 7.45 PH) 7.20 *L pCO2 (35 - 45 TORR) 56 H pO2 (80 - 100 TORR) 195 H HCO3 (21 - 28 MEQ/L) 22 ABG O2 Sat (Measured) (>96.0 %) 98.0 P-50 (Temp Corrected) N Carboxyhemoglobin (1.5 - 5.0 %) 0.4 L O2 Concentration % 100% Temperature (97.0 - 100.0 FARH) 97.7 Respiration Rate (BPM) 12 O2 Delivery Method ESPRIT Vent Mode AC Expiratory Pressure (CMH2O/P) 8 Tidal Volume (CC) 450 Chemistry Sodium (137 - 145 mmol/L) 141 Potassium (3.5 - 5.1 mmol/L) 3.9 Chloride (98 - 107 mmol/L) 111 H Carbon Dioxide (22 - 30 mmol/L) 22 Anion Gap (5 - 16) 8 BUN (9 - 20 mg/dL) 28 H Creatinine (0.7 - 1.2 mg/dL) 0.8 Estimated GFR (>60 ml/min) > 60 Glucose (65 - 99 mg/dL) 117 H Calcium (8.4 - 10.2 mg/dL) 7.0 L Phosphorus (2.5 - 4.5 mg/dL) 2.4 L Magnesium (1.6 - 2.3 mg/dL) 2.0 Total Bilirubin (0.2 - 1.3 mg/dL) 0.6 AST (17 - 59 U/L) 12 L ALT (21 - 72 U/L) 21 Albumin (3.5 - 5.0 g/dL) 2.2 L Hematology CBC w Diff MAN DIFF ORDERED WBC (4.8 - 10.8 /CUMM) 66.9 *H RBC (4.70 - 6.10 /CUMM) 4.35 L Hgb (14.0 - 18.0 G/DL) 11.1 L Hct (42 - 52 %) 35.0 L MCV (80.0 - 94.0 FL) 80.6 MCH (27.0 - 31.0 PG) 25.4 L RDW (11.5 - 14.5 %) 18.3 H Plt Count (130 - 400 /CUMM) 84 L MPV (7.4 - 10.4 FL) 10.0 Gran % (42.2 - 75.2 %) 33.1 L Lymphocytes % (20.5 - 51.1 %) 66.6 H Monocytes % (1.7 - 9.3 %) 0.2 L Eosinophils % (0 - 5 %) 0.1 Basophils % (0.0 - 2.0 %) 0 L Absolute Granulocytes (1.4 - 6.5 /CUMM) 22.2 H Absolute Lymphocytes (1.2 - 3.4 /CUMM) 44.5 H Absolute Monocytes (0.10 - 0.60 /CUMM) 0.1 L Absolute Eosinophils (0.0 - 0.7 /CUMM) 0.1 Absolute Basophils (0.0 - 0.2 /CUMM) 0 Platelet Estimate (ADEQUATE) DECREASED Polychromasia PUBS MCHC (33.0 - 37.0 G/DL) 31.6 L Miscellaneous Phlebotomy Draw Site RIGHT BRACHIAL Recent Imaging Studies: Doppler US of lower extremities 04/12/2017: 1. There is no left lower extremity deep vein thrombosis. 2. There is right profunda femoral vein deep vein thrombosis. There appears to be partial thrombosis from the right femoral vein in the thigh extending down towards the popliteal vein with partial flow through the area. 3. There is a right groin hernia which contains both bowel and fluid. Assessment/Plan Assessment/Recommendations: Mr. 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 He remains intubated and sedated. His clinical status has worsen and is back on pressors support with vasopressin and Levophed. He had hemoptysis yesterday. His WBC has increased again today. This may be related to stress response from worsening condition. Hemoptysis may be related to his previous lung cancer which was last treated in 2009 per available records. It is unclear if CLL was ever treated but unlikely from available notes. DIC panel demonstrates FDP but overall stable fibrinogen. This can be continued to be monitor. Bronchoscopy was deem to be high risk for patient per pulmonary medicine. He will be at high risk for medications to help with thrombotic given acute DVTs. His overall prognosis is poor. 1. Monitor INR and fibrinogen daily 2. Goals of care discussion with conservator Please call [phone] with any questions or concerns Problem List: 1. CLL (chronic lymphocytic leukemia) 2. Sepsis 3. Lung cancer
--- NOTE | 2017-04-13 09:00 | NUR ---
Patient is paralyzed and sedated on a vecuronium gtt infusing at 0.06mg/kg and a fentanyl gtt at 12.5mcg. Pupils are pinpoint. BIS monitor ranging from 38-42, and train of four currently 4/4. ST/1st degree AV block on tele monitor, HR= 100-120's. SBP: 90-100's- levo gtt infusing at 7mcg, and vasopressin at 0.04units or 6mls. Remains intubated with a #8 to the left at 24cm, Vent settings currently AC: 26/450/80/8. Scant amount of thick white secretions noted when suctioning. No bleeding since yesterday afternoon. Lungs are rhonchorous to the bilateral upper lobes. O2 sats stable at 96-100%. OGT in place and is clamped- No meds to be given per order. Abdomen is flat and soft with hypoactive bowel sounds. Ritchie in place- with no urine output. House staff and Dr. Orta aware and nephrology has been consulted. BUE are edematous and weep. +1 BLE edema also noted- BLE are cool to touch but a pulse is + with the doppler. +1 generalized edema. An unstageable is noted to the coccyx and a duoderm is in place. LCW port in place and is WNL. NS infusing @ 150mls/hr. No s/s of pain are currently noted and vitals have remained stable. Awaiting conservatorship papers for further goals of care- Patient remains a full code at this time. Will continue to closely monitor patient.
--- NOTE | 2017-04-13 09:14 | PN- Resident CRCU ---
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 Patient was started on 2 pressors Levophed and vasopressin. Telemetry report for paroxysmal atrial fibrillation. 24 Hour Events: Temperature 96.1, MAXIMUM TEMPERATURE 98.6 Pulse was 65, highest 126 sinus rhythm Blood pressure lowest 56/40, highest 154/84 AC 450/26/8/100% 100 saturation Levophed 26.3 Vasodepressor 6 Vecuronium 39.3 Fentanyl 3.1 Normal saline at 1 50 mL Intake 7578, output 505 Objective Vital Signs & I&O Last 8 Hrs of Vitals and I&O: 11 Exam General Appearance: sedated, intubated Head: atraumatic Neck: normal inspection, supple, full range of motion Respiratory: chest non-tender Cardiovascular: regular rate/rhythm Gastrointestinal: normal bowel sounds, soft, non-tender Extremities: normal inspection, no edema Cranial Nerves: PERRL Weaning Parameters NIF: 24 Minute Volume: 7.52 Resp rate: 44 Vt: 170 Heart Rate: 101 Current Medications: Current Medications Sig/Fred Start time Last Medication Dose Route Stop Time Status Admin Albuterol Sulfate 3 ML Q6 PRN 04/08 1130 AC 04/08 INH 1240 Atropine Sulfate 1 MG .STK-MED ONE 04/12 1751 DC IM 04/12 1752 Ceftriaxone Sodium 1,000 MG DAILY 04/10 1236 AC 04/13 IV 0916 Chlorhexidine 15 ML BID 04/09 1000 AC 04/13 Gluconate PO 0916 Dextrose/Sodium 1,000 ML Q6H 04/10 1015 DC 04/11 Chloride IV 2227 Escitalopram Oxalate 20 MG DAILY 04/09 1000 AC 04/11 PO 0932 Fentanyl Citrate 1,000 MCG Q24H 04/12 0945 AC 04/13 Dextrose/Water 250 ML IV 0928 Ferrous Sulfate 300 MG TID 04/11 2300 AC 04/12 PO 0002 Lorazepam 2 MG ONE ONE 04/12 1430 DC 04/12 IV 04/12 1431 1430 Lorazepam 1 MG ONCE ONE 04/12 1300 DC 04/12 IV 04/12 1301 1311 Mirtazapine 7.5 MG AT BEDTIME 04/08 2200 AC 04/11 PO 2225 Norepinephrine 4 MG .STK-MED ONE 04/13 0150 DC IV 04/13 0151 Norepinephrine 4 MG Q3H 04/13 0000 AC 04/13 Sodium Chloride 250 ML IV 0443 Norepinephrine 4 MG Q24H 04/12 1645 DC 04/12 Sodium Chloride 250 ML IV 2203 Pantoprazole Sodium 40 MG BID 04/08 1415 AC 04/13 IV 0916 Polyethylene Glycol 17 GM DAILY 04/09 1000 AC 04/11 PO 0933 Potassium Chloride 10 MEQ ONCE ONE 04/12 1400 CAN IV 04/12 1401 Potassium Chloride 10 MEQ ONCE ONE 04/12 1045 DC 04/12 IV 04/12 1046 1239 Pregabalin 50 MG AT BEDTIME 04/08 2200 AC 04/11 PO 2225 Sodium Chloride 500 ML BOLUS ONE 04/12 2115 DC 04/12 IV 04/12 2214 2118 Sodium Chloride 500 ML BOLUS ONE 04/12 1945 DC 04/12 IV 04/12 204 1945 Sodium Chloride 500 ML BOLUS ONE 04/12 1545 DC 04/12 IV 04/12 1644 1545 Sodium Chloride 1,000 ML Q6H 04/12 1415 AC 04/13 IV 0835 Sodium Phosphate 15 mMol ONE ONE 04/12 1400 DC 04/12 Sodium Chloride 250 ML IV 04/12 1803 1606 Vancomycin HCl 1,000 MG Q24H 04/13 0915 AC 04/13 Sodium Chloride 250 ML IV 0917 Vancomycin HCl 1,000 MG Q24H 04/09 0730 DC 04/12 Sodium Chloride 250 ML IV 0745 Vasopressin 40 UNITS Q16H 04/12 2230 AC 04/12 Sodium Chloride 100 ML IV 2215 Vecuronium [place] 10 MG Q24H 04/13 0915 DC Sodium Chloride 100 ML IV Vecuronium [place] 10 MG Q2H 04/12 2300 DC 04/13 Sodium Chloride 100 ML IV 0722 Vecuronium [place] 10 MG Q1H 04/12 1545 DC 04/12 Sodium Chloride 100 ML IV 2202 Vecuronium [place] 10 MG .STK-MED ONE 04/12 1539 DC IV 04/12 1540 Vecuronium [place] 10 MG .STK-MED ONE 04/12 1359 DC IV 04/12 1400 Vecuronium [place] 10 MG Q24H 04/12 1215 DC 04/12 Sodium Chloride 100 ML IV 1439 Vecuronium [place] 10 MG .STK-MED ONE 04/12 1206 DC IV 04/12 1207 Impression/Plan Impression/Problem List Impression: Mr. Lake is 86 year old male with past medical history significant for CLL status post chemotherapy (has port catheter), questionable lung cancer, DVT and atrial fibrillation on several to, status post IVC filter, anemia, recent colonoscopy 04/07/17 who BIBA from [facility] with chief complaint of coffee- ground emesis and confusion. Imaging obtained on admission Chest x-ray: 1. Increased bibasilar airspace disease compared with 01/11/2017 which may represent acute on chronic aspiration pneumonitis. 2. Dense airspace opacification within the right perihilar region which is suspicious for neoplasm and possible posttreatment related changes as described on the comparison CT of 01/11/2017. 3. Tunneled left subclavian catheter terminating within the brachiocephalic vein. 4. Right pleural thickening and possible right upper lobe atelectasis. 5. Aortic calcific atherosclerosis. 6. Diffuse osteopenia. CT abdomen pelvis: 1. Marked gastric distention. The stomach is markedly distended containing both gas and fluid. 2. The incidentally visualized portions of the lung bases demonstrate bilateral dependent airspace disease increased in prominence compared with 01/11/2017. These findings may represent chronic or acute on chronic aspiration pneumonitis. 3. No free intraperitoneal gas. No intestinal dilatation. 4. Diffuse Monckeberg type facet or calcification suspicious for the sequela of long-term diabetes mellitus. Additionally, diffuse calcific atherosclerosis is present including extensive coronary artery calcific atherosclerosis. 4. The incidentally visualized portions of the lung bases demonstrate bilateral dependent airspace disease increased in prominence compared with 01/11/2017. These findings may represent chronic or acute on chronic aspiration pneumonitis. 5. 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 6. L1 vertebral body benign-appearing compression deformity grossly unchanged compared with 01/11/2017. 7. Inferior vena cava filter in situ. 8. Bilateral punctate renal calcifications which may represent vascular calcifications or urolithiasis. No evidence of acute obstructive uropathy. No hydronephrosis or ureterectasis. 9. Bilateral posterolateral rib chronic posttraumatic deformities. 10. Diffuse hepatic steatosis. 11. Status post cholecystectomy. Echocardiogram: CONCLUSIONS Normal size left ventricle. Mild concentric left ventricular hypertrophy. No obvious regional wall motion abnormalities. Normal left ventricular ejection fraction visually estimated at > 60%. "pseudonormal" filling pattern of the left ventricle for age (stage 2 diastolic dysfunction). Normal right ventricular size and function. Normal atrial size. Trace to mild mitral regurgitation. Moderate aortic stenosis. Trace aortic regurgitation. Mild tricuspid regurgitation. Dilated inferior vena cava. Problem list: -DIC -Septic shock requiring 2 pressors -Aspiration pneumonitis/postprocedure aspiration pneumonia on vancomycin and ceftriaxone -Gastric outlet obstruction with CT evidence of gas/fluid level stomach, possible perforation s/p colonscopy on falgeal -Atrial fibrilation and DVT on xeralto and IVC filater -CLL s/p chemotherapy has portal catheter Plan #DIC -INR prolonged -Fibrinogen 412<316<564 -Fibrin split product elevated -D-Dimer elevated -Venous Doppler 44 extremities revealed in addition to right internal jugular thrombosis, right profunda femoral vein DVT -Patient received 2 units of platelet, improved from 49 to 84 -Patient received 1 unit of blood for active hemoptysis, hemoglobin improved to 8.8/27.5 to 11.1/35 -Vecuronium drip/fentanyl drip were started for sedation and paralysis to prevent further cough episodes and active hemoptysis yesterday, vacuronium will be discontiuned today #Resipratory: -AC, 450, 26, 8, 100% saturating 100% -Consider obtaining blood gas, last blod gas was 04/13 at 3 am -Chest x-ray endotracheal tube terminates about 2 cm above the imelda -Continue aggressive oral hygiene #ID -Covering for aspiration pneumonitis/postprocedure aspiration pneumonia -Continue vancomycin Day#4, Ceftriaxone 1000 mg Day#4 -Sputum culture positive for MRSA -ID recommendation is appreciated -On admission flagyl was discontinued as there is no evidence of GI perforation, no evidence of free air in CT abdomen -Follow up blood culture #CVS -Continue IVF NS 150 mL/mL -Levophed and vasopressin were restarted yesterday given hypotension -Cardiology recommendation was obtained for atrial fibrillation and DVT, anti- coagulation is on hold for now #Hematology -Past medical history of chronic lymphocytic leukemia status post chemotherapy -Patient has port catheter, no signs of infection -Hematology consultation was obtained, thinks the recommendation -Previous medical records was obtained from [facility], in patient's chart -On admission, OG tube initially aspirated 2 L of dark fluid that's grossly hemoccult positive -GI consultation was obtained, plan for EGD was canceled given active hemoptysis Colonoscopy 04/07/17: Findings: There were enlarged vessels in the rectum, possibly consistent with rectal varices. There was no friability or blood. There were no mucosal lesions. Diverticula were seen from left colon to right colon. The mucosa was intact throughout. No polyps or mass lesions were seen. The right-sided anastomosis was intact, and there were no mucosal normalities. The mucosa of the neoterminal ileum was normal. Given the degree of preparation, small lesions such as polyps or vascular ectasias may been obscured. Impression: * Diverticulosis * Enlarged rectal vessels, rule out varices * No evident neoplasia EGD 02/05/17: Findings: The proximal esophagus was normal. The caliber and contour the esophagus were normal. The distal mucosa there was erythema but no erosion or ulceration. There was no nodularity or mass. There were no varices. The GE junction at 41 cm was normal. There was a hiatal hernia. There were no evident Atilio's erosions. Stomach had normal distention. The cardia was normal. Mucosa and folds were normal throughout. The pyloric channel was normal. The duodenal bulb was normal. In the post bulbar duodenum were several enlarged folds, and 3 biopsies were obtained. There were no mucosal breaks/ulcers, and no polyps or mass lesions. The mucosa and folds of the descending and transverse portions of the duodenum were normal. Impression: * Nonerosive esophagitis * Hiatal hernia * Enlarged duodenal post bulbar folds #Metabolic -Measure electrolyte and replete as needed daily -Positive fluid balance #Neurolgy -Sedation by Propofol -Escitalopram 20 mg daily I'll medication -Lyrica 50 mg at bedtime #Alimentary -Nothing by mouth -Tube feeding DVT prophylaxis Code full Tube feeding Problem List: 1. Lung cancer 2. DIC (disseminated intravascular coagulation) 3. CLL (chronic lymphocytic leukemia) 4. Sepsis 5. Anemia Pain Ratin Tomorrow's Labs & Rationales: CBC, ICU bundle, INR, Fibrinogen Plan DVT/Prophylaxis: mechanical
--- NOTE | 2017-04-13 09:34 | PN- Att Addend ---
Attending Addendum Attending Brief Note Patient remains intubated. General Appearance: Intubated Cardiovascular: Loud systolic murmur Lungs: decreased air entry Abdomen: Normal Bowel Sounds, Soft, No Tenderness NL, Reflexes 2+ Extremities: Pedal edema Assessment Patient is likely in DIC with bleeding complications and blood clots involving internal jugular and upper extremity. Bronchial bleeding likely traumatic from suction. Hypotensive currently on 2 pressors. Elevated leukocytosis likely secondary to aspiration and alveolar hemorrhage. Prognosis extremely poor. At this point we are waiting decision from Court regarding CODE STATUS. Plan Continue supportive care Follow consults recommendations GI prophylaxis Prognosis is poor Current Medications Sig/Fred Start time Last Medication Dose Route Stop Time Status Admin Albuterol Sulfate 3 ML Q6 PRN 04/08 1130 AC 04/08 INH 1240 Atropine Sulfate 1 MG .STK-MED ONE 04/12 1751 DC IM 04/12 1752 Ceftriaxone Sodium 1,000 MG DAILY 04/10 1236 AC 04/13 IV 0916 Chlorhexidine 15 ML BID 04/09 1000 AC 04/13 Gluconate PO 0916 Dextrose/Sodium 1,000 ML Q6H 04/10 1015 DC 04/11 Chloride IV 2227 Escitalopram Oxalate 20 MG DAILY 04/09 1000 AC 04/11 PO 0932 Fentanyl Citrate 1,000 MCG Q24H 04/12 0945 AC 04/13 Dextrose/Water 250 ML IV 0928 Ferrous Sulfate 300 MG TID 04/11 2300 AC 04/12 PO 0002 Lorazepam 2 MG ONE ONE 04/12 1430 DC 04/12 IV 04/12 1431 1430 Lorazepam 1 MG ONCE ONE 04/12 1300 DC 04/12 IV 04/12 1301 1311 Mirtazapine 7.5 MG AT BEDTIME 04/08 2200 AC 04/11 PO 2225 Norepinephrine 4 MG Q3H 04/13 0000 AC 04/13 Sodium Chloride 250 ML IV 0443 Norepinephrine 4 MG Q24H 04/12 1645 DC 04/12 Sodium Chloride 250 ML IV 2203 Pantoprazole Sodium 40 MG BID 04/08 1415 AC 04/13 IV 0916 Polyethylene Glycol 17 GM DAILY 04/09 1000 AC 04/11 PO 0933 Potassium Chloride 10 MEQ ONCE ONE 04/12 1400 CAN IV 04/12 1401 Potassium Chloride 10 MEQ ONCE ONE 04/12 1045 DC 04/12 IV 04/12 1046 1239 Pregabalin 50 MG AT BEDTIME 04/08 2200 AC 04/11 PO 2225 Sodium Chloride 500 ML BOLUS ONE 04/12 2115 DC 04/12 IV 04/12 221 2118 Sodium Chloride 500 ML BOLUS ONE 04/12 1945 DC 04/12 IV 04/12 2044 194 Sodium Chloride 500 ML BOLUS ONE 04/12 1545 DC 04/12 IV 04/12 1644 1545 Sodium Chloride 1,000 ML Q6H 04/12 1415 AC 04/13 IV 0835 Sodium Phosphate 15 mMol ONE ONE 04/12 1400 DC 04/12 Sodium Chloride 250 ML IV 04/12 1803 1606 Vancomycin HCl 1,000 MG Q24H 04/13 0915 AC 04/13 Sodium Chloride 250 ML IV 0917 Vancomycin HCl 1,000 MG Q24H 04/09 0730 DC 04/12 Sodium Chloride 250 ML IV 0745 Vasopressin 40 UNITS Q16H 04/12 2230 AC 04/12 Sodium Chloride 100 ML IV 2215 Vecuronium [place] 10 MG Q24H 04/13 0915 DC Sodium Chloride 100 ML IV Vecuronium [place] 10 MG Q2H 04/12 2300 AC 04/13 Sodium Chloride 100 ML IV 0722 Vecuronium [place] 10 MG Q1H 04/12 1545 DC 04/12 Sodium Chloride 100 ML IV 2202 Vecuronium [place] 10 MG .STK-MED ONE 04/12 1539 DC IV 04/12 1540 Vecuronium [place] 10 MG .STK-MED ONE 04/12 1359 DC IV 04/12 1400 Vecuronium [place] 10 MG Q24H 04/12 1215 DC 04/12 Sodium Chloride 100 ML IV 1439 Vecuronium [place] 10 MG .STK-MED ONE 04/12 1206 DC IV 04/12 1207 Laboratory Tests 04/13 04/13 0429 0320 Blood Gas pH (7.35 - 7.45 PH) 7.28 *L pCO2 (35 - 45 TORR) 36 pO2 (80 - 100 TORR) 53 L HCO3 (21 - 28 MEQ/L) 17 L ABG O2 Sat (Measured) (>96.0 %) 89.0 L P-50 (Temp Corrected) Y Carboxyhemoglobin (1.5 - 5.0 %) 0.5 L O2 Concentration % 80% Temperature (97.0 - 100.0 FARH) 97.4 Respiration Rate (BPM) 26 O2 Delivery Method ESPRIT Vent Mode AC Expiratory Pressure (CMH2O/P) 8 Tidal Volume (CC) 450 Chemistry Sodium (137 - 145 mmol/L) 145 Potassium (3.5 - 5.1 mmol/L) 4.1 Chloride (98 - 107 mmol/L) 112 H Carbon Dioxide (22 - 30 mmol/L) 19 L Anion Gap (5 - 16) 13 BUN (9 - 20 mg/dL) 29 H Creatinine (0.7 - 1.2 mg/dL) 1.0 Estimated GFR (>60 ml/min) > 60 Glucose (65 - 99 mg/dL) 118 H Calcium (8.4 - 10.2 mg/dL) 7.2 L Phosphorus (2.5 - 4.5 mg/dL) 4.1 Magnesium (1.6 - 2.3 mg/dL) 2.0 Total Bilirubin (0.2 - 1.3 mg/dL) 0.7 AST (17 - 59 U/L) 13 L ALT (21 - 72 U/L) 27 Albumin (3.5 - 5.0 g/dL) 2.4 L Coagulation PT (9.4 - 12.5 SEC) 12.0 INR (0.90 - 1.17) 1.14 APTT (25 - 37 SEC) 38 H Fibrinogen Activity (200 - 393 MG/DL) 412 H Fibrin Degrad Products (< 10 ug/ml) > 40 ug/ml H Hematology CBC w Diff MAN DIFF ORDERED WBC (4.8 - 10.8 /CUMM) 67.4 *H RBC (4.70 - 6.10 /CUMM) 4.56 L Hgb (14.0 - 18.0 G/DL) 11.8 L Hct (42 - 52 %) 37.4 L MCV (80.0 - 94.0 FL) 82.1 MCH (27.0 - 31.0 PG) 25.9 L RDW (11.5 - 14.5 %) 19.4 H Plt Count (130 - 400 /CUMM) 98 L MPV (7.4 - 10.4 FL) 11.3 H Gran % (42.2 - 75.2 %) 37.0 L Lymphocytes % (20.5 - 51.1 %) 62.7 H Monocytes % (1.7 - 9.3 %) 0.1 L Eosinophils % (0 - 5 %) 0 Basophils % (0.0 - 2.0 %) 0.2 Absolute Granulocytes (1.4 - 6.5 /CUMM) 25.0 H Segmented Neutrophils (42.2 - 75.2 %) 7 L Band Neutrophils (0.0 - 5.0 %) 7 H Absolute Lymphocytes (1.2 - 3.4 /CUMM) 42.3 H Lymphocytes (20.5 - 51.1 %) 85 H Monocytes (1.7 - 9.3 %) 1 L Absolute Monocytes (0.10 - 0.60 /CUMM) 0.1 L Absolute Eosinophils (0.0 - 0.7 /CUMM) 0 Absolute Basophils (0.0 - 0.2 /CUMM) 0.2 Platelet Estimate (ADEQUATE) DECREASED Polychromasia 1+ Poikilocytosis 1+ Ovalocytes 1+ [place] Cells 1+ PUBS MCHC (33.0 - 37.0 G/DL) 31.5 L Miscellaneous Phlebotomy Draw Site RIGHT RADIAL 04/12 04/12 7642 3110 Blood Gas pH (7.35 - 7.45 PH) 7.39 pCO2 (35 - 45 TORR) 32 L pO2 (80 - 100 TORR) 127 H HCO3 (21 - 28 MEQ/L) 19 L ABG O2 Sat (Measured) (>96.0 %) 98.0 P-50 (Temp Corrected) N Carboxyhemoglobin (1.5 - 5.0 %) 0.7 L O2 Concentration % 60% Temperature (97.0 - 100.0 FARH) 97.7 Respiration Rate (BPM) 26 O2 Delivery Method ESPRIT Vent Mode AC Expiratory Pressure (CMH2O/P) 8 Tidal Volume (CC) 450 Chemistry Sodium (137 - 145 mmol/L) 139 Potassium (3.5 - 5.1 mmol/L) 4.0 Chloride (98 - 107 mmol/L) 111 H Carbon Dioxide (22 - 30 mmol/L) 20 L Anion Gap (5 - 16) 8 BUN (9 - 20 mg/dL) 29 H Creatinine (0.7 - 1.2 mg/dL) 0.9 Estimated GFR (>60 ml/min) > 60 Glucose (65 - 99 mg/dL) 128 H Calcium (8.4 - 10.2 mg/dL) 6.5 L Phosphorus (2.5 - 4.5 mg/dL) 3.7 Magnesium (1.6 - 2.3 mg/dL) 1.9 Total Bilirubin (0.2 - 1.3 mg/dL) 0.6 AST (17 - 59 U/L) 11 L ALT (21 - 72 U/L) 29 Albumin (3.5 - 5.0 g/dL) 2.0 L Hematology CBC w Diff MAN DIFF ORDERED WBC (4.8 - 10.8 /CUMM) 43.0 *H RBC (4.70 - 6.10 /CUMM) 3.77 L Hgb (14.0 - 18.0 G/DL) 9.6 L Hct (42 - 52 %) 30.5 L MCV (80.0 - 94.0 FL) 80.9 MCH (27.0 - 31.0 PG) 25.4 L RDW (11.5 - 14.5 %) 19.0 H Plt Count (130 - 400 /CUMM) 80 L MPV (7.4 - 10.4 FL) 9.2 Gran % (42.2 - 75.2 %) 33.4 L Lymphocytes % (20.5 - 51.1 %) 65.6 H Monocytes % (1.7 - 9.3 %) 0.5 L Eosinophils % (0 - 5 %) 0 Basophils % (0.0 - 2.0 %) 0.5 Absolute Granulocytes (1.4 - 6.5 /CUMM) 14.4 H Segmented Neutrophils (42.2 - 75.2 %) 23 L Absolute Lymphocytes (1.2 - 3.4 /CUMM) 28.2 H Lymphocytes (20.5 - 51.1 %) 76 H Monocytes (1.7 - 9.3 %) 1 L Absolute Monocytes (0.10 - 0.60 /CUMM) 0.2 Absolute Eosinophils (0.0 - 0.7 /CUMM) 0 Absolute Basophils (0.0 - 0.2 /CUMM) 0.2 Platelet Estimate (ADEQUATE) VERIFIED BY SMEAR Poikilocytosis 1+ Anisocytosis 1+ Ovalocytes FEW [place] Cells FEW Elliptocytes RARE PUBS MCHC (33.0 - 37.0 G/DL) 31.4 L Miscellaneous Phlebotomy Draw Site RIGHT BRACHIAL Other Body Source [place] Total RBCs Counted (%) 100 04/12 04/12 1610 1300 Blood Gas pH (7.35 - 7.45 PH) 7.20 *L pCO2 (35 - 45 TORR) 56 H pO2 (80 - 100 TORR) 195 H HCO3 (21 - 28 MEQ/L) 22 ABG O2 Sat (Measured) (>96.0 %) 98.0 P-50 (Temp Corrected) N Carboxyhemoglobin (1.5 - 5.0 %) 0.4 L O2 Concentration % 100% Temperature (97.0 - 100.0 FARH) 97.7 Respiration Rate (BPM) 12 O2 Delivery Method ESPRIT Vent Mode AC Expiratory Pressure (CMH2O/P) 8 Tidal Volume (CC) 450 Chemistry Sodium (137 - 145 mmol/L) 141 Potassium (3.5 - 5.1 mmol/L) 3.9 Chloride (98 - 107 mmol/L) 111 H Carbon Dioxide (22 - 30 mmol/L) 22 Anion Gap (5 - 16) 8 BUN (9 - 20 mg/dL) 28 H Creatinine (0.7 - 1.2 mg/dL) 0.8 Estimated GFR (>60 ml/min) > 60 Glucose (65 - 99 mg/dL) 117 H Calcium (8.4 - 10.2 mg/dL) 7.0 L Phosphorus (2.5 - 4.5 mg/dL) 2.4 L Magnesium (1.6 - 2.3 mg/dL) 2.0 Total Bilirubin (0.2 - 1.3 mg/dL) 0.6 AST (17 - 59 U/L) 12 L ALT (21 - 72 U/L) 21 Albumin (3.5 - 5.0 g/dL) 2.2 L Hematology CBC w Diff MAN DIFF ORDERED WBC (4.8 - 10.8 /CUMM) 66.9 *H RBC (4.70 - 6.10 /CUMM) 4.35 L Hgb (14.0 - 18.0 G/DL) 11.1 L Hct (42 - 52 %) 35.0 L MCV (80.0 - 94.0 FL) 80.6 MCH (27.0 - 31.0 PG) 25.4 L RDW (11.5 - 14.5 %) 18.3 H Plt Count (130 - 400 /CUMM) 84 L MPV (7.4 - 10.4 FL) 10.0 Gran % (42.2 - 75.2 %) 33.1 L Lymphocytes % (20.5 - 51.1 %) 66.6 H Monocytes % (1.7 - 9.3 %) 0.2 L Eosinophils % (0 - 5 %) 0.1 Basophils % (0.0 - 2.0 %) 0 L Absolute Granulocytes (1.4 - 6.5 /CUMM) 22.2 H Absolute Lymphocytes (1.2 - 3.4 /CUMM) 44.5 H Absolute Monocytes (0.10 - 0.60 /CUMM) 0.1 L Absolute Eosinophils (0.0 - 0.7 /CUMM) 0.1 Absolute Basophils (0.0 - 0.2 /CUMM) 0 Platelet Estimate (ADEQUATE) DECREASED Polychromasia PUBS MCHC (33.0 - 37.0 G/DL) 31.6 L Miscellaneous Phlebotomy Draw Site RIGHT BRACHIAL Vital Signs Date Time Temp Pulse Resp B/P B/P Pulse O2 O2 Flow FiO2 Mean Ox Delivery Rate 04/13 0838 90 04/13 0800 96.8 102 26 97/55 100 Ventilator 100% 04/13 0800 100 Ventilator 100% 04/13 0607 100 04/13 0443 96.1 123 26 103/58 04/13 0407 100 04/13 0400 91 Ventilator 80% 04/13 0325 100 04/13 0256 80 04/13 0223 70 04/13 0217 122 26 117/63 04/13 0000 97 Ventilator 70% 04/13 0000 97.4 93 26 90/60 97 Ventilator 70% 04/12 2210 70 04/12 2203 92 26 72/47 04/12 2010 60 04/12 2000 100 Ventilator 50% 04/12 1645 101 74/0 04/12 1605 10 04/12 1600 97.7 111 15 92/0 99 Ventilator 100% 04/12 1600 99 Ventilator 100% 04/12 1445 100 04/12 1203 100 04/12 1200 91 Ventilator 50% 04/12 1040 50
--- NOTE | 2017-04-13 10:00 | PN- Infect Dx ---
Subjective Subjective: Afebrile. He became hypotensive yesterday afternoon, now requiring 2 pressors. His oxygen requirements have also increased, now on 100% oxygen. Objective Last 24 Hrs of Vital Signs/I&O Vital Signs Date Time Temp Pulse Resp B/P B/P Pulse O2 O2 Flow FiO2 Mean Ox Delivery Rate 04/13 0838 90 04/13 0800 96.8 102 26 97/55 100 Ventilator 100% 04/13 0800 100 Ventilator 100% 04/13 0607 100 04/13 0443 96.1 123 26 103/58 04/13 0407 100 04/13 0400 91 Ventilator 80% 04/13 0325 100 04/13 0256 80 04/13 0223 70 04/13 0217 122 26 117/63 04/13 0000 97 Ventilator 70% 04/13 0000 97.4 93 26 90/60 97 Ventilator 70% 04/12 2210 70 04/12 2203 92 26 72/47 04/12 2010 60 04/12 2000 100 Ventilator 50% 04/12 1645 101 74/0 04/12 1605 10 04/12 1600 97.7 111 15 92/0 99 Ventilator 100% 04/12 1600 99 Ventilator 100% 04/12 1445 100 04/12 1203 100 04/12 1200 91 Ventilator 50% 04/12 1040 50 Intake & Output 04/13 1600 04/13 0800 04/13 0000 Intake Total 1 3562 Output Total 40 15 Balance 2040 3547 Intake, IV 2080 3562 Number 0 0 Bowel Movements Output, Urine 40 15 Patient 183 lb Weight Weight Bed scale Measurement Method Physical Exam Other Physical Findings: He is sedated/unresponsive on the ventilator Lungs are clear Heart regular rhythm with no murmur Abdomen is soft, with positive bowel sounds Extremities no cyanosis, clubbing or edema Ritchie catheter remains in place Results Last 24 Hours of Lab Results: Laboratory Tests 04/13 04/13 0429 0320 Blood Gas pH (7.35 - 7.45 PH) 7.28 *L pCO2 (35 - 45 TORR) 36 pO2 (80 - 100 TORR) 53 L HCO3 (21 - 28 MEQ/L) 17 L ABG O2 Sat (Measured) (>96.0 %) 89.0 L P-50 (Temp Corrected) Y Carboxyhemoglobin (1.5 - 5.0 %) 0.5 L O2 Concentration % 80% Temperature (97.0 - 100.0 FARH) 97.4 Respiration Rate (BPM) 26 O2 Delivery Method ESPRIT Vent Mode AC Expiratory Pressure (CMH2O/P) 8 Tidal Volume (CC) 450 Chemistry Sodium (137 - 145 mmol/L) 145 Potassium (3.5 - 5.1 mmol/L) 4.1 Chloride (98 - 107 mmol/L) 112 H Carbon Dioxide (22 - 30 mmol/L) 19 L Anion Gap (5 - 16) 13 BUN (9 - 20 mg/dL) 29 H Creatinine (0.7 - 1.2 mg/dL) 1.0 Estimated GFR (>60 ml/min) > 60 Glucose (65 - 99 mg/dL) 118 H Calcium (8.4 - 10.2 mg/dL) 7.2 L Phosphorus (2.5 - 4.5 mg/dL) 4.1 Magnesium (1.6 - 2.3 mg/dL) 2.0 Total Bilirubin (0.2 - 1.3 mg/dL) 0.7 AST (17 - 59 U/L) 13 L ALT (21 - 72 U/L) 27 Albumin (3.5 - 5.0 g/dL) 2.4 L Coagulation PT (9.4 - 12.5 SEC) 12.0 INR (0.90 - 1.17) 1.14 APTT (25 - 37 SEC) 38 H Fibrinogen Activity (200 - 393 MG/DL) 412 H Fibrin Degrad Products (< 10 ug/ml) > 40 ug/ml H Hematology CBC w Diff MAN DIFF ORDERED WBC (4.8 - 10.8 /CUMM) 67.4 *H RBC (4.70 - 6.10 /CUMM) 4.56 L Hgb (14.0 - 18.0 G/DL) 11.8 L Hct (42 - 52 %) 37.4 L MCV (80.0 - 94.0 FL) 82.1 MCH (27.0 - 31.0 PG) 25.9 L RDW (11.5 - 14.5 %) 19.4 H Plt Count (130 - 400 /CUMM) 98 L MPV (7.4 - 10.4 FL) 11.3 H Gran % (42.2 - 75.2 %) 37.0 L Lymphocytes % (20.5 - 51.1 %) 62.7 H Monocytes % (1.7 - 9.3 %) 0.1 L Eosinophils % (0 - 5 %) 0 Basophils % (0.0 - 2.0 %) 0.2 Absolute Granulocytes (1.4 - 6.5 /CUMM) 25.0 H Segmented Neutrophils (42.2 - 75.2 %) 7 L Band Neutrophils (0.0 - 5.0 %) 7 H Absolute Lymphocytes (1.2 - 3.4 /CUMM) 42.3 H Lymphocytes (20.5 - 51.1 %) 85 H Monocytes (1.7 - 9.3 %) 1 L Absolute Monocytes (0.10 - 0.60 /CUMM) 0.1 L Absolute Eosinophils (0.0 - 0.7 /CUMM) 0 Absolute Basophils (0.0 - 0.2 /CUMM) 0.2 Platelet Estimate (ADEQUATE) DECREASED Polychromasia 1+ Poikilocytosis 1+ Ovalocytes 1+ Shirley Cells 1+ PUBS MCHC (33.0 - 37.0 G/DL) 31.5 L Miscellaneous Phlebotomy Draw Site RIGHT RADIAL 04/12 04/12 9203 8460 Blood Gas pH (7.35 - 7.45 PH) 7.39 pCO2 (35 - 45 TORR) 32 L pO2 (80 - 100 TORR) 127 H HCO3 (21 - 28 MEQ/L) 19 L ABG O2 Sat (Measured) (>96.0 %) 98.0 P-50 (Temp Corrected) N Carboxyhemoglobin (1.5 - 5.0 %) 0.7 L O2 Concentration % 60% Temperature (97.0 - 100.0 FARH) 97.7 Respiration Rate (BPM) 26 O2 Delivery Method ESPRIT Vent Mode AC Expiratory Pressure (CMH2O/P) 8 Tidal Volume (CC) 450 Chemistry Sodium (137 - 145 mmol/L) 139 Potassium (3.5 - 5.1 mmol/L) 4.0 Chloride (98 - 107 mmol/L) 111 H Carbon Dioxide (22 - 30 mmol/L) 20 L Anion Gap (5 - 16) 8 BUN (9 - 20 mg/dL) 29 H Creatinine (0.7 - 1.2 mg/dL) 0.9 Estimated GFR (>60 ml/min) > 60 Glucose (65 - 99 mg/dL) 128 H Calcium (8.4 - 10.2 mg/dL) 6.5 L Phosphorus (2.5 - 4.5 mg/dL) 3.7 Magnesium (1.6 - 2.3 mg/dL) 1.9 Total Bilirubin (0.2 - 1.3 mg/dL) 0.6 AST (17 - 59 U/L) 11 L ALT (21 - 72 U/L) 29 Albumin (3.5 - 5.0 g/dL) 2.0 L Hematology CBC w Diff MAN DIFF ORDERED WBC (4.8 - 10.8 /CUMM) 43.0 *H RBC (4.70 - 6.10 /CUMM) 3.77 L Hgb (14.0 - 18.0 G/DL) 9.6 L Hct (42 - 52 %) 30.5 L MCV (80.0 - 94.0 FL) 80.9 MCH (27.0 - 31.0 PG) 25.4 L RDW (11.5 - 14.5 %) 19.0 H Plt Count (130 - 400 /CUMM) 80 L MPV (7.4 - 10.4 FL) 9.2 Gran % (42.2 - 75.2 %) 33.4 L Lymphocytes % (20.5 - 51.1 %) 65.6 H Monocytes % (1.7 - 9.3 %) 0.5 L Eosinophils % (0 - 5 %) 0 Basophils % (0.0 - 2.0 %) 0.5 Absolute Granulocytes (1.4 - 6.5 /CUMM) 14.4 H Segmented Neutrophils (42.2 - 75.2 %) 23 L Absolute Lymphocytes (1.2 - 3.4 /CUMM) 28.2 H Lymphocytes (20.5 - 51.1 %) 76 H Monocytes (1.7 - 9.3 %) 1 L Absolute Monocytes (0.10 - 0.60 /CUMM) 0.2 Absolute Eosinophils (0.0 - 0.7 /CUMM) 0 Absolute Basophils (0.0 - 0.2 /CUMM) 0.2 Platelet Estimate (ADEQUATE) VERIFIED BY SMEAR Poikilocytosis 1+ Anisocytosis 1+ Ovalocytes FEW Rudolph Cells FEW Elliptocytes RARE PUBS MCHC (33.0 - 37.0 G/DL) 31.4 L Miscellaneous Phlebotomy Draw Site RIGHT BRACHIAL Other Body Source Fld Total RBCs Counted (%) 100 05/22 05/22 1610 1300 Blood Gas pH (7.35 - 7.45 PH) 7.20 *L pCO2 (35 - 45 TORR) 56 H pO2 (80 - 100 TORR) 195 H HCO3 (21 - 28 MEQ/L) 22 ABG O2 Sat (Measured) (>96.0 %) 98.0 P-50 (Temp Corrected) N Carboxyhemoglobin (1.5 - 5.0 %) 0.4 L O2 Concentration % 100% Temperature (97.0 - 100.0 FARH) 97.7 Respiration Rate (BPM) 12 O2 Delivery Method ESPRIT Vent Mode AC Expiratory Pressure (CMH2O/P) 8 Tidal Volume (CC) 450 Chemistry Sodium (137 - 145 mmol/L) 141 Potassium (3.5 - 5.1 mmol/L) 3.9 Chloride (98 - 107 mmol/L) 111 H Carbon Dioxide (22 - 30 mmol/L) 22 Anion Gap (5 - 16) 8 BUN (9 - 20 mg/dL) 28 H Creatinine (0.7 - 1.2 mg/dL) 0.8 Estimated GFR (>60 ml/min) > 60 Glucose (65 - 99 mg/dL) 117 H Calcium (8.4 - 10.2 mg/dL) 7.0 L Phosphorus (2.5 - 4.5 mg/dL) 2.4 L Magnesium (1.6 - 2.3 mg/dL) 2.0 Total Bilirubin (0.2 - 1.3 mg/dL) 0.6 AST (17 - 59 U/L) 12 L ALT (21 - 72 U/L) 21 Albumin (3.5 - 5.0 g/dL) 2.2 L Hematology CBC w Diff MAN DIFF ORDERED WBC (4.8 - 10.8 /CUMM) 66.9 *H RBC (4.70 - 6.10 /CUMM) 4.35 L Hgb (14.0 - 18.0 G/DL) 11.1 L Hct (42 - 52 %) 35.0 L MCV (80.0 - 94.0 FL) 80.6 MCH (27.0 - 31.0 PG) 25.4 L RDW (11.5 - 14.5 %) 18.3 H Plt Count (130 - 400 /CUMM) 84 L MPV (7.4 - 10.4 FL) 10.0 Gran % (42.2 - 75.2 %) 33.1 L Lymphocytes % (20.5 - 51.1 %) 66.6 H Monocytes % (1.7 - 9.3 %) 0.2 L Eosinophils % (0 - 5 %) 0.1 Basophils % (0.0 - 2.0 %) 0 L Absolute Granulocytes (1.4 - 6.5 /CUMM) 22.2 H Absolute Lymphocytes (1.2 - 3.4 /CUMM) 44.5 H Absolute Monocytes (0.10 - 0.60 /CUMM) 0.1 L Absolute Eosinophils (0.0 - 0.7 /CUMM) 0.1 Absolute Basophils (0.0 - 0.2 /CUMM) 0 Platelet Estimate (ADEQUATE) DECREASED Polychromasia PUBS MCHC (33.0 - 37.0 G/DL) 31.6 L Miscellaneous Phlebotomy Draw Site RIGHT BRACHIAL Last 24 Hours of Matt Results: No recent cultures Recent Imaging Studies: Chest x-ray April 13, personally reviewed, reveals worsening airspace opacity within the left midlung and at the left lung base with slightly improved aeration within the right lung Assessment/Plan Impression: His condition continues to deteriorate, now on 2 pressors and 100% oxygen, with worsening of his chest x-ray possibly secondary to pneumonia versus pulmonary hemorrhage, with recent hemoptysis and thrombocytopenia, which has improved today. He remains afebrile with white blood cell count elevated, though this parameter cannot be followed, given his underlying CLL, on Vancomycin and Ceftriaxone now Day 6 of treatment for presumed aspiration pneumonia, with sputum culture positive for MRSA and Escherichia coli. His prognosis is quite poor and discussion regarding his overall level of care is underway. Suggestion: 1. Await decision regarding overall level of care 2. Continue Vancomycin and Ceftriaxone pending above
--- NOTE | 2017-04-13 10:55 | PN- CRCU ---
Subjective HPI/Critical Care Issues: The patient remains intubated and sedated, on mechanical ventilation. He remains on pressor support and vecuronium for paralysis. The patient's hemoptysis has improved over the past 24 hours. His urine output remains an issue, noting this is decreased over the past 24 hours. The patient is on 100% oxygen to maintain his saturations in the low to mid 90s. Overall, he continues to do poorly. Objective Current Medications: Current Medications Sig/Fred Start time Last Medication Dose Route Stop Time Status Admin Albuterol Sulfate 3 ML Q6 PRN 04/08 1130 AC 04/08 INH 1240 Atropine Sulfate 1 MG .STK-MED ONE 04/12 1751 DC IM 04/12 1752 Ceftriaxone Sodium 1,000 MG DAILY 04/10 1236 AC 04/13 IV 0916 Chlorhexidine 15 ML BID 04/09 1000 AC 04/13 Gluconate PO 0916 Dextrose/Sodium 1,000 ML Q6H 04/10 1015 DC 04/11 Chloride IV 2227 Escitalopram Oxalate 20 MG DAILY 04/09 1000 AC 04/11 PO 0932 Fentanyl Citrate 1,000 MCG Q24H 04/12 0945 AC 04/13 Dextrose/Water 250 ML IV 0928 Ferrous Sulfate 300 MG TID 04/11 2300 AC 04/12 PO 0002 Lorazepam 2 MG ONE ONE 04/12 1430 DC 04/12 IV 04/12 1431 1430 Lorazepam 1 MG ONCE ONE 04/12 1300 DC 04/12 IV 04/12 1301 1311 Mirtazapine 7.5 MG AT BEDTIME 04/08 2200 AC 04/11 PO 2225 Norepinephrine 4 MG .STK-MED ONE 04/13 0150 DC IV 04/13 0151 Norepinephrine 4 MG Q3H 04/13 0000 AC 04/13 Sodium Chloride 250 ML IV 0443 Norepinephrine 4 MG Q24H 04/12 1645 DC 04/12 Sodium Chloride 250 ML IV 2203 Pantoprazole Sodium 40 MG BID 04/08 1415 AC 04/13 IV 0916 Polyethylene Glycol 17 GM DAILY 04/09 1000 AC 04/11 PO 0933 Potassium Chloride 10 MEQ ONCE ONE 04/12 1400 CAN IV 04/12 1401 Potassium Chloride 10 MEQ ONCE ONE 04/12 1045 DC 04/12 IV 04/12 1046 1239 Pregabalin 50 MG AT BEDTIME 04/08 2200 AC 05/21 PO 2225 Sodium Chloride 500 ML BOLUS ONE 04/12 2115 DC 04/12 IV 04/12 2214 2118 Sodium Chloride 500 ML BOLUS ONE 04/12 1945 DC 04/12 IV 04/12 2044 1945 Sodium Chloride 500 ML BOLUS ONE 04/12 1545 DC / IV 04/12 1644 1545 Sodium Chloride 1,000 ML Q6H 04/12 1415 AC 04/13 IV 0835 Sodium Phosphate 15 mMol ONE ONE 04/12 1400 DC 04/12 Sodium Chloride 250 ML IV 04/12 1803 1606 Vancomycin HCl 1,000 MG Q24H 04/13 0915 AC 04/13 Sodium Chloride 250 ML IV 0917 Vancomycin HCl 1,000 MG Q24H 04/09 0730 DC 04/12 Sodium Chloride 250 ML IV 0745 Vasopressin 40 UNITS Q16H 04/12 2230 AC 04/12 Sodium Chloride 100 ML IV 2215 Vecuronium [place] 10 MG Q24H 04/13 0915 DC Sodium Chloride 100 ML IV Vecuronium [place] 10 MG Q2H 04/12 2300 DC 04/13 Sodium Chloride 100 ML IV 0722 Vecuronium [place] 10 MG Q1H 04/12 1545 DC 04/12 Sodium Chloride 100 ML IV 2202 Vecuronium [place] 10 MG .STK-MED ONE 04/12 1539 DC IV 04/12 1540 Vecuronium [place] 10 MG .STK-MED ONE 04/12 1359 DC IV 04/12 1400 Vecuronium [place] 10 MG Q24H 04/12 1215 DC 04/12 Sodium Chloride 100 ML IV 1439 Vecuronium [place] 10 MG .STK-MED ONE 04/12 1206 DC IV 04/12 1207 Vital Signs & I&O Last 24 Hrs of Vitals and I&O: Vital Signs Date Time Temp Pulse Resp B/P B/P Pulse O2 O2 Flow FiO2 Mean Ox Delivery Rate 04/13 0838 90 04/13 0800 96.8 102 26 97/55 100 Ventilator 100% 04/13 0800 100 Ventilator 100% 04/13 0607 100 04/13 0443 96.1 123 26 103/58 04/13 0407 100 04/13 0400 91 Ventilator 80% 04/13 0325 100 04/13 0256 80 04/13 0223 70 04/13 0217 122 26 117/63 04/13 0000 97 Ventilator 70% 04/13 0000 97.4 93 26 90/60 97 Ventilator 70% 04/12 2210 70 04/12 2203 92 26 72/47 04/12 2010 60 04/12 2000 100 Ventilator 50% 04/12 1645 101 74/0 04/12 1605 10 04/12 1600 97.7 111 15 92/0 99 Ventilator 100% 04/12 1600 99 Ventilator 100% 04/12 1445 100 04/12 1203 100 04/12 1200 91 Ventilator 50% Intake & Output 04/13 0800 04/13 0000 Intake Total 2080 3562 Output Total 40 15 Balance 2040 3547 Intake, IV 2080 3561 Number 0 0 Bowel Movements Output, Urine 40 15 Patient 183 lb Weight Weight Bed scale Measurement Method Physical Exam General Appearance: sedated, intubated, improved bleeding from endotracheal tube Head: atraumatic, normal appearance Neck: normal inspection, supple, full range of motion Respiratory: chest non-tender Cardiovascular: murmur, systolic murmur, irregularly irregular Gastrointestinal: normal bowel sounds, soft, non-tender Extremities: Warm and dry, no edema Results Last 24 Hrs of Lab Results: Laboratory Tests 04/13/17 0429: Anion Gap 13, Estimated GFR > 60, Glucose 118 H, Calcium 7.2 L, Phosphorus 4.1 , Magnesium 2.0, Total Bilirubin 0.7, AST 13 L, ALT 27, Albumin 2.4 L, PT 12.0 , INR 1.14, APTT 38 H, Fibrinogen Activity 412 H, Fibrin Degrad Products > 40 ug/ml H, CBC w Diff MAN DIFF ORDERED, RBC 4.56 L, MCV 82.1, MCH 25.9 L, RDW 19.4 H, MPV 11.3 H, Gran % 37.0 L, Lymphocytes % 62.7 H, Monocytes % 0.1 L, Eosinophils % 0, Basophils % 0.2, Absolute Granulocytes 25.0 H, Segmented Neutrophils 7 L, Band Neutrophils 7 H, Absolute Lymphocytes 42.3 H, Lymphocytes 85 H, Monocytes 1 L, Absolute Monocytes 0.1 L, Absolute Eosinophils 0, Absolute Basophils 0.2, Platelet Estimate DECREASED, Polychromasia 1+, Poikilocytosis 1+, Ovalocytes 1+, Rudolph Cells 1+, PUBS MCHC 31.5 L 04/13/17 0320: pH 7.28 *L, pCO2 36, pO2 53 L, HCO3 17 L, ABG O2 Sat (Measured) 89.0 L, P-50 (Temp Corrected) Y, Carboxyhemoglobin 0.5 L, O2 Concentration % 80%, Temperature 97.4, Respiration Rate 26, O2 Delivery Method ESPRIT, Vent Mode AC, Expiratory Pressure 8, Tidal Volume 450, Phlebotomy Draw Site RIGHT RADIAL 04/12/17 2242: Anion Gap 8, Estimated GFR > 60, Glucose 128 H, Calcium 6.5 L, Phosphorus 3.7, Magnesium 1.9, Total Bilirubin 0.6, AST 11 L, ALT 29, Albumin 2.0 L, CBC w Diff MAN DIFF ORDERED, RBC 3.77 L, MCV 80.9, MCH 25.4 L, RDW 19.0 H, MPV 9.2, Gran % 33.4 L, Lymphocytes % 65.6 H, Monocytes % 0.5 L, Eosinophils % 0, Basophils % 0.5, Absolute Granulocytes 14.4 H, Segmented Neutrophils 23 L, Absolute Lymphocytes 28.2 H, Lymphocytes 76 H, Monocytes 1 L, Absolute Monocytes 0.2, Absolute Eosinophils 0, Absolute Basophils 0.2, Platelet Estimate VERIFIED BY SMEAR, Poikilocytosis 1+, Anisocytosis 1+, Ovalocytes FEW, [place] Cells FEW, Elliptocytes RARE, PUBS MCHC 31.4 L, Fld Total RBCs Counted 100 04/12/17 1730: pH 7.39, pCO2 32 L, pO2 127 H, HCO3 19 L, ABG O2 Sat (Measured) 98.0, P-50 ( Temp Corrected) N, Carboxyhemoglobin 0.7 L, O2 Concentration % 60%, Temperature 97.7, Respiration Rate 26, O2 Delivery Method ESPRIT, Vent Mode AC, Expiratory Pressure 8, Tidal Volume 450, Phlebotomy Draw Site RIGHT BRACHIAL 04/12/17 1610: pH 7.20 *L, pCO2 56 H, pO2 195 H, HCO3 22, ABG O2 Sat (Measured) 98.0, P-50 ( Temp Corrected) N, Carboxyhemoglobin 0.4 L, O2 Concentration % 100%, Temperature 97.7, Respiration Rate 12, O2 Delivery Method ESPRIT, Vent Mode AC, Expiratory Pressure 8, Tidal Volume 450, Phlebotomy Draw Site RIGHT BRACHIAL 04/12/17 1300: Anion Gap 8, Estimated GFR > 60, Glucose 117 H, Calcium 7.0 L, Phosphorus 2.4 L, Magnesium 2.0, Total Bilirubin 0.6, AST 12 L, ALT 21, Albumin 2.2 L, CBC w Diff MAN DIFF ORDERED, RBC 4.35 L, MCV 80.6, MCH 25.4 L, RDW 18.3 H, MPV 10.0 , Gran % 33.1 L, Lymphocytes % 66.6 H, Monocytes % 0.2 L, Eosinophils % 0.1, Basophils % 0 L, Absolute Granulocytes 22.2 H, Absolute Lymphocytes 44.5 H, Absolute Monocytes 0.1 L, Absolute Eosinophils 0.1, Absolute Basophils 0, Platelet Estimate DECREASED, Polychromasia , PUBS MCHC 31.6 L Diagnostic Data CXR Findings: -Endotracheal tube tip remains 5 cm above the imelda. - Worsening airspace opacity within the left midlung and at the left lung base. - Slightly improved aeration within the right lung in the setting of a right-sided pleural effusion versus pleural thickening and extensive consolidation. Impression/Plan Impression/Plan Impression/Plan: 1. Respiratory failure with life-threatening hemoptysis. 2. 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 Progressive thrombocytopenia. 3. Right upper extremity DVT. History of IVC filter placement. 4. Atrial fibrillation, previously on Xarelto. 5. History of CLL and lung cancer. 6. Severe malnutrition. 7. Blood loss anemia, acute. 8. Positive troponin. 9. Septic shock secondary to intra-abdominal source and likely aspiration pneumonia. 10. Acute renal failure. Recommendations: * Continue current IV sedation. * Discontinue vecuronium drip. * Consult nephrology for acute renal failure. * Continue empiric IV antibiotics. * Continue DVT prophylaxis with Alps. * Continue IV Protonix. * Attempt to titrate pressors for a mean arterial blood pressure greater than 60 mmHg. * The patient has an overall poor prognosis. * Continue all supportive care. *
--- NOTE | 2017-04-13 12:14 | Cons- Nephrology ---
General Information and HPI Consulting Request Date of Consult: 04/13/17 Requested By: LOKESH LYNNE MD Reason for Consult: Anuria Source of Information: old records Exam Limitations: unable to give history History of Present Illness: 86 yr old WM w mult med problems including CLL, ? lung Ca, /MR by echo admit from [facility] 04/08/17 w confusion, hematemesis, & pulm infiltrates. Course complicated by severe hypotension & respiratory failure requiring intubation, NE & vasopressin, & broad spectrum antibiotics, including Vanco, for presumed aspiration pneumonia. Has had recurrent hemoptysis in setting of coagulopathy & developed anuria over last 24 hrs despite I/O s > 20 liters positive. No IV contrast, NSAIDs, aminoglycosides. Pt sedated & paralyzed on vent & unable to give additional hx. Allergies/Medications Allergies: Coded Allergies: No Known Allergies (01/28/17) Home Med List: Acetaminophen (Tylenol Extra Strength) 500 MG TABLET 650 MG WV Q4H PRN PAIN/ TEMP >100 (Reported) Albuterol Sulfate 0.63 MG/3 ML VIAL.NEB 1 UNIT NEB Q4H PRN SOB/ WHEEZING ( Reported) 0.083% Ascorbic Acid (Vitamin C) 500 MG CAPSULE.ER 1 CAP PO DAILY VITAMIN SUPPLEMENT (Reported) Calcium Carbonate (Oyster Shell Calcium) 500 MG CALCIUM (1,250 MG) TABLET 1 TAB PO BID SUPPLEMENT (Reported) Diphenhydramine HCl (Diphenhist) 25 MG CAPSULE 1 TAB PO Q8H PRN ITCHING ( Reported) Escitalopram Oxalate 20 MG TABLET 1 TAB PO DAILY ANTIDEPRESSANT (Reported) Ferrous Sulfate 325 MG (65 MG IRON) TABLET 1 TAB PO TID IRON SUPPLEMENT ( Reported) Guaifenesin/Dextromethorphan (Robafen-Dm Syrup) 100 MG-10 MG/5 ML SYRUP 10 ML PO Q4 PRN COUGH/ CONGESTION (Reported) Ipratropium/Albuterol Sulfate (Iprat-Albut 0.5-3(2.5) MG/3 Ml) 0.5 MG-3 MG (2.5 MG BASE)/3 ML AMPUL.NEB 1 UNIT NEB Q4H HX LUNG CA (Reported) Lorazepam (Ativan) 1 MG TABLET 1 TAB PO BID ANXIETY (Reported) Lorazepam (Ativan) 0.5 MG TABLET 1 TAB PO BEDTIME PRN ANXIETY (Reported) Magnesium Hydroxide (Milk Of Magnesia) 400 MG/5 ML ORAL.SUSP 30 ML PO DAILY PRN CONSTIPATION (Reported) Mirtazapine (Remeron) 15 MG TAB.RAPDIS 7.5 MG PO QHS MEMORY (Reported) Ondansetron (Zofran Odt) 4 MG TAB.RAPDIS 1 TAB PO Q6H PRN NAUSEA/VOMITTING ( Reported) Oxycodone HCl (Oxycontin) 10 MG TAB.ER.12H 1 TAB PO QAM PAIN (Reported) Oxycodone HCl 5 MG CAPSULE 1 CAP PO Q4H PRN PAIN (Reported) Polyethylene Glycol 3350 (Miralax) 17 GRAM/DOSE POWDER 17 GM PO DAILY CONSTIPATION (Reported) mix with water, juice, soda, coffee or tea Pregabalin (Lyrica) 50 MG CAPSULE 1 CAP PO BEDTIME DEPRESSION (Reported) Rivaroxaban (Xarelto) 20 MG TABLET 1 TAB PO QPM BLOOD THINNER (Reported) with food Sennosides (Senna) 8.6 MG TABLET 2 TAB PO Q12H CONSTIPATION (Reported) Current Medications: Current Medications Sig/Fred Start time Last Medication Dose Route Stop Time Status Admin Albuterol Sulfate 3 ML Q6 PRN 04/08 1130 AC 04/08 INH 1240 Atropine Sulfate 1 MG .STK-MED ONE 04/12 1751 DC IM 04/12 1752 Ceftriaxone Sodium 1,000 MG DAILY 04/10 1236 AC 04/13 IV 0916 Chlorhexidine 15 ML BID 04/09 1000 AC 04/13 Gluconate PO 0916 Dextrose/Sodium 1,000 ML Q6H 04/10 1015 DC 04/11 Chloride IV 2227 Escitalopram Oxalate 20 MG DAILY 04/09 1000 AC 04/11 PO 0932 Fentanyl Citrate 1,000 MCG Q24H 04/12 0945 AC 04/13 Dextrose/Water 250 ML IV 0928 Ferrous Sulfate 300 MG TID 04/11 2300 AC 04/12 PO 0002 Lorazepam 2 MG ONE ONE 04/12 1430 DC 04/12 IV 04/12 1431 1430 Lorazepam 1 MG ONCE ONE 04/12 1300 DC 04/12 IV 04/12 1301 1311 Mirtazapine 7.5 MG AT BEDTIME 04/08 2200 AC 04/11 PO 2225 Norepinephrine 4 MG .STK-MED ONE 04/13 0150 DC IV 04/13 0151 Norepinephrine 4 MG Q3H 04/13 0000 AC 04/13 Sodium Chloride 250 ML IV 0443 Norepinephrine 4 MG Q24H 04/12 1645 DC 04/12 Sodium Chloride 250 ML IV 2203 Pantoprazole Sodium 40 MG BID 04/08 1415 AC 04/13 IV 0916 Polyethylene Glycol 17 GM DAILY 04/09 1000 AC 04/11 PO 0933 Potassium Chloride 10 MEQ ONCE ONE 04/12 1400 CAN IV 04/12 1401 Pregabalin 50 MG AT BEDTIME 04/08 2200 AC 04/11 PO 2225 Sodium Chloride 500 ML BOLUS ONE 04/12 2115 DC 04/12 IV 04/12 2214 2118 Sodium Chloride 500 ML BOLUS ONE 04/12 1945 DC 04/12 IV 04/12 204 194 Sodium Chloride 500 ML BOLUS ONE 04/12 1545 DC 04/12 IV 04/12 1644 1545 Sodium Chloride 1,000 ML Q6H 04/12 1415 AC 04/13 IV 0835 Sodium Phosphate 15 mMol ONE ONE 04/12 1400 DC 04/12 Sodium Chloride 250 ML IV 04/12 1803 1606 Vancomycin HCl 1,000 MG Q24H 04/13 0915 AC 04/13 Sodium Chloride 250 ML IV 0917 Vancomycin HCl 1,000 MG Q24H 04/09 0730 DC 04/12 Sodium Chloride 250 ML IV 0745 Vasopressin 40 UNITS Q16H 04/12 2230 04/12 Sodium Chloride 100 ML IV 2215 Vecuronium [place] 10 MG Q24H 04/13 0915 DC Sodium Chloride 100 ML IV Vecuronium [place] 10 MG Q2H 04/12 2300 [place] 04/13 Sodium Chloride 100 ML IV 0722 Vecuronium [place] 10 MG Q1H 04/12 1545 DC 04/12 Sodium Chloride 100 ML IV 2202 Vecuronium [place] 10 MG .STK-MED ONE 04/12 1539 DC IV 04/12 1540 Vecuronium [place] 10 MG .STK-MED ONE 04/12 1359 DC IV 04/12 1400 Vecuronium [place] 10 MG Q24H 04/12 1215 DC 04/12 Sodium Chloride 100 ML IV 1439 Review of Systems Review of Systems: pt unable Past History Travel History Traveled to [place] past 21 day No Medical History Blood Transfusion Hx: No Neurological: TIA, DYSPHAGIA FAILURE TO THRIVE Cardiovascular: AFIB, aortic stenosis (mod by echo), mitral regurgitation (mild by echo), LVH, TR mild by echo Respiratory: pneumonia Gastrointestinal: NONE Hepatic: NONE Renal: NONE Psychiatric: anxiety, depression Endocrine: NONE Blood Disorders: NONE Cancer(s): lung cancer (not confirmed), non-hodgkin lymphoma 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 Acute Rehab Who Do You Live With? there is side at [facility] Services at Home: Nursing Primary Language: Bulgarian Smoking Status: Former Smoker ETOH Use: denies use Functional Ability ADLs Needs Assist: dressing, eating, toileting, bathing. Ambulation: walker IADLs Needs Assist: telephone, transportation. Exam & Diagnostic Data Vital Signs and I&O Vital Signs Date Time Temp Pulse Resp B/P B/P Pulse O2 O2 Flow FiO2 Mean Ox Delivery Rate 04/13 1114 70 04/13 0838 90 04/13 0800 96.8 102 26 97/55 100 Ventilator 100% 04/13 0800 100 Ventilator 100% 04/13 0607 100 04/13 0443 96.1 123 26 103/58 04/13 0407 100 04/13 0400 91 Ventilator 80% 04/13 0325 100 04/13 0256 80 04/13 0223 70 04/13 0217 122 26 117/63 04/13 0000 97 Ventilator 70% 04/13 0000 97.4 93 26 90/60 97 Ventilator 70% 04/12 2210 70 04/12 2203 92 26 72/47 04/12 2010 60 04/12 2000 100 Ventilator 50% 04/12 1645 101 74/0 04/12 1605 10 04/12 1600 97.7 111 15 92/0 99 Ventilator 100% 04/12 1600 99 Ventilator 100% 04/12 1445 100 04/12 1203 100 04/12 1200 91 Ventilator 50% Intake & Output 04/13 1600 04/13 0400 04/12 1600 04/12 0400 04/11 1600 04/11 0400 Intake Total 20802 2677 1760 3311 1983 Output Total 40 15 590 200 280 148 Balance 1 3547 2087 1560 3031 1835 Intake, Blood 805 [place] [address] 1772 1156 2496 1662 Intake, Other 100 Intake, 54 TPN/PPN Intake, Tube 350 395 121 Feeding Intake, Tube 200 420 200 Irrigant Number 0 0 1 0 0 Bowel Movements Output, Other 300 Output, Stool 0 Output, Urine 40 15 290 200 280 148 Patient 183 lb 157 lb Weight Weight Bed scale Bed scale Measurement Method Physical Exam General Appearance: intubated Head: atraumatic Eyes: Bilateral: normal appearance. Ears, Nose, Throat: ET & OG tubes Neck: L sided Portacath Respiratory: rhonchi (L), rales (R), on vent Cardiovascular: friction rub (none), irregularly irregular Gastrointestinal: soft, non-tender, no mass Extremities: no edema Neurologic/Psych: sedated & paralyzed Skin: ecchymosis Lymphatic: no anterior cervical ashutosh, no axillary Results Pertinent Lab Results: Laboratory Tests 04/13 04/13 0429 0320 Blood Gas pH (7.35 - 7.45 PH) 7.28 *L pCO2 (35 - 45 TORR) 36 pO2 (80 - 100 TORR) 53 L HCO3 (21 - 28 MEQ/L) 17 L ABG O2 Sat (Measured) (>96.0 %) 89.0 L P-50 (Temp Corrected) Y Carboxyhemoglobin (1.5 - 5.0 %) 0.5 L O2 Concentration % 80% Temperature (97.0 - 100.0 FARH) 97.4 Respiration Rate (BPM) 26 O2 Delivery Method ESPRIT Vent Mode AC Expiratory Pressure (CMH2O/P) 8 Tidal Volume (CC) 450 Chemistry Sodium (137 - 145 mmol/L) 145 Potassium (3.5 - 5.1 mmol/L) 4.1 Chloride (98 - 107 mmol/L) 112 H Carbon Dioxide (22 - 30 mmol/L) 19 L Anion Gap (5 - 16) 13 BUN (9 - 20 mg/dL) 29 H Creatinine (0.7 - 1.2 mg/dL) 1.0 Estimated GFR (>60 ml/min) > 60 Glucose (65 - 99 mg/dL) 118 H Calcium (8.4 - 10.2 mg/dL) 7.2 L Phosphorus (2.5 - 4.5 mg/dL) 4.1 Magnesium (1.6 - 2.3 mg/dL) 2.0 Total Bilirubin (0.2 - 1.3 mg/dL) 0.7 AST (17 - 59 U/L) 13 L ALT (21 - 72 U/L) 27 Albumin (3.5 - 5.0 g/dL) 2.4 L Coagulation PT (9.4 - 12.5 SEC) 12.0 INR (0.90 - 1.17) 1.14 APTT (25 - 37 SEC) 38 H Fibrinogen Activity (200 - 393 MG/DL) 412 H Fibrin Degrad Products (< 10 ug/ml) > 40 ug/ml H Hematology CBC w Diff MAN DIFF ORDERED WBC (4.8 - 10.8 /CUMM) 67.4 *H RBC (4.70 - 6.10 /CUMM) 4.56 L Hgb (14.0 - 18.0 G/DL) 11.8 L Hct (42 - 52 %) 37.4 L MCV (80.0 - 94.0 FL) 82.1 MCH (27.0 - 31.0 PG) 25.9 L RDW (11.5 - 14.5 %) 19.4 H Plt Count (130 - 400 /CUMM) 98 L MPV (7.4 - 10.4 FL) 11.3 H Gran % (42.2 - 75.2 %) 37.0 L Lymphocytes % (20.5 - 51.1 %) 62.7 H Monocytes % (1.7 - 9.3 %) 0.1 L Eosinophils % (0 - 5 %) 0 Basophils % (0.0 - 2.0 %) 0.2 Absolute Granulocytes (1.4 - 6.5 /CUMM) 25.0 H Segmented Neutrophils (42.2 - 75.2 %) 7 L Band Neutrophils (0.0 - 5.0 %) 7 H Absolute Lymphocytes (1.2 - 3.4 /CUMM) 42.3 H Lymphocytes (20.5 - 51.1 %) 85 H Monocytes (1.7 - 9.3 %) 1 L Absolute Monocytes (0.10 - 0.60 /CUMM) 0.1 L Absolute Eosinophils (0.0 - 0.7 /CUMM) 0 Absolute Basophils (0.0 - 0.2 /CUMM) 0.2 Platelet Estimate (ADEQUATE) DECREASED Polychromasia 1+ Poikilocytosis 1+ Ovalocytes 1+ [place] Cells 1+ PUBS MCHC (33.0 - 37.0 G/DL) 31.5 L Miscellaneous Phlebotomy Draw Site RIGHT RADIAL 04/12 04/12 5358 9068 Blood Gas pH (7.35 - 7.45 PH) 7.39 pCO2 (35 - 45 TORR) 32 L pO2 (80 - 100 TORR) 127 H HCO3 (21 - 28 MEQ/L) 19 L ABG O2 Sat (Measured) (>96.0 %) 98.0 P-50 (Temp Corrected) N Carboxyhemoglobin (1.5 - 5.0 %) 0.7 L O2 Concentration % 60% Temperature (97.0 - 100.0 FARH) 97.7 Respiration Rate (BPM) 26 O2 Delivery Method ESPRIT Vent Mode AC Expiratory Pressure (CMH2O/P) 8 Tidal Volume (CC) 450 Chemistry Sodium (137 - 145 mmol/L) 139 Potassium (3.5 - 5.1 mmol/L) 4.0 Chloride (98 - 107 mmol/L) 111 H Carbon Dioxide (22 - 30 mmol/L) 20 L Anion Gap (5 - 16) 8 BUN (9 - 20 mg/dL) 29 H Creatinine (0.7 - 1.2 mg/dL) 0.9 Estimated GFR (>60 ml/min) > 60 Glucose (65 - 99 mg/dL) 128 H Calcium (8.4 - 10.2 mg/dL) 6.5 L Phosphorus (2.5 - 4.5 mg/dL) 3.7 Magnesium (1.6 - 2.3 mg/dL) 1.9 Total Bilirubin (0.2 - 1.3 mg/dL) 0.6 AST (17 - 59 U/L) 11 L ALT (21 - 72 U/L) 29 Albumin (3.5 - 5.0 g/dL) 2.0 L Hematology CBC w Diff MAN DIFF ORDERED WBC (4.8 - 10.8 /CUMM) 43.0 *H RBC (4.70 - 6.10 /CUMM) 3.77 L Hgb (14.0 - 18.0 G/DL) 9.6 L Hct (42 - 52 %) 30.5 L MCV (80.0 - 94.0 FL) 80.9 MCH (27.0 - 31.0 PG) 25.4 L RDW (11.5 - 14.5 %) 19.0 H Plt Count (130 - 400 /CUMM) 80 L MPV (7.4 - 10.4 FL) 9.2 Gran % (42.2 - 75.2 %) 33.4 L Lymphocytes % (20.5 - 51.1 %) 65.6 H Monocytes % (1.7 - 9.3 %) 0.5 L Eosinophils % (0 - 5 %) 0 Basophils % (0.0 - 2.0 %) 0.5 Absolute Granulocytes (1.4 - 6.5 /CUMM) 14.4 H Segmented Neutrophils (42.2 - 75.2 %) 23 L Absolute Lymphocytes (1.2 - 3.4 /CUMM) 28.2 H Lymphocytes (20.5 - 51.1 %) 76 H Monocytes (1.7 - 9.3 %) 1 L Absolute Monocytes (0.10 - 0.60 /CUMM) 0.2 Absolute Eosinophils (0.0 - 0.7 /CUMM) 0 Absolute Basophils (0.0 - 0.2 /CUMM) 0.2 Platelet Estimate (ADEQUATE) VERIFIED BY SMEAR Poikilocytosis 1+ Anisocytosis 1+ Ovalocytes FEW [place]olph Cells FEW Elliptocytes RARE PUBS MCHC (33.0 - 37.0 G/DL) 31.4 L Miscellaneous Phlebotomy Draw Site RIGHT BRACHIAL Other Body Source Fld Total RBCs Counted (%) 100 04/12 04/12 1610 1300 Blood Gas pH (7.35 - 7.45 PH) 7.20 *L pCO2 (35 - 45 TORR) 56 H pO2 (80 - 100 TORR) 195 H HCO3 (21 - 28 MEQ/L) 22 ABG O2 Sat (Measured) (>96.0 %) 98.0 P-50 (Temp Corrected) N Carboxyhemoglobin (1.5 - 5.0 %) 0.4 L O2 Concentration % 100% Temperature (97.0 - 100.0 FARH) 97.7 Respiration Rate (BPM) 12 O2 Delivery Method ESPRIT Vent Mode AC Expiratory Pressure (CMH2O/P) 8 Tidal Volume (CC) 450 Chemistry Sodium (137 - 145 mmol/L) 141 Potassium (3.5 - 5.1 mmol/L) 3.9 Chloride (98 - 107 mmol/L) 111 H Carbon Dioxide (22 - 30 mmol/L) 22 Anion Gap (5 - 16) 8 BUN (9 - 20 mg/dL) 28 H Creatinine (0.7 - 1.2 mg/dL) 0.8 Estimated GFR (>60 ml/min) > 60 Glucose (65 - 99 mg/dL) 117 H Calcium (8.4 - 10.2 mg/dL) 7.0 L Phosphorus (2.5 - 4.5 mg/dL) 2.4 L Magnesium (1.6 - 2.3 mg/dL) 2.0 Total Bilirubin (0.2 - 1.3 mg/dL) 0.6 AST (17 - 59 U/L) 12 L ALT (21 - 72 U/L) 21 Albumin (3.5 - 5.0 g/dL) 2.2 L Hematology CBC w Diff MAN DIFF ORDERED WBC (4.8 - 10.8 /CUMM) 66.9 *H RBC (4.70 - 6.10 /CUMM) 4.35 L Hgb (14.0 - 18.0 G/DL) 11.1 L Hct (42 - 52 %) 35.0 L MCV (80.0 - 94.0 FL) 80.6 MCH (27.0 - 31.0 PG) 25.4 L RDW (11.5 - 14.5 %) 18.3 H Plt Count (130 - 400 /CUMM) 84 L MPV (7.4 - 10.4 FL) 10.0 Gran % (42.2 - 75.2 %) 33.1 L Lymphocytes % (20.5 - 51.1 %) 66.6 H Monocytes % (1.7 - 9.3 %) 0.2 L Eosinophils % (0 - 5 %) 0.1 Basophils % (0.0 - 2.0 %) 0 L Absolute Granulocytes (1.4 - 6.5 /CUMM) 22.2 H Absolute Lymphocytes (1.2 - 3.4 /CUMM) 44.5 H Absolute Monocytes (0.10 - 0.60 /CUMM) 0.1 L Absolute Eosinophils (0.0 - 0.7 /CUMM) 0.1 Absolute Basophils (0.0 - 0.2 /CUMM) 0 Platelet Estimate (ADEQUATE) DECREASED Polychromasia PUBS MCHC (33.0 - 37.0 G/DL) 31.6 L Miscellaneous Phlebotomy Draw Site RIGHT BRACHIAL 04/12 04/12 0730 0510 Chemistry Sodium (137 - 145 mmol/L) 141 Potassium (3.5 - 5.1 mmol/L) 3.7 Chloride (98 - 107 mmol/L) 113 H Carbon Dioxide (22 - 30 mmol/L) 21 L Anion Gap (5 - 16) 7 BUN (9 - 20 mg/dL) 28 H Creatinine (0.7 - 1.2 mg/dL) 0.8 Estimated GFR (>60 ml/min) > 60 Glucose (65 - 99 mg/dL) 105 H Calcium (8.4 - 10.2 mg/dL) 6.5 L Phosphorus (2.5 - 4.5 mg/dL) 1.8 L Magnesium (1.6 - 2.3 mg/dL) 2.0 Total Bilirubin (0.2 - 1.3 mg/dL) 0.4 AST (17 - 59 U/L) 9 L ALT (21 - 72 U/L) 22 Albumin (3.5 - 5.0 g/dL) 1.8 L Coagulation PT (9.4 - 12.5 SEC) 12.4 12.6 H INR (0.90 - 1.17) 1.18 H 1.20 H APTT (25 - 37 SEC) 37 33 Fibrinogen Activity (200 - 393 MG/DL) 316 Fibrin Degrad Products (< 10 ug/ml) > 40 ug/ml H D-Dimer (70 - 232 ng/ml) > 5250 H Hematology CBC w Diff MAN DIFF ORDERED WBC (4.8 - 10.8 /CUMM) 14.1 H RBC (4.70 - 6.10 /CUMM) 3.41 L Hgb (14.0 - 18.0 G/DL) 8.8 L Hct (42 - 52 %) 27.5 L MCV (80.0 - 94.0 FL) 80.6 MCH (27.0 - 31.0 PG) 25.8 L RDW (11.5 - 14.5 %) 19.1 H Plt Count (130 - 400 /CUMM) 49 L MPV (7.4 - 10.4 FL) 9.5 Gran % (42.2 - 75.2 %) 30.8 L Lymphocytes % (20.5 - 51.1 %) 68.1 H Monocytes % (1.7 - 9.3 %) 0.3 L Eosinophils % (0 - 5 %) 0.7 Basophils % (0.0 - 2.0 %) 0.1 Absolute Granulocytes (1.4 - 6.5 /CUMM) 4.4 Segmented Neutrophils (42.2 - 75.2 %) 27 L Absolute Lymphocytes (1.2 - 3.4 /CUMM) 9.6 H Lymphocytes (20.5 - 51.1 %) 71 H Monocytes (1.7 - 9.3 %) 1 L Absolute Monocytes (0.10 - 0.60 /CUMM) 0 L Eosinophils (0 - 5.0 %) 1 Absolute Eosinophils (0.0 - 0.7 /CUMM) 0.1 Absolute Basophils (0.0 - 0.2 /CUMM) 0 Platelet Estimate (ADEQUATE) DECREASED Polychromasia 1+ Hypochromic-Microcytic 1+ Poikilocytosis 1+ Anisocytosis 1+ Microcytic Cells 1+ Ovalocytes 1+ Elliptocytes FEW PUBS MCHC (33.0 - 37.0 G/DL) 32.0 L Other Body Source Fld Total RBCs Counted (%) 100 04/11 04/11 04/11 1930 0421 0421 Chemistry Sodium (137 - 145 mmol/L) 141 144 Potassium (3.5 - 5.1 mmol/L) 4.0 3.1 L Chloride (98 - 107 mmol/L) 112 H 112 H Carbon Dioxide (22 - 30 mmol/L) 20 L 22 Anion Gap (5 - 16) 8 11 BUN (9 - 20 mg/dL) 29 H 31 H Creatinine (0.7 - 1.2 mg/dL) 0.9 1.0 Estimated GFR (>60 ml/min) > 60 > 60 Glucose (65 - 99 mg/dL) 153 H 140 H Calcium (8.4 - 10.2 mg/dL) 6.8 L 6.9 L Phosphorus (2.5 - 4.5 mg/dL) 1.9 L 2.7 Magnesium (1.6 - 2.3 mg/dL) 1.9 1.9 Total Bilirubin (0.2 - 1.3 mg/dL) 0.3 0.4 AST (17 - 59 U/L) 10 L 10 L ALT (21 - 72 U/L) 27 16 L Troponin I (<0.11 ng/ml) 0.44 *H Albumin (3.5 - 5.0 g/dL) 2.0 L 2.0 L Hematology CBC w Diff MAN DIFF ORDERED WBC (4.8 - 10.8 /CUMM) 27.6 H 32.9 *H RBC (4.70 - 6.10 /CUMM) 3.63 L 3.50 L Hgb (14.0 - 18.0 G/DL) 9.4 L 9.1 L Hct (42 - 52 %) 29.2 L 28.1 L MCV (80.0 - 94.0 FL) 80.4 80.5 MCH (27.0 - 31.0 PG) 25.9 L 26.0 L RDW (11.5 - 14.5 %) 18.9 H 18.9 H Plt Count (130 - 400 /CUMM) 63 L 65 L MPV (7.4 - 10.4 FL) 9.1 9.8 Gran % (42.2 - 75.2 %) 33.1 L 37.8 L Lymphocytes % (20.5 - 51.1 %) 64.7 H 60.7 H Monocytes % (1.7 - 9.3 %) 1.3 L 0.8 L Eosinophils % (0 - 5 %) 0.4 0.3 Basophils % (0.0 - 2.0 %) 0.5 0.4 Absolute Granulocytes (1.4 - 6.5 /CUMM) 9.1 H 12.4 H Absolute Lymphocytes (1.2 - 3.4 /CUMM) 17.9 H 20.0 H Absolute Monocytes (0.10 - 0.60 /CUMM) 0.4 0.3 Absolute Eosinophils (0.0 - 0.7 /CUMM) 0.1 0.1 Absolute Basophils (0.0 - 0.2 /CUMM) 0.1 0.1 Platelet Estimate (ADEQUATE) DECREASED Anisocytosis 1+ PUBS MCHC (33.0 - 37.0 G/DL) 32.2 L 32.3 L 04/10 155 Chemistry Troponin I (<0.11 ng/ml) 0.50 *H 0.47 *H Hematology CBC w Diff MAN DIFF ORDERED WBC (4.8 - 10.8 /CUMM) 24.2 H RBC (4.70 - 6.10 /CUMM) 3.32 L Hgb (14.0 - 18.0 G/DL) 8.6 L Hct (42 - 52 %) 26.6 L MCV (80.0 - 94.0 FL) 79.9 L MCH (27.0 - 31.0 PG) 25.9 L RDW (11.5 - 14.5 %) 18.8 H Plt Count (130 - 400 /CUMM) 68 L MPV (7.4 - 10.4 FL) 10.2 Segmented Neutrophils (42.2 - 75.2 %) 50 Band Neutrophils (0.0 - 5.0 %) 2 Lymphocytes (20.5 - 51.1 %) 46 Monocytes (1.7 - 9.3 %) 1 L Eosinophils (0 - 5.0 %) 1 Platelet Estimate (ADEQUATE) DECREASED Hypochromic-Microcytic 1+ Poikilocytosis FEW Anisocytosis 2+ Microcytic Cells 1+ Ovalocytes 1+ PUBS MCHC (33.0 - 37.0 G/DL) 32.3 L Other Body Source Fld Total RBCs Counted (%) 100 Imaging/Other Studies: SERVICE DATE: 04/13/17 EXAM TYPE: RAD - XRY-PORTABLE CHEST XRAY EXAMINATION: XR PORTABLE CHEST CLINICAL INFORMATION: Possible aspiration pneumonia. Increased O2 requirements on ventilator. COMPARISON: Chest x-ray April 12, 2017. TECHNIQUE: Portable frontal view of the chest was obtained. FINDINGS: Endotracheal tube tip is 5 cm above the imelda. Enteric tube courses below the limits of this study. Left subclavian Port-A-Cath extending to the origin of the SVC. Worsening airspace opacity within the left midlung and at the left lung base. Slightly improved aeration within the right lung in the setting of a right-sided pleural effusion versus pleural thickening and extensive consolidation. No pneumothorax is appreciated. Lung bases are not entirely included on this study. Cardiac and osseous structures appear stable. IMPRESSION: - Endotracheal tube tip remains 5 cm above the imelda. - Worsening airspace opacity within the left midlung and at the left lung base. - Slightly improved aeration within the right lung in the setting of a right-sided pleural effusion versus pleural thickening and extensive consolidation. Renal US: Unremarkable kidneys without any evidence of echogenic calculi or hydronephrosis. Previously seen punctate calcification inferior left renal pole and calcifications in the right renal pelvis on CT abdomen exam are not seen on the present study. Echo: Normal size left ventricle. Mild concentric left ventricular hypertrophy. No obvious regional wall motion abnormalities. Normal left ventricular ejection fraction visually estimated at > 60%. "pseudonormal" filling pattern of the left ventricle for age (stage 2 diastolic dysfunction). Normal right ventricular size and function. Normal atrial size. Trace to mild mitral regurgitation. Moderate aortic stenosis. Trace aortic regurgitation. Mild tricuspid regurgitation. Dilated inferior vena cav Assessment/Plan Assessment/Recommendations Assessment: 1. JANNA: ATN due to major hemodynamic insults & sepsis --> anuria; prerenal due to hypotension & volume contraction less likely. Doubt vasculitis or aGBM/ Goodpature's --> pulm renal syndrome but could check serologies. No renal replacemnt indication & not a candidate in current state should a need arise. 2. Acid-Base: has had a variety of discturbances during hospitalization including initial met alk prob due to vomiting, followed by resp acid, & now met acid w rising AG prob related to JANNA, lactic, & IV NS --> no indication for bicarb supplemment at current pH & bicarb level. Recommendations: 1. consider sending ANCA & aGBM Ab --> doubt will be revealing 2. stop IV NS --> already > 20 liters positive 3. limits of care
[2017-04-13 16:00] VITALS: BP 112/60
--- NOTE | 2017-04-13 16:44 | NUR ---
PT STATUS CRITICAL AND UNRESPONSIVE AT PRESENT. SEVERAL GTTS MAINTAINED. SEE ICU FACE SHEET FOR CHANGES. AROUND 1230 B/P DROPPING AND TITATION OF LEVO STARTED AND STEEL GRINDER NOTIFIED OF CHANGES. LEGS RAISED UP ON PILLOWS. 1430 PT OPENED EYES TO COMMAND AND WAS REPORTED TO STEEL GRINDER WHO WENT INTO SEE PT. AWAIT COURT DECISION FOR CONSERVATIVE CHANGE FOR CODE STATUS.
--- NOTE | 2017-04-13 18:55 | PN- Cardiology ---
Subjective Subjective: Intubated and sedated. Objective Vital Signs and I&Os Vital Signs Date Time Temp Pulse Resp B/P B/P Pulse O2 O2 Flow FiO2 Mean Ox Delivery Rate 04/13 1631 70 04/13 1600 98.2 124 30 112/60 94 Ventilator 70% 04/13 1600 91 Ventilator 70% 04/13 1342 70 04/13 1200 92/54 04/13 1200 95 Ventilator 70% 04/13 1114 70 04/13 0838 90 04/13 0800 96.8 102 26 97/55 100 Ventilator 100% 04/13 0800 100 Ventilator 100% 04/13 0607 100 04/13 0443 96.1 123 26 103/58 04/13 0407 100 04/13 0400 91 Ventilator 80% 04/13 0325 100 04/13 0256 80 04/13 0223 70 04/13 0217 122 26 117/63 04/13 0000 97 Ventilator 70% 04/13 0000 97.4 93 26 90/60 97 Ventilator 70% 04/12 2210 70 04/12 2203 92 26 72/47 04/12 2010 60 04/12 2000 100 Ventilator 50% Intake & Output 04/13 1600 04/13 0800 04/13 0000 04/12 1600 04/12 0800 04/12 0000 Intake Total 1485 2081 3562 6956 736 2801 Output Total 4 40 15 450 140 200 Balance 1481 2041 3547 8642 119 0195 Intake, Blood 805 Product Intake, IV 1485 2081 3562 5810 025 1226 Intake, Oral 0 Intake, Other 100 Intake, 54 TPN/PPN Intake, Tube 350 Feeding Intake, Tube 200 Irrigant Number 0 0 1 Bowel Movements Output, Other 300 Output, Stool 0 Output, Urine 4 40 15 150 140 200 Patient 183 lb 157 lb Weight Weight Bed scale Bed scale Measurement Method Physical Exam: Frail, cachectic appearing elderly male who is intubated/sedated. Vital signs: See above. HEENT: Normocephalic, atraumatic, dry appearing mucous membranes. Neck: No JVD, no bruits. Port-A-Cath on left. Lungs: Bilateral rhonchi. Heart: S1, S2 with soft grade 1-2/6 systolic murmur best heard at the base. No obvious gallop or rub. Abdomen: Soft, positive bowel sounds. Extremities: No LE edema. Current Medications: Current Medications Sig/Fred Start time Last Medication Dose Route Stop Time Status Admin Albuterol Sulfate 3 ML Q6 PRN 04/08 1130 AC 04/08 INH 1240 Ceftriaxone Sodium 1,000 MG DAILY 04/10 1236 AC 04/13 IV 0916 Chlorhexidine 15 ML BID 04/09 1000 AC 04/13 Gluconate PO 0916 Escitalopram Oxalate 20 MG DAILY 04/09 1000 AC 04/11 PO 0932 Fentanyl Citrate 1,000 MCG Q24H 04/12 0945 AC 04/13 Dextrose/Water 250 ML IV 0928 Ferrous Sulfate 300 MG TID 04/11 2300 AC 04/12 PO 0002 Mirtazapine 7.5 MG AT BEDTIME 04/08 2200 AC 04/11 PO 2225 Norepinephrine 4 MG .STK-MED ONE 04/13 0150 DC IV 04/13 0151 Norepinephrine 4 MG Q3H 04/13 0000 AC 04/13 Sodium Chloride 250 ML IV 1200 Norepinephrine 4 MG Q24H 04/12 1645 DC 04/12 Sodium Chloride 250 ML IV 2203 Pantoprazole Sodium 40 MG BID 04/08 1415 AC 04/13 IV 0916 Polyethylene Glycol 17 GM DAILY 04/09 1000 AC 04/11 PO 0933 Pregabalin 50 MG AT BEDTIME 04/08 2200 AC 04/11 PO 2225 Sodium Chloride 500 ML BOLUS ONE 04/12 2115 DC 04/12 IV 04/12 2214 2118 Sodium Chloride 500 ML BOLUS ONE 04/12 1945 DC 04/12 IV 04/12 2044 1945 Sodium Chloride 1,000 ML Q6H 04/12 1415 04/13 IV 0835 Vancomycin HCl 1,000 MG Q24H 04/13 0915 04/13 Sodium Chloride 250 ML IV 0917 Vancomycin HCl 1,000 MG Q24H 04/09 0730 DC 04/12 Sodium Chloride 250 ML IV 0745 Vasopressin 40 UNITS Q16H 04/12 2230 AC 04/13 Sodium Chloride 100 ML IV 1200 Vecuronium [place] 10 MG Q24H 04/13 0915 DC Sodium Chloride 100 ML IV Vecuronium [place] 10 MG Q2H 04/12 2300 DC 04/13 Sodium Chloride 100 ML IV 0722 Vecuronium [place] 10 MG Q1H 04/12 1545 DC 04/12 Sodium Chloride 100 ML IV 2202 Results Last 48 Hrs of Labs/Mics: Laboratory Tests 04/13/17 1320: pH 7.34 L, pCO2 29 L, pO2 82, HCO3 15 L, ABG O2 Sat (Measured) 95.0 L, P-50 (Temp Corrected) N, Carboxyhemoglobin 0.2 L, O2 Concentration % 70%, Temperature 96.8 L, Respiration Rate 30, O2 Delivery Method VENT, Vent Mode VC- AC, Expiratory Pressure 8, Tidal Volume 450, Phlebotomy Draw Site RIGHT RADIAL 04/13/17 0429: Anion Gap 13, Estimated GFR > 60, Glucose 118 H, Calcium 7.2 L, Phosphorus 4.1 , Magnesium 2.0, Total Bilirubin 0.7, AST 13 L, ALT 27, Albumin 2.4 L, PT 12.0 , INR 1.14, APTT 38 H, Fibrinogen Activity 412 H, Fibrin Degrad Products > 40 ug/ml H, CBC w Diff MAN DIFF ORDERED, RBC 4.56 L, MCV 82.1, MCH 25.9 L, RDW 19.4 H, MPV 11.3 H, Gran % 37.0 L, Lymphocytes % 62.7 H, Monocytes % 0.1 L, Eosinophils % 0, Basophils % 0.2, Absolute Granulocytes 25.0 H, Segmented Neutrophils 7 L, Band Neutrophils 7 H, Absolute Lymphocytes 42.3 H, Lymphocytes 85 H, Monocytes 1 L, Absolute Monocytes 0.1 L, Absolute Eosinophils 0, Absolute Basophils 0.2, Platelet Estimate DECREASED, Polychromasia 1+, Poikilocytosis 1+, Ovalocytes 1+, [place] Cells 1+, PUBS MCHC 31.5 L 04/13/17 0320: pH 7.28 *L, pCO2 36, pO2 53 L, HCO3 17 L, ABG O2 Sat (Measured) 89.0 L, P-50 (Temp Corrected) Y, Carboxyhemoglobin 0.5 L, O2 Concentration % 80%, Temperature 97.4, Respiration Rate 26, O2 Delivery Method ESPRIT, Vent Mode AC, Expiratory Pressure 8, Tidal Volume 450, Phlebotomy Draw Site RIGHT RADIAL 04/12/17 2242: Anion Gap 8, Estimated GFR > 60, Glucose 128 H, Calcium 6.5 L, Phosphorus 3.7, Magnesium 1.9, Total Bilirubin 0.6, AST 11 L, ALT 29, Albumin 2.0 L, CBC w Diff MAN DIFF ORDERED, RBC 3.77 L, MCV 80.9, MCH 25.4 L, RDW 19.0 H, MPV 9.2, Gran % 33.4 L, Lymphocytes % 65.6 H, Monocytes % 0.5 L, Eosinophils % 0, Basophils % 0.5, Absolute Granulocytes 14.4 H, Segmented Neutrophils 23 L, Absolute Lymphocytes 28.2 H, Lymphocytes 76 H, Monocytes 1 L, Absolute Monocytes 0.2, Absolute Eosinophils 0, Absolute Basophils 0.2, Platelet Estimate VERIFIED BY SMEAR, Poikilocytosis 1+, Anisocytosis 1+, Ovalocytes FEW, [place] Cells FEW, Elliptocytes RARE, PUBS MCHC 31.4 L, Fld Total RBCs Counted 100 04/12/17 1730: pH 7.39, pCO2 32 L, pO2 127 H, HCO3 19 L, ABG O2 Sat (Measured) 98.0, P-50 ( Temp Corrected) N, Carboxyhemoglobin 0.7 L, O2 Concentration % 60%, Temperature 97.7, Respiration Rate 26, O2 Delivery Method ESPRIT, Vent Mode AC, Expiratory Pressure 8, Tidal Volume 450, Phlebotomy Draw Site RIGHT BRACHIAL 04/12/17 1610: pH 7.20 *L, pCO2 56 H, pO2 195 H, HCO3 22, ABG O2 Sat (Measured) 98.0, P-50 ( Temp Corrected) N, Carboxyhemoglobin 0.4 L, O2 Concentration % 100%, Temperature 97.7, Respiration Rate 12, O2 Delivery Method ESPRIT, Vent Mode AC, Expiratory Pressure 8, Tidal Volume 450, Phlebotomy Draw Site RIGHT BRACHIAL 04/12/17 1300: Anion Gap 8, Estimated GFR > 60, Glucose 117 H, Calcium 7.0 L, Phosphorus 2.4 L, Magnesium 2.0, Total Bilirubin 0.6, AST 12 L, ALT 21, Albumin 2.2 L, CBC w Diff MAN DIFF ORDERED, RBC 4.35 L, MCV 80.6, MCH 25.4 L, RDW 18.3 H, MPV 10.0 , Gran % 33.1 L, Lymphocytes % 66.6 H, Monocytes % 0.2 L, Eosinophils % 0.1, Basophils % 0 L, Absolute Granulocytes 22.2 H, Absolute Lymphocytes 44.5 H, Absolute Monocytes 0.1 L, Absolute Eosinophils 0.1, Absolute Basophils 0, Platelet Estimate DECREASED, Polychromasia , PUBS MCHC 31.6 L 04/12/17 0730: PT 12.4, INR 1.18 H, APTT 37, Fibrinogen Activity 316, Fibrin Degrad Products > 40 ug/ml H, D-Dimer > 5250 H 04/12/17 0510: Anion Gap 7, Estimated GFR > 60, Glucose 105 H, Calcium 6.5 L, Phosphorus 1.8 L, Magnesium 2.0, Total Bilirubin 0.4, AST 9 L, ALT 22, Albumin 1.8 L, PT 12.6 H, INR 1.20 H, APTT 33, CBC w Diff MAN DIFF ORDERED, RBC 3.41 L, MCV 80.6, MCH 25.8 L, RDW 19.1 H, MPV 9.5, Gran % 30.8 L, Lymphocytes % 68.1 H, Monocytes % 0.3 L, Eosinophils % 0.7, Basophils % 0.1, Absolute Granulocytes 4.4, Segmented Neutrophils 27 L, Absolute Lymphocytes 9.6 H, Lymphocytes 71 H , Monocytes 1 L, Absolute Monocytes 0 L, Eosinophils 1, Absolute Eosinophils 0.1, Absolute Basophils 0, Platelet Estimate DECREASED, Polychromasia 1+, Hypochromic-Microcytic 1+, Poikilocytosis 1+, Anisocytosis 1+, Microcytic Cells 1+, Ovalocytes 1+, Elliptocytes FEW, PUBS MCHC 32.0 L, Fld Total RBCs Counted 100 04/11/17 1930: Anion Gap 8, Estimated GFR > 60, Glucose 153 H, Calcium 6.8 L, Phosphorus 1.9 L, Magnesium 1.9, Total Bilirubin 0.3, AST 10 L, ALT 27, Albumin 2.0 L, RBC 3.63 L, MCV 80.4, MCH 25.9 L, RDW 18.9 H, MPV 9.1, Gran % 33.1 L, Lymphocytes % 64.7 H, Monocytes % 1.3 L, Eosinophils % 0.4, Basophils % 0.5, Absolute Granulocytes 9.1 H, Absolute Lymphocytes 17.9 H, Absolute Monocytes 0.4, Absolute Eosinophils 0.1, Absolute Basophils 0.1, [facility] MCHC 32.2 L Recent Imaging Studies: CXR (04/13/2017): - Endotracheal tube tip remains 5 cm above the imelda. - Worsening airspace opacity within the left midlung and at the left lung base. - Slightly improved aeration within the right lung in the setting of a right-sided pleural effusion versus pleural thickening and extensive consolidation. 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 from suspected sepsis secondary to aspiration pneumonia, as well as, possible gastric outlet obstruction. Unfortunately, his WBC count is again up. From a cardiac standpoint, he is unstable and requiring pressure support. He additionally has been receiving IV fluid, but has CXR c/w worsening opacities (pneumonia versus pulmonary hemorrhage versus heart failure) so would try and discontinue IV fluids and diuresis if blood pressure allows. His troponin I trended downward and does not appear to be consistent with an acute coronary syndrome, but more likely secondary to demand ischemia from critical illness, tachycardia, probable LVH secondary to hypertension, , etc. Recommendations: * Continue all supportive care, until decisions for less aggressive care made. * Aim to maintain potassium between 4.0-4.5 mEq per liter and magnesium at or above 2.0 mEq per liter to hopefully maintain sinus rhythm. * Continue to follow-up H/H closely, given high likelihood of concomitant CAD with aortic stenosis and aim to maintain his hemoglobin at or above 8.0 g/dl. * Continue mechanical DVT prophylaxis. Continue telemetry? Not applicable
[2017-04-14 05:23] LABS: ABSOLUTE BASOPHIL COUNT 0 /CUMM (0.0-0.2); ABSOLUTE EOSINOPHIL COUNT 0 /CUMM (0.0-0.7); ABSOLUTE GRANULOCYTE CT 15.3 /CUMM (1.4-6.5); ABSOLUTE LYMPH COUNT 25.2 /CUMM (1.2-3.4); ABSOLUTE MONOCYTE COUNT 0.1 /CUMM (0.10-0.60); BASOPHIL % 0.1 % (0.0-2.0); EOSINOPHIL % 0 % (0-5); GRANULOCYTE % 37.5 % (42.2-75.2); MEAN CORPUSCULAR HGB 25.4 PG (27.0-31.0); MEAN CORPUSCULAR HGB CONC 31.5 G/DL (33.0-37.0); MEAN CORPUSCULAR VOLUME 80.7 FL (80.0-94.0); MEAN PLATELET VOLUME 10.2 FL (7.4-10.4); PLATELET COUNT 76 /CUMM (130-400); RBC DISTRIBUTION WIDTH 19.4 % (11.5-14.5); RED BLOOD CELL CT 3.85 /CUMM (4.70-6.10)
[2017-04-14 05:31] LABS: HEMATOCRIT 31.1 % (42-52); PT 13.3 SEC (9.4-12.5)
[2017-04-14 05:37] LABS: WHITE BLOOD CELL COUNT 40.7 /CUMM (4.8-10.8)
[2017-04-14 07:55] LABS: RED BLOOD CELL CT 4.35 /CUMM (4.70-6.10)
[2017-04-14 07:56] LABS: PLATELET COUNT 84 /CUMM (130-400)
[2017-04-14 08:00] VITALS: BP 104/56
--- NOTE | 2017-04-14 08:19 | PN- Nephrology ---
Assessment/Plan Assessment: 1. JANNA: severe ATN; no improvement - w/o renal replacement indication but do not view pt as a dialysis candidate should need arise 2. Met acid: compensated; no indication bicarb supplememt w pH > 7.2 or bicarb > 10 Prognosis poor in setting of background nonresectable stage IIIB lung cancer & now septic shock w severe multi organ failure Suggestion: await limits of care Subjective Subjective: Sedated on vent Still pressor dependent --> Vaso & NE Anuric No further hemoptysis Objective Vital Signs and I&Os Vital Signs Date Time Temp Pulse Resp B/P B/P Pulse O2 O2 Flow FiO2 Mean Ox Delivery Rate 04/14 0648 75 04/14 0546 122 101/50 04/14 0400 98 Ventilator 75% 04/14 0347 75 04/14 0141 75 04/14 0000 98 Ventilator 75% 04/13 2211 75 04/13 2135 118 104/60 04/13 2000 94 Ventilator 75% 04/13 1933 75 04/13 1631 70 04/13 1600 98.2 124 30 112/60 94 Ventilator 70% 04/13 1600 91 Ventilator 70% 04/13 1342 70 04/13 1200 92/54 04/13 1200 95 Ventilator 70% 04/13 1114 70 04/13 0838 90 Intake & Output 04/14 1600 04/14 0400 04/13 1600 04/13 0400 04/12 1600 04/12 0400 Intake Total 731 746 2967 3562 2677 1760 Output Total 0 20 44 15 590 200 Balance 605 260 9788 3547 2087 1560 Intake, Blood 805 Product Intake, IV 551 762 4329 3562 1772 1156 Intake, Oral 0 Intake, Other 100 Intake, 54 TPN/PPN Intake, Tube 350 Feeding Intake, Tube 200 Irrigant Number 0 0 0 1 Bowel Movements Output, Other 300 Output, Stool 0 Output, Urine 0 20 44 15 290 200 Patient 183 lb 157 lb Weight Weight Bed scale Bed scale Measurement Method Physical Exam General Appearance: intubated Head: atraumatic Ears, Nose, Throat: ET & OG tubes Neck: L chilango cath Respiratory: rhonchi Cardiovascular: regular rate/rhythm, friction rub (none) Abdomen: soft, non-tender Extremities: swelling Skin: ecchymosis Current Medications: Current Medications Sig/Fred Start time Last Medication Dose Route Stop Time Status Admin Albuterol Sulfate 3 ML Q6 PRN 04/08 1130 AC 04/08 INH 1240 Ceftriaxone Sodium 1,000 MG DAILY 04/10 1236 AC 04/13 IV 0916 Chlorhexidine 15 ML BID 04/09 1000 AC 04/13 Gluconate PO 2137 Escitalopram Oxalate 20 MG DAILY 04/09 1000 AC 04/11 PO 0932 Fentanyl Citrate 1,000 MCG Q24H 04/12 0945 04/13 Dextrose/Water 250 ML IV 0928 Ferrous Sulfate 300 MG TID 04/11 2300 AC 04/12 PO 0002 Mirtazapine 7.5 MG AT BEDTIME 04/08 2200 AC 04/11 PO 2225 Norepinephrine 4 MG Q13H 04/14 1000 04/14 Sodium Chloride 250 ML IV 0546 Norepinephrine 4 MG Q3H 04/13 0000 MA 04/13 Sodium Chloride 250 ML IV 2135 Pantoprazole Sodium 40 MG BID 04/08 1415 AC 04/13 IV 2136 Polyethylene Glycol 17 GM DAILY 04/09 1000 AC 04/11 PO 0933 Pregabalin 50 MG AT BEDTIME 04/08 2200 04/11 PO 2225 Sodium Bicarbonate 150 MEQ ONCE ONE 04/13 2015 AC 04/13 Dextrose/Water 1,000 ML IV 04/14 1134 2139 Sodium Chloride 1,000 ML Q6H 04/12 1415 MA 04/13 IV 0835 Vancomycin HCl 1,000 MG Q24H 04/13 0915 04/13 Sodium Chloride 250 ML IV 0917 Vasopressin 40 UNITS Q16H 04/12 2230 AC 04/14 Sodium Chloride 100 ML IV 0546 Vecuronium [place] 10 MG Q24H 04/13 0915 DC Sodium Chloride 100 ML IV Vecuronium [place] 10 MG Q2H 04/12 2300 MA 04/13 Sodium Chloride 100 ML IV 0722 Results Pertinent Lab Results: Laboratory Tests 04/14 04/14 04/13 0435 0050 2345 Blood Gas pH (7.35 - 7.45 PH) 7.31 L pCO2 (35 - 45 TORR) 32 L pO2 (80 - 100 TORR) 104 H HCO3 (21 - 28 MEQ/L) 16 L ABG O2 Sat (Measured) (>96.0 %) 98.0 P-50 (Temp Corrected) Y Carboxyhemoglobin (1.5 - 5.0 %) 0.3 L O2 Concentration % 75% Temperature (97.0 - 100.0 FARH) 97.4 Respiration Rate (BPM) 30 O2 Delivery Method ESPRIT Vent Mode AC Expiratory Pressure (CMH2O/P) 8 Tidal Volume (CC) 450 Chemistry Sodium (137 - 145 mmol/L) 143 145 Potassium (3.5 - 5.1 mmol/L) 4.7 5.0 Chloride (98 - 107 mmol/L) 116 H 115 H Carbon Dioxide (22 - 30 mmol/L) 17 L 16 L Anion Gap (5 - 16) 11 14 BUN (9 - 20 mg/dL) 40 H 38 H Creatinine (0.7 - 1.2 mg/dL) 1.7 H 1.6 H Estimated GFR (>60 ml/min) 38 L 41 L Glucose (65 - 99 mg/dL) 122 H 138 H Calcium (8.4 - 10.2 mg/dL) 6.9 L 7.0 L Phosphorus (2.5 - 4.5 mg/dL) 5.9 H 5.8 H Magnesium (1.6 - 2.3 mg/dL) 1.9 1.9 Total Bilirubin (0.2 - 1.3 mg/dL) 0.5 0.6 AST (17 - 59 U/L) 10 L 20 ALT (21 - 72 U/L) 29 14 L Albumin (3.5 - 5.0 g/dL) 2.0 L 2.2 L Coagulation PT (9.4 - 12.5 SEC) 13.3 H INR (0.90 - 1.17) 1.27 H Fibrinogen Activity (200 - 393 MG/DL) 392 Hematology CBC w Diff MAN DIFF ORDERED WBC (4.8 - 10.8 /CUMM) 40.7 *H RBC (4.70 - 6.10 /CUMM) 3.85 L Hgb (14.0 - 18.0 G/DL) 9.8 L Hct (42 - 52 %) 31.1 L MCV (80.0 - 94.0 FL) 80.7 MCH (27.0 - 31.0 PG) 25.4 L RDW (11.5 - 14.5 %) 19.4 H Plt Count (130 - 400 /CUMM) 76 L MPV (7.4 - 10.4 FL) 10.2 Gran % (42.2 - 75.2 %) 37.5 L Lymphocytes % (20.5 - 51.1 %) 62.0 H Monocytes % (1.7 - 9.3 %) 0.4 L Eosinophils % (0 - 5 %) 0 Basophils % (0.0 - 2.0 %) 0.1 Absolute Granulocytes (1.4 - 6.5 /CUMM) 15.3 H Segmented Neutrophils (42.2 - 75.2 %) 23 L Absolute Lymphocytes (1.2 - 3.4 /CUMM) 25.2 H Lymphocytes (20.5 - 51.1 %) 77 H Absolute Monocytes (0.10 - 0.60 /CUMM) 0.1 L Absolute Eosinophils (0.0 - 0.7 /CUMM) 0 Absolute Basophils (0.0 - 0.2 /CUMM) 0 Platelet Estimate (ADEQUATE) DECREASED Polychromasia 1+ Hypochromic-Microcytic 1+ Poikilocytosis 1+ Anisocytosis 1+ Microcytic Cells 1+ Ovalocytes 1+ PUBS MCHC (33.0 - 37.0 G/DL) 31.5 L Miscellaneous Phlebotomy Draw Site LEFT RADIAL Other Body Source Fld Total RBCs Counted (%) 100 04/13 1900 1320 Blood Gas pH (7.35 - 7.45 PH) 7.27 *L 7.34 L pCO2 (35 - 45 TORR) 34 L 29 L pO2 (80 - 100 TORR) 71 L 82 HCO3 (21 - 28 MEQ/L) 15 L 15 L ABG O2 Sat (Measured) (>96.0 %) 92.0 L 95.0 L P-50 (Temp Corrected) Y N Carboxyhemoglobin (1.5 - 5.0 %) 0.4 L 0.2 L O2 Concentration % 75% 70% Temperature (97.0 - 100.0 FARH) 98.2 96.8 L Respiration Rate (BPM) 30 30 O2 Delivery Method VENT VENT Vent Mode CMV VC-AC Expiratory Pressure (CMH2O/P) 8 8 Tidal Volume (CC) 450 450 Chemistry Lactic Acid (0.7 - 2.1 mmol/L) 2.0 Miscellaneous Phlebotomy Draw Site RIGHT BRACHIAL RIGHT RADIAL 04/13 04/13 0429 0320 Blood Gas pH (7.35 - 7.45 PH) 7.28 *L pCO2 (35 - 45 TORR) 36 pO2 (80 - 100 TORR) 53 L HCO3 (21 - 28 MEQ/L) 17 L ABG O2 Sat (Measured) (>96.0 %) 89.0 L P-50 (Temp Corrected) Y Carboxyhemoglobin (1.5 - 5.0 %) 0.5 L O2 Concentration % 80% Temperature (97.0 - 100.0 FARH) 97.4 Respiration Rate (BPM) 26 O2 Delivery Method ESPRIT Vent Mode AC Expiratory Pressure (CMH2O/P) 8 Tidal Volume (CC) 450 Chemistry Sodium (137 - 145 mmol/L) 145 Potassium (3.5 - 5.1 mmol/L) 4.1 Chloride (98 - 107 mmol/L) 112 H Carbon Dioxide (22 - 30 mmol/L) 19 L Anion Gap (5 - 16) 13 BUN (9 - 20 mg/dL) 29 H Creatinine (0.7 - 1.2 mg/dL) 1.0 Estimated GFR (>60 ml/min) > 60 Glucose (65 - 99 mg/dL) 118 H Calcium (8.4 - 10.2 mg/dL) 7.2 L Phosphorus (2.5 - 4.5 mg/dL) 4.1 Magnesium (1.6 - 2.3 mg/dL) 2.0 Total Bilirubin (0.2 - 1.3 mg/dL) 0.7 AST (17 - 59 U/L) 13 L ALT (21 - 72 U/L) 27 Albumin (3.5 - 5.0 g/dL) 2.4 L Coagulation PT (9.4 - 12.5 SEC) 12.0 INR (0.90 - 1.17) 1.14 APTT (25 - 37 SEC) 38 H Fibrinogen Activity (200 - 393 MG/DL) 412 H Fibrin Degrad Products (< 10 ug/ml) > 40 ug/ml H Hematology CBC w Diff MAN DIFF ORDERED WBC (4.8 - 10.8 /CUMM) 67.4 *H RBC (4.70 - 6.10 /CUMM) 4.56 L Hgb (14.0 - 18.0 G/DL) 11.8 L Hct (42 - 52 %) 37.4 L MCV (80.0 - 94.0 FL) 82.1 MCH (27.0 - 31.0 PG) 25.9 L RDW (11.5 - 14.5 %) 19.4 H Plt Count (130 - 400 /CUMM) 98 L MPV (7.4 - 10.4 FL) 11.3 H Gran % (42.2 - 75.2 %) 37.0 L Lymphocytes % (20.5 - 51.1 %) 62.7 H Monocytes % (1.7 - 9.3 %) 0.1 L Eosinophils % (0 - 5 %) 0 Basophils % (0.0 - 2.0 %) 0.2 Absolute Granulocytes (1.4 - 6.5 /CUMM) 25.0 H Segmented Neutrophils (42.2 - 75.2 %) 7 L Band Neutrophils (0.0 - 5.0 %) 7 H Absolute Lymphocytes (1.2 - 3.4 /CUMM) 42.3 H Lymphocytes (20.5 - 51.1 %) 85 H Monocytes (1.7 - 9.3 %) 1 L Absolute Monocytes (0.10 - 0.60 /CUMM) 0.1 L Absolute Eosinophils (0.0 - 0.7 /CUMM) 0 Absolute Basophils (0.0 - 0.2 /CUMM) 0.2 Platelet Estimate (ADEQUATE) DECREASED Polychromasia 1+ Poikilocytosis 1+ Ovalocytes 1+ [place] Cells 1+ PUBS MCHC (33.0 - 37.0 G/DL) 31.5 L Miscellaneous Phlebotomy Draw Site RIGHT RADIAL 04/12 04/12 7741 0490 Blood Gas pH (7.35 - 7.45 PH) 7.39 pCO2 (35 - 45 TORR) 32 L pO2 (80 - 100 TORR) 127 H HCO3 (21 - 28 MEQ/L) 19 L ABG O2 Sat (Measured) (>96.0 %) 98.0 P-50 (Temp Corrected) N Carboxyhemoglobin (1.5 - 5.0 %) 0.7 L O2 Concentration % 60% Temperature (97.0 - 100.0 FARH) 97.7 Respiration Rate (BPM) 26 O2 Delivery Method ESPRIT Vent Mode AC Expiratory Pressure (CMH2O/P) 8 Tidal Volume (CC) 450 Chemistry Sodium (137 - 145 mmol/L) 139 Potassium (3.5 - 5.1 mmol/L) 4.0 Chloride (98 - 107 mmol/L) 111 H Carbon Dioxide (22 - 30 mmol/L) 20 L Anion Gap (5 - 16) 8 BUN (9 - 20 mg/dL) 29 H Creatinine (0.7 - 1.2 mg/dL) 0.9 Estimated GFR (>60 ml/min) > 60 Glucose (65 - 99 mg/dL) 128 H Calcium (8.4 - 10.2 mg/dL) 6.5 L Phosphorus (2.5 - 4.5 mg/dL) 3.7 Magnesium (1.6 - 2.3 mg/dL) 1.9 Total Bilirubin (0.2 - 1.3 mg/dL) 0.6 AST (17 - 59 U/L) 11 L ALT (21 - 72 U/L) 29 Albumin (3.5 - 5.0 g/dL) 2.0 L Hematology CBC w Diff MAN DIFF ORDERED WBC (4.8 - 10.8 /CUMM) 43.0 *H RBC (4.70 - 6.10 /CUMM) 3.77 L Hgb (14.0 - 18.0 G/DL) 9.6 L Hct (42 - 52 %) 30.5 L MCV (80.0 - 94.0 FL) 80.9 MCH (27.0 - 31.0 PG) 25.4 L RDW (11.5 - 14.5 %) 19.0 H Plt Count (130 - 400 /CUMM) 80 L MPV (7.4 - 10.4 FL) 9.2 Gran % (42.2 - 75.2 %) 33.4 L Lymphocytes % (20.5 - 51.1 %) 65.6 H Monocytes % (1.7 - 9.3 %) 0.5 L Eosinophils % (0 - 5 %) 0 Basophils % (0.0 - 2.0 %) 0.5 Absolute Granulocytes (1.4 - 6.5 /CUMM) 14.4 H Segmented Neutrophils (42.2 - 75.2 %) 23 L Absolute Lymphocytes (1.2 - 3.4 /CUMM) 28.2 H Lymphocytes (20.5 - 51.1 %) 76 H Monocytes (1.7 - 9.3 %) 1 L Absolute Monocytes (0.10 - 0.60 /CUMM) 0.2 Absolute Eosinophils (0.0 - 0.7 /CUMM) 0 Absolute Basophils (0.0 - 0.2 /CUMM) 0.2 Platelet Estimate (ADEQUATE) VERIFIED BY SMEAR Poikilocytosis 1+ Anisocytosis 1+ Ovalocytes FEW [place] Cells FEW Elliptocytes RARE PUBS MCHC (33.0 - 37.0 G/DL) 31.4 L Miscellaneous Phlebotomy Draw Site RIGHT BRACHIAL Other Body Source Fld Total RBCs Counted (%) 100 04/12 04/12 1610 1300 Blood Gas pH (7.35 - 7.45 PH) 7.20 *L pCO2 (35 - 45 TORR) 56 H pO2 (80 - 100 TORR) 195 H HCO3 (21 - 28 MEQ/L) 22 ABG O2 Sat (Measured) (>96.0 %) 98.0 P-50 (Temp Corrected) N Carboxyhemoglobin (1.5 - 5.0 %) 0.4 L O2 Concentration % 100% Temperature (97.0 - 100.0 FARH) 97.7 Respiration Rate (BPM) 12 O2 Delivery Method ESPRIT Vent Mode AC Expiratory Pressure (CMH2O/P) 8 Tidal Volume (CC) 450 Chemistry Sodium (137 - 145 mmol/L) 141 Potassium (3.5 - 5.1 mmol/L) 3.9 Chloride (98 - 107 mmol/L) 111 H Carbon Dioxide (22 - 30 mmol/L) 22 Anion Gap (5 - 16) 8 BUN (9 - 20 mg/dL) 28 H Creatinine (0.7 - 1.2 mg/dL) 0.8 Estimated GFR (>60 ml/min) > 60 Glucose (65 - 99 mg/dL) 117 H Calcium (8.4 - 10.2 mg/dL) 7.0 L Phosphorus (2.5 - 4.5 mg/dL) 2.4 L Magnesium (1.6 - 2.3 mg/dL) 2.0 Total Bilirubin (0.2 - 1.3 mg/dL) 0.6 AST (17 - 59 U/L) 12 L ALT (21 - 72 U/L) 21 Albumin (3.5 - 5.0 g/dL) 2.2 L Hematology CBC w Diff MAN DIFF ORDERED WBC (4.8 - 10.8 /CUMM) 66.9 *H RBC (4.70 - 6.10 /CUMM) 4.35 L Hgb (14.0 - 18.0 G/DL) 11.1 L Hct (42 - 52 %) 35.0 L MCV (80.0 - 94.0 FL) 80.6 MCH (27.0 - 31.0 PG) 25.4 L RDW (11.5 - 14.5 %) 18.3 H Plt Count (130 - 400 /CUMM) 84 L MPV (7.4 - 10.4 FL) 10.0 Gran % (42.2 - 75.2 %) 33.1 L Lymphocytes % (20.5 - 51.1 %) 66.6 H Monocytes % (1.7 - 9.3 %) 0.2 L Eosinophils % (0 - 5 %) 0.1 Basophils % (0.0 - 2.0 %) 0 L Absolute Granulocytes (1.4 - 6.5 /CUMM) 22.2 H Absolute Lymphocytes (1.2 - 3.4 /CUMM) 44.5 H Absolute Monocytes (0.10 - 0.60 /CUMM) 0.1 L Absolute Eosinophils (0.0 - 0.7 /CUMM) 0.1 Absolute Basophils (0.0 - 0.2 /CUMM) 0 Platelet Estimate (ADEQUATE) DECREASED Polychromasia PUBS MCHC (33.0 - 37.0 G/DL) 31.6 L Miscellaneous Phlebotomy Draw Site RIGHT BRACHIAL 04/12 04/12 0730 0510 Chemistry Sodium (137 - 145 mmol/L) 141 Potassium (3.5 - 5.1 mmol/L) 3.7 Chloride (98 - 107 mmol/L) 113 H Carbon Dioxide (22 - 30 mmol/L) 21 L Anion Gap (5 - 16) 7 BUN (9 - 20 mg/dL) 28 H Creatinine (0.7 - 1.2 mg/dL) 0.8 Estimated GFR (>60 ml/min) > 60 Glucose (65 - 99 mg/dL) 105 H Calcium (8.4 - 10.2 mg/dL) 6.5 L Phosphorus (2.5 - 4.5 mg/dL) 1.8 L Magnesium (1.6 - 2.3 mg/dL) 2.0 Total Bilirubin (0.2 - 1.3 mg/dL) 0.4 AST (17 - 59 U/L) 9 L ALT (21 - 72 U/L) 22 Albumin (3.5 - 5.0 g/dL) 1.8 L Coagulation PT (9.4 - 12.5 SEC) 12.4 12.6 H INR (0.90 - 1.17) 1.18 H 1.20 H APTT (25 - 37 SEC) 37 33 Fibrinogen Activity (200 - 393 MG/DL) 316 Fibrin Degrad Products (< 10 ug/ml) > 40 ug/ml H D-Dimer (70 - 232 ng/ml) > 5250 H Hematology CBC w Diff MAN DIFF ORDERED WBC (4.8 - 10.8 /CUMM) 14.1 H RBC (4.70 - 6.10 /CUMM) 3.41 L Hgb (14.0 - 18.0 G/DL) 8.8 L Hct (42 - 52 %) 27.5 L MCV (80.0 - 94.0 FL) 80.6 MCH (27.0 - 31.0 PG) 25.8 L RDW (11.5 - 14.5 %) 19.1 H Plt Count (130 - 400 /CUMM) 49 L MPV (7.4 - 10.4 FL) 9.5 Gran % (42.2 - 75.2 %) 30.8 L Lymphocytes % (20.5 - 51.1 %) 68.1 H Monocytes % (1.7 - 9.3 %) 0.3 L Eosinophils % (0 - 5 %) 0.7 Basophils % (0.0 - 2.0 %) 0.1 Absolute Granulocytes (1.4 - 6.5 /CUMM) 4.4 Segmented Neutrophils (42.2 - 75.2 %) 27 L Absolute Lymphocytes (1.2 - 3.4 /CUMM) 9.6 H Lymphocytes (20.5 - 51.1 %) 71 H Monocytes (1.7 - 9.3 %) 1 L Absolute Monocytes (0.10 - 0.60 /CUMM) 0 L Eosinophils (0 - 5.0 %) 1 Absolute Eosinophils (0.0 - 0.7 /CUMM) 0.1 Absolute Basophils (0.0 - 0.2 /CUMM) 0 Platelet Estimate (ADEQUATE) DECREASED Polychromasia 1+ Hypochromic-Microcytic 1+ Poikilocytosis 1+ Anisocytosis 1+ Microcytic Cells 1+ Ovalocytes 1+ Elliptocytes FEW PUBS MCHC (33.0 - 37.0 G/DL) 32.0 L Other Body Source Fld Total RBCs Counted (%) 100 05/21 1930 Chemistry Sodium (137 - 145 mmol/L) 141 Potassium (3.5 - 5.1 mmol/L) 4.0 Chloride (98 - 107 mmol/L) 112 H Carbon Dioxide (22 - 30 mmol/L) 20 L Anion Gap (5 - 16) 8 BUN (9 - 20 mg/dL) 29 H Creatinine (0.7 - 1.2 mg/dL) 0.9 Estimated GFR (>60 ml/min) > 60 Glucose (65 - 99 mg/dL) 153 H Calcium (8.4 - 10.2 mg/dL) 6.8 L Phosphorus (2.5 - 4.5 mg/dL) 1.9 L Magnesium (1.6 - 2.3 mg/dL) 1.9 Total Bilirubin (0.2 - 1.3 mg/dL) 0.3 AST (17 - 59 U/L) 10 L ALT (21 - 72 U/L) 27 Albumin (3.5 - 5.0 g/dL) 2.0 L Hematology WBC (4.8 - 10.8 /CUMM) 27.6 H RBC (4.70 - 6.10 /CUMM) 3.63 L Hgb (14.0 - 18.0 G/DL) 9.4 L Hct (42 - 52 %) 29.2 L MCV (80.0 - 94.0 FL) 80.4 MCH (27.0 - 31.0 PG) 25.9 L RDW (11.5 - 14.5 %) 18.9 H Plt Count (130 - 400 /CUMM) 63 L MPV (7.4 - 10.4 FL) 9.1 Gran % (42.2 - 75.2 %) 33.1 L Lymphocytes % (20.5 - 51.1 %) 64.7 H Monocytes % (1.7 - 9.3 %) 1.3 L Eosinophils % (0 - 5 %) 0.4 Basophils % (0.0 - 2.0 %) 0.5 Absolute Granulocytes (1.4 - 6.5 /CUMM) 9.1 H Absolute Lymphocytes (1.2 - 3.4 /CUMM) 17.9 H Absolute Monocytes (0.10 - 0.60 /CUMM) 0.4 Absolute Eosinophils (0.0 - 0.7 /CUMM) 0.1 Absolute Basophils (0.0 - 0.2 /CUMM) 0.1 PUBS MCHC (33.0 - 37.0 G/DL) 32.2 L Imaging/Other Studies: CXR: - Worsening airspace opacity within the left midlung and at the left lung base. - Slightly improved aeration within the right lung in the setting of a right-sided pleural effusion versus pleural thickening and extensive consolidation.
--- NOTE | 2017-04-14 08:25 | PN- Hematology ---
Subjective Subjective: He continues to be intubated and sedated. He remains on 2 pressors. Review of Systems: Unable to be obtained due to intubation and sedation. Objective Vital Signs and I&Os Vital Signs Date Time Temp Pulse Resp B/P B/P Pulse O2 O2 Flow FiO2 Mean Ox Delivery Rate 04/14 0648 75 04/14 0546 122 101/50 04/14 0400 98 Ventilator 75% 04/14 0347 75 04/14 0141 75 04/14 0000 98 Ventilator 75% 04/13 2211 75 04/13 2135 118 104/60 04/13 2000 94 Ventilator 75% 04/13 1933 75 04/13 1631 70 04/13 1600 98.2 124 30 112/60 94 Ventilator 70% 04/13 1600 91 Ventilator 70% 04/13 1342 70 04/13 1200 92/54 04/13 1200 95 Ventilator 70% 04/13 1114 70 04/13 0838 90 04/13 0800 96.8 102 26 97/55 100 Ventilator 100% 04/13 0800 100 Ventilator 100% Intake & Output 04/14 0800 04/14 0000 04/13 1600 04/13 0800 04/13 0000 04/12 1600 Intake Total 324 769 2799 2081 3562 1935 Output Total 0 20 4 40 15 450 Balance 215 169 0596 2041 3547 1485 Intake, Blood 805 Product Intake, IV 195 572 2219 2081 3562 1130 Intake, Oral 0 Number 0 0 0 Bowel Movements Output, Other 300 Output, Urine 0 20 4 40 15 150 Patient 83.121 kg Weight Weight Bed scale Measurement Method Physical Exam General Appearance: sedated, intubated Ears, Nose, Throat: open with tearing Respiratory: no respiratory distress, rhonchi, intubated on 75% FiO2 Cardiovascular: tachycardia, irregularly irregular Abdomen: soft, non-tender, no organomegaly Extremities: 3+ BUE, 1+ BLE edema Neurologic/Psychiatric: intubated and sedated Skin: ecchymosis (diffusely in BUE) Current Medications: Current Medications Sig/Fred Start time Last Medication Dose Route Stop Time Status Admin Albuterol Sulfate 3 ML Q6 PRN 04/08 1130 AC 04/08 INH 1240 Ceftriaxone Sodium 1,000 MG DAILY 04/10 1236 AC 04/13 IV 0916 Chlorhexidine 15 ML BID 04/09 1000 AC 04/13 Gluconate PO 2137 Escitalopram Oxalate 20 MG DAILY 04/09 1000 AC 04/11 PO 0932 Fentanyl Citrate 1,000 MCG Q24H 04/12 0945 AC 04/13 Dextrose/Water 250 ML IV 0928 Ferrous Sulfate 300 MG TID 04/11 2300 AC 04/12 PO 0002 Mirtazapine 7.5 MG AT BEDTIME 04/08 220 AC 04/11 PO 2225 Norepinephrine 4 MG Q13H 04/14 1000 AC 04/14 Sodium Chloride 250 ML IV 0546 Norepinephrine 4 MG Q3H 04/13 0000 DC 04/13 Sodium Chloride 250 ML IV 2135 Pantoprazole Sodium 40 MG BID 04/08 1415 AC 04/13 IV 2136 Polyethylene Glycol 17 GM DAILY 04/09 1000 AC 04/11 PO 0933 Pregabalin 50 MG AT BEDTIME 04/08 2200 AC 04/11 PO 2225 Sodium Bicarbonate 150 MEQ ONCE ONE 04/13 2015 AC 04/13 Dextrose/Water 1,000 ML IV 04/14 1134 2139 Sodium Chloride 1,000 ML Q6H 04/12 1415 FL 04/13 IV 0835 Vancomycin HCl 1,000 MG Q24H 04/13 0915 AC 04/13 Sodium Chloride 250 ML IV 0917 Vasopressin 40 UNITS Q16H 04/12 223 AC 04/14 Sodium Chloride 100 ML IV 0546 Vecuronium [place] 10 MG Q24H 04/13 0915 DC Sodium Chloride 100 ML IV Vecuronium [place] 10 MG Q2H 04/12 2300 DC 04/13 Sodium Chloride 100 ML IV 0722 Results Last 24 Hours of Lab Results: Laboratory Tests 04/14 04/14 04/13 0435 0050 2345 Blood Gas pH (7.35 - 7.45 PH) 7.31 L pCO2 (35 - 45 TORR) 32 L pO2 (80 - 100 TORR) 104 H HCO3 (21 - 28 MEQ/L) 16 L ABG O2 Sat (Measured) (>96.0 %) 98.0 P-50 (Temp Corrected) Y Carboxyhemoglobin (1.5 - 5.0 %) 0.3 L O2 Concentration % 75% Temperature (97.0 - 100.0 FARH) 97.4 Respiration Rate (BPM) 30 O2 Delivery Method ESPRIT Vent Mode AC Expiratory Pressure (CMH2O/P) 8 Tidal Volume (CC) 450 Chemistry Sodium (137 - 145 mmol/L) 143 145 Potassium (3.5 - 5.1 mmol/L) 4.7 5.0 Chloride (98 - 107 mmol/L) 116 H 115 H Carbon Dioxide (22 - 30 mmol/L) 17 L 16 L Anion Gap (5 - 16) 11 14 BUN (9 - 20 mg/dL) 40 H 38 H Creatinine (0.7 - 1.2 mg/dL) 1.7 H 1.6 H Estimated GFR (>60 ml/min) 38 L 41 L Glucose (65 - 99 mg/dL) 122 H 138 H Calcium (8.4 - 10.2 mg/dL) 6.9 L 7.0 L Phosphorus (2.5 - 4.5 mg/dL) 5.9 H 5.8 H Magnesium (1.6 - 2.3 mg/dL) 1.9 1.9 Total Bilirubin (0.2 - 1.3 mg/dL) 0.5 0.6 AST (17 - 59 U/L) 10 L 20 ALT (21 - 72 U/L) 29 14 L Albumin (3.5 - 5.0 g/dL) 2.0 L 2.2 L Coagulation PT (9.4 - 12.5 SEC) 13.3 H INR (0.90 - 1.17) 1.27 H Fibrinogen Activity (200 - 393 MG/DL) 392 Hematology CBC w Diff MAN DIFF ORDERED WBC (4.8 - 10.8 /CUMM) 40.7 *H RBC (4.70 - 6.10 /CUMM) 3.85 L Hgb (14.0 - 18.0 G/DL) 9.8 L Hct (42 - 52 %) 31.1 L MCV (80.0 - 94.0 FL) 80.7 MCH (27.0 - 31.0 PG) 25.4 L RDW (11.5 - 14.5 %) 19.4 H Plt Count (130 - 400 /CUMM) 76 L MPV (7.4 - 10.4 FL) 10.2 Gran % (42.2 - 75.2 %) 37.5 L Lymphocytes % (20.5 - 51.1 %) 62.0 H Monocytes % (1.7 - 9.3 %) 0.4 L Eosinophils % (0 - 5 %) 0 Basophils % (0.0 - 2.0 %) 0.1 Absolute Granulocytes (1.4 - 6.5 /CUMM) 15.3 H Segmented Neutrophils (42.2 - 75.2 %) 23 L Absolute Lymphocytes (1.2 - 3.4 /CUMM) 25.2 H Lymphocytes (20.5 - 51.1 %) 77 H Absolute Monocytes (0.10 - 0.60 /CUMM) 0.1 L Absolute Eosinophils (0.0 - 0.7 /CUMM) 0 Absolute Basophils (0.0 - 0.2 /CUMM) 0 Platelet Estimate (ADEQUATE) DECREASED Polychromasia 1+ Hypochromic-Microcytic 1+ Poikilocytosis 1+ Anisocytosis 1+ Microcytic Cells 1+ Ovalocytes 1+ PUBS MCHC (33.0 - 37.0 G/DL) 31.5 L Miscellaneous Phlebotomy Draw Site LEFT RADIAL Other Body Source Fld Total RBCs Counted (%) 100 04/13 1900 1320 Blood Gas pH (7.35 - 7.45 PH) 7.27 *L 7.34 L pCO2 (35 - 45 TORR) 34 L 29 L pO2 (80 - 100 TORR) 71 L 82 HCO3 (21 - 28 MEQ/L) 15 L 15 L ABG O2 Sat (Measured) (>96.0 %) 92.0 L 95.0 L P-50 (Temp Corrected) Y N Carboxyhemoglobin (1.5 - 5.0 %) 0.4 L 0.2 L O2 Concentration % 75% 70% Temperature (97.0 - 100.0 FARH) 98.2 96.8 L Respiration Rate (BPM) 30 30 O2 Delivery Method VENT VENT Vent Mode CMV VC-AC Expiratory Pressure (CMH2O/P) 8 8 Tidal Volume (CC) 450 450 Chemistry Lactic Acid (0.7 - 2.1 mmol/L) 2.0 Miscellaneous Phlebotomy Draw Site RIGHT BRACHIAL RIGHT RADIAL Recent Imaging Studies: CXR 04/13/2017: - Endotracheal tube tip remains 5 cm above the imelda. - Worsening airspace opacity within the left midlung and at the left lung base. - Slightly improved aeration within the right lung in the setting of a right- sided pleural effusion versus pleural thickening and extensive consolidation. Assessment/Plan Assessment/Recommendations: Mr. 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 Clinical condition continue to be critical. He remains intubated and sedated. He remains on 2 pressors. He has new renal injury. His peripheral blood smear was reviewed and demonstrated no schistocytes. His platelet count is decreased. Fibrinogen and INR are normal. He does have some FDP which suggest possibly some component of DIC. He does have DVT and hemoptysis. Hemoptysis has improved. WBC has decreased. 1. Continue tending INR and fibrinogen 2. No need for transfusion unless bleeding 3. Consider diurese with any transfusion 4. Re-address goals of care Please call [phone] with any questions or concerns. Problem List: 1. Lung cancer 2. CLL (chronic lymphocytic leukemia) 3. Sepsis
--- NOTE | 2017-04-14 08:50 | PN- Resident CRCU ---
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 No overnight reported of hemoptysis. Patient is able to open his eye with no purposeful movement. 24 Hour Events: AC 450/30/8/75% saturated 100% Temperature 98.8, MAXIMUM TEMPERATURE 98.8 Heart rate lowest 108, highest 130 sinus rhythm Blood pressure lowest 84/52, highest 127/67 Intake 3176, output 24 Telemetry event revealed 3 beats of V. tach overnight Objective Vital Signs & I&O Last 8 Hrs of Vitals and I&O: 11 Exam General Appearance: intubated Head: atraumatic Ears, Nose, Throat: normal ENT inspection Neck: normal inspection, supple Respiratory: rhonchi Cardiovascular: regular rate/rhythm Gastrointestinal: normal bowel sounds, soft, non-tender Extremities: normal inspection, normal capillary refill, normal range of motion, Bilateral LE +1 pedal edema Cranial Nerves: PERRL Skin: dorsum of right foot cynotic BL LE cold Pulses are positive Weaning Parameters NIF: 24 Minute Volume: 7.52 Resp rate: 44 Vt: 170 Heart Rate: 101 Current Medications: Current Medications Sig/Fred Start time Last Medication Dose Route Stop Time Status Admin Albuterol Sulfate 3 ML Q6 PRN 04/08 1130 AC 04/08 INH 1240 Ceftriaxone Sodium 1,000 MG DAILY 04/10 1236 AC 04/14 IV 0923 Chlorhexidine 15 ML BID 04/09 1000 AC 04/14 Gluconate PO 09 Escitalopram Oxalate 20 MG DAILY 04/09 1000 AC 04/14 PO 0921 Fentanyl Citrate 1,000 MCG Q24H 04/12 0945 AC 04/14 Dextrose/Water 250 ML IV 1013 Ferrous Sulfate 300 MG TID 04/11 2300 AC 04/14 PO 0923 Mirtazapine 7.5 MG AT BEDTIME 04/08 2200 AC 04/11 PO 2225 Norepinephrine 4 MG Q13H 04/14 1100 AC Sodium Chloride 250 ML IV Norepinephrine 4 MG Q13H 04/14 1000 DC 04/14 Sodium Chloride 250 ML IV 0546 Norepinephrine 4 MG Q3H 04/13 0000 DC 04/13 Sodium Chloride 250 ML IV 2135 Pantoprazole Sodium 40 MG BID 04/08 1415 AC 04/14 IV 0922 Polyethylene Glycol 17 GM DAILY 04/09 1000 AC 04/14 PO 0922 Pregabalin 50 MG AT BEDTIME 04/08 2200 AC 04/11 PO 2225 Sodium Bicarbonate 150 MEQ Q13H 04/14 1030 AC Dextrose/Water 1,000 ML IV Sodium Bicarbonate 150 MEQ ONCE ONE 04/13 2015 DC 04/13 Dextrose/Water 1,000 ML IV 04/14 1134 2139 Sodium Chloride 1,000 ML Q6H 04/12 1415 DC 04/13 IV 0835 Vancomycin HCl 1,000 MG Q24H 04/13 0915 DC 04/13 Sodium Chloride 250 ML IV 0917 Vasopressin 40 UNITS Q16H 04/12 2230 DC 04/14 Sodium Chloride 100 ML IV 0546 Impression/Plan Impression/Problem List Impression: Mr. Lake is 86 year old male with past medical history significant for CLL status post chemotherapy (has port catheter), questionable lung cancer, DVT and atrial fibrillation on several to, status post IVC filter, anemia, recent colonoscopy 04/07/17 who BIBA from [facility] with chief complaint of coffee- ground emesis and confusion. Imaging obtained on admission Chest x-ray: 1. Increased bibasilar airspace disease compared with 01/11/2017 which may represent acute on chronic aspiration pneumonitis. 2. Dense airspace opacification within the right perihilar region which is suspicious for neoplasm and possible posttreatment related changes as described on the comparison CT of 01/11/2017. 3. Tunneled left subclavian catheter terminating within the brachiocephalic vein. 4. Right pleural thickening and possible right upper lobe atelectasis. 5. Aortic calcific atherosclerosis. 6. Diffuse osteopenia. CT abdomen pelvis: 1. Marked gastric distention. The stomach is markedly distended containing both gas and fluid. 2. The incidentally visualized portions of the lung bases demonstrate bilateral dependent airspace disease increased in prominence compared with 01/11/2017. These findings may represent chronic or acute on chronic aspiration pneumonitis. 3. No free intraperitoneal gas. No intestinal dilatation. 4. Diffuse Monckeberg type facet or calcification suspicious for the sequela of long-term diabetes mellitus. Additionally, diffuse calcific atherosclerosis is present including extensive coronary artery calcific atherosclerosis. 4. The incidentally visualized portions of the lung bases demonstrate bilateral dependent airspace disease increased in prominence compared with 01/11/2017. These findings may represent chronic or acute on chronic aspiration pneumonitis. 5. 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 6. L1 vertebral body benign-appearing compression deformity grossly unchanged compared with 01/11/2017. 7. Inferior vena cava filter in situ. 8. Bilateral punctate renal calcifications which may represent vascular calcifications or urolithiasis. No evidence of acute obstructive uropathy. No hydronephrosis or ureterectasis. 9. Bilateral posterolateral rib chronic posttraumatic deformities. 10. Diffuse hepatic steatosis. 11. Status post cholecystectomy. Echocardiogram: CONCLUSIONS Normal size left ventricle. Mild concentric left ventricular hypertrophy. No obvious regional wall motion abnormalities. Normal left ventricular ejection fraction visually estimated at > 60%. "pseudonormal" filling pattern of the left ventricle for age (stage 2 diastolic dysfunction). Normal right ventricular size and function. Normal atrial size. Trace to mild mitral regurgitation. Moderate aortic stenosis. Trace aortic regurgitation. Mild tricuspid regurgitation. Dilated inferior vena cava. 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, stageIIIB) status post mediastinscopy, chemotherapy and radiotherapy -Acute blood loss anemia -Non-anion gap metabolic acidosis -Acute renal failure Plan #DIC -INR prolonged -Fibrinogen 392<412<316<564 -Fibrin split product elevated -D-Dimer elevated -Venous Doppler 4 extremities revealed in addition to right internal jugular thrombosis, right profunda femoral vein DVT -Thrombocytopenia status post 2 units of platelet -Acute blood loss anemia (active hemoptysis) status post 1 unit blood transfusion, hemoglobin improved to 8.8/27.5 to 11.1/35--today hemoglobin 9.8/ 31.1 -Vecuronium drip was discontinued -Continue Fentanyl drip #Resipratory: -Patient has non-anion gap metabolic acidosis, trying to compensate with respiratory alkalosis, rate was increased to 50, persistent low HCO3 -AC, 450/30/8/70 saturating 100% -Blood gas obtained at 10:30 7.32/32/136/16 -Chest x-ray endotracheal tube terminates about 3.9 cm above the imelda -Continue aggressive oral hygiene #ID -Covering for aspiration pneumonitis/postprocedure aspiration pneumonia -Continue vancomycin Day#5, will obtain trough level today and dose accordingly -We'll obtain vancomycin trough level tomorrow -Ceftriaxone 1000 mg Day#5 -Blood culture from 04/11 positive for gram-positive cocci -Blood culture April 01, urine culture April 01 and April 07 are positive for MRSA -ID recommendation is appreciated -On admission flagyl was discontinued as there is no evidence of GI perforation, no evidence of free air in CT abdomen #CVS -Will discontinue IVF -Levophed and vasopressin will titrate to keep mean arterial blood pressure greater than 60 mmHg -Cardiology recommendation was obtained for atrial fibrillation and DVT, anti- coagulation is on hold for now #Hematology -Past medical history of chronic lymphocytic leukemia unknown previous therapeutic management -Patient has port catheter, no signs of infection -Hematology consultation was obtained, thinks the recommendation -Previous medical records was obtained from [facility], in patient's chart -On admission, OG tube initially aspirated 2 L of dark fluid that's grossly hemoccult positive -GI consultation was obtained, plan for EGD was canceled given active hemoptysis Colonoscopy 04/07/17: Findings: There were enlarged vessels in the rectum, possibly consistent with rectal varices. There was no friability or blood. There were no mucosal lesions. Diverticula were seen from left colon to right colon. The mucosa was intact throughout. No polyps or mass lesions were seen. The right-sided anastomosis was intact, and there were no mucosal normalities. The mucosa of the neoterminal ileum was normal. Given the degree of preparation, small lesions such as polyps or vascular ectasias may been obscured. Impression: * Diverticulosis * Enlarged rectal vessels, rule out varices * No evident neoplasia EGD 02/05/17: Findings: The proximal esophagus was normal. The caliber and contour the esophagus were normal. The distal mucosa there was erythema but no erosion or ulceration. There was no nodularity or mass. There were no varices. The GE junction at 41 cm was normal. There was a hiatal hernia. There were no evident Atilio's erosions. Stomach had normal distention. The cardia was normal. Mucosa and folds were normal throughout. The pyloric channel was normal. The duodenal bulb was normal. In the post bulbar duodenum were several enlarged folds, and 3 biopsies were obtained. There were no mucosal breaks/ulcers, and no polyps or mass lesions. The mucosa and folds of the descending and transverse portions of the duodenum were normal. Impression: * Nonerosive esophagitis * Hiatal hernia * Enlarged duodenal post bulbar folds #Metabolic -Metabolic acidosis, bicarbonate 16 -Trying to compensate by respiratory alkalosis, rate at 30 -Nephro consultation was obtained, RTA given spesis and hemodynamically instability -Bicarbonate drip was started yesterday, goal pH of 7.34 or 7.35 -Repeat ABG every 4 hours and adjust bicarbonate rate accordingly #Neurolgy -Off sedation -Escitalopram 20 mg daily I'll medication -Lyrica 50 mg at bedtime #Alimentary -Nothing by mouth -Tube feeding DVT prophylaxis Alps Code full Tube feeding Problem List: 1. Lung cancer 2. DIC (disseminated intravascular coagulation) 3. CLL (chronic lymphocytic leukemia) 4. Sepsis 5. Anemia Pain Ratin Tomorrow's Labs & Rationales: CBC, ICU bundle, INR, fibrinogen, Vanco trough level, chest x-ray Plan DVT/Prophylaxis: mechanical
--- NOTE | 2017-04-14 09:00 | PN- Att Addend ---
Attending Addendum Attending Brief Note Patient remains intubated. General Appearance: Intubated Cardiovascular: Loud systolic murmur Lungs: decreased air entry Abdomen: Normal Bowel Sounds, Soft, No Tenderness NL, Reflexes 2+ Extremities: Pedal edema Assessment Patient is likely in DIC with bleeding complications and blood clots involving internal jugular and upper extremity. Bronchial bleeding likely traumatic from suction that has improved. Hypotensive currently on 2 pressors. Elevated leukocytosis likely secondary to aspiration and alveolar hemorrhage. Now JANNA is setting in. Prognosis extremely poor. At this point we are waiting decision from Court regarding CODE STATUS, unfortunately next hearing a week from today. Plan Continue supportive care per intesivist Follow consults recommendations GI prophylaxis Prognosis is poor Current Medications Sig/Fred Start time Last Medication Dose Route Stop Time Status Admin Albuterol Sulfate 3 ML Q6 PRN 04/08 1130 AC 04/08 INH 1240 Ceftriaxone Sodium 1,000 MG DAILY 04/10 1236 AC 04/13 IV 0916 Chlorhexidine 15 ML BID 04/09 1000 AC 04/13 Gluconate PO 2137 Escitalopram Oxalate 20 MG DAILY 04/09 1000 AC 04/11 PO 0932 Fentanyl Citrate 1,000 MCG Q24H 04/12 0945 AC 04/13 Dextrose/Water 250 ML IV 0928 Ferrous Sulfate 300 MG TID 04/11 2300 AC 04/12 PO 0002 Mirtazapine 7.5 MG AT BEDTIME 04/08 2200 AC 04/11 PO 2225 Norepinephrine 4 MG Q13H 04/14 1000 AC 04/14 Sodium Chloride 250 ML IV 0546 Norepinephrine 4 MG Q3H 04/13 0000 DC 04/13 Sodium Chloride 250 ML IV 2135 Pantoprazole Sodium 40 MG BID 04/08 1415 AC 04/13 IV 2136 Polyethylene Glycol 17 GM DAILY 04/09 1000 AC 04/11 PO 0933 Pregabalin 50 MG AT BEDTIME 04/08 2200 AC 04/11 PO 2225 Sodium Bicarbonate 150 MEQ ONCE ONE 04/13 2015 AC 04/13 Dextrose/Water 1,000 ML IV 04/14 1134 2139 Sodium Chloride 1,000 ML Q6H 04/12 1415 DC 04/13 IV 0835 Vancomycin HCl 1,000 MG Q24H 04/13 0915 AC 04/13 Sodium Chloride 250 ML IV 0917 Vasopressin 40 UNITS Q16H 04/12 2230 AC 04/14 Sodium Chloride 100 ML IV 0546 Vecuronium [place] 10 MG Q24H 04/13 0915 DC Sodium Chloride 100 ML IV Vecuronium [place] 10 MG Q2H 04/12 2300 DC 04/13 Sodium Chloride 100 ML IV 0722 Laboratory Tests 04/14 04/14 04/13 0435 0050 2345 Blood Gas pH (7.35 - 7.45 PH) 7.31 L pCO2 (35 - 45 TORR) 32 L pO2 (80 - 100 TORR) 104 H HCO3 (21 - 28 MEQ/L) 16 L ABG O2 Sat (Measured) (>96.0 %) 98.0 P-50 (Temp Corrected) Y Carboxyhemoglobin (1.5 - 5.0 %) 0.3 L O2 Concentration % 75% Temperature (97.0 - 100.0 FARH) 97.4 Respiration Rate (BPM) 30 O2 Delivery Method ESPRIT Vent Mode AC Expiratory Pressure (CMH2O/P) 8 Tidal Volume (CC) 450 Chemistry Sodium (137 - 145 mmol/L) 143 145 Potassium (3.5 - 5.1 mmol/L) 4.7 5.0 Chloride (98 - 107 mmol/L) 116 H 115 H Carbon Dioxide (22 - 30 mmol/L) 17 L 16 L Anion Gap (5 - 16) 11 14 BUN (9 - 20 mg/dL) 40 H 38 H Creatinine (0.7 - 1.2 mg/dL) 1.7 H 1.6 H Estimated GFR (>60 ml/min) 38 L 41 L Glucose (65 - 99 mg/dL) 122 H 138 H Calcium (8.4 - 10.2 mg/dL) 6.9 L 7.0 L Phosphorus (2.5 - 4.5 mg/dL) 5.9 H 5.8 H Magnesium (1.6 - 2.3 mg/dL) 1.9 1.9 Total Bilirubin (0.2 - 1.3 mg/dL) 0.5 0.6 AST (17 - 59 U/L) 10 L 20 ALT (21 - 72 U/L) 29 14 L Albumin (3.5 - 5.0 g/dL) 2.0 L 2.2 L Coagulation PT (9.4 - 12.5 SEC) 13.3 H INR (0.90 - 1.17) 1.27 H Fibrinogen Activity (200 - 393 MG/DL) 392 Hematology CBC w Diff MAN DIFF ORDERED WBC (4.8 - 10.8 /CUMM) 40.7 *H RBC (4.70 - 6.10 /CUMM) 3.85 L Hgb (14.0 - 18.0 G/DL) 9.8 L Hct (42 - 52 %) 31.1 L MCV (80.0 - 94.0 FL) 80.7 MCH (27.0 - 31.0 PG) 25.4 L RDW (11.5 - 14.5 %) 19.4 H Plt Count (130 - 400 /CUMM) 76 L MPV (7.4 - 10.4 FL) 10.2 Gran % (42.2 - 75.2 %) 37.5 L Lymphocytes % (20.5 - 51.1 %) 62.0 H Monocytes % (1.7 - 9.3 %) 0.4 L Eosinophils % (0 - 5 %) 0 Basophils % (0.0 - 2.0 %) 0.1 Absolute Granulocytes (1.4 - 6.5 /CUMM) 15.3 H Segmented Neutrophils (42.2 - 75.2 %) 23 L Absolute Lymphocytes (1.2 - 3.4 /CUMM) 25.2 H Lymphocytes (20.5 - 51.1 %) 77 H Absolute Monocytes (0.10 - 0.60 /CUMM) 0.1 L Absolute Eosinophils (0.0 - 0.7 /CUMM) 0 Absolute Basophils (0.0 - 0.2 /CUMM) 0 Platelet Estimate (ADEQUATE) DECREASED Polychromasia 1+ Hypochromic-Microcytic 1+ Poikilocytosis 1+ Anisocytosis 1+ Microcytic Cells 1+ Ovalocytes 1+ PUBS MCHC (33.0 - 37.0 G/DL) 31.5 L Miscellaneous Phlebotomy Draw Site LEFT RADIAL Other Body Source Fld Total RBCs Counted (%) 100 04/13 1900 1320 Blood Gas pH (7.35 - 7.45 PH) 7.27 *L 7.34 L pCO2 (35 - 45 TORR) 34 L 29 L pO2 (80 - 100 TORR) 71 L 82 HCO3 (21 - 28 MEQ/L) 15 L 15 L ABG O2 Sat (Measured) (>96.0 %) 92.0 L 95.0 L P-50 (Temp Corrected) Y N Carboxyhemoglobin (1.5 - 5.0 %) 0.4 L 0.2 L O2 Concentration % 75% 70% Temperature (97.0 - 100.0 FARH) 98.2 96.8 L Respiration Rate (BPM) 30 30 O2 Delivery Method VENT VENT Vent Mode CMV VC-AC Expiratory Pressure (CMH2O/P) 8 8 Tidal Volume (CC) 450 450 Chemistry Lactic Acid (0.7 - 2.1 mmol/L) 2.0 Miscellaneous Phlebotomy Draw Site RIGHT BRACHIAL RIGHT RADIAL Vital Signs Date Time Temp Pulse Resp B/P B/P Pulse O2 O2 Flow FiO2 Mean Ox Delivery Rate 04/14 0848 75 04/14 0800 97.4 111 30 104/56 100 Ventilator 75% 04/14 0800 100 Ventilator 75% 04/14 0648 75 04/14 0546 122 101/50 04/14 0400 98 Ventilator 75% 04/14 0347 75 04/14 0141 75 04/14 0000 98 Ventilator 75% 04/13 2211 75 04/13 2135 118 104/60 04/13 2000 94 Ventilator 75% 04/13 1933 75 04/13 1631 70 04/13 1600 98.2 124 30 112/60 94 Ventilator 70% 04/13 1600 91 Ventilator 70% 04/13 1342 70 04/13 1200 92/54 04/13 1200 95 Ventilator 70% 04/13 1114 70
--- NOTE | 2017-04-14 09:13 | RADIOLOGY REPORT ---
EXAMINATION: XR PORTABLE CHEST CLINICAL INFORMATION: ET tube position. Mechanical ventilator. COMPARISON: X-ray portable chest dated 04/13/2017, 04/12/2017, 04/11/2017. TECHNIQUE: Portable frontal view of the chest was obtained. FINDINGS: The left costophrenic angle and a portion of the left base are excluded from the film. An endotracheal tube terminates approximately 3.9 cm above the imelda. A feeding tube is visualized, tip below the imaged volume. A left subclavian central venous port terminates at the cavoatrial junction. There is stable fairly extensive airspace opacification within the right lung with a moderate right pleural effusion. Mild interstitial prominence within the left lung with improvement in the airspace opacification seen in the mid left lung on this study of 3:35 AM the same day. The osseous structures are not well visualized. No acute osseous abnormalities are evident. IMPRESSION: Lines and tubes as above. Stable airspace opacification within the right lung with moderate right pleural effusion. Improved aeration of the left lung in the short interval.
--- NOTE | 2017-04-14 10:12 | PN- CRCU ---
Subjective HPI/Critical Care Issues: The patient remains intubated and sedated. He remains critically ill. He continues to have low urine output. He remains on high flow oxygen to maintain his saturations in the mid 90s. Objective Current Medications: Current Medications Sig/Fred Start time Last Medication Dose Route Stop Time Status Admin Albuterol Sulfate 3 ML Q6 PRN 04/08 1130 AC 04/08 INH 1240 Ceftriaxone Sodium 1,000 MG DAILY 04/10 1236 AC 04/14 IV 0923 Chlorhexidine 15 ML BID 04/09 1000 AC 04/14 Gluconate PO 0923 Escitalopram Oxalate 20 MG DAILY 04/09 1000 AC 04/14 PO 0921 Fentanyl Citrate 1,000 MCG Q24H 04/12 0945 AC 04/13 Dextrose/Water 250 ML IV 0928 Ferrous Sulfate 300 MG TID 04/11 2300 AC 04/14 PO 0923 Mirtazapine 7.5 MG AT BEDTIME 04/08 2200 AC 04/11 PO 2225 Norepinephrine 4 MG Q13H 04/14 1000 AC 04/14 Sodium Chloride 250 ML IV 0546 Norepinephrine 4 MG Q3H 04/13 0000 DC 04/13 Sodium Chloride 250 ML IV 2135 Pantoprazole Sodium 40 MG BID 04/08 1415 AC 04/14 IV 0922 Polyethylene Glycol 17 GM DAILY 04/09 1000 AC 04/14 PO 0922 Pregabalin 50 MG AT BEDTIME 04/08 220 AC 04/11 PO 2225 Sodium Bicarbonate 150 MEQ ONCE ONE 04/13 2015 AC 04/13 Dextrose/Water 1,000 ML IV 04/14 1134 2139 Sodium Chloride 1,000 ML Q6H 04/12 1415 DC 04/13 IV 0835 Vancomycin HCl 1,000 MG Q24H 04/13 0915 DC 04/13 Sodium Chloride 250 ML IV 0917 Vasopressin 40 UNITS Q16H 04/12 2230 AC 04/14 Sodium Chloride 100 ML IV 0546 Vecuronium [place] 10 MG Q2H 04/12 2300 DC 04/13 Sodium Chloride 100 ML IV 0722 Vital Signs & I&O Last 24 Hrs of Vitals and I&O: Vital Signs Date Time Temp Pulse Resp B/P B/P Pulse O2 O2 Flow FiO2 Mean Ox Delivery Rate 04/14 0848 75 04/14 0800 97.4 111 30 104/56 100 Ventilator 75% 04/14 0800 100 Ventilator 75% 04/14 0648 75 04/14 0546 122 101/50 04/14 0400 98 Ventilator 75% 04/14 0347 75 04/14 0141 75 04/14 0000 98 Ventilator 75% 04/13 2211 75 04/13 2135 118 104/60 04/13 2000 94 Ventilator 75% 04/13 1933 75 04/13 1631 70 04/13 1600 98.2 124 30 112/60 94 Ventilator 70% 04/13 1600 91 Ventilator 70% 04/13 1342 70 04/13 1200 92/54 04/13 1200 95 Ventilator 70% 04/13 1114 70 Intake & Output 04/14 1600 04/14 0800 04/14 0000 Intake Total 823 868 Output Total 0 20 Balance 823 848 Intake, IV 823 868 Number 0 Bowel Movements Output, Urine 0 20 Physical Exam General Appearance: sedated, intubated, improved bleeding from endotracheal tube Head: atraumatic, normal appearance Neck: normal inspection, supple, full range of motion Respiratory: chest non-tender Cardiovascular: murmur, systolic murmur, irregularly irregular Gastrointestinal: normal bowel sounds, soft, non-tender Extremities: Warm and dry, no edema Results Last 24 Hrs of Lab Results: Laboratory Tests 04/14/17 0435: Anion Gap 11, Estimated GFR 38 L, Glucose 122 H, Calcium 6.9 L, Phosphorus 5.9 H, Magnesium 1.9, Total Bilirubin 0.5, AST 10 L, ALT 29, Albumin 2.0 L, PT 13.3 H, INR 1.27 H, Fibrinogen Activity 392, CBC w Diff MAN DIFF ORDERED, RBC 3.85 L, MCV 80.7, MCH 25.4 L, RDW 19.4 H, MPV 10.2, Gran % 37.5 L, Lymphocytes % 62.0 H, Monocytes % 0.4 L, Eosinophils % 0, Basophils % 0.1, Absolute Granulocytes 15.3 H, Segmented Neutrophils 23 L, Absolute Lymphocytes 25.2 H, Lymphocytes 77 H, Absolute Monocytes 0.1 L, Absolute Eosinophils 0, Absolute Basophils 0, Platelet Estimate DECREASED, Polychromasia 1+, Hypochromic -Microcytic 1+, Poikilocytosis 1+, Anisocytosis 1+, Microcytic Cells 1+, Ovalocytes 1+, PUBS MCHC 31.5 L, Fld Total RBCs Counted 100 04/14/17 0050: pH 7.31 L, pCO2 32 L, pO2 104 H, HCO3 16 L, ABG O2 Sat (Measured) 98.0, P-50 (Temp Corrected) Y, Carboxyhemoglobin 0.3 L, O2 Concentration % 75%, Temperature 97.4, Respiration Rate 30, O2 Delivery Method ESPRIT, Vent Mode AC, Expiratory Pressure 8, Tidal Volume 450, Phlebotomy Draw Site LEFT RADIAL 04/13/17 2345: Anion Gap 14, Estimated GFR 41 L, Glucose 138 H, Calcium 7.0 L, Phosphorus 5.8 H, Magnesium 1.9, Total Bilirubin 0.6, AST 20, ALT 14 L, Albumin 2.2 L 04/13/172014: Lactic Acid 2.0 04/13/17 1900: pH 7.27 *L, pCO2 34 L, pO2 71 L, HCO3 15 L, ABG O2 Sat (Measured) 92.0 L, P- 50 (Temp Corrected) Y, Carboxyhemoglobin 0.4 L, O2 Concentration % 75%, Temperature 98.2, Respiration Rate 30, O2 Delivery Method VENT, Vent Mode CMV, Expiratory Pressure 8, Tidal Volume 450, Phlebotomy Draw Site RIGHT BRACHIAL 04/13/17 1320: pH 7.34 L, pCO2 29 L, pO2 82, HCO3 15 L, ABG O2 Sat (Measured) 95.0 L, P-50 (Temp Corrected) N, Carboxyhemoglobin 0.2 L, O2 Concentration % 70%, Temperature 96.8 L, Respiration Rate 30, O2 Delivery Method VENT, Vent Mode VC- AC, Expiratory Pressure 8, Tidal Volume 450, Phlebotomy Draw Site RIGHT RADIAL Impression/Plan Impression/Plan Impression/Plan: 1. Respiratory failure, hemoptysis improved. 2. Coagulopathy with DIC. Progressive thrombocytopenia. 3. Right upper extremity DVT. History of IVC filter placement. 4. Atrial fibrillation, previously on Xarelto. 5. History of CLL and lung cancer. 6. Severe malnutrition. 7. Blood loss anemia, acute. 8. Positive troponin. 9. Septic shock secondary to intra-abdominal source and likely aspiration pneumonia. 10. Acute renal failure. 11. NSVT. Recommendations: * Follow up renal recommendations. * Will adjust HCO3 drip after the ABG has been taken. * Continue fentanyl drip for an SAS of 3, and appropriate pain management. * Continue IV antibiotics. * Continue DVT prophylaxis with Alps. * Continue IV Protonix. * Tube feeds to be restarted. * Attempt to titrate pressors for a mean arterial blood pressure greater than 60 mmHg. * Continue vent bundle. * Continue all supportive care. * The patient has an overall poor prognosis.
--- NOTE | 2017-04-14 10:48 | NUR ---
Patient is awake but unable to track or follow commands. He is responsive to tactile stimuli. Pupils 2mm. Fentanyl gtt is infusing at 50mcg. ST with PAC's on tele monitor, HR= 110-120's. SBP: 100-120's. vaso has been d/c and levophed continues to infuse at 5mcg. Remains intubated with a #8 to the left at 24cm, lungs rhonchorous to the bilateral upper lobes and diminished at the bases. O2 sats stable at 96-100%. Vent settings: AC 30/450/75/8. ABG's drawn at 1015 and to be repeated at 1430. Scant amounts of clear secretions noted when suctioning. OGT in place and Jevity 1.2 has been restrated at 15mls/hr with a 100ml water flush every 4 hours. TF rate to be increased to 30mls at 2200. Abdomen is soft with hypoactive bowel sounds. Ritchie in place with no urine output. Nephrology has been following. BUE +2-3 edema and are weeping a copius amount of serosangenous drainage. +1 generalized edema and +2 scrotal edema is noted. A duoderm is intact to the coccyx- unstageable pressure injury. LCW port in place and site is WNL. Sodium bi-carb (150meq) gtt is infusing at 75mls/hr. IV vanco has been d/c by Dr. Ibrahim. No s/s of pain are currently noted. Patients nephew has applied for conservatorship and the next hearing is scheduled for 04/20. He has been updated on pts status and plan of care. Will continue to monitor.
--- NOTE | 2017-04-14 10:52 | PN- Infect Dx ---
Subjective Subjective: Afebrile. Blood pressure is stable on 2 pressors. He has minimal urine output. Objective Last 24 Hrs of Vital Signs/I&O Vital Signs Date Time Temp Pulse Resp B/P B/P Pulse O2 O2 Flow FiO2 Mean Ox Delivery Rate 04/14 0848 75 04/14 0800 97.4 111 30 104/56 100 Ventilator 75% 04/14 0800 100 Ventilator 75% 04/14 0648 75 04/14 0546 122 101/50 04/14 0400 98 Ventilator 75% 04/14 0347 75 04/14 0141 75 04/14 0000 98 Ventilator 75% 04/13 2211 75 04/13 2135 118 104/60 04/13 2000 94 Ventilator 75% 04/13 1933 75 04/13 1631 70 04/13 1600 98.2 124 30 112/60 94 Ventilator 70% 04/13 1600 91 Ventilator 70% 04/13 1342 70 04/13 1200 92/54 04/13 1200 95 Ventilator 70% 04/13 1114 70 Intake & Output 04/14 1600 04/14 0800 04/14 0000 Intake Total 823 868 Output Total 0 20 Balance 823 848 Intake, IV 823 868 Number 0 Bowel Movements Output, Urine 0 20 Physical Exam Other Physical Findings: He is awake on the ventilator but not responsive Lungs bilateral rhonchi Heart regular rhythm with no murmur Abdomen is soft, with no obvious tenderness, positive bowel sounds Extremities bilateral upper extremity edema Ritchie catheter remains in place Results Last 24 Hours of Lab Results: Laboratory Tests 04/14 04/14 1005 0435 Blood Gas pH (7.35 - 7.45 PH) 7.32 L pCO2 (35 - 45 TORR) 32 L pO2 (80 - 100 TORR) 136 H HCO3 (21 - 28 MEQ/L) 16 L ABG O2 Sat (Measured) (>96.0 %) 99.0 P-50 (Temp Corrected) YES Carboxyhemoglobin (1.5 - 5.0 %) 0 L O2 Concentration % 75 Temperature (97.0 - 100.0 FARH) 97.4 Respiration Rate (BPM) 30 O2 Delivery Method VENT Vent Mode AC Expiratory Pressure (CMH2O/P) 8 Tidal Volume (CC) 450 Chemistry Sodium (137 - 145 mmol/L) 143 Potassium (3.5 - 5.1 mmol/L) 4.7 Chloride (98 - 107 mmol/L) 116 H Carbon Dioxide (22 - 30 mmol/L) 17 L Anion Gap (5 - 16) 11 BUN (9 - 20 mg/dL) 40 H Creatinine (0.7 - 1.2 mg/dL) 1.7 H Estimated GFR (>60 ml/min) 38 L Glucose (65 - 99 mg/dL) 122 H Calcium (8.4 - 10.2 mg/dL) 6.9 L Phosphorus (2.5 - 4.5 mg/dL) 5.9 H Magnesium (1.6 - 2.3 mg/dL) 1.9 Total Bilirubin (0.2 - 1.3 mg/dL) 0.5 AST (17 - 59 U/L) 10 L ALT (21 - 72 U/L) 29 Albumin (3.5 - 5.0 g/dL) 2.0 L Coagulation PT (9.4 - 12.5 SEC) 13.3 H INR (0.90 - 1.17) 1.27 H Fibrinogen Activity (200 - 393 MG/DL) 392 Hematology CBC w Diff MAN DIFF ORDERED WBC (4.8 - 10.8 /CUMM) 40.7 *H RBC (4.70 - 6.10 /CUMM) 3.85 L Hgb (14.0 - 18.0 G/DL) 9.8 L Hct (42 - 52 %) 31.1 L MCV (80.0 - 94.0 FL) 80.7 MCH (27.0 - 31.0 PG) 25.4 L RDW (11.5 - 14.5 %) 19.4 H Plt Count (130 - 400 /CUMM) 76 L MPV (7.4 - 10.4 FL) 10.2 Gran % (42.2 - 75.2 %) 37.5 L Lymphocytes % (20.5 - 51.1 %) 62.0 H Monocytes % (1.7 - 9.3 %) 0.4 L Eosinophils % (0 - 5 %) 0 Basophils % (0.0 - 2.0 %) 0.1 Absolute Granulocytes (1.4 - 6.5 /CUMM) 15.3 H Segmented Neutrophils (42.2 - 75.2 %) 23 L Absolute Lymphocytes (1.2 - 3.4 /CUMM) 25.2 H Lymphocytes (20.5 - 51.1 %) 77 H Absolute Monocytes (0.10 - 0.60 /CUMM) 0.1 L Absolute Eosinophils (0.0 - 0.7 /CUMM) 0 Absolute Basophils (0.0 - 0.2 /CUMM) 0 Platelet Estimate (ADEQUATE) DECREASED Polychromasia 1+ Hypochromic-Microcytic 1+ Poikilocytosis 1+ Anisocytosis 1+ Microcytic Cells 1+ Ovalocytes 1+ PUBS MCHC (33.0 - 37.0 G/DL) 31.5 L Miscellaneous Phlebotomy Draw Site RIGHT BRACHIAL Other Body Source Fld Total RBCs Counted (%) 100 04/14 04/13 04/13 04/13 0050 2344 2014 1899 Blood Gas pH (7.35 - 7.45 PH) 7.31 L 7.27 *L pCO2 (35 - 45 TORR) 32 L 34 L pO2 (80 - 100 TORR) 104 H 71 L HCO3 (21 - 28 MEQ/L) 16 L 15 L ABG O2 Sat (Measured) (>96.0 %) 98.0 92.0 L P-50 (Temp Corrected) Y Y Carboxyhemoglobin (1.5 - 5.0 %) 0.3 L 0.4 L O2 Concentration % 75% 75% Temperature (97.0 - 100.0 FARH) 97.4 98.2 Respiration Rate (BPM) 30 30 O2 Delivery Method ESPRIT VENT Vent Mode AC CMV Expiratory Pressure (CMH2O/P) 8 8 Tidal Volume (CC) 450 450 Chemistry Sodium (137 - 145 mmol/L) 145 Potassium (3.5 - 5.1 mmol/L) 5.0 Chloride (98 - 107 mmol/L) 115 H Carbon Dioxide (22 - 30 mmol/L) 16 L Anion Gap (5 - 16) 14 BUN (9 - 20 mg/dL) 38 H Creatinine (0.7 - 1.2 mg/dL) 1.6 H Estimated GFR (>60 ml/min) 41 L Glucose (65 - 99 mg/dL) 138 H Lactic Acid (0.7 - 2.1 mmol/L) 2.0 Calcium (8.4 - 10.2 mg/dL) 7.0 L Phosphorus (2.5 - 4.5 mg/dL) 5.8 H Magnesium (1.6 - 2.3 mg/dL) 1.9 Total Bilirubin (0.2 - 1.3 mg/dL) 0.6 AST (17 - 59 U/L) 20 ALT (21 - 72 U/L) 14 L Albumin (3.5 - 5.0 g/dL) 2.2 L Miscellaneous Phlebotomy Draw Site LEFT RADIAL RIGHT BRACHIAL 04/13 1320 Blood Gas pH (7.35 - 7.45 PH) 7.34 L pCO2 (35 - 45 TORR) 29 L pO2 (80 - 100 TORR) 82 HCO3 (21 - 28 MEQ/L) 15 L ABG O2 Sat (Measured) (>96.0 %) 95.0 L P-50 (Temp Corrected) N Carboxyhemoglobin (1.5 - 5.0 %) 0.2 L O2 Concentration % 70% Temperature (97.0 - 100.0 FARH) 96.8 L Respiration Rate (BPM) 30 O2 Delivery Method VENT Vent Mode VC-AC Expiratory Pressure (CMH2O/P) 8 Tidal Volume (CC) 450 Miscellaneous Phlebotomy Draw Site RIGHT RADIAL Last 24 Hours of Matt Results: No recent cultures Recent Imaging Studies: Chest x-ray April 14 stable airspace opacities within the right lung with a moderate right pleural effusion; improved aeration of the left lung Assessment/Plan Impression: Condition remains poor, still on 2 pressors and requiring significant amount of oxygen, with worsening of his chest x-ray, and now with renal failure, felt to be multifactorial. He remains afebrile with white blood cell count elevated, though this parameter cannot be followed, given his underlying CLL, on Vancomycin and Ceftriaxone now Day 7 of treatment for presumed aspiration pneumonia secondary to MRSA and Escherichia coli. Given his renal failure his Vancomycin will need to be adjusted. His prognosis is quite poor and he is awaiting a court decision regarding his overall level of care. Suggestion: 1. Await decision regarding overall level of care 2. Vancomycin random level today and in the a.m. April 15 3. Redose with Vancomycin 1 g IV 1 when level is less than 15 4. Continue Ceftriaxone
--- NOTE | 2017-04-14 12:06 | NUR ---
Referral received yesterday from [facility] Resident. The patient is an unfortunate 86 year old man, who has been resideing at [facility]. Mr. Lake was admitted to the hospital on 04/08/17 with aspiration pnuemonia, and remains in the [facility] on a ventilator. He is critically ill and medical team believes that there should be consideration given to changing his code status. Mr. Lake has a court appointed conservator, and conservator has petitioned the Probate Court for permission to change the status. According to state statutes, hearing needs to be scheduled within time standards, and a hearing has been scheduled for 04/20/17. This information has been confirmed with the [place] [facility]. A copy of the decree issued by the court is on the patients chart (as well as scanned into the medical record). Case discussed with Dr. Otra and house staff.
[2017-04-14 16:00] VITALS: BP 104/56
--- NOTE | 2017-04-14 16:36 | NUR ---
PT PULSE ABSENT ON L FOOT WITH DOPPLER, MD NOTIFIED, FOOT COLD TO TOUCH AND MOTTLED, POSITIVE PULSE TO R FOOT WITH DOPPLER, WILL CONT TO MON.
--- NOTE | 2017-04-14 18:38 | NUR ---
PT BP IN 60'S, LEVO MAXED, VASO STARTED AND MAXED, BP STILL IN 70'S, 500ML NS BOLUS GIVEN, BP STILL IN 70'S, MICKI STARTED AND MAXED BP REMAINS IN 70'S, RESIDENT AT BEDSIDE NO OTHER MEDS ORDERED AT THIS TIME, WILL CONT TO MON.
[2017-04-15] VITALS: BP 90/60
--- NOTE | 2017-04-15 01:04 | NUR ---
0000 SEDATED PATIENT RECEIVED- FENTANYL DRIP INFUSING AT 25 MCG/HR, PUPILS 3MM, EQUAL AND REACTIVE TO LIGHT, SKIN PINK, WARM AND DRY, BLACK TOP ROLLER SINUS TACHYCARDIA WITHOUT ECTOPY, HEART RATE 120/MIN, ETT TO VENTILATOR WITH FIO2 AT 70%, CONTINUOUS O2 SAT AT 95%, BREATHE SOUNDS CLEAR BUT DIMINISHED AT BOTH BASES, ABDOMEN SOFT, +BS, OGT IN PLACE AND CLAMPED, BUE WEEPING- L>R, BP 90/60 MANUALLY- VASOPRESSIN INFUSING AT 0.04 UNITS/HR, LEVOPHED DRIP INFUSING AT 20 MCG/MIN AND NEOSYNEPHRINE INFUSING AT 180 MCG/MIN VIA LEFT CHEST PORT, LUE BRACHIAL PULSE PRESENT WITH DOPLAR, RIGHT RADIAL AND PEDAL PULSES PALPABLE, LEFT FOOT COOL TO TOUCH TOES TO BEGINING OF ARCH MOTTLED NOTED ON PREVIOUS SHIFTS, DRIVER TO GRAVITY WITH SCANT UO
[2017-04-15 04:29] LABS: ABSOLUTE BASOPHIL COUNT 0.3 /CUMM (0.0-0.2); ABSOLUTE EOSINOPHIL COUNT 0 /CUMM (0.0-0.7); ABSOLUTE GRANULOCYTE CT 46.6 /CUMM (1.4-6.5); ABSOLUTE LYMPH COUNT 76.1 /CUMM (1.2-3.4); ABSOLUTE MONOCYTE COUNT 0.3 /CUMM (0.10-0.60); BASOPHIL % 0.2 % (0.0-2.0); EOSINOPHIL % 0 % (0-5); GRANULOCYTE % 37.8 % (42.2-75.2); MEAN CORPUSCULAR HGB 25.9 PG (27.0-31.0); MEAN CORPUSCULAR HGB CONC 31.7 G/DL (33.0-37.0); MEAN CORPUSCULAR VOLUME 81.8 FL (80.0-94.0); MEAN PLATELET VOLUME 11.9 FL (7.4-10.4); PLATELET COUNT 110 /CUMM (130-400); RBC DISTRIBUTION WIDTH 19.9 % (11.5-14.5); RED BLOOD CELL CT 4.59 /CUMM (4.70-6.10)
[2017-04-15 04:37] LABS: HEMATOCRIT 37.5 % (42-52)
[2017-04-15 04:41] LABS: PT 12.7 SEC (9.4-12.5)
[2017-04-15 04:50] LABS: WHITE BLOOD CELL COUNT 123.2 /CUMM (4.8-10.8)
--- NOTE | 2017-04-15 07:15 | PN- Resident CRCU ---
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 Patient able to open his eyes but no response to verbal or painful stimuli. 24 Hour Events: AC 450/30/8/60% saturating 99% Temperature 97.2, MAXIMUM TEMPERATURE 97.7 Heart rate lowest 110, highest 124 sinus rhythm Blood pressure lowest 66/41, highest 110/60 Intake 2002, output 24 Levoved, vasopressin, Derrek and fentanyl drip Objective Vital Signs & I&O Last 8 Hrs of Vitals and I&O: 11 Exam General Appearance: intubated, severe distress Head: atraumatic Neck: normal inspection, supple Respiratory: chest non-tender Cardiovascular: regular rate/rhythm Gastrointestinal: normal bowel sounds, soft, non-tender Extremities: Bilateral pedal edema , Bilateral pulses positive Cranial Nerves: PERRL Weaning Parameters NIF: 24 Minute Volume: 7.52 Resp rate: 44 Vt: 170 Heart Rate: 101 Current Medications: Current Medications Sig/Fred Start time Last Medication Dose Route Stop Time Status Admin Albuterol Sulfate 3 ML Q6 PRN 04/08 1130 AC 04/08 INH 1240 Ceftriaxone Sodium 1,000 MG DAILY 04/15 1000 AC 04/15 IV 1035 Chlorhexidine 15 ML BID 04/09 1000 AC 04/15 Gluconate PO 1037 Digoxin 0.25 MG ONCE ONE 04/15 1115 DC 04/15 IV 04/15 1116 1119 Escitalopram Oxalate 20 MG DAILY 04/09 1000 AC 04/15 PO 1035 Fentanyl Citrate 1,000 MCG Q24H 04/12 0945 AC 04/15 Dextrose/Water 250 ML IV 1022 Ferrous Sulfate 300 MG TID 04/11 2300 AC 04/15 PO 1035 Lorazepam 1 MG ONCE ONE 04/15 1100 DC 04/15 IV 04/15 1101 1104 Mirtazapine 7.5 MG AT BEDTIME 04/08 2200 AC 04/11 PO 2225 Norepinephrine 4 MG Q3H 04/15 0000 AC 04/15 Sodium Chloride 250 ML IV 1022 Norepinephrine 4 MG Q13H 04/14 1100 DC Sodium Chloride 250 ML IV Pantoprazole Sodium 40 MG BID 04/08 1415 AC 04/15 IV 1035 Phenylephrine HCl 40 MG Q4H 04/15 0000 AC 04/15 Sodium Chloride 250 ML IV 0429 Phenylephrine HCl 40 MG .STK-MED ONE 04/14 2105 DC IM 04/14 210 Phenylephrine HCl 40 MG Q24H 04/14 1830 DC 04/14 Sodium Chloride 250 ML IV 1810 Phenylephrine HCl 40 MG .STK-MED ONE 04/14 1802 DC IM 04/14 1803 Polyethylene Glycol 17 GM DAILY 04/09 1000 AC 04/15 PO 1037 Pregabalin 50 MG AT BEDTIME 04/08 2200 AC 04/11 PO 2225 Sodium Bicarbonate 150 MEQ Q8H 04/14 2000 AC 04/15 Dextrose/Water 1,000 ML IV 0429 Sodium Bicarbonate 50 MEQ ONCE ONE 04/14 1700 DC 04/14 IV 04/14 1701 1721 Sodium Bicarbonate 150 MEQ Q13H 04/14 1030 DC 04/14 Dextrose/Water 1,000 ML IV 04/14 1959 1219 Sodium Chloride 500 ML BOLUS ONE 04/14 1800 DC 04/14 IV 04/14 1859 1800 Vasopressin 40 UNITS Q16H 04/15 0700 AC 04/15 Sodium Chloride 100 ML IV 0652 Impression/Plan Impression/Problem List Impression: Mr. Lake is 86 year old male with past medical history significant for CLL status post chemotherapy (has port catheter), questionable lung cancer, DVT and atrial fibrillation on several to, status post IVC filter, anemia, recent colonoscopy 04/07/17 who BIBA from [facility] with chief complaint of coffee- ground emesis and confusion. Imaging obtained on admission Chest x-ray: 1. Increased bibasilar airspace disease compared with 01/11/2017 which may represent acute on chronic aspiration pneumonitis. 2. Dense airspace opacification within the right perihilar region which is suspicious for neoplasm and possible posttreatment related changes as described on the comparison CT of 01/11/2017. 3. Tunneled left subclavian catheter terminating within the brachiocephalic vein. 4. Right pleural thickening and possible right upper lobe atelectasis. 5. Aortic calcific atherosclerosis. 6. Diffuse osteopenia. CT abdomen pelvis: 1. Marked gastric distention. The stomach is markedly distended containing both gas and fluid. 2. The incidentally visualized portions of the lung bases demonstrate bilateral dependent airspace disease increased in prominence compared with 01/11/2017. These findings may represent chronic or acute on chronic aspiration pneumonitis. 3. No free intraperitoneal gas. No intestinal dilatation. 4. Diffuse Monckeberg type facet or calcification suspicious for the sequela of long-term diabetes mellitus. Additionally, diffuse calcific atherosclerosis is present including extensive coronary artery calcific atherosclerosis. 4. The incidentally visualized portions of the lung bases demonstrate bilateral dependent airspace disease increased in prominence compared with 01/11/2017. These findings may represent chronic or acute on chronic aspiration pneumonitis. 5. 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 6. L1 vertebral body benign-appearing compression deformity grossly unchanged compared with 01/11/2017. 7. Inferior vena cava filter in situ. 8. Bilateral punctate renal calcifications which may represent vascular calcifications or urolithiasis. No evidence of acute obstructive uropathy. No hydronephrosis or ureterectasis. 9. Bilateral posterolateral rib chronic posttraumatic deformities. 10. Diffuse hepatic steatosis. 11. Status post cholecystectomy. Echocardiogram: CONCLUSIONS Normal size left ventricle. Mild concentric left ventricular hypertrophy. No obvious regional wall motion abnormalities. Normal left ventricular ejection fraction visually estimated at > 60%. "pseudonormal" filling pattern of the left ventricle for age (stage 2 diastolic dysfunction). Normal right ventricular size and function. Normal atrial size. Trace to mild mitral regurgitation. Moderate aortic stenosis. Trace aortic regurgitation. Mild tricuspid regurgitation. Dilated inferior vena cava. 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, stageIIIB) status post mediastinscopy, chemotherapy and radiotherapy -Acute blood loss anemia -Non-anion gap metabolic acidosis -Acute renal failure Plan #DIC -Initially was positive with low fibrinogen, prolonged INR, elevated d-dimer and fibrinogen split product -Venous Doppler 4 extremities revealed in addition to right internal jugular thrombosis, right profunda femoral vein DVT -Thrombocytopenia status post 2 units of platelet -Acute blood loss anemia (active hemoptysis) status post 1 unit blood transfusion -Vecuronium drip was discontinued -Continue Fentanyl drip #Resipratory: -Patient has non-anion gap metabolic acidosis, trying to compensate with respiratory alkalosis, rate was increased to 50, persistent low HCO3 -Chest x-ray endotracheal tube terminates about 3.9 cm above the imelda -Continue aggressive oral hygiene #ID -Covering for aspiration pneumonitis/postprocedure aspiration pneumonia -Continue vancomycin Day#5, random vancomycin level is above 15x 2 days, vancomycin dose was held yesterday and today -Ceftriaxone 1000 mg Day#6 -Sputum culture positive for MRSA -ID recommendation is appreciated -On admission flagyl was discontinued as there is no evidence of GI perforation, no evidence of free air in CT abdomen #CVS -Will discontinue IVF due to volume overload -Levophed, vasopressin and phenol ephedrine drip were started yesterday given low blood pressure 60 systolic -Cardiology recommendation was obtained, anticoagulation is on hold for active bleeding #Hematology -Past medical history of chronic lymphocytic leukemia unknown previous therapeutic management -Patient has port catheter, no signs of infection -Hematology consultation was obtained, thinks the recommendation -Previous medical records was obtained from [facility], in patient's chart -On admission, OG tube initially aspirated 2 L of dark fluid that's grossly hemoccult positive -GI consultation was obtained, plan for EGD was canceled given active hemoptysis Colonoscopy 04/07/17: Findings: There were enlarged vessels in the rectum, possibly consistent with rectal varices. There was no friability or blood. There were no mucosal lesions. Diverticula were seen from left colon to right colon. The mucosa was intact throughout. No polyps or mass lesions were seen. The right-sided anastomosis was intact, and there were no mucosal normalities. The mucosa of the neoterminal ileum was normal. Given the degree of preparation, small lesions such as polyps or vascular ectasias may been obscured. Impression: * Diverticulosis * Enlarged rectal vessels, rule out varices * No evident neoplasia EGD 02/05/17: Findings: The proximal esophagus was normal. The caliber and contour the esophagus were normal. The distal mucosa there was erythema but no erosion or ulceration. There was no nodularity or mass. There were no varices. The GE junction at 41 cm was normal. There was a hiatal hernia. There were no evident Atilio's erosions. Stomach had normal distention. The cardia was normal. Mucosa and folds were normal throughout. The pyloric channel was normal. The duodenal bulb was normal. In the post bulbar duodenum were several enlarged folds, and 3 biopsies were obtained. There were no mucosal breaks/ulcers, and no polyps or mass lesions. The mucosa and folds of the descending and transverse portions of the duodenum were normal. Impression: * Nonerosive esophagitis * Hiatal hernia * Enlarged duodenal post bulbar folds #Metabolic -Metabolic acidosis, bicarbonate 16 -Trying to compensate by respiratory alkalosis, rate at 30 -Nephro consultation was obtained, RTA given spesis and hemodynamically instability -Bicarbonate drip was started yesterday, goal pH of 7.34 or 7.35 -Repeat ABG every 4 hours and adjust bicarbonate rate accordingly #Neurolgy -Off sedation -Escitalopram 20 mg daily I'll medication -Lyrica 50 mg at bedtime #Alimentary -Tube feeding was discontinued yesterday given the significant distress and low blood pressure DVT prophylaxis Alps Code full NPO Problem List: 1. DIC (disseminated intravascular coagulation) 2. Lung cancer 3. CLL (chronic lymphocytic leukemia) 4. Sepsis 5. Anemia Pain Ratin Tomorrow's Labs & Rationales: CBC, ICU bundle, chest x ray Plan DVT/Prophylaxis: mechanical
[2017-04-15 08:00] VITALS: BP 118/0
--- NOTE | 2017-04-15 08:00 | NUR ---
Patient is awake with eyes open- unable to track or follow commands. Does not move extremities but will close mouth when being suctioning. Pupils are 3mm and sluggish. Fentanyl gtt infusing at 50mcg SAS 4. ST with Pac's on tele monitor, HR= 110-130's. SBP: 100-120's, levo is infusing at max- 20mcg, vaso infusing at 6mls or 0.04units, and lisseth is infusing at 100mcg. Remains intubated with a #8 to the left at 24cm, lungs rhonchorous to the bilateral upper lobes and diminished. He is tachypneic with a respiratory rate of 32-36. Vent settings currently AC 30/450/70/8- O2 sats at 98-100%. OGT in place and is clamped at this time. Abdomen is soft with very hypoactive bowel sounds. Ritchie in place with low to no output. An unstageable pressure injury to the coccyx with a duoderm in place. BUE are cold and weepy and pulses are only + with the doppler. Bi-lateral feet are cold to touch and appear mottled- a pulse is however palpable. BUE are also edematous and weepy large amounts of serous fluid. Scrotal edema is also noted- +1-2 generalized edema. LCW port in place and site is WNL- Bicarb gtt remains infusing. No s/s of pain are currently noted. Dr. De La Cruz at the bedside to assess with the RN- Will continue to closely monitor patient.
--- NOTE | 2017-04-15 08:17 | NUR ---
0200 SBP NOW ELEVATED TO 170/- NEOSYNEPHRINE BEING TITRATED SLOWLY DOWN- SEE FREQUENT VS SHEET 0300 BP 120-130/SYSTOLIC- RR 36-40- FENTANYL DRIP INCREASED TO 37.3 MCG/HR LEFT FOOT NOW WITH PALPABLE PEDAL PULSE BUT SOLE OF FOOT BECOMING DARKLY MOTTLED 0400 RESPIRATORY RATE DECREASED, PATIENT APPEARS MORE COMFORTABLE 0630 NEOSYNEPHRINE DOWN TO 100 MCG/MIN, BP 120-130/SYSTOLIC, RR INCREASED TO 32-33 WITH STIMULI AND THEN RETURNS TO 30/MIN (VENTILATOR SETTING), NO FUTHER BLOODY SECRETIONS ON ETS, CLOSE OBSERVATION MAINTAINED, AM CXR DONE
--- NOTE | 2017-04-15 08:45 | PN- Hematology ---
Subjective Subjective: He remains intubated and sedated. He is on 3 pressors now. Review of Systems: Unable to be obtained due to intubated and sedation. Objective Vital Signs and I&Os Vital Signs Date Time Temp Pulse Resp B/P B/P Pulse O2 O2 Flow FiO2 Mean Ox Delivery Rate 04/15 0821 70 04/15 0800 97.7 120 32 118/0 100 Ventilator 70% 04/15 0800 100 Ventilator 70% 04/15 0651 122 30 130/69 04/15 0553 70. 04/15 0408 70 04/15 0400 95 Ventilator 70% 04/15 0330 124 36 136/73 04/15 0138 70 04/15 0011 120 30 90/60 04/15 0000 95 Ventilator 70% 04/15 0000 97.0 120 30 90/60 95 Ventilator 70% 04/14 2210 70 04/14 2000 99 Ventilator 70% 04/14 1820 70 04/14 1620 70 04/14 1600 96 Ventilator 70% 04/14 1600 97.0 117 30 104/56 96 Ventilator 70% 04/14 1400 70 04/14 1200 96 Ventilator 70% 04/14 1142 70 04/14 0848 75 Intake & Output 04/15 1600 04/15 0800 04/15 0000 04/14 1600 04/14 0800 04/14 0000 Intake Total 2002 2666.3 1075.4 823 868 Output Total 24 0 0 0 20 Balance 1978 2666.3 1075.4 823 848 Intake, IV 2002 2536.3 765.4 823 868 Intake, Oral 0 0 Intake, Tube 30 90 Feeding Intake, Tube 100 220 Irrigant Number 0 0 Bowel Movements Output, Urine 24 0 0 0 20 Patient 78.698 kg Weight Weight Bed scale Measurement Method Physical Exam: General Appearance: sedated, intubated Ears, Nose, Throat: open with tearing Respiratory: no respiratory distress, rhonchi, intubated on 75% FiO2 Cardiovascular: tachycardia, irregularly irregular Abdomen: soft, non-tender, no organomegaly Extremities: 3+ BUE, 1+ BLE edema Neurologic/Psychiatric: intubated and sedated Skin: ecchymosis (diffusely in BUE) Current Medications: Current Medications Sig/Fred Start time Last Medication Dose Route Stop Time Status Admin Albuterol Sulfate 3 ML Q6 PRN 05/18 1130 AC 04/08 INH 1240 Ceftriaxone Sodium 1,000 MG DAILY 04/10 1236 DC 04/14 IV 0923 Chlorhexidine 15 ML BID 04/09 1000 AC 04/14 Gluconate PO 2110 Escitalopram Oxalate 20 MG DAILY 04/09 1000 AC 04/14 PO 0921 Fentanyl Citrate 1,000 MCG Q24H 04/12 0945 AC 04/14 Dextrose/Water 250 ML IV 1013 Ferrous Sulfate 300 MG TID 04/11 2300 AC 04/14 PO 1522 Mirtazapine 7.5 MG AT BEDTIME 04/08 2200 AC 04/11 PO 2225 Norepinephrine 4 MG Q3H 04/15 0000 AC 04/15 Sodium Chloride 250 ML IV 0651 Norepinephrine 4 MG Q13H 04/14 1100 DC Sodium Chloride 250 ML IV Norepinephrine 4 MG Q13H 04/14 1000 DC 04/14 Sodium Chloride 250 ML IV 0546 Pantoprazole Sodium 40 MG BID 04/08 1415 AC 04/14 IV 2110 Phenylephrine HCl 40 MG Q4H 04/15 0000 04/15 Sodium Chloride 250 ML IV 0429 Phenylephrine HCl 40 MG .STK-MED ONE 04/14 2105 DC IM 04/14 210 Phenylephrine HCl 40 MG Q24H 04/14 1830 UT 04/14 Sodium Chloride 250 ML IV 1810 Phenylephrine HCl 40 MG .STK-MED ONE 04/14 1802 DC IM 04/14 180 Polyethylene Glycol 17 GM DAILY 04/09 1000 AC 04/14 PO 0922 Pregabalin 50 MG AT BEDTIME 04/08 2200 AC 04/11 PO 2225 Sodium Bicarbonate 150 MEQ Q8H 04/14 2000 AC 04/15 Dextrose/Water 1,000 ML IV 0429 Sodium Bicarbonate 50 MEQ ONCE ONE 04/14 1700 DC 04/14 IV 04/14 1701 1721 Sodium Bicarbonate 150 MEQ Q13H 04/14 1030 DC 04/14 Dextrose/Water 1,000 ML IV 04/14 1959 1219 Sodium Bicarbonate 150 MEQ ONCE ONE 04/13 2015 DC 04/13 Dextrose/Water 1,000 ML IV 04/14 1134 2139 Sodium Chloride 500 ML BOLUS ONE 04/14 1800 DC 04/14 IV 04/14 1859 1800 Vancomycin HCl 1,000 MG Q24H 04/13 0915 DC 04/13 Sodium Chloride 250 ML IV 0917 Vasopressin 40 UNITS Q16H 04/15 0700 04/15 Sodium Chloride 100 ML IV 0652 Vasopressin 40 UNITS Q16H 04/12 2230 DC 04/14 Sodium Chloride 100 ML IV 0546 Results Last 24 Hours of Lab Results: Laboratory Tests 04/15 04/14 0400 2150 Blood Gas pH (7.35 - 7.45 PH) 7.42 pCO2 (35 - 45 TORR) 26 L pO2 (80 - 100 TORR) 87 HCO3 (21 - 28 MEQ/L) 16 L ABG O2 Sat (Measured) (>96.0 %) 96.0 P-50 (Temp Corrected) N Carboxyhemoglobin (1.5 - 5.0 %) 0.5 L O2 Concentration % 70% Temperature (97.0 - 100.0 FARH) 97.0 Respiration Rate (BPM) 30 O2 Delivery Method ESPRIT Vent Mode AC Expiratory Pressure (CMH2O/P) 8 Tidal Volume (CC) 450 Chemistry Sodium (137 - 145 mmol/L) 145 Potassium (3.5 - 5.1 mmol/L) 4.9 Chloride (98 - 107 mmol/L) 114 H Carbon Dioxide (22 - 30 mmol/L) 16 L Anion Gap (5 - 16) 14 BUN (9 - 20 mg/dL) 46 H Creatinine (0.7 - 1.2 mg/dL) 2.2 H Estimated GFR (>60 ml/min) 29 L Glucose (65 - 99 mg/dL) 146 H Calcium (8.4 - 10.2 mg/dL) 7.1 L Phosphorus (2.5 - 4.5 mg/dL) 6.1 H Magnesium (1.6 - 2.3 mg/dL) 2.0 Total Bilirubin (0.2 - 1.3 mg/dL) 0.7 AST (17 - 59 U/L) 14 L ALT (21 - 72 U/L) 26 Albumin (3.5 - 5.0 g/dL) 2.5 L Coagulation PT (9.4 - 12.5 SEC) 12.7 H INR (0.90 - 1.17) 1.21 H Fibrinogen Activity (200 - 393 MG/DL) 428 H Hematology CBC w Diff MAN DIFF ORDERED WBC (4.8 - 10.8 /CUMM) 123.2 *H RBC (4.70 - 6.10 /CUMM) 4.59 L Hgb (14.0 - 18.0 G/DL) 11.9 L Hct (42 - 52 %) 37.5 L MCV (80.0 - 94.0 FL) 81.8 MCH (27.0 - 31.0 PG) 25.9 L RDW (11.5 - 14.5 %) 19.9 H Plt Count (130 - 400 /CUMM) 110 L MPV (7.4 - 10.4 FL) 11.9 H Gran % (42.2 - 75.2 %) 37.8 L Lymphocytes % (20.5 - 51.1 %) 61.8 H Monocytes % (1.7 - 9.3 %) 0.2 L Eosinophils % (0 - 5 %) 0 Basophils % (0.0 - 2.0 %) 0.2 Absolute Granulocytes (1.4 - 6.5 /CUMM) 46.6 H Segmented Neutrophils (42.2 - 75.2 %) 29 L Absolute Lymphocytes (1.2 - 3.4 /CUMM) 76.1 H Lymphocytes (20.5 - 51.1 %) 71 H Absolute Monocytes (0.10 - 0.60 /CUMM) 0.3 Absolute Eosinophils (0.0 - 0.7 /CUMM) 0 Absolute Basophils (0.0 - 0.2 /CUMM) 0.3 Platelet Estimate (ADEQUATE) ADEQUATE Polychromasia 1+ Hypochromic-Microcytic 1+ Poikilocytosis 2+ Ovalocytes 1+ Rudolph Cells 1+ PUBS MCHC (33.0 - 37.0 G/DL) 31.7 L Miscellaneous Phlebotomy Draw Site RIGHT BRACHIAL Other Body Source Fld Total RBCs Counted (%) 100 Toxicology Random Vancomycin (ug/ml) 16.2 04/14 04/14 04/14 1455 1139 1130 Blood Gas pH (7.35 - 7.45 PH) 7.28 *L pCO2 (35 - 45 TORR) 38 pO2 (80 - 100 TORR) 89 HCO3 (21 - 28 MEQ/L) 17 L ABG O2 Sat (Measured) (>96.0 %) 96.0 P-50 (Temp Corrected) YES Carboxyhemoglobin (1.5 - 5.0 %) 0.3 L O2 Concentration % 70% Temperature (97.0 - 100.0 FARH) 97.4 Respiration Rate (BPM) 30 O2 Delivery Method VENT Vent Mode AC Expiratory Pressure (CMH2O/P) 8 Tidal Volume (CC) 450 Miscellaneous Phlebotomy Draw Site RIGHT BRACHIAL Toxicology Vancomycin Trough Cancelled Random Vancomycin (ug/ml) 16.9 04/14 1005 Blood Gas pH (7.35 - 7.45 PH) 7.32 L pCO2 (35 - 45 TORR) 32 L pO2 (80 - 100 TORR) 136 H HCO3 (21 - 28 MEQ/L) 16 L ABG O2 Sat (Measured) (>96.0 %) 99.0 P-50 (Temp Corrected) YES Carboxyhemoglobin (1.5 - 5.0 %) 0 L O2 Concentration % 75 Temperature (97.0 - 100.0 FARH) 97.4 Respiration Rate (BPM) 30 O2 Delivery Method VENT Vent Mode AC Expiratory Pressure (CMH2O/P) 8 Tidal Volume (CC) 450 Miscellaneous Phlebotomy Draw Site RIGHT BRACHIAL Assessment/Plan Assessment/Recommendations: Mr. 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 He is now on 3 pressors support. His condition remains critical. WBC increased to 123k today. His hemoglobin and platelet have also increased. These are likely hemoconcentrated and reactive. WBC has fluctuated from 40 to 60,000. Fibrinogen and INR have been relatively stable. CBC may be check later today to evaluate the trend. If he continues to significantly increase in WBC (>200,000), consideration can be given to starting Hydrea for cytoreduction but unlikely to help with overall prognosis. For now he may be monitored. 1. Recheck CBC later this evening 2. Monitor INR and fibrinogen 3. Goals of care being addressed by primary team Please call [phone] Problem List: 1. Lung cancer 2. DIC (disseminated intravascular coagulation) 3. CLL (chronic lymphocytic leukemia) 4. Sepsis
--- NOTE | 2017-04-15 09:15 | PN- CRCU ---
Subjective HPI/Critical Care Issues: The patient remains sedated on a fentanyl drip. He remains on mechanical ventilation. His oxygen requirements continued to be elevated noting he is on 70%. The patient is afebrile. There is no more bleeding from the endotracheal tube. He has been noted to be tachycardic however least on rate control due to progressive hypotension. He is now on Levophed, vasopressin and Derrek-Synephrine. The Derrek-Synephrine requirement has improved over the past shift however he is on full dose Levophed and vasopressin. He has had minimal urine output over the past 24 hours. He continues to have significant weeping from the skin on his arms. He continues to do poorly. Objective Current Medications: Current Medications Sig/Fred Start time Last Medication Dose Route Stop Time Status Admin Albuterol Sulfate 3 ML Q6 PRN 04/08 1130 AC 04/08 INH 1240 Ceftriaxone Sodium 1,000 MG DAILY 04/10 1236 DC 04/14 IV 0923 Chlorhexidine 15 ML BID 04/09 1000 AC 04/14 Gluconate PO 211 Escitalopram Oxalate 20 MG DAILY 04/09 1000 AC 04/14 PO 0921 Fentanyl Citrate 1,000 MCG Q24H 04/12 0945 AC 04/14 Dextrose/Water 250 ML IV 1013 Ferrous Sulfate 300 MG TID 04/11 2300 AC 04/14 PO 1522 Mirtazapine 7.5 MG AT BEDTIME 04/08 2200 AC 04/11 PO 2225 Norepinephrine 4 MG Q3H 04/15 0000 AC 04/15 Sodium Chloride 250 ML IV 0651 Norepinephrine 4 MG Q13H 04/14 1100 DC Sodium Chloride 250 ML IV Norepinephrine 4 MG Q13H 04/14 1000 DC 04/14 Sodium Chloride 250 ML IV 0546 Pantoprazole Sodium 40 MG BID 04/08 1415 AC 04/14 IV 2110 Phenylephrine HCl 40 MG Q4H 04/15 0000 AC 04/15 Sodium Chloride 250 ML IV 0429 Phenylephrine HCl 40 MG .STK-MED ONE 04/14 210 DC IM 04/14 210 Phenylephrine HCl 40 MG Q24H 04/14 1830 DC 04/14 Sodium Chloride 250 ML IV 1810 Phenylephrine HCl 40 MG .STK-MED ONE 04/14 1802 DC IM 04/14 1803 Polyethylene Glycol 17 GM DAILY 04/09 1000 AC 04/14 PO 0922 Pregabalin 50 MG AT BEDTIME 04/08 2200 AC 04/11 PO 2225 Sodium Bicarbonate 150 MEQ Q8H 04/14 2000 AC 04/15 Dextrose/Water 1,000 ML IV 0429 Sodium Bicarbonate 50 MEQ ONCE ONE 04/14 1700 DC 04/14 IV 04/14 1701 1721 Sodium Bicarbonate 150 MEQ Q13H 04/14 1030 DC 04/14 Dextrose/Water 1,000 ML IV 04/14 1959 1219 Sodium Bicarbonate 150 MEQ ONCE ONE 04/13 2015 DC 04/13 Dextrose/Water 1,000 ML IV 04/14 1134 2139 Sodium Chloride 500 ML BOLUS ONE 04/14 1800 DC 04/14 IV 04/14 1859 1800 Vancomycin HCl 1,000 MG Q24H 04/13 0915 DC 04/13 Sodium Chloride 250 ML IV 0917 Vasopressin 40 UNITS Q16H 04/15 0700 AC 04/15 Sodium Chloride 100 ML IV 0652 Vasopressin 40 UNITS Q16H 04/12 2230 DC 04/14 Sodium Chloride 100 ML IV 0546 Vital Signs & I&O Last 24 Hrs of Vitals and I&O: Vital Signs Date Time Temp Pulse Resp B/P B/P Pulse O2 O2 Flow FiO2 Mean Ox Delivery Rate 04/15 0821 70 04/15 0800 97.7 120 32 118/0 100 Ventilator 70% 04/15 0800 100 Ventilator 70% 04/15 0651 122 30 130/69 04/15 0553 70. 04/15 0408 70 04/15 0400 95 Ventilator 70% 04/15 0330 124 36 136/73 04/15 0138 70 04/15 0011 120 30 90/60 04/15 0000 95 Ventilator 70% 04/15 0000 97.0 120 30 90/60 95 Ventilator 70% 04/14 2210 70 04/14 2000 99 Ventilator 70% 04/14 1820 70 04/14 1620 70 04/14 1600 96 Ventilator 70% 04/14 1600 97.0 117 30 104/56 96 Ventilator 70% 04/14 1400 70 04/14 1200 96 Ventilator 70% 04/14 1142 70 04/14 0848 75 Intake & Output 04/15 1600 04/15 0800 04/15 0000 Intake Total 2002 2666.3 Output Total 24 0 Balance 1978 2666.3 Intake, IV 2002 2536.3 Intake, Oral 0 Intake, Tube 30 Feeding Intake, Tube 100 Irrigant Number 0 Bowel Movements Output, Urine 24 0 Patient 174 lb Weight Weight Bed scale Measurement Method Physical Exam General Appearance: sedated, intubated, improved bleeding from endotracheal tube Head: atraumatic, normal appearance Neck: normal inspection, supple, full range of motion Respiratory: chest non-tender Cardiovascular: murmur, systolic murmur, irregularly irregular Gastrointestinal: normal bowel sounds, soft, non-tender Extremities: Warm and dry, no edema Results Last 24 Hrs of Lab Results: Laboratory Tests 04/15/17 0400: Anion Gap 14, Estimated GFR 29 L, Glucose 146 H, Calcium 7.1 L, Phosphorus 6.1 H, Magnesium 2.0, Total Bilirubin 0.7, AST 14 L, ALT 26, Albumin 2.5 L, PT 12.7 H, INR 1.21 H, Fibrinogen Activity 428 H, CBC w Diff MAN DIFF ORDERED , RBC 4.59 L, MCV 81.8, MCH 25.9 L, RDW 19.9 H, MPV 11.9 H, Gran % 37.8 L, Lymphocytes % 61.8 H, Monocytes % 0.2 L, Eosinophils % 0, Basophils % 0.2, Absolute Granulocytes 46.6 H, Segmented Neutrophils 29 L, Absolute Lymphocytes 76.1 H, Lymphocytes 71 H, Absolute Monocytes 0.3, Absolute Eosinophils 0, Absolute Basophils 0.3, Platelet Estimate ADEQUATE, Polychromasia 1+, Hypochromic-Microcytic 1+, Poikilocytosis 2+, Ovalocytes 1+, Rudolph Cells 1+, PUBS MCHC 31.7 L, Fld Total RBCs Counted 100, Random Vancomycin 16.2 04/14/17 2150: pH 7.42, pCO2 26 L, pO2 87, HCO3 16 L, ABG O2 Sat (Measured) 96.0, P-50 (Temp Corrected) N, Carboxyhemoglobin 0.5 L, O2 Concentration % 70%, Temperature 97.0 , Respiration Rate 30, O2 Delivery Method ESPRIT, Vent Mode AC, Expiratory Pressure 8, Tidal Volume 450, Phlebotomy Draw Site RIGHT BRACHIAL 04/14/17 1455: pH 7.28 *L, pCO2 38, pO2 89, HCO3 17 L, ABG O2 Sat (Measured) 96.0, P-50 (Temp Corrected) YES, Carboxyhemoglobin 0.3 L, O2 Concentration % 70%, Temperature 97.4, Respiration Rate 30, O2 Delivery Method VENT, Vent Mode AC, Expiratory Pressure 8, Tidal Volume 450, Phlebotomy Draw Site RIGHT BRACHIAL 04/14/17 1139: Random Vancomycin 16.9 04/14/17 1130: Vancomycin Trough Cancelled 04/14/17 1005: pH 7.32 L, pCO2 32 L, pO2 136 H, HCO3 16 L, ABG O2 Sat (Measured) 99.0, P-50 (Temp Corrected) YES, Carboxyhemoglobin 0 L, O2 Concentration % 75, Temperature 97.4, Respiration Rate 30, O2 Delivery Method VENT, Vent Mode AC, Expiratory Pressure 8, Tidal Volume 450, Phlebotomy Draw Site RIGHT BRACHIAL Diagnostic Data CXR Findings: 04/14 - Lines and tubes as above. Stable airspace opacification within the right lung with moderate right pleural effusion. Improved aeration of the left lung in the short interval. Impression/Plan Impression/Plan Impression/Plan: 1. Respiratory failure with aspiration pneumonia, hemoptysis improved. 2. Coagulopathy with DIC. Progressive thrombocytopenia. 3. Right upper extremity DVT. History of IVC filter placement. 4. Atrial fibrillation, previously on Xarelto. 5. History of CLL and lung cancer. 6. Severe malnutrition. 7. Blood loss anemia, acute. 8. Positive troponin. 9. Septic shock secondary to intra-abdominal source and likely aspiration pneumonia. 10. Acute renal failure - probable ATN. 11. NSVT. 12. Increased leukocytosis in the setting of CLL. 13. Right foot ischemia - likely due to pressors. Recommendations: * Follow up renal recommendations. * Stop HCO3 drip and monitor BP. * Continue fentanyl drip for an SAS of 3, and appropriate pain management. * Vancomycin random level today, redose as appropriate, continue ceftriaxone as per ID. * Continue DVT prophylaxis with Alps. * Continue IV Protonix. * Tube feeds on hold. * Attempt to titrate pressors for a mean arterial blood pressure greater than 60 mmHg. * Continue vent bundle. * Continue all supportive care. * The patient has an overall poor prognosis. Further care including CPR/ACLS/ resuscitation is likely to be futile. The patient remains a full code for now.
--- NOTE | 2017-04-15 09:17 | PN- Nephrology ---
Assessment/Plan Assessment: 1. JANNA: severe ATN; no improvement - w/o renal replacement indication but not a dialysis candidate should need arise 2. Met acid: pH now turning alkalemic on bicarb drip Suggestion: 1. favor stopping bicarb drip 2. limits of care Subjective Subjective: Sedated on vent Now on Derrek, Vaso, & NE Anuric Objective Vital Signs and I&Os Vital Signs Date Time Temp Pulse Resp B/P B/P Pulse O2 O2 Flow FiO2 Mean Ox Delivery Rate 04/15 0821 70 04/15 0800 97.7 120 32 118/0 100 Ventilator 70% 04/15 0800 100 Ventilator 70% 04/15 0651 122 30 130/69 04/15 0553 70. 04/15 0408 70 04/15 0400 95 Ventilator 70% 04/15 0330 124 36 136/73 04/15 0138 70 04/15 0011 120 30 90/60 05/ 0000 95 Ventilator 70% / 0000 97.0 120 30 90/60 95 Ventilator 70% 04/14 2210 70 04/14 2000 99 Ventilator 70% 04/14 1820 70 04/14 1620 70 04/14 1600 96 Ventilator 70% 04/14 1600 97.0 117 30 104/56 96 Ventilator 70% 04/14 1400 70 04/14 1200 96 Ventilator 70% 04/14 1142 70 Intake & Output 04/15 1600 04/15 0400 04/14 1600 04/14 0400 04/13 1600 04/13 0400 Intake Total 2002 2666.3 1898.4 868 3566 3562 Output Total 24 0 0 20 44 15 Balance 1978 2666.3 1898.4 848 3522 3547 Intake, IV 2002 2536.3 1588.4 868 3566 3562 Intake, Oral 0 0 0 Intake, Tube 30 90 Feeding Intake, Tube 100 220 Irrigant Number 0 0 0 0 Bowel Movements Output, Urine 24 0 0 20 44 15 Patient 174 lb 183 lb Weight Weight Bed scale Bed scale Measurement Method Physical Exam General Appearance: intubated Head: atraumatic Ears, Nose, Throat: ET & OG tubes Neck: L portacath Respiratory: rhonchi Cardiovascular: regular rate/rhythm, friction rub (none) Abdomen: soft, non-tender Extremities: pedal edema, L ft ischemic Skin: ecchymosis Current Medications: Current Medications Sig/Fred Start time Last Medication Dose Route Stop Time Status Admin Albuterol Sulfate 3 ML Q6 PRN 04/08 1130 AC 04/08 INH 1240 Ceftriaxone Sodium 1,000 MG DAILY 04/10 1236 DC 04/14 IV 0923 Chlorhexidine 15 ML BID 04/09 1000 AC 04/14 Gluconate PO 2110 Escitalopram Oxalate 20 MG DAILY 04/09 1000 AC 04/14 PO 0921 Fentanyl Citrate 1,000 MCG Q24H 04/12 0945 AC 04/14 Dextrose/Water 250 ML IV 1013 Ferrous Sulfate 300 MG TID 04/11 2300 AC 04/14 PO 1522 Mirtazapine 7.5 MG AT BEDTIME 04/08 2200 AC 04/11 PO 2225 Norepinephrine 4 MG Q3H 04/15 0000 AC 04/15 Sodium Chloride 250 ML IV 0651 Norepinephrine 4 MG Q13H 04/14 1100 DC Sodium Chloride 250 ML IV Norepinephrine 4 MG Q13H 04/14 1000 [place] 04/14 Sodium Chloride 250 ML IV 0546 Pantoprazole Sodium 40 MG BID 04/08 1415 AC 04/14 IV 2110 Phenylephrine HCl 40 MG Q4H 04/15 0000 AC 04/15 Sodium Chloride 250 ML IV 0429 Phenylephrine HCl 40 MG .STK-MED ONE 04/14 2105 DC IM 04/14 2106 Phenylephrine HCl 40 MG Q24H 04/14 1830 AK 04/14 Sodium Chloride 250 ML IV 1810 Phenylephrine HCl 40 MG .STK-MED ONE 04/14 1802 DC IM 04/14 1803 Polyethylene Glycol 17 GM DAILY 04/09 1000 AC 04/14 PO 0922 Pregabalin 50 MG AT BEDTIME 04/08 2200 AC 04/11 PO 2225 Sodium Bicarbonate 150 MEQ Q8H 04/14 2000 AC 04/15 Dextrose/Water 1,000 ML IV 0429 Sodium Bicarbonate 50 MEQ ONCE ONE 04/14 1700 DC 04/14 IV 04/14 1701 1721 Sodium Bicarbonate 150 MEQ Q13H 04/14 1030 DC 04/14 Dextrose/Water 1,000 ML IV 04/14 1959 1219 Sodium Bicarbonate 150 MEQ ONCE ONE 04/13 2015 DC 04/13 Dextrose/Water 1,000 ML IV 04/14 1134 2139 Sodium Chloride 500 ML BOLUS ONE 04/14 1800 DC 04/14 IV 04/14 1859 1800 Vancomycin HCl 1,000 MG Q24H 04/13 0915 DC 04/13 Sodium Chloride 250 ML IV 0917 Vasopressin 40 UNITS Q16H 04/15 0700 AC 04/15 Sodium Chloride 100 ML IV 0652 Vasopressin 40 UNITS Q16H 04/12 2230 DC 04/14 Sodium Chloride 100 ML IV 0546 Results Pertinent Lab Results: Laboratory Tests 04/15 04/14 0400 2150 Blood Gas pH (7.35 - 7.45 PH) 7.42 pCO2 (35 - 45 TORR) 26 L pO2 (80 - 100 TORR) 87 HCO3 (21 - 28 MEQ/L) 16 L ABG O2 Sat (Measured) (>96.0 %) 96.0 P-50 (Temp Corrected) N Carboxyhemoglobin (1.5 - 5.0 %) 0.5 L O2 Concentration % 70% Temperature (97.0 - 100.0 FARH) 97.0 Respiration Rate (BPM) 30 O2 Delivery Method ESPRIT Vent Mode AC Expiratory Pressure (CMH2O/P) 8 Tidal Volume (CC) 450 Chemistry Sodium (137 - 145 mmol/L) 145 Potassium (3.5 - 5.1 mmol/L) 4.9 Chloride (98 - 107 mmol/L) 114 H Carbon Dioxide (22 - 30 mmol/L) 16 L Anion Gap (5 - 16) 14 BUN (9 - 20 mg/dL) 46 H Creatinine (0.7 - 1.2 mg/dL) 2.2 H Estimated GFR (>60 ml/min) 29 L Glucose (65 - 99 mg/dL) 146 H Calcium (8.4 - 10.2 mg/dL) 7.1 L Phosphorus (2.5 - 4.5 mg/dL) 6.1 H Magnesium (1.6 - 2.3 mg/dL) 2.0 Total Bilirubin (0.2 - 1.3 mg/dL) 0.7 AST (17 - 59 U/L) 14 L ALT (21 - 72 U/L) 26 Albumin (3.5 - 5.0 g/dL) 2.5 L Coagulation PT (9.4 - 12.5 SEC) 12.7 H INR (0.90 - 1.17) 1.21 H Fibrinogen Activity (200 - 393 MG/DL) 428 H Hematology CBC w Diff MAN DIFF ORDERED WBC (4.8 - 10.8 /CUMM) 123.2 *H RBC (4.70 - 6.10 /CUMM) 4.59 L Hgb (14.0 - 18.0 G/DL) 11.9 L Hct (42 - 52 %) 37.5 L MCV (80.0 - 94.0 FL) 81.8 MCH (27.0 - 31.0 PG) 25.9 L RDW (11.5 - 14.5 %) 19.9 H Plt Count (130 - 400 /CUMM) 110 L MPV (7.4 - 10.4 FL) 11.9 H Gran % (42.2 - 75.2 %) 37.8 L Lymphocytes % (20.5 - 51.1 %) 61.8 H Monocytes % (1.7 - 9.3 %) 0.2 L Eosinophils % (0 - 5 %) 0 Basophils % (0.0 - 2.0 %) 0.2 Absolute Granulocytes (1.4 - 6.5 /CUMM) 46.6 H Segmented Neutrophils (42.2 - 75.2 %) 29 L Absolute Lymphocytes (1.2 - 3.4 /CUMM) 76.1 H Lymphocytes (20.5 - 51.1 %) 71 H Absolute Monocytes (0.10 - 0.60 /CUMM) 0.3 Absolute Eosinophils (0.0 - 0.7 /CUMM) 0 Absolute Basophils (0.0 - 0.2 /CUMM) 0.3 Platelet Estimate (ADEQUATE) ADEQUATE Polychromasia 1+ Hypochromic-Microcytic 1+ Poikilocytosis 2+ Ovalocytes 1+ Rudolph Cells 1+ PUBS MCHC (33.0 - 37.0 G/DL) 31.7 L Miscellaneous Phlebotomy Draw Site RIGHT BRACHIAL Other Body Source Fld Total RBCs Counted (%) 100 Toxicology Random Vancomycin (ug/ml) 16.2 04/14 04/14 04/14 1455 1139 1130 Blood Gas pH (7.35 - 7.45 PH) 7.28 *L pCO2 (35 - 45 TORR) 38 pO2 (80 - 100 TORR) 89 HCO3 (21 - 28 MEQ/L) 17 L ABG O2 Sat (Measured) (>96.0 %) 96.0 P-50 (Temp Corrected) YES Carboxyhemoglobin (1.5 - 5.0 %) 0.3 L O2 Concentration % 70% Temperature (97.0 - 100.0 FARH) 97.4 Respiration Rate (BPM) 30 O2 Delivery Method VENT Vent Mode AC Expiratory Pressure (CMH2O/P) 8 Tidal Volume (CC) 450 Miscellaneous Phlebotomy Draw Site RIGHT BRACHIAL Toxicology Vancomycin Trough Cancelled Random Vancomycin (ug/ml) 16.9 24 04/14 1005 0435 Blood Gas pH (7.35 - 7.45 PH) 7.32 L pCO2 (35 - 45 TORR) 32 L pO2 (80 - 100 TORR) 136 H HCO3 (21 - 28 MEQ/L) 16 L ABG O2 Sat (Measured) (>96.0 %) 99.0 P-50 (Temp Corrected) YES Carboxyhemoglobin (1.5 - 5.0 %) 0 L O2 Concentration % 75 Temperature (97.0 - 100.0 FARH) 97.4 Respiration Rate (BPM) 30 O2 Delivery Method VENT Vent Mode AC Expiratory Pressure (CMH2O/P) 8 Tidal Volume (CC) 450 Chemistry Sodium (137 - 145 mmol/L) 143 Potassium (3.5 - 5.1 mmol/L) 4.7 Chloride (98 - 107 mmol/L) 116 H Carbon Dioxide (22 - 30 mmol/L) 17 L Anion Gap (5 - 16) 11 BUN (9 - 20 mg/dL) 40 H Creatinine (0.7 - 1.2 mg/dL) 1.7 H Estimated GFR (>60 ml/min) 38 L Glucose (65 - 99 mg/dL) 122 H Calcium (8.4 - 10.2 mg/dL) 6.9 L Phosphorus (2.5 - 4.5 mg/dL) 5.9 H Magnesium (1.6 - 2.3 mg/dL) 1.9 Total Bilirubin (0.2 - 1.3 mg/dL) 0.5 AST (17 - 59 U/L) 10 L ALT (21 - 72 U/L) 29 Albumin (3.5 - 5.0 g/dL) 2.0 L Coagulation PT (9.4 - 12.5 SEC) 13.3 H INR (0.90 - 1.17) 1.27 H Fibrinogen Activity (200 - 393 MG/DL) 392 Hematology CBC w Diff MAN DIFF ORDERED WBC (4.8 - 10.8 /CUMM) 40.7 *H RBC (4.70 - 6.10 /CUMM) 3.85 L Hgb (14.0 - 18.0 G/DL) 9.8 L Hct (42 - 52 %) 31.1 L MCV (80.0 - 94.0 FL) 80.7 MCH (27.0 - 31.0 PG) 25.4 L RDW (11.5 - 14.5 %) 19.4 H Plt Count (130 - 400 /CUMM) 76 L MPV (7.4 - 10.4 FL) 10.2 Gran % (42.2 - 75.2 %) 37.5 L Lymphocytes % (20.5 - 51.1 %) 62.0 H Monocytes % (1.7 - 9.3 %) 0.4 L Eosinophils % (0 - 5 %) 0 Basophils % (0.0 - 2.0 %) 0.1 Absolute Granulocytes (1.4 - 6.5 /CUMM) 15.3 H Segmented Neutrophils (42.2 - 75.2 %) 23 L Absolute Lymphocytes (1.2 - 3.4 /CUMM) 25.2 H Lymphocytes (20.5 - 51.1 %) 77 H Absolute Monocytes (0.10 - 0.60 /CUMM) 0.1 L Absolute Eosinophils (0.0 - 0.7 /CUMM) 0 Absolute Basophils (0.0 - 0.2 /CUMM) 0 Platelet Estimate (ADEQUATE) DECREASED Polychromasia 1+ Hypochromic-Microcytic 1+ Poikilocytosis 1+ Anisocytosis 1+ Microcytic Cells 1+ Ovalocytes 1+ PUBS MCHC (33.0 - 37.0 G/DL) 31.5 L Miscellaneous Phlebotomy Draw Site RIGHT BRACHIAL Other Body Source Fld Total RBCs Counted (%) 100 04/14 04/13 04/13 04/13 0050 2344 2014 1899 Blood Gas pH (7.35 - 7.45 PH) 7.31 L 7.27 *L pCO2 (35 - 45 TORR) 32 L 34 L pO2 (80 - 100 TORR) 104 H 71 L HCO3 (21 - 28 MEQ/L) 16 L 15 L ABG O2 Sat (Measured) (>96.0 %) 98.0 92.0 L P-50 (Temp Corrected) Y Y Carboxyhemoglobin (1.5 - 5.0 %) 0.3 L 0.4 L O2 Concentration % 75% 75% Temperature (97.0 - 100.0 FARH) 97.4 98.2 Respiration Rate (BPM) 30 30 O2 Delivery Method ESPRIT VENT Vent Mode AC CMV Expiratory Pressure (CMH2O/P) 8 8 Tidal Volume (CC) 450 450 Chemistry Sodium (137 - 145 mmol/L) 145 Potassium (3.5 - 5.1 mmol/L) 5.0 Chloride (98 - 107 mmol/L) 115 H Carbon Dioxide (22 - 30 mmol/L) 16 L Anion Gap (5 - 16) 14 BUN (9 - 20 mg/dL) 38 H Creatinine (0.7 - 1.2 mg/dL) 1.6 H Estimated GFR (>60 ml/min) 41 L Glucose (65 - 99 mg/dL) 138 H Lactic Acid (0.7 - 2.1 mmol/L) 2.0 Calcium (8.4 - 10.2 mg/dL) 7.0 L Phosphorus (2.5 - 4.5 mg/dL) 5.8 H Magnesium (1.6 - 2.3 mg/dL) 1.9 Total Bilirubin (0.2 - 1.3 mg/dL) 0.6 AST (17 - 59 U/L) 20 ALT (21 - 72 U/L) 14 L Albumin (3.5 - 5.0 g/dL) 2.2 L Miscellaneous Phlebotomy Draw Site LEFT RADIAL RIGHT BRACHIAL 04/13 04/13 1320 0429 Blood Gas pH (7.35 - 7.45 PH) 7.34 L pCO2 (35 - 45 TORR) 29 L pO2 (80 - 100 TORR) 82 HCO3 (21 - 28 MEQ/L) 15 L ABG O2 Sat (Measured) (>96.0 %) 95.0 L P-50 (Temp Corrected) N Carboxyhemoglobin (1.5 - 5.0 %) 0.2 L O2 Concentration % 70% Temperature (97.0 - 100.0 FARH) 96.8 L Respiration Rate (BPM) 30 O2 Delivery Method VENT Vent Mode VC-AC Expiratory Pressure (CMH2O/P) 8 Tidal Volume (CC) 450 Chemistry Sodium (137 - 145 mmol/L) 145 Potassium (3.5 - 5.1 mmol/L) 4.1 Chloride (98 - 107 mmol/L) 112 H Carbon Dioxide (22 - 30 mmol/L) 19 L Anion Gap (5 - 16) 13 BUN (9 - 20 mg/dL) 29 H Creatinine (0.7 - 1.2 mg/dL) 1.0 Estimated GFR (>60 ml/min) > 60 Glucose (65 - 99 mg/dL) 118 H Calcium (8.4 - 10.2 mg/dL) 7.2 L Phosphorus (2.5 - 4.5 mg/dL) 4.1 Magnesium (1.6 - 2.3 mg/dL) 2.0 Total Bilirubin (0.2 - 1.3 mg/dL) 0.7 AST (17 - 59 U/L) 13 L ALT (21 - 72 U/L) 27 Albumin (3.5 - 5.0 g/dL) 2.4 L Coagulation PT (9.4 - 12.5 SEC) 12.0 INR (0.90 - 1.17) 1.14 APTT (25 - 37 SEC) 38 H Fibrinogen Activity (200 - 393 MG/DL) 412 H Fibrin Degrad Products (< 10 ug/ml) > 40 ug/ml H Hematology CBC w Diff MAN DIFF ORDERED WBC (4.8 - 10.8 /CUMM) 67.4 *H RBC (4.70 - 6.10 /CUMM) 4.56 L Hgb (14.0 - 18.0 G/DL) 11.8 L Hct (42 - 52 %) 37.4 L MCV (80.0 - 94.0 FL) 82.1 MCH (27.0 - 31.0 PG) 25.9 L RDW (11.5 - 14.5 %) 19.4 H Plt Count (130 - 400 /CUMM) 98 L MPV (7.4 - 10.4 FL) 11.3 H Gran % (42.2 - 75.2 %) 37.0 L Lymphocytes % (20.5 - 51.1 %) 62.7 H Monocytes % (1.7 - 9.3 %) 0.1 L Eosinophils % (0 - 5 %) 0 Basophils % (0.0 - 2.0 %) 0.2 Absolute Granulocytes (1.4 - 6.5 /CUMM) 25.0 H Segmented Neutrophils (42.2 - 75.2 %) 7 L Band Neutrophils (0.0 - 5.0 %) 7 H Absolute Lymphocytes (1.2 - 3.4 /CUMM) 42.3 H Lymphocytes (20.5 - 51.1 %) 85 H Monocytes (1.7 - 9.3 %) 1 L Absolute Monocytes (0.10 - 0.60 /CUMM) 0.1 L Absolute Eosinophils (0.0 - 0.7 /CUMM) 0 Absolute Basophils (0.0 - 0.2 /CUMM) 0.2 Platelet Estimate (ADEQUATE) DECREASED Polychromasia 1+ Poikilocytosis 1+ Ovalocytes 1+ Rudolph Cells 1+ PUBS MCHC (33.0 - 37.0 G/DL) 31.5 L Miscellaneous Phlebotomy Draw Site RIGHT RADIAL 04/13 04/12 2824 7525 Blood Gas pH (7.35 - 7.45 PH) 7.28 *L pCO2 (35 - 45 TORR) 36 pO2 (80 - 100 TORR) 53 L HCO3 (21 - 28 MEQ/L) 17 L ABG O2 Sat (Measured) (>96.0 %) 89.0 L P-50 (Temp Corrected) Y Carboxyhemoglobin (1.5 - 5.0 %) 0.5 L O2 Concentration % 80% Temperature (97.0 - 100.0 FARH) 97.4 Respiration Rate (BPM) 26 O2 Delivery Method ESPRIT Vent Mode AC Expiratory Pressure (CMH2O/P) 8 Tidal Volume (CC) 450 Chemistry Sodium (137 - 145 mmol/L) 139 Potassium (3.5 - 5.1 mmol/L) 4.0 Chloride (98 - 107 mmol/L) 111 H Carbon Dioxide (22 - 30 mmol/L) 20 L Anion Gap (5 - 16) 8 BUN (9 - 20 mg/dL) 29 H Creatinine (0.7 - 1.2 mg/dL) 0.9 Estimated GFR (>60 ml/min) > 60 Glucose (65 - 99 mg/dL) 128 H Calcium (8.4 - 10.2 mg/dL) 6.5 L Phosphorus (2.5 - 4.5 mg/dL) 3.7 Magnesium (1.6 - 2.3 mg/dL) 1.9 Total Bilirubin (0.2 - 1.3 mg/dL) 0.6 AST (17 - 59 U/L) 11 L ALT (21 - 72 U/L) 29 Albumin (3.5 - 5.0 g/dL) 2.0 L Hematology CBC w Diff MAN DIFF ORDERED WBC (4.8 - 10.8 /CUMM) 43.0 *H RBC (4.70 - 6.10 /CUMM) 3.77 L Hgb (14.0 - 18.0 G/DL) 9.6 L Hct (42 - 52 %) 30.5 L MCV (80.0 - 94.0 FL) 80.9 MCH (27.0 - 31.0 PG) 25.4 L RDW (11.5 - 14.5 %) 19.0 H Plt Count (130 - 400 /CUMM) 80 L MPV (7.4 - 10.4 FL) 9.2 Gran % (42.2 - 75.2 %) 33.4 L Lymphocytes % (20.5 - 51.1 %) 65.6 H Monocytes % (1.7 - 9.3 %) 0.5 L Eosinophils % (0 - 5 %) 0 Basophils % (0.0 - 2.0 %) 0.5 Absolute Granulocytes (1.4 - 6.5 /CUMM) 14.4 H Segmented Neutrophils (42.2 - 75.2 %) 23 L Absolute Lymphocytes (1.2 - 3.4 /CUMM) 28.2 H Lymphocytes (20.5 - 51.1 %) 76 H Monocytes (1.7 - 9.3 %) 1 L Absolute Monocytes (0.10 - 0.60 /CUMM) 0.2 Absolute Eosinophils (0.0 - 0.7 /CUMM) 0 Absolute Basophils (0.0 - 0.2 /CUMM) 0.2 Platelet Estimate (ADEQUATE) VERIFIED BY SMEAR Poikilocytosis 1+ Anisocytosis 1+ Ovalocytes FEW Rudolph Cells FEW Elliptocytes RARE PUBS MCHC (33.0 - 37.0 G/DL) 31.4 L Miscellaneous Phlebotomy Draw Site RIGHT RADIAL Other Body Source Fld Total RBCs Counted (%) 100 04/12 04/12 1730 1610 Blood Gas pH (7.35 - 7.45 PH) 7.39 7.20 *L pCO2 (35 - 45 TORR) 32 L 56 H pO2 (80 - 100 TORR) 127 H 195 H HCO3 (21 - 28 MEQ/L) 19 L 22 ABG O2 Sat (Measured) (>96.0 %) 98.0 98.0 P-50 (Temp Corrected) N N Carboxyhemoglobin (1.5 - 5.0 %) 0.7 L 0.4 L O2 Concentration % 60% 100% Temperature (97.0 - 100.0 FARH) 97.7 97.7 Respiration Rate (BPM) 26 12 O2 Delivery Method ESPRIT ESPRIT Vent Mode AC AC Expiratory Pressure (CMH2O/P) 8 8 Tidal Volume (CC) 450 450 Miscellaneous Phlebotomy Draw Site RIGHT BRACHIAL RIGHT BRACHIAL 04/12 1300 Chemistry Sodium (137 - 145 mmol/L) 141 Potassium (3.5 - 5.1 mmol/L) 3.9 Chloride (98 - 107 mmol/L) 111 H Carbon Dioxide (22 - 30 mmol/L) 22 Anion Gap (5 - 16) 8 BUN (9 - 20 mg/dL) 28 H Creatinine (0.7 - 1.2 mg/dL) 0.8 Estimated GFR (>60 ml/min) > 60 Glucose (65 - 99 mg/dL) 117 H Calcium (8.4 - 10.2 mg/dL) 7.0 L Phosphorus (2.5 - 4.5 mg/dL) 2.4 L Magnesium (1.6 - 2.3 mg/dL) 2.0 Total Bilirubin (0.2 - 1.3 mg/dL) 0.6 AST (17 - 59 U/L) 12 L ALT (21 - 72 U/L) 21 Albumin (3.5 - 5.0 g/dL) 2.2 L Hematology CBC w Diff MAN DIFF ORDERED WBC (4.8 - 10.8 /CUMM) 66.9 *H RBC (4.70 - 6.10 /CUMM) 4.35 L Hgb (14.0 - 18.0 G/DL) 11.1 L Hct (42 - 52 %) 35.0 L MCV (80.0 - 94.0 FL) 80.6 MCH (27.0 - 31.0 PG) 25.4 L RDW (11.5 - 14.5 %) 18.3 H Plt Count (130 - 400 /CUMM) 84 L MPV (7.4 - 10.4 FL) 10.0 Gran % (42.2 - 75.2 %) 33.1 L Lymphocytes % (20.5 - 51.1 %) 66.6 H Monocytes % (1.7 - 9.3 %) 0.2 L Eosinophils % (0 - 5 %) 0.1 Basophils % (0.0 - 2.0 %) 0 L Absolute Granulocytes (1.4 - 6.5 /CUMM) 22.2 H Absolute Lymphocytes (1.2 - 3.4 /CUMM) 44.5 H Absolute Monocytes (0.10 - 0.60 /CUMM) 0.1 L Absolute Eosinophils (0.0 - 0.7 /CUMM) 0.1 Absolute Basophils (0.0 - 0.2 /CUMM) 0 Platelet Estimate (ADEQUATE) DECREASED Polychromasia PUBS MCHC (33.0 - 37.0 G/DL) 31.6 L Imaging/Other Studies: CXR: FINDINGS: The left costophrenic angle and a portion of the left base are excluded from the film. An endotracheal tube terminates approximately 3.9 cm above the imelda. A feeding tube is visualized, tip below the imaged volume. A left subclavian central venous port terminates at the cavoatrial junction. There is stable fairly extensive airspace opacification within the right lung with a moderate right pleural effusion. Mild interstitial prominence within the left lung with improvement in the airspace opacification seen in the mid left lung on this study of 3:35 AM the same day. The osseous structures are not well visualized. No acute osseous abnormalities are evident.
--- NOTE | 2017-04-15 09:36 | PN- Att Addend ---
Attending Addendum Attending Brief Note Patient remains intubated. General Appearance: Intubated Cardiovascular: Loud systolic murmur Lungs: decreased air entry Abdomen: Normal Bowel Sounds, Soft, No Tenderness NL, Reflexes 2+ Extremities: Pedal edema Assessment Patient is likely in DIC with bleeding complications and blood clots involving internal jugular and upper extremity. Bronchial bleeding likely traumatic from suction that has resolved. Hypotensive currently on 3 pressors. Elevated leukocytosis likely mixed etiology. Now in AKF. Prognosis extremely poor. At this point we are waiting decision from Court regarding CODE STATUS. Will hold off on agressive measures like invasive procedures and dialysis as any such meaures will be futile and his current clinical picture is terminal. Plan Continue supportive care per intesivist Follow consults recommendations GI prophylaxis Hold off on agressive measures like invasive procedures and dialysis Prognosis is poor Current Medications Sig/Fred Start time Last Medication Dose Route Stop Time Status Admin Albuterol Sulfate 3 ML Q6 PRN 04/08 1130 AC 04/08 INH 1240 Ceftriaxone Sodium 1,000 MG DAILY 04/15 1000 AC IV Ceftriaxone Sodium 1,000 MG DAILY 04/10 1236 DC 04/14 IV 0923 Chlorhexidine 15 ML BID 04/09 1000 AC 04/14 Gluconate PO 2110 Escitalopram Oxalate 20 MG DAILY 04/09 1000 AC 04/14 PO 0921 Fentanyl Citrate 1,000 MCG Q24H 04/12 0945 AC 04/14 Dextrose/Water 250 ML IV 1013 Ferrous Sulfate 300 MG TID 04/11 2300 AC 04/14 PO 1522 Mirtazapine 7.5 MG AT BEDTIME 04/08 2200 AC 04/11 PO 2225 Norepinephrine 4 MG Q3H 04/15 0000 AC 04/15 Sodium Chloride 250 ML IV 0651 Norepinephrine 4 MG Q13H 04/14 1100 DC Sodium Chloride 250 ML IV Norepinephrine 4 MG Q13H 04/14 1000 DC 04/14 Sodium Chloride 250 ML IV 0546 Pantoprazole Sodium 40 MG BID 04/08 1415 AC 04/14 IV 2110 Phenylephrine HCl 40 MG Q4H 04/15 0000 AC 04/15 Sodium Chloride 250 ML IV 0429 Phenylephrine HCl 40 MG .STK-MED ONE 04/14 2105 DC IM 04/14 2106 Phenylephrine HCl 40 MG Q24H 04/14 1830 DC 04/14 Sodium Chloride 250 ML IV 1810 Phenylephrine HCl 40 MG .STK-MED ONE 04/14 1802 DC IM 04/14 180 Polyethylene Glycol 17 GM DAILY 04/09 1000 AC 04/14 PO 0922 Pregabalin 50 MG AT BEDTIME 04/08 2200 04/11 PO 2225 Sodium Bicarbonate 150 MEQ Q8H 04/14 2000 AC 04/15 Dextrose/Water 1,000 ML IV 0429 Sodium Bicarbonate 50 MEQ ONCE ONE 04/14 1700 DC 04/14 IV 04/14 1701 1721 Sodium Bicarbonate 150 MEQ Q13H 04/14 1030 DC 04/14 Dextrose/Water 1,000 ML IV 04/14 195 1219 Sodium Bicarbonate 150 MEQ ONCE ONE 04/13 2015 DC 04/13 Dextrose/Water 1,000 ML IV 04/14 1134 2139 Sodium Chloride 500 ML BOLUS ONE 04/14 1800 DC 04/14 IV 04/14 1859 1800 Vancomycin HCl 1,000 MG Q24H 04/13 0915 DC 04/13 Sodium Chloride 250 ML IV 0917 Vasopressin 40 UNITS Q16H 04/15 0700 AC 04/15 Sodium Chloride 100 ML IV 0652 Vasopressin 40 UNITS Q16H 04/12 2230 DC 04/14 Sodium Chloride 100 ML IV 0546 Laboratory Tests 04/15 04/14 0400 2150 Blood Gas pH (7.35 - 7.45 PH) 7.42 pCO2 (35 - 45 TORR) 26 L pO2 (80 - 100 TORR) 87 HCO3 (21 - 28 MEQ/L) 16 L ABG O2 Sat (Measured) (>96.0 %) 96.0 P-50 (Temp Corrected) N Carboxyhemoglobin (1.5 - 5.0 %) 0.5 L O2 Concentration % 70% Temperature (97.0 - 100.0 FARH) 97.0 Respiration Rate (BPM) 30 O2 Delivery Method ESPRIT Vent Mode AC Expiratory Pressure (CMH2O/P) 8 Tidal Volume (CC) 450 Chemistry Sodium (137 - 145 mmol/L) 145 Potassium (3.5 - 5.1 mmol/L) 4.9 Chloride (98 - 107 mmol/L) 114 H Carbon Dioxide (22 - 30 mmol/L) 16 L Anion Gap (5 - 16) 14 BUN (9 - 20 mg/dL) 46 H Creatinine (0.7 - 1.2 mg/dL) 2.2 H Estimated GFR (>60 ml/min) 29 L Glucose (65 - 99 mg/dL) 146 H Calcium (8.4 - 10.2 mg/dL) 7.1 L Phosphorus (2.5 - 4.5 mg/dL) 6.1 H Magnesium (1.6 - 2.3 mg/dL) 2.0 Total Bilirubin (0.2 - 1.3 mg/dL) 0.7 AST (17 - 59 U/L) 14 L ALT (21 - 72 U/L) 26 Albumin (3.5 - 5.0 g/dL) 2.5 L Coagulation PT (9.4 - 12.5 SEC) 12.7 H INR (0.90 - 1.17) 1.21 H Fibrinogen Activity (200 - 393 MG/DL) 428 H Hematology CBC w Diff MAN DIFF ORDERED WBC (4.8 - 10.8 /CUMM) 123.2 *H RBC (4.70 - 6.10 /CUMM) 4.59 L Hgb (14.0 - 18.0 G/DL) 11.9 L Hct (42 - 52 %) 37.5 L MCV (80.0 - 94.0 FL) 81.8 MCH (27.0 - 31.0 PG) 25.9 L RDW (11.5 - 14.5 %) 19.9 H Plt Count (130 - 400 /CUMM) 110 L MPV (7.4 - 10.4 FL) 11.9 H Gran % (42.2 - 75.2 %) 37.8 L Lymphocytes % (20.5 - 51.1 %) 61.8 H Monocytes % (1.7 - 9.3 %) 0.2 L Eosinophils % (0 - 5 %) 0 Basophils % (0.0 - 2.0 %) 0.2 Absolute Granulocytes (1.4 - 6.5 /CUMM) 46.6 H Segmented Neutrophils (42.2 - 75.2 %) 29 L Absolute Lymphocytes (1.2 - 3.4 /CUMM) 76.1 H Lymphocytes (20.5 - 51.1 %) 71 H Absolute Monocytes (0.10 - 0.60 /CUMM) 0.3 Absolute Eosinophils (0.0 - 0.7 /CUMM) 0 Absolute Basophils (0.0 - 0.2 /CUMM) 0.3 Platelet Estimate (ADEQUATE) ADEQUATE Polychromasia 1+ Hypochromic-Microcytic 1+ Poikilocytosis 2+ Ovalocytes 1+ [place] Cells 1+ PUBS MCHC (33.0 - 37.0 G/DL) 31.7 L Miscellaneous Phlebotomy Draw Site RIGHT BRACHIAL Other Body Source [place] Total RBCs Counted (%) 100 Toxicology Random Vancomycin (ug/ml) 16.2 04/14 04/14 04/14 1455 1139 1130 Blood Gas pH (7.35 - 7.45 PH) 7.28 *L pCO2 (35 - 45 TORR) 38 pO2 (80 - 100 TORR) 89 HCO3 (21 - 28 MEQ/L) 17 L ABG O2 Sat (Measured) (>96.0 %) 96.0 P-50 (Temp Corrected) YES Carboxyhemoglobin (1.5 - 5.0 %) 0.3 L O2 Concentration % 70% Temperature (97.0 - 100.0 FARH) 97.4 Respiration Rate (BPM) 30 O2 Delivery Method VENT Vent Mode AC Expiratory Pressure (CMH2O/P) 8 Tidal Volume (CC) 450 Miscellaneous Phlebotomy Draw Site RIGHT BRACHIAL Toxicology Vancomycin Trough Cancelled Random Vancomycin (ug/ml) 16.9 04/14 1005 Blood Gas pH (7.35 - 7.45 PH) 7.32 L pCO2 (35 - 45 TORR) 32 L pO2 (80 - 100 TORR) 136 H HCO3 (21 - 28 MEQ/L) 16 L ABG O2 Sat (Measured) (>96.0 %) 99.0 P-50 (Temp Corrected) YES Carboxyhemoglobin (1.5 - 5.0 %) 0 L O2 Concentration % 75 Temperature (97.0 - 100.0 FARH) 97.4 Respiration Rate (BPM) 30 O2 Delivery Method VENT Vent Mode AC Expiratory Pressure (CMH2O/P) 8 Tidal Volume (CC) 450 Miscellaneous Phlebotomy Draw Site RIGHT BRACHIAL Vital Signs Date Time Temp Pulse Resp B/P B/P Pulse O2 O2 Flow FiO2 Mean Ox Delivery Rate 04/15 0821 70 04/15 0800 97.7 120 32 118/0 100 Ventilator 70% 04/15 0800 100 Ventilator 70% 04/15 0651 122 30 130/69 04/15 0553 70. 04/15 0408 70 04/15 0400 95 Ventilator 70% 04/15 0330 124 36 136/73 04/15 0138 70 04/15 0011 120 30 90/60 04/15 0000 95 Ventilator 70% 04/15 0000 97.0 120 30 90/60 95 Ventilator 70% 05 2210 70 05 2000 99 Ventilator 70% 04/14 1820 70 04/14 1620 70 04/14 1600 96 Ventilator 70% 04/14 1600 97.0 117 30 104/56 96 Ventilator 70% 04/14 1400 70 05 1200 96 Ventilator 70% 04/14 1142 70
[2017-04-15 10:22] VITALS: BP 114/65
--- NOTE | 2017-04-15 10:41 | PN- Infect Dx ---
Subjective Subjective: Afebrile. He is now on 3 pressors to maintain his blood pressure. Objective Last 24 Hrs of Vital Signs/I&O Vital Signs Date Time Temp Pulse Resp B/P B/P Pulse O2 O2 Flow FiO2 Mean Ox Delivery Rate 04/15 1022 117 114/65 04/15 0821 70 04/15 0800 97.7 120 32 118/0 100 Ventilator 70% 04/15 0800 100 Ventilator 70% 04/15 0651 122 30 130/69 04/15 0553 70. 04/15 0408 70 04/15 0400 95 Ventilator 70% 04/15 0330 124 36 136/73 04/15 0138 70 04/15 0011 120 30 90/60 05 0000 95 Ventilator 70% 04/15 0000 97.0 120 30 90/60 95 Ventilator 70% 04/14 2210 70 04/14 2000 99 Ventilator 70% 04/14 1820 70 04/14 1620 70 04/14 1600 96 Ventilator 70% 04/14 1600 97.0 117 30 104/56 96 Ventilator 70% 04/14 1400 70 04/14 1200 96 Ventilator 70% 04/14 1142 70 Intake & Output 04/15 1600 04/15 0800 04/15 0000 Intake Total 2002 2666.3 Output Total 24 0 Balance 1978 2666.3 Intake, IV 2002 2536.3 Intake, Oral 0 Intake, Tube 30 Feeding Intake, Tube 100 Irrigant Number 0 Bowel Movements Output, Urine 24 0 Patient 174 lb Weight Weight Bed scale Measurement Method Physical Exam Other Physical Findings: He is sedated, though his eyes are open, on the ventilator with no response Lungs are clear Heart regular rhythm with no murmur Extremities feet are mottled, left greater than right, cold to touch Ritchie catheter remains in place Results Last 24 Hours of Lab Results: Laboratory Tests 04/15 04/14 0400 2150 Blood Gas pH (7.35 - 7.45 PH) 7.42 pCO2 (35 - 45 TORR) 26 L pO2 (80 - 100 TORR) 87 HCO3 (21 - 28 MEQ/L) 16 L ABG O2 Sat (Measured) (>96.0 %) 96.0 P-50 (Temp Corrected) N Carboxyhemoglobin (1.5 - 5.0 %) 0.5 L O2 Concentration % 70% Temperature (97.0 - 100.0 FARH) 97.0 Respiration Rate (BPM) 30 O2 Delivery Method ESPRIT Vent Mode AC Expiratory Pressure (CMH2O/P) 8 Tidal Volume (CC) 450 Chemistry Sodium (137 - 145 mmol/L) 145 Potassium (3.5 - 5.1 mmol/L) 4.9 Chloride (98 - 107 mmol/L) 114 H Carbon Dioxide (22 - 30 mmol/L) 16 L Anion Gap (5 - 16) 14 BUN (9 - 20 mg/dL) 46 H Creatinine (0.7 - 1.2 mg/dL) 2.2 H Estimated GFR (>60 ml/min) 29 L Glucose (65 - 99 mg/dL) 146 H Calcium (8.4 - 10.2 mg/dL) 7.1 L Phosphorus (2.5 - 4.5 mg/dL) 6.1 H Magnesium (1.6 - 2.3 mg/dL) 2.0 Total Bilirubin (0.2 - 1.3 mg/dL) 0.7 AST (17 - 59 U/L) 14 L ALT (21 - 72 U/L) 26 Albumin (3.5 - 5.0 g/dL) 2.5 L Coagulation PT (9.4 - 12.5 SEC) 12.7 H INR (0.90 - 1.17) 1.21 H Fibrinogen Activity (200 - 393 MG/DL) 428 H Hematology CBC w Diff MAN DIFF ORDERED WBC (4.8 - 10.8 /CUMM) 123.2 *H RBC (4.70 - 6.10 /CUMM) 4.59 L Hgb (14.0 - 18.0 G/DL) 11.9 L Hct (42 - 52 %) 37.5 L MCV (80.0 - 94.0 FL) 81.8 MCH (27.0 - 31.0 PG) 25.9 L RDW (11.5 - 14.5 %) 19.9 H Plt Count (130 - 400 /CUMM) 110 L MPV (7.4 - 10.4 FL) 11.9 H Gran % (42.2 - 75.2 %) 37.8 L Lymphocytes % (20.5 - 51.1 %) 61.8 H Monocytes % (1.7 - 9.3 %) 0.2 L Eosinophils % (0 - 5 %) 0 Basophils % (0.0 - 2.0 %) 0.2 Absolute Granulocytes (1.4 - 6.5 /CUMM) 46.6 H Segmented Neutrophils (42.2 - 75.2 %) 29 L Absolute Lymphocytes (1.2 - 3.4 /CUMM) 76.1 H Lymphocytes (20.5 - 51.1 %) 71 H Absolute Monocytes (0.10 - 0.60 /CUMM) 0.3 Absolute Eosinophils (0.0 - 0.7 /CUMM) 0 Absolute Basophils (0.0 - 0.2 /CUMM) 0.3 Platelet Estimate (ADEQUATE) ADEQUATE Polychromasia 1+ Hypochromic-Microcytic 1+ Poikilocytosis 2+ Ovalocytes 1+ Rudolph Cells 1+ PUBS MCHC (33.0 - 37.0 G/DL) 31.7 L Miscellaneous Phlebotomy Draw Site RIGHT BRACHIAL Other Body Source Fld Total RBCs Counted (%) 100 Toxicology Random Vancomycin (ug/ml) 16.2 04/14 04/14 04/14 1455 1139 1130 Blood Gas pH (7.35 - 7.45 PH) 7.28 *L pCO2 (35 - 45 TORR) 38 pO2 (80 - 100 TORR) 89 HCO3 (21 - 28 MEQ/L) 17 L ABG O2 Sat (Measured) (>96.0 %) 96.0 P-50 (Temp Corrected) YES Carboxyhemoglobin (1.5 - 5.0 %) 0.3 L O2 Concentration % 70% Temperature (97.0 - 100.0 FARH) 97.4 Respiration Rate (BPM) 30 O2 Delivery Method VENT Vent Mode AC Expiratory Pressure (CMH2O/P) 8 Tidal Volume (CC) 450 Miscellaneous Phlebotomy Draw Site RIGHT BRACHIAL Toxicology Vancomycin Trough Cancelled Random Vancomycin (ug/ml) 16.9 Last 24 Hours of Matt Results: No recent cultures Assessment/Plan Impression: Condition continues to deteriorate, now requiring 3 pressors and still a significant amount of oxygen, with an increasing right sided density on his recent chest x-ray and with worsening renal failure, felt to be multifactorial. 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 He remains on Vancomycin, which will need to be dosed prn based on his random levels, and Ceftriaxone now Day 8 of treatment for presumed aspiration pneumonia secondary to MRSA and Escherichia coli. His prognosis is quite poor, with little hope for recovery, and he is awaiting a court decision regarding his overall level of care. Suggestion: 1. Await court decision regarding overall level of care 2. Repeat Vancomycin random level in the a.m. 3. Redose with Vancomycin 1 g IV 1 when level is less than 15 4. Continue Ceftriaxone
--- NOTE | 2017-04-15 10:42 | RADIOLOGY REPORT ---
EXAMINATION: XR PORTABLE CHEST CLINICAL INFORMATION: Mechanical ventilator. ET tube position. COMPARISON: Portable chest x-ray dated 04/14/2017, 04/13/2017, 04/12/2017 and 04/11/2017. TECHNIQUE: Portable frontal view of the chest was obtained. FINDINGS: Endotracheal tube tip is approximately 5.8 cm above the imelda. Enteric tubes is seen coursing into the stomach with tip not included. Left subclavian central venous line is in place with tip in the distal SVC. There are persistent extensive airspace opacities in the mid and lower lungs bilaterally, right greater than left with associated air bronchograms. Right apical volume loss and partial collapse is again seen, unchanged. There is a small right-sided pleural effusion. The evaluation is limited as the lung bases bilaterally are not fully included. The imaged portions of the lungs are unchanged compared to 04/14/2017. Bony structures are unremarkable except for diffuse osteopenia. IMPRESSION: 1. Endotracheal tube tip 5.8 cm above the imelda. 2. Enteric tube courses into the stomach with tip not included. 3. Left subclavian central venous line tip in the distal SVC. 4. No significant change in extensive bilateral mid and lower lung opacities, right greater than left with associated small right-sided pleural effusion. 5. No change in right upper lobe partial collapse and consolidation.
--- NOTE | 2017-04-15 12:13 | Event Note ---
Event Note Event Note: At around 11 AM, patient started desaturating to the low 80's on 100% FiO2, and his heart rate went to the 170s. The respiratory therapist Katia, his nurse Reina were at bedside. His blood pressure was 62/30. The ventilator settings were adjusted as per Dr. Orta's recommendations and he was maxed out on [address] Direct Marketing Intern [address]. Ac was informed about the patient's status and he advised to give 1 dose of 0.25 mg IV digoxin to slow down his heart rate. Attending Dr. Nguyen was notified and patient's conservator Mr. Jonel Cline was updated about the his critical condition. Pastoral care was called to the patient's bedside as per his conservator's wishes. The patient continued to desaturate, however his heart rate improved to the 100s with the digoxin. PEA was noted on the monitor at 11.45 a.m. and CODE 3 was called. We coded the patient for one round and he received 1 push of epinephrine. Asystole on the monitor was recorded at 11:47 AM at which time he was pronounced. Patient had no spontaneous movements. No response to verbal or tactile stimuli. Pupils were dilated and fixed. No breath sounds were appreciated over the lung coker. No pulses were palpable. No heart sounds were auscultated over the pericardium. Patient was pronounced at 11:47 AM. Interns Lisa De La Cruz, Flavia Romano, ICU nurses Alexa Huang, Byron Teixeira, respiratory therapist Katia and myself were at bedside throughout the code. The Product Support Sales Representative who was also at bedside offered the last prayers. Dr. Paradise Orta MD, Dr. Beth and Dr. Nguyen presented to the ICU shortly after pronouncement. His conservator Mr. Jonel Cline ([phone]) was informed about the time of and he offered to come to the ICU in 30 minutes.
--- NOTE | 2017-04-15 12:37 | NUR ---
At around 1100- Pt's O2 sats began to desaturate to the low 80's. He as then placed on 100% FIO2 with no improvement. At this time heart rate increased to the 150-160's ? SVT/ST. And BP dropped to 62/30. Repiratory, Dr. De La Cruz, Dr. Barry at the bedside. Dr. Kemp and Dr. Ac notified. 0.25 IV digoxin given per Dr. Ac's recommendations which improved the heart rate. O2 sats however continued to decline to the 60-70's and patient appears agonal on the vent. SBP ranging from 60-70's. O2 sats continue to decline to the 40-60's and at 1143 a code 3 was called when heart rate began to drop and no pulse was noted- patient in PEA. Chest compressions started- See code sheet for futher details. Time of 1147.
--- NOTE | 2017-04-15 13:11 | Discharge Summary ---
Visit Information Visit Dates Admission Date: 04/08/17 Discharge Date: 04/15/17 Hospital Course Course Attending Physician: LOKESH LYNNE MD Primary Care Physician: LOKESH LYNNE MD Allergies: Coded Allergies: No Known Allergies (01/28/17)
--- NOTE | 2017-05-06 14:45 | Discharge Summary ---
Visit Information Visit Dates Admission Date: 04/08/17 Discharge Date: 04/15/17 Hospital Course Course Attending Physician: LOKESH LYNNE MD Primary Care Physician: LOKESH LYNNE MD Consulting Request: Consulting Specialty: Pulmonary Disease Consulting Physician: Anton Lombardi MD Hospital Course: 86 year old male with past medical history significant for CLL status post chemotherapy (has port catheter), questionable lung cancer, DVT and atrial fibrillation, status post IVC filter, anemia, recent colonoscopy [place]07/[address] [facility] chief complaint of coffee-ground emesis and confusion. 1. DIC Initially was positive with low fibrinogen, prolonged INR, elevated d-dimer and fibrinogen split product. Venous Doppler 4 extremities revealed in addition to right internal jugular thrombosis, right profunda femoral vein DVT. 2. Resipratory failure Patient has non-anion gap metabolic acidosis, resulting in respiratory decompensation and failure requiring intubation. He was treated with broad- spectrum antibiotics for possible aspiration pneumonitis/pneumonia. unfortunately patient deteriorated secondary to multiorgan failure and severe bleeding diathesis and ultimately having a cardiac arrest requiring CPR. Patient unfortunately after unsuccessful CPR. At the time of patient was awaiting for orders from court to decide goals of care since his medical condition had become terminal secondary to severe comorbidities as above However, before any orders were received from the Court patient unfortunately had a cardiac arrest and . Allergies: Coded Allergies: No Known Allergies (01/28/17) Significant Procedures: CT abdomen pelvis: 1. Marked gastric distention. The stomach is markedly distended containing both gas and fluid. 2. The incidentally visualized portions of the lung bases demonstrate bilateral dependent airspace disease increased in prominence compared with 01/11/2017. These findings may represent chronic or acute on chronic aspiration pneumonitis. 3. No free intraperitoneal gas. No intestinal dilatation. 4. Diffuse Monckeberg type facet or calcification suspicious for the sequela of long-term diabetes mellitus. Additionally, diffuse calcific atherosclerosis is present including extensive coronary artery calcific atherosclerosis. 4. The incidentally visualized portions of the lung bases demonstrate bilateral dependent airspace disease increased in prominence compared with 01/11/2017. These findings may represent chronic or acute on chronic aspiration pneumonitis. 5. 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 6. L1 vertebral body benign-appearing compression deformity grossly unchanged compared with 01/11/2017. 7. Inferior vena cava filter in situ. 8. Bilateral punctate renal calcifications which may represent vascular calcifications or urolithiasis. No evidence of acute obstructive uropathy. No hydronephrosis or ureterectasis. 9. Bilateral posterolateral rib chronic posttraumatic deformities. 10. Diffuse hepatic steatosis. 11. Status post cholecystectomy. Echocardiogram: CONCLUSIONS Normal size left ventricle. Mild concentric left ventricular hypertrophy. No obvious regional wall motion abnormalities. Normal left ventricular ejection fraction visually estimated at > 60%. "pseudonormal" filling pattern of the left ventricle for age (stage 2 diastolic dysfunction). Normal right ventricular size and function. Normal atrial size. Trace to mild mitral regurgitation. Moderate aortic stenosis. Trace aortic regurgitation. Mild tricuspid regurgitation. Dilated inferior vena cava. Disposition Summary Disposition Principal Diagnosis: respiratory failure Aspiration pneumonia Metabolic acidosis Additional Diagnosis: DIC Discharge Disposition: patient Discharge Instructions General Discharge Information Code Status: Do Not Resucitate/Intubat Patient's Diet: patient Patient's Activity: patient Follow-Up Instructions/Appts: patient in the hospital Copies To: LOKESH LYNNE MD Attending Review Statement Documenting Attending: LOKESH LYNNE MD
== END 2017-04-15 11:53 | disposition expired | DRG 870 ==
LOC: ERH 06:09 → ERHI 09:14 → CRI 09:14 → ENRESERV 13:41 → ENTRNSPT 14:39 → EDTRNSPT 15:05 → EDTRNSPTTYP 15:05 → CRI 15:32 → CMPTRNSPT 15:39 → CRI 04-15 11:53
PROVIDERS: Internal Medicine; Ophthalmology; Pediatrics; Student in an Organized Health Care Education/Training Program; ADMIT Internal Medicine
PROC: 5A1955Z Respiratory Ventilation, Greater than 96 Consecutive Hours (ICD-10-PCS; principal; 2017-04-08)
PROC: 0BH17EZ Insertion of Endotracheal Airway into Trachea, Via Natural or Artificial Opening (ICD-10-PCS; principal; 2017-04-08)
PROC: 0D9670Z Drainage of Stomach with Drainage Device, Via Natural or Artificial Opening (ICD-10-PCS; 2017-04-08)
PROC: 30233N1 Transfusion of Nonautologous Red Blood Cells into Peripheral Vein, Percutaneous Approach (ICD-10-PCS; 2017-04-12)
DX: A41.9 Sepsis, unspecified organism (principal); J69.0 Pneumonitis due to inhalation of food and vomit; J96.01 Acute respiratory failure with hypoxia; D65 Disseminated intravascular coagulation [defibrination syndrome]; R65.21 Severe sepsis with septic shock; K92.0 Hematemesis; K31.1 Adult hypertrophic pyloric stenosis; R64 Cachexia; I24.8 Other forms of acute ischemic heart disease; I48.2 Chronic atrial fibrillation; C91.11 Chronic lymphocytic leukemia of B-cell type in remission; Z79.01 Long term (current) use of anticoagulants; K44.9 Diaphragmatic hernia without obstruction or gangrene; K20.9 Esophagitis, unspecified; Z85.118 Personal history of other malignant neoplasm of bronchus and lung; I10 Essential (primary) hypertension; R62.7 Adult failure to thrive
CPT/HCPCS: 87184; CCU; 36415; 74176; 76775; 81001; 82436; 86920; 87040; 87070; 87071; 87086; 87147; 87449; 87450; 93005; 93010; 93306; 93970; 94799; 96365; 96374; 96375; J0461; J0696; J0713; J1160; J2997; J3010; J3370; J7040; J7042; J7060; P9016; P9035